=== PATIENT | male | born 1940 | race Caucasian/White ===

== ENCOUNTER → 2016-04-29 | Outpatient (CLI) | payer OTHER, MEDICARE ==
[~2016-04-29] MED LIST: APIX1TAB3 PO; DAPT500I IV; FINA5TAB PO; HYDR-4079 PO; PRLSR20 PO; RXC5 PO; SYMIN/8045 INH; TERA5CAP PO; TPRSR/25 PO; TPRSR/50 PO
[2016-04-29 08:38] LABS: BASO % 1.5 %; BASO ABS # 0.08 K/uL (0-0.2); COMPLETE YES; EOS % 11.1 %; HEMATOCRIT 39.1 % (42-52); IG% 0.2 %; LYMPH % 25.2 %; LYMPH ABS # 1.38 K/uL (1.2-3.4); MEAN CELL VOLUME 88.1 fL (80-100); MEAN CORPUSCULAR HEMOGLOBIN 28.4 pg (25-34); MEAN CORPUSCULAR HGB CONC 32.2 g/dl (32-36); MEAN PLATELET VOLUME 9.1 fL (7.4-10.4); MONO % 11.7 %; NEUT % 50.3 %; PLATELET COUNT 275 K/uL (130-400); RED BLOOD COUNT 4.44 M/uL (4.7-6.1); WHITE BLOOD COUNT 5.48 K/uL (4.8-10.8)
[2016-04-29 08:56] LABS: BLOOD UREA NITROGEN 10 mg/dl (7-18); BUN/CREATININE RATIO 10.8 (10-20); CALCIUM 8.9 mg/dl (8.5-10.1); CARBON DIOXIDE 28 mmol/L (21-32); CHLORIDE 104 mmol/L (98-107); CREATININE 0.93 mg/dl (0.60-1.40); GLUCOSE 105 mg/dl (70-99); MAGNESIUM 2.2 mg/dl (1.8-2.4); POTASSIUM 4.1 mmol/L (3.5-5.1); SODIUM 140 mmol/L (136-145)
[2016-04-29 09:01] LABS: TOTAL IRON BINDING CAPACITY 274 mcg/dl (250-450)
--- NOTE | 2016-05-03 11:24 | CODING QUERY MEDICAL NECESSITY ---
SUPPORTING DIAGNOSIS NEEDED A supporting diagnosis is required for the test/procedure performed on this patient in order for us to be reimbursed by the patient's insurance. Please provide a supporting diagnosis for the following test/procedure listed below next to the test name along with your signature. *If there is no additional diagnosis for this patient that would support the following test/procedure please document that below next to the test/procedure. Test(s)/Procedure(s) that require a supporting diagnosis: DOS 04/29 * Vitamin B12 DIAGNOSIS: * Folic Acid DIAGNOSIS: Provider Signature: Date: Thank you Loli Jean Health Information Management Once completed, please kindly fax back to [phone] For questions please call [phone]
== END | disposition home or self-care (01) ==
LOC: C.LAB 07:40
PROVIDERS: ATTEND Family Medicine
DX: E87.6 Hypokalemia (principal); D64.9 Anemia, unspecified

== ENCOUNTER → 2016-10-09 | Outpatient (CLI) | payer OTHER, MEDICARE ==
--- NOTE | 2016-10-09 12:05 | DIAGNOSTIC IMAGING REPORT ---
CT SCAN OF THE CHEST WITHOUT IV CONTRAST CLINICAL HISTORY: Pulmonary nodule follow-up. COMPARISON STUDY: Chest CT dated 03/24/2016 and 06/12/2014. TECHNIQUE: CT scan of the thorax was performed from the thoracic inlet to the upper abdomen. Images are reviewed in the axial, sagittal, and coronal planes. IV contrast was not administered for this examination as per the referring clinician. CT DOSE: 357.97 mGycm FINDINGS: Thyroid: Imaged portions of the thyroid gland are normal in size and attenuation. Thoracic aorta: There is atherosclerotic calcification of the thoracic aorta, which is normal in caliber and demonstrates standard 3-vessel arch anatomy. Heart: The heart is normal in size and without pericardial effusion. Mild pericardial thickening is noted. There are coronary artery calcifications. Lungs and pleural spaces: Moderate emphysema is observed. There is no lobar consolidation or pleural effusion. The trachea and central airways are clear. There are numerous (greater than 10) pulmonary and pleural-based nodules. These are similar in appearance and distribution to the 06/12/2014 examination. [employer] In[employer] nodules measure 6 mm in the right upper lobe as seen on image #113, 5 mm in the right lower lobe on image #191, and 7 mm in the left lower lobe on image #188. Foci of tree-in-bud nodularity at the right apex suggest a mild infectious/inflammatory pneumonitis. Subpleural scarring and calcification are again noted in the lingula. This is also unchanged from 2015. Mediastinum: There are scattered subcentimeter mediastinal lymph nodes. These are not pathologically enlarged by size criteria. Lorraine: Not well assessed without IV contrast. Axillae: There is no axillary lymphadenopathy. Upper abdomen: There is a small hiatal hernia. Partially visualized upper abdominal viscera is within normal limits. Skeletal structures: The Skeletal structures are osteopenic. No lytic or blastic bony lesions are seen. IMPRESSION: 1. Emphysema. 2. There are numerous (greater than 10) pulmonary and pleural-based nodules scattered throughout both lungs measuring up to 7 mm. These are largely unchanged in size and distribution as compared to 06/12/2014. 3. There are mild tree-in-bud airspace opacities in the right upper lobe, likely presenting a mild infectious/inflammatory pneumonitis. Clinical correlation will be required. Extensive consolidative change seen on 03/24/2016 has almost completely resolved. Electronically signed by: Vinh Vasquez M.D. 10/09/2016 12:04 PM Dictated Date/Time: 10/09/2016 11:38 AM
== END | disposition home or self-care (01) ==
LOC: C.CTS 10:26
PROVIDERS: ATTEND Physician Assistant
DX: R91.8 Other nonspecific abnormal finding of lung field (principal)

== ENCOUNTER → 2016-10-25 | Outpatient (CLI) | payer OTHER, MEDICARE | END | disposition home or self-care (01) | LOC: C.LAB 09:08 | PROVIDERS: ATTEND Urology | DX: R97.20 Elevated prostate specific antigen [PSA] (principal) ==

== ENCOUNTER → 2016-11-28 | Outpatient (CLI) | payer OTHER, MEDICARE ==
[2016-11-28 09:54] LABS: BLOOD UREA NITROGEN 14 mg/dl (7-18); BUN/CREATININE RATIO 11.7 (10-20); CALCIUM 8.7 mg/dl (8.5-10.1); CARBON DIOXIDE 25 mmol/L (21-32); CHLORIDE 110 mmol/L (98-107); CHOLESTEROL 166 mg/dl (0-200); CHOLESTEROL/HDL RATIO 3.2; GLUCOSE 109 mg/dl (70-99); HDL CHOLESTEROL 52 mg/dl; LDL CHOLESTEROL CALCULATED 94 mg/dl; POTASSIUM 4.2 mmol/L (3.5-5.1); SODIUM 142 mmol/L (136-145); TRIGLYCERIDES 100 mg/dl (0-150); VERY LOW DENSITY LIPOPROT CALC 20 mg/dl
== END | disposition home or self-care (01) ==
LOC: C.LAB 08:07
PROVIDERS: ATTEND Family Medicine
DX: E78.5 Hyperlipidemia, unspecified (principal); J44.9 Chronic obstructive pulmonary disease, unspecified; I48.91 Unspecified atrial fibrillation; I10 Essential (primary) hypertension; I42.9 Cardiomyopathy, unspecified

== ENCOUNTER → 2017-06-05 | Outpatient (CLI) | payer OTHER, MEDICARE ==
[2017-06-05 09:30] LABS: HEMATOCRIT 42.8 % (42-52); HEMOGLOBIN 14.5 g/dL (14.0-18.0); MEAN CELL VOLUME 94.9 fL (80-100); MEAN CORPUSCULAR HEMOGLOBIN 32.2 pg (25-34); MEAN CORPUSCULAR HGB CONC 33.9 g/dl (32-36); MEAN PLATELET VOLUME 9.9 fL (7.4-10.4); PLATELET COUNT 179 K/uL (130-400); RED CELL DISTRIBUTION WIDTH CV 13.3 % (11.5-14.5); RED CELL DISTRIBUTION WIDTH SD 45.9 fL (36.4-46.3); WHITE BLOOD COUNT 4.14 K/uL (4.8-10.8)
[2017-06-05 09:51] LABS: ALBUMIN 3.3 gm/dl (3.4-5.0); ALT/SGPT 29 U/L (12-78); AST/SGOT 22 U/L (15-37); BLOOD UREA NITROGEN 16 mg/dl (7-18); CALCIUM 8.3 mg/dl (8.5-10.1); CARBON DIOXIDE 22 mmol/L (21-32); CHOLESTEROL 187 mg/dl (0-200); CREATININE 1.28 mg/dl (0.60-1.40); GLUCOSE 116 mg/dl (70-99); POTASSIUM 3.9 mmol/L (3.5-5.1); SODIUM 142 mmol/L (136-145)
[2017-06-05 10:02] LABS: ALKALINE PHOSPHATASE 77 U/L (45-117); LDL CHOLESTEROL CALCULATED 73 mg/dl; TOTAL PROTEIN 6.9 gm/dl (6.4-8.2)
== END | disposition home or self-care (01) ==
LOC: C.LAB 07:35
PROVIDERS: ATTEND Family Medicine
DX: E78.5 Hyperlipidemia, unspecified (principal); J44.9 Chronic obstructive pulmonary disease, unspecified; I48.91 Unspecified atrial fibrillation; I10 Essential (primary) hypertension; R20.2 Paresthesia of skin

== ENCOUNTER → 2017-11-27 | Outpatient (CLI) | payer OTHER, MEDICARE ==
[2017-11-27 09:49] LABS: BASO % 0.9 %; BASO ABS # 0.05 K/uL (0-0.2); EOS % 6.6 %; EOS ABS # 0.37 K/uL (0-0.5); HEMATOCRIT 43.7 % (42-52); HEMOGLOBIN 14.4 g/dL (14.0-18.0); IG# 0.02 K/uL (0.00-0.02); LYMPH % 29.6 %; LYMPH ABS # 1.65 K/uL (1.2-3.4); MEAN PLATELET VOLUME 10.1 fL (7.4-10.4); MONO % 10.2 %; MONO ABS # 0.57 K/uL (0.11-0.59); NEUT % 52.3 %; NEUT ABS # 2.92 K/uL (1.4-6.5); PLATELET COUNT 211 K/uL (130-400); RED CELL DISTRIBUTION WIDTH CV 13.5 % (11.5-14.5); RED CELL DISTRIBUTION WIDTH SD 45.8 fL (36.4-46.3); WHITE BLOOD COUNT 5.58 K/uL (4.8-10.8)
[2017-11-27 10:11] LABS: ALBUMIN 3.3 gm/dl (3.4-5.0); ALKALINE PHOSPHATASE 73 U/L (45-117); ALT/SGPT 26 U/L (12-78); AST/SGOT 20 U/L (15-37); BLOOD UREA NITROGEN 13 mg/dl (7-18); CALCIUM 8.3 mg/dl (8.5-10.1); CARBON DIOXIDE 27 mmol/L (21-32); CHOLESTEROL 155 mg/dl (0-200); CREATININE 1.22 mg/dl (0.60-1.40); GLUCOSE 111 mg/dl (70-99); LDL CHOLESTEROL CALCULATED 70 mg/dl; POTASSIUM 3.5 mmol/L (3.5-5.1); SODIUM 143 mmol/L (136-145); TOTAL PROTEIN 6.6 gm/dl (6.4-8.2)
== END | disposition home or self-care (01) ==
LOC: C.LAB 06:58
PROVIDERS: ATTEND Family Medicine
DX: E78.5 Hyperlipidemia, unspecified (principal); I48.91 Unspecified atrial fibrillation; D64.9 Anemia, unspecified

== ENCOUNTER 2018-09-29 13:15 | Inpatient (IN) ==
[2018-09-29 13:55] LABS: Appearance Urine Cloudy (Clear); Bacteria Urine Automated 4+ (Negative); Bilirubin Urine Negative (Negative); Blood Urine 3+ (Negative); Color Urine Dark Yellow; Glucose Urine UA Negative (Negative); Ketones Urine Negative (Negative); Leukocyte Esterase Urine 3+ (Negative); Nitrite Urine Positive (Negative); Protein Urine 1+ (Negative); RBC Urine Automated >30 /hpf (0-4); Urobilinogen Urine Negative (Negative); WBC Urine Automated >30 /hpf (0-5)
--- NOTE | 2018-09-29 14:01 | XRay Report ---
XR chest 1V portable HISTORY: 78 years-old Male weakness acute weakness COMPARISON: Chest radiograph 08/20/2018 TECHNIQUE: Portable AP view of the chest FINDINGS: Cardiac silhouette is enlarged, unchanged. Prominent epicardial fat pad. Chronic moderate right hemid iaphragmatic elevation. Mild emphysema. No pneumothorax, large pleural effusion or overt pulmonary ed ivelisse. Subsegmental bibasilar opacities suggest probable atelectasis. Degenerative changes of the shoul ders and spine. IMPRESSION: No acute process. The above report was generated using voice recognition software. It may contain grammatical, syntax o r spelling errors. Electronically signed by: Ministerio Waters M.D. 09/29/2018 2:00 PM
[2018-09-29 14:04] LABS: Basophils # (auto) 0.03 K/uL (0-0.2); Basophils % (auto) 0.2 %; Eosinophils # (auto) 0.06 K/uL (0-0.5); Eosinophils % (auto) 0.5 %; Hematocrit (blood only) 41.4 % (42-52); Hemoglobin 13.6 g/dL (14.0-18.0); Immature Granulocytes # (auto) 0.04 K/uL (0.00-0.02); Immature Granulocytes % (auto) 0.3 %; Lymphocytes # (auto) 0.76 K/uL (1.2-3.4); Lymphocytes % (auto) 5.7 %; Mean Corpuscular Hgb Conc 32.9 g/dL (32-36); Mean Corpuscular Volume 90.6 fL (80-100); Mean Platelet Volume 9.7 fL (7.4-10.4); Monocytes # (auto) 1.45 K/uL (0.11-0.59); Monocytes % (auto) 10.9 %; Neutrophils # (auto) 10.91 K/uL (1.4-6.5); Neutrophils % (auto) 82.4 %; Platelet Count 192 K/uL (130-400); RDW Coefficient of Variation 13.5 % (11.5-14.5); RDW Standard Deviation 44.6 fL (36.4-46.3); Red Blood Count 4.57 M/uL (4.7-6.1); White Blood Count 13.25 K/uL (4.8-10.8)
[2018-09-29 14:21] LABS: Albumin Level 3.4 gm/dl (3.4-5.0); Calcium 8.5 mg/dl (8.5-10.1); Creatinine Clr Calc Pharmacy 44.6 ml/min; Est GFR (African American) 52.3; Est GFR (Non-African American) 45.2; Potassium 3.9 mmol/L (3.5-5.1)
[2018-09-29 14:32] LABS: Bilirubin,Total 1.9 mg/dl (0.2-1); Globulin 3.5 gm/dl (2.5-4.0); Total Protein 6.9 gm/dl (6.4-8.2)
[2018-09-29] MEDS: CIPROFLOXACIN 400 MG/200 ML BAG IV STA ×2 (14:52→15:02)
--- NOTE | 2018-09-29 16:01 | Emergency Department Note ---
Entered by Luly Coleman acting as a scribe for History of Present Illness General Chief complaint: Unable to Void Stated complaint: UNABLE TO VOID Time Seen by Provider: 09/29/18 17:36 Source: patient History of Present Illness Provider complaint: Unable to void Onset (ago): day(s) Location: genitals Pain Consistency: + constant Maximum Pain Intensity: 9 Quality: + constant Associated symptoms: + other (Positive: inability to urinate, dysuria, urination frequency ) The patient is an 78 year old male who presents to the ED with complaints of constant inability to urinate that started yesterday afternoon. The patient r eports he has pain when he urinates and does not void a lot when he tries to urinate. He states he has urination frequency. The patient notes he has testicular pain. 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 The patient notes he had a normal bowel movement. . Home Medications Home Medications Medication Instructions Recorded Confirmed Type apixaban [Eliquis] 5 mg PO BID 09/29/18 09/29/18 History budesonide-formoterol [Symbicort] 2 puff INHALATION BID 09/29/18 09/29/18 History ciprofloxacin HCl [Cipro] 500 mg PO BID #28 tab 09/29/18 Rx doxycycline hyclate 100 mg PO BID 09/29/18 09/29/18 History finasteride 5 mg PO QAM 09/29/18 09/29/18 History metoprolol succinate 100 mg PO QAM 09/29/18 09/29/18 History omeprazole 20 mg PO QAM 09/29/18 09/29/18 History terazosin 5 mg PO QAM 09/29/18 09/29/18 History triamcinolone acetonide 1 applic TOPICAL DAILY PRN 09/29/18 09/29/18 History umeclidinium [Incruse Ellipta] 1 inh INHALATION QAM 09/29/18 09/29/18 History Allergies Allergy/AdvReac Type Severity Reaction Status Date / Time No Known Allergies Allergy Unverified 09/29/18 14:17 Past Med/Surg History Medical History COPD (chronic obstructive pulmonary disease) (Chronic) Abscess in epidural space of lumbar spine Atrial fibrillation with RVR (Acute) Atrial flutter with rapid ventricular response (Acute) Discitis of lumbar region Inguinal hernia MRSA (methicillin resistant Staphylococcus aureus) septicemia Osteomyelitis Right leg swelling (Acute) Septic discitis of lumbosacral region BPH (benign prostatic hyperplasia) Esophageal dilatation HLD (hyperlipidemia) HTN (hypertension) Surgical History H/O inguinal hernia repair History of lumbar laminectomy History of tonsillectomy Family History Father Bowel perforation Mother Parkinson disease Other No known health problems Social History Preferred Language: Wolof Communication Ability: Effective Consumer Relations Complaint Clerk Required: No Beliefs That Will Affect Care: None marital status: Current Living Situation: Spouse current occupational status: retired Other Information That Helps Us Care for You: No Feels Safe at Home: Yes Safety Concerns: Feels Safe At This Time Smoking Status: Former smoker Tobacco Type: cigarettes packs per day: 1 Years Smoked: 30 Cigarettes Per Day: 20 Tobacco Cessation Education Requested by Patient: No Hx Alcohol Use: Yes Alcohol type: beer and hard liquor Hx Substance Use: No Review of Systems See HPI for pertinent positives & negatives. and A total of 10 systems reviewed and were otherwise negative Physical Exam Vital Signs Vital Signs - 24 hr 09/29/18 13:17 09/29/18 15:03 Temperature 36.9 C Temperature Source Oral Sepsis Recent Fever Within 48 Hours No Sepsis New/Unexplained Change in Mental Status No Sepsis Action Taken by Nursing No Action Required Pulse Rate 102 H Pulse Rate [Left] 79 Pulse Rhythm [Left] Regular Pulse Strength [Left] Normal Respiratory Rate 18 18 Respiratory Effort / Characteristics Non-Labored Spontaneous Non-Labored Spontaneous Respiratory Depth Normal Normal Respiratory Pattern Regular Blood Pressure 161/68 H Blood Pressure [Left Arm] 133/88 Blood Pressure Mean 99 Blood Pressure Mean [Left Arm] 103 Blood Pressure Position Sitting Blood Pressure Position [Left Arm] Lying Pulse Oximetry 96 98 Oxygen Delivery Method Room Air Room Air Vital signs reviewed. General: Well-appearing, elderly, in no significant distress. HEENT: No scleral icterus, PERRLA, neck supple. Atraumatic. Cardiovascular: Regular rate and rhythm, no extra sounds. Pulmonary: Clear to auscultation bilaterally, normal work of breathing. Abdomen: Soft, nontender, nondistended, positive bowel sounds. Musculoskeletal: Atraumatic, no peripheral edema. Neurologic: Patient awake alert and oriented x 3, full strength in all 4 extremities. Cranial nerves 2 through 12 grossly intact. Skin: Warm, dry, no rash Course 1332:The patient was evaluated in room B12B. A complete history and physical examination was performed. 1535: Upon reevaluation, the patient appeared to have improvement of his symptoms. I discussed findings with the patient. The patient verbalized agreement of the treatment plan. The patient was discharged home. Administered Medications Apixaban (Eliquis) 5 mg PO BID [facility] Stop: 10/29/18 20:59 Last Admin: 09/30/18 21:16 Dose: 5 mg Documented by: [id number] Admin: 09/30/18 08:12 Dose: 5 mg Documented by: [id number] Admin: 09/29/18 20:23 Dose: 5 mg Documented by: [id number] Budesonide/Formoterol Fumarate (Symbicort 80mcg/4.5mcg) 2 puffs INH BID [facility] Stop: 10/29/18 20:59 Last Admin: 09/30/18 21:17 Dose: 2 puffs Documented by: [id number] Admin: 09/30/18 08:12 Dose: 2 puffs Documented by: [id number] Admin: 09/29/18 20:23 Dose: 2 puffs Documented by: [id number] Doxycycline Hyclate (Vibramycin) 100 mg PO BID [facility]; Protocol Stop: 10/30/18 10:59 Last Admin: 09/30/18 21:16 Dose: 100 mg Documented by: [id number] Admin: 09/30/18 14:38 Dose: 100 mg Documented by: [id number] Finasteride (Proscar) 5 mg PO QAM [facility] Stop: 10/30/18 08:59 Last Admin: 09/30/18 08:12 Dose: 5 mg Documented by: [id number] Sodium Chloride (Nss 1000ml) 1,000 mls @ 125 mls/hr IV .Q8H VIANEY Stop: 10/29/18 18:59 Last Infusion: 09/30/18 03:24 Dose: 0 mls/hr Documented by: [id number] Admin: 09/30/18 03:21 Dose: Not Given Documented by: [id number] Infusion: 09/30/18 03:20 Dose: 0 mls/hr Documented by: [id number] Admin: 09/29/18 20:22 Dose: 125 mls/hr Documented by: [id number] Levofloxacin/Dextrose (Levaquin/D5w) 500 mg in 100 mls @ 100 mls/hr IV Q24H [facility] Stop: 10/05/18 19:59 Last Infusion: 09/30/18 22:25 Dose: 0 mls/hr Documented by: [id number] Admin: 09/30/18 21:16 Dose: 100 mls/hr Documented by: [id number] [facility] Su[facility] ([facility] Xl) [facility] Stop: 10/30/18 08:59 Last Admin: 09/30/18 08:13 Dose: 100 mg Documented by: [id number] Pantoprazole Sodium (Protonix) [facility] Stop: 10/30/18 08:59 Last Admin: 09/30/18 08:12 Dose: 40 mg Documented by: [id number] Phenazopyridine HCl (Pyridium) 200 mg PO TID PRN PRN Reason: Dysuria Stop: 10/29/18 20:02 Last Admin: 09/30/18 17:16 Dose: 200 mg Documented by: [id number] Admin: 09/29/18 20:25 Dose: 200 mg Documented by: [id number] Terazosin HCl (Hytrin) 5 mg PO QPM [facility] Stop: 10/29/18 20:59 Last Admin: 09/30/18 21:17 Dose: 5 mg Documented by: [id number] Admin: 09/29/18 20:57 Dose: Not Given Documented by: [id number] Discontinued Medications Acetaminophen (Tylenol) 1,000 mg PO NOW STA Stop: 09/29/18 17:13 Last Admin: 09/29/18 18:11 Dose: 1,000 mg Documented by: [id number] Amiodarone HCl/Dextrose (Nexterone / D5w) Confirm Administered Dose 360 mg IV .STK-MED ONE Stop: 09/29/18 20:48 Last Admin: 09/29/18 20:57 Dose: Not Given Documented by: [id number] Amiodarone HCl (Cordarone Iv Bolus / Drip) 1 ea IV NOW STA; Protocol Stop: 09/29/18 20:38 Last Admin: 09/29/18 22:09 Dose: Not Given Documented by: [id number] Ciprofloxacin (Cipro) 400 mg in 200 mls @ 200 mls/hr IV NOW STA Stop: 09/29/18 15:35 Last Infusion: 09/29/18 17:28 Dose: 0 mls/hr Documented by: [id number] Admin: 09/29/18 15:02 Dose: 200 mls/hr Documented by: [id number] Infusion: 09/29/18 15:02 Dose: 200 mls/hr Documented by: [id number] Admin: 09/29/18 14:52 Dose: 200 mls/hr Documented by: [id number] Sodium Chloride (Nss 1000ml) 1,000 mls @ 125 mls/hr IV .Q8H STA Stop: 09/30/18 01:05 Last Infusion: 09/29/18 19:00 Dose: 0 mls/hr Documented by: [id number] Admin: 09/29/18 17:52 Dose: 125 mls/hr Documented by: [id number] Sodium Chloride (Nss) 500 mls @ 999 mls/hr IV .Q31M VIANEY Stop: 09/29/18 17:45 Last Infusion: 09/29/18 17:52 Dose: 0 mls/hr Documented by: [id number] Admin: 09/29/18 17:30 Dose: 999 mls/hr Documented by: [id number] Vancomycin HCl 1,750 mg/ (Sodium Chloride) 535 mls @ 200 mls/hr IV NOW ONE; Protocol Stop: 09/29/18 19:46 Last Infusion: 09/29/18 21:05 Dose: 0 mls/hr Documented by: [id number] Admin: 09/29/18 18:12 Dose: 200 mls/hr Documented by: [id number] Cefepime HCl 2,000 mg/ Syringe 20 mls @ 5.5 mls/min IV NOW STA Stop: 09/29/18 17:23 Last Admin: 09/29/18 18:12 Dose: 5.5 mls/min Documented by: [id number] Cefepime HCl 2,000 mg/ Syringe 20 mls @ 5 mls/min IV Q12H VIANEY; Protocol Stop: 10/10/18 05:59 Last Admin: 09/30/18 05:27 Dose: 5 mls/min Documented by: [id number] Sodium Chloride (Nss 1000ml) 1,000 mls @ 999 mls/hr IV .Q1H1M ONE Stop: 09/29/18 20:16 Last Infusion: 09/29/18 20:01 Dose: 0 mls/hr Documented by: [id number] Admin: 09/29/18 19:00 Dose: 999 mls/hr Documented by: [id number] Amiodarone HCl/Dextrose (Nexterone / D5w) 150 mg in 100 mls @ 600 mls/hr IV ONE STA Stop: 09/29/18 20:46 Last Infusion: 09/29/18 21:22 Dose: 0 mls/hr Documented by: [id number] Cosigned by: [id number] Admin: 09/29/18 20:55 Dose: 600 mls/hr Documented by: [id number] Cosigned by: [id number] Amiodarone HCl/Dextrose (Nexterone / D5w) 360 mg in 200 mls @ 16.667 mls/hr IV .Q12H VIANEY Stop: 10/30/18 02:59 Last Infusion: 09/30/18 12:01 Dose: 0 mg/min, 0 mls/hr Documented by: [id number] Cosigned by: [id number] Admin: 09/30/18 03:05 Dose: 0.5 mg/min, 16.7 mls/hr Documented by: [id number] Cosigned by: [id number] Amiodarone HCl/Dextrose (Nexterone / D5w) 360 mg in 200 mls @ 33.333 mls/hr IV .Q6H VIANEY Stop: 09/30/18 02:59 Last Infusion: 09/30/18 03:05 Dose: 0 mg/min, 0 mls/hr Documented by: [id number] Cosigned by: [id number] Admin: 09/29/18 21:10 Dose: 1 mg/min, 33.3 mls/hr Documented by: [id number] Cosigned by: [id number] Magnesium Sulfate/Dextrose (Magnesium Sulfate / D5w) 1 gm in 100 mls @ 100 mls/hr IV Q1H VIANEY Stop: 09/30/18 05:44 Last Infusion: 09/30/18 05:28 Dose: 0 mls/hr Documented by: [id number] Admin: 09/30/18 04:35 Dose: 100 mls/hr Documented by: [id number] Infusion: 09/30/18 04:35 Dose: 100 mls/hr Documented by: [id number] Admin: 09/30/18 03:38 Dose: 100 mls/hr Documented by: [id number] Vancomycin HCl 1,250 mg/ (Sodium Chloride) 275 mls @ 125 mls/hr IV Q16H [facility]; Protocol Stop: 10/09/18 17:59 Last Infusion: 09/30/18 09:42 Dose: 0 mls/hr Documented by: [id number] Admin: 09/30/18 08:33 Dose: 125 mls/hr Documented by: [id number] Metoprolol Tartrate (Lopressor) 5 mg IV, NOW STA Stop: 09/29/18 17:07 Last Admin: 09/29/18 20:31 Dose: Not Given Documented by: [id number] Medical Decision Making Differential Diagnosis Differential Diagnosis: Prostatitis , urinary retention, UTI, medication affect, sepsis, diverticulitis, kidney stone Medical Records Attestation: I reviewed the patient's medical records. Home Medications Current Medication List: was personally reviewed by me Laboratory Data Attestation: I reviewed the patient's lab results. Result diagrams: 09/30/18 02:23 10/01/18 05:21 Lab Results 09/29/18 09/29/18 09/29/18 Range/Units 13:40 13:47 13:47 WBC 13.25 H (4.8-10.8) K/uL RBC 4.57 L (4.7-6.1) M/uL Hgb 13.6 L (14.0-18.0) g/dL Hct 41.4 L (42-52) % MCV 90.6 (80-100) fL MCH 29.8 (25-34) pg MCHC 32.9 (32-36) g/dL RDW Std Deviation 44.6 (36.4-46.3) fL RDW Coeff of Anup 13.5 (11.5-14.5) % Plt Count 192 (130-400) K/uL MPV 9.7 (7.4-10.4) fL Immature Gran % (Auto) 0.3 % Neut % (Auto) 82.4 % Lymph % (Auto) 5.7 % [place] % (Auto) 10.9 % Eos % (Auto) 0.5 % Baso % (Auto) 0.2 % Immature Gran # (Auto) 0.04 H (0.00-0.02) K/uL Neut # (Auto) 10.91 H (1.4-6.5) K/uL Lymph # (Auto) 0.76 L (1.2-3.4) K/uL [place] # (Auto) 1.45 H (0.11-0.59) K/uL Eos # (Auto) 0.06 (0-0.5) K/uL Baso # (Auto) 0.03 (0-0.2) K/uL Sodium 142 (136-145) mmol/L Potassium 3.9 (3.5-5.1) mmol/L Chloride 107 (98-107) mmol/L Carbon Dioxide 27 (21-32) mmol/L Anion Gap 8.0 (3-11) BUN 16 (7-18) mg/dl Creatinine 1.45 H (0.6-1.4) mg/dl Est Cr Clr Drug Dosing 44.6 ml/min Est GFR ( Amer) 52.3 Est GFR (Non-Af Amer) 45.2 BUN/Creatinine Ratio 11.0 (10-20) Glucose 126 H (70-99) mg/dl POC Lactic Acid Leandro (0.90-1.70) mmol/L Calcium 8.5 (8.5-10.1) mg/dl Magnesium (1.8-2.4) mg/dl Total Bilirubin 1.9 H (0.2-1) mg/dl AST 21 (15-37) U/L ALT 29 (12-78) U/L Alkaline Phosphatase 77 (45-117) U/L Troponin I (0-0.045) ng/ml Total Protein 6.9 (6.4-8.2) gm/dl Albumin 3.4 (3.4-5.0) gm/dl Globulin 3.5 (2.5-4.0) gm/dl Albumin/Globulin Ratio 1.0 (0.9-2) TSH 0.914 (0.300-4.500) uIu/ml Urine Color Dark Yellow Urine Appearance Cloudy A (Clear) Urine pH 6.0 (4.5-7.5) Ur Specific [place] 1.020 (1.000-1.030) Urine Protein 1+ H (Negative) Urine Glucose (UA) Negative (Negative) Urine Ketones Negative (Negative) Urine Blood 3+ H (Negative) Urine Nitrite Positive A (Negative) Urine Bilirubin Negative (Negative) Urine Urobilinogen Negative (Negative) Ur Leukocyte Esterase 3+ H (Negative) Urine WBC (Auto) >30 H (0-5) /hpf Urine RBC (Auto) >30 H (0-4) /hpf U Hyaline Cast (Auto) 1-5 (0-5) /lpf U Epithel Cells (Auto) 10-20 H (0-5) /lpf Urine Bacteria (Auto) 4+ H (Negative) 09/29/18 09/29/18 Range/Units 13:47 17:34 WBC (4.8-10.8) K/uL RBC (4.7-6.1) M/uL Hgb (14.0-18.0) g/dL Hct (42-52) % MCV (80-100) fL MCH (25-34) pg MCHC (32-36) g/dL RDW Std Deviation (36.4-46.3) fL RDW Coeff of Anup (11.5-14.5) % Plt Count (130-400) K/uL MPV (7.4-10.4) fL Immature Gran % (Auto) % Neut % (Auto) % Lymph % (Auto) % [place] % (Auto) % Eos % (Auto) % Baso % (Auto) % Immature Gran # (Auto) (0.00-0.02) K/uL Neut # (Auto) (1.4-6.5) K/uL Lymph # (Auto) (1.2-3.4) K/uL [place] # (Auto) (0.11-0.59) K/uL Eos # (Auto) (0-0.5) K/uL Baso # (Auto) (0-0.2) K/uL Sodium (136-145) mmol/L Potassium (3.5-5.1) mmol/L Chloride (98-107) mmol/L Carbon Dioxide (21-32) mmol/L Anion Gap (3-11) BUN (7-18) mg/dl Creatinine (0.6-1.4) mg/dl Est Cr Clr Drug Dosing ml/min Est GFR ( Amer) Est GFR (Non-Af Amer) BUN/Creatinine Ratio (10-20) Glucose (70-99) mg/dl POC Lactic Acid Leandro 2.78 H (0.90-1.70) mmol/L Calcium (8.5-10.1) mg/dl Magnesium 2.1 (1.8-2.4) mg/dl Total Bilirubin (0.2-1) mg/dl AST (15-37) U/L ALT (12-78) U/L Alkaline Phosphatase (45-117) U/L Troponin I < 0.015 (0-0.045) ng/ml Total Protein (6.4-8.2) gm/dl Albumin (3.4-5.0) gm/dl Globulin (2.5-4.0) gm/dl Albumin/Globulin Ratio (0.9-2) TSH (0.300-4.500) uIu/ml Urine Color Urine Appearance (Clear) Urine pH (4.5-7.5) Ur Specific [place] (1.000-1.030) Urine Protein (Negative) Urine Glucose (UA) (Negative) Urine Ketones (Negative) Urine Blood (Negative) Urine Nitrite (Negative) Urine Bilirubin (Negative) Urine Urobilinogen (Negative) Ur Leukocyte Esterase (Negative) Urine WBC (Auto) (0-5) /hpf Urine RBC (Auto) (0-4) /hpf U Hyaline Cast (Auto) (0-5) /lpf U Epithel Cells (Auto) (0-5) /lpf Urine Bacteria (Auto) (Negative) Imaging Data Radiologist's Impression: Radiology results as stated below per my review and the radiologist's interpretation: XR chest 1V portable HISTORY: 78 years-old Male weakness acute weakness COMPARISON: Chest radiograph 08/20/2018 TECHNIQUE: Portable AP view of the chest FINDINGS: Cardiac silhouette is enlarged, unchanged. Prominent epicardial fat pad. Chronic moderate right hemidiaphragmatic elevation. Mild emphysema. No pneumothorax, large pleural effusion or overt pulmonary edema. Subsegmental bibasilar opacities suggest probable atelectasis. Degenerative changes of the shoulders and spine. IMPRESSION: No acute process. The above report was generated using voice recognition software. It may contain grammatical, syntax or spelling errors. Electronically signed by: Ministerio Waters M.D. 09/29/2018 2:00 PM Blood Pressure Blood Pressure Findings: Normal blood pressure Blood Pressure Disposition: did not require urgent referral MDM Narrative This pt was evaluated and appeared to be in no distress. IV access was obtained and lab work was drawn. Pt was placed on the registered nurse cardiac. Pt noted to have stable VS and is afebrile. IVF were initiated. UA is indicative of infection, but no cx were seen in EMR after several searches. Pt states he had MRSA of spine and is on doxycycline. WBC is just over 13. Pt was loaded with IV cipro 400 mg. He was reevaluated and was growing anxious for d/c. He was reassured at the bedside. Plan for close f.u with PCP and urology in 2-3 days. He will continue po cipro until cx are available. He will RTED for worsening of symptoms or any medical concerns. Impression & Plan UTI (urinary tract infection), Dysuria Discharge Plan Visit Data *Final* Discharge Date/Time: 09/29/18 18:11 Chief Complaint: Unable to Void Stated Complaint: UNABLE TO VOID ED Provider: Leandro Mcfarlane Discharge Problem: UTI (urinary tract infection), Dysuria Patient Disposition: Home - Self-Care Condition: Good Discharge Instructions Interventions: ED Discharge Assessment Last Done: 09/29/18 18:11 Discharge Problem: UTI (urinary tract infection) Qualifiers: Urinary tract infection type: acute cystitis Hematuria presence: without hem aturia Qualified Code(s): N30.00 - Acute cystitis without hematuria The scribe's documentation has been prepared under my direction and personally reviewed by me in its entirety. I confirm that the note above accurately reflects all work, treatment, procedures, and medical decision making performed by me.
[2018-09-29] MEDS ORDERED: VANCOMYCIN HCL 1,750 MG in SODIUM CHLORIDE 0.9% 500 ML IV ONE (17:06)
[2018-09-29] MEDS ORDERED: METOPROLOL TARTRATE 1 MG/ML VIAL IV, STA (17:06)
[2018-09-29] MEDS ORDERED: VANCOMYCIN CONSULT ACTIVE PRN (17:06)
[2018-09-29] MEDS ORDERED: SODIUM CHLORIDE 0.9% 1000ML 1,000 ML IV STA (17:06)
[2018-09-29] MEDS ORDERED: ACETAMINOPHEN 500 MG TAB PO STA (17:12)
[2018-09-29] MEDS ORDERED: SODIUM CHLORIDE 0.9% 500 ML IV SCH (17:15)
[2018-09-29] MEDS ORDERED: CEFEPIME 2,000 MG in SYRINGE 7.5 ML IV STA (17:20)
--- NOTE | 2018-09-29 17:36 | Emergency Department Note ---
ED Visit Note The patient was seen initially by Dr. Vickers. Please see her note. Patient presented because of urinary symptoms. He has a history of frequent UTIs. The patient's urinalysis did show signs concerning for a urinary tract infection. He also had a leukocytosis. He received IV Cipro and was being discharged by his nurse when she noticed his heart rate was very high. She found a heart rate between 130 and 150 bpm. The patient did have a history of A. fib as well. He also has a history of MRSA osteomyelitis and discitis. The patient denies any back pain. I evaluated the patient. I found him to be tachycardic. He was resting comfortably and noted chills. He was still having frequent urinary infections. There did not appear to be any issues with the IV infusion site. His cardiac exam revealed tachycardia. An ECG was performed and showed a poor baseline due to his chills and shaking however it appeared that he had a sinus t achycardia with frequent PVCs when compared to his prior ECG. It appeared to have 2 PVCs after every sinus beat. The patient was ordered IV Lopressor however this was held. I did have the nurse perform orthostatic blood pressure testing and he went from 145 systolic sitting to 99 systolic standing. He was still very tachycardic. At that point in time patient agreed to have an IV established. I do not examined the patient and he felt warm to the touch. I performed a temperature orally and this was 102.3. My concern is that he is showing signs of sepsis. Blood cultures and a point of care lactate were ordered. Vancomycin and cefepime were ordered based upon his medical history. I did discuss the case with the ED pharmacist. The patient was agreeable to the plan. I did recommend admission to the hospital. I consulted with the [facility] hospitalist service and discussed the case with Kelly with the service. The patient will be admitted under Dr. Gardner. GENERAL: Awake, alert, uncomfortable-appearing, shaky but in no distress HENT: Normocephalic, atraumatic. Oropharynx unremarkable. EYES: Normal conjunctiva. Sclera non-icteric. NECK: Inspection normal. Non-tender. Supple. No nuchal rigidity. FROM. No masses. RESPIRATORY: Clear to auscultation. No wheezes. No rales. Normal respiratory effort. CARDIAC: Tachycardic rate. Irregular rhythm. No murmurs. No rubs. Extremities warm and well perfused. Pulses equal. No JVD. GI: Soft, non-distended. No tenderness to palpation. No rebound or guarding. No masses. RECTAL: Deferred. MUSCULOSKELETAL: Atraumatic. Chest examination reveals no tenderness. The back is symmetrical on inspection without obvious abnormality. There is no CVA tenderness to palpation. No joint edema. LOWER EXTREMITIES: Calves are equal size bilaterally and non-tender. Trace pedal edema. Mild chronic venous discoloration. NEURO: Normal sensorium. No sensory or motor deficits noted although mildly unsteady gait. SKIN: No rash or jaundice noted. Blood cultures were obtained. The patient had a lactate performed and it was elevated at 2.7. Impression: Sepsis from urinary source Disposition: Admitted . : UTI (urinary tract infection) Qualifiers: Urinary tract infection type: acute cystitis Hematuria presence: without hematuria Qualified Code(s): N30.00 - Acute cystitis without hematuria
[2018-09-29 18:28] LABS: Magnesium 2.1 mg/dl (1.8-2.4); Troponin I < 0.015 ng/ml (0-0.045)
[2018-09-29] MEDS ORDERED: POLYETHYLENE (MIRALAX) 17 GM PACK PO PRN (18:38)
[2018-09-29] MEDS ORDERED: ONDANSETRON INJ 2 MG/ML 2 ML VIAL IV PRN (18:38)
[2018-09-29] MEDS ORDERED: MAGNESIUM HYDROXIDE SUSP 30 ML UDC PO PRN (18:38)
[2018-09-29] MEDS ORDERED: ACETAMINOPHEN 325 MG TAB PO PRN (18:38)
[2018-09-29] MEDS ORDERED: CEFEPIME CONSULT ACTIVE PRN (18:55)
--- NOTE | 2018-09-29 18:55 | History & Physical Report ---
Date of Service September 29, 2018 Assessment & Plan (1) Sepsis: - Fevers, tachycardia, leukocytosis with elevated lactic acid level in the ER -- likely related to urinary tract infection. - PCU/telemetry for cardiac monitoring. - Received 500 cc bolus; continue NS at 125 cc/hr. - U/a positive, UC and BC are pending. - CXR negative for acute process. - Lactic acid level was 2.78 -- will trend in 6 hours. 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 (2) Urinary tract infection: - U/a positive, UC pending as noted above. - Continue Cefepime/Vancomycin IV. - On Doxycyline for suppressive therapy, follows with ID -- has not had a UTI in >3 years. Holding Doxycycline as inpatient. (3) Elevated lactic acid level: - Lactic acid level was 2.7; will repeat level in 6 hours. (4) Tachycardia: - May be reactive to febrile state vs. related to A. fib with RVR. - EKG showed sinus tachycardia with PACs; monitor with sinus tachycardia, HR 130-140's. - Trop was negative; will trend q6hr x2. - Continue home Metoprolol 100 mg qhs; consider additional doses of Lopressor IV if necessary. - Tylenol prn fevers -- may help to improve tachycardia. - IV fluids at 125 cc/hr. (5) Atrial fibrillation with RVR: - Currently with sinus tachycardia on monitor as noted above. - Continue Eliquis 5 mg BID and Metoprolol 100 mg daily - Monitor and replace electrolytes prn. (6) Stage III chronic kidney disease: - Renally dose all meds; baseline creatinine ~1.2-1.3. - Creatinine is above baseline - on IV fluids. - Trend renal function qAM. 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 Hobbs. - On Doxycycline suppressive therapy -- will hold in setting of IV abx. (8) COPD (chronic obstructive pulmonary disease): - Continue Symbicort and Incruse as prescribed. - No evidence of acute exacerbation; does have chronic SOB with exertion, stable on room air. (9) HTN (hypertension): - Continue Metoprolol 100 mg daily as prescribed. - BP is stable. (10) BPH (benign prostatic hyperplasia): - Continue Finasteride and Terazosin as prescribed. - Does have urinary retention -- consider jaramillo placement if pt. is retaining per bladder scan. (11) DVT prophylaxis: - SCDs; Eliquis BID. Dispo: PCU/tele for treatment of urosepsis. History of Present Illness Chief Complaint: Unable to void Primary Care Provider: Gricelda De La Rosa DO Mr. Thapa is an 78 year old male with past medical history of epidural abscess/osteomyelitis in 2016, recurrent UTIs, HTN, HLD, A. Flutter/fib on Eliquis, BPH, COPD who presented to the ER with urinary retention. Patient states he was unable to void large amounts of urine starting yesterday afternoon. He also developed dysuria, describing pain as "stinging". Urine was clear, did not have a foul odor. Has mild suprapubic pain. Denies nausea/vomiting, flank pain. Has chronic SOB in setting of COPD; SOB is not increased above baseline, stable on room air. Denies chest pain, palpitations, upper abd pain, constipation or diarrhea. ER course: Pt. received Ciprofloxacin IV; he was initially scheduled to be discharged from the ER. He developed fevers with suspected sinus tachycardia on soil chemist. Lactate level was 2.78. Cefepime/Vancomycin administered in the ED along with 500 cc bolus followed by IV fluids at 125 cc/hr. He did not receive Metoprolol IV as tachycardia was likely reactive to febrile state. U/a was positive; UC and BC are pending. Will be admitted for evaluation and treatment of sepsis likely related to urinary tract infection. Allergies Allergy/AdvReac Type Severity Reaction Status Date / Time No Known Allergies Allergy Unverified 09/29/18 14:17 Home Medications Home Medications Medication Instructions Recorded Confirmed Type apixaban [Eliquis] 5 mg PO BID 09/29/18 09/29/18 History budesonide-formoterol [Symbicort] 2 puff INHALATION BID 09/29/18 09/29/18 History ciprofloxacin HCl [Cipro] 500 mg PO BID #28 tab 09/29/18 Rx doxycycline hyclate 100 mg PO BID 09/29/18 09/29/18 History finasteride 5 mg PO QAM 09/29/18 09/29/18 History metoprolol succinate 100 mg PO QAM 09/29/18 09/29/18 History omeprazole 20 mg PO QAM 09/29/18 09/29/18 History terazosin 5 mg PO QAM 09/29/18 09/29/18 History triamcinolone acetonide 1 applic TOPICAL DAILY PRN 09/29/18 09/29/18 History umeclidinium [Incruse Ellipta] 1 inh INHALATION QAM 09/29/18 09/29/18 History Past Med/Surg History Medical History COPD (chronic obstructive pulmonary disease) (Chronic) Abscess in epidural space of lumbar spine Atrial fibrillation with RVR (Acute) Atrial flutter with rapid ventricular response (Acute) Discitis of lumbar region Inguinal hernia MRSA (methicillin resistant Staphylococcus aureus) septicemia Osteomyelitis Right leg swelling (Acute) Septic discitis of lumbosacral region BPH (benign prostatic hyperplasia) Esophageal dilatation HLD (hyperlipidemia) HTN (hypertension) Surgical History H/O inguinal hernia repair History of lumbar laminectomy History of tonsillectomy Family History Father Bowel perforation Mother Parkinson disease Other No known health problems Social History Preferred Language: Croatian Communication Ability: Effective Want Ad Supervisor Required: No Beliefs That Will Affect Care: None marital status: Current Living Situation: Spouse current occupational status: retired Other Information That Helps Us Care for You: No Feels Safe at Home: Yes Safety Concerns: Feels Safe At This Time Smoking Status: Former smoker Tobacco Type: cigarettes packs per day: 1 Years Smoked: 30 Cigarettes Per Day: 20 Tobacco Cessation Education Requested by Patient: No Hx Alcohol Use: Yes Alcohol type: beer and hard liquor Hx Substance Use: No Review of Systems Review of Systems: All systems reviewed & are unremarkable except as noted in HPI & below Constitutional: + fever and + chills; no fatigue, no weakness and no anorexia Ear, Nose, Mouth, Throat: no nasal congestion, no nasal discharge and no sore throat Respiratory: + dyspnea on exertion (chronic ); no cough, no dyspnea and no wheezing Cardiovascular: no chest pain, no chest pain at rest, no chest pain with activity, no radiating jaw, neck or arm pain, no orthopnea, no palpitations, no lightheadedness, no syncope and no edema Gastrointestinal: + abdominal pain (suprapubic ); no nausea, no vomiting, no constipation and no diarrhea/loose stools Genitourinary: + dysuria, + difficulty urinating, + urinary frequency, + urinary hesitancy and + decreased urination; no urinary incontinence, no hematuria and no flank pain Musculoskeletal: no back pain, no joint pain and no body aches Integumentary: no non-healing lesions Neurologic: no dizziness and no headache(s) Allergy / Immunological: no rash Physical Exam Physical Exam: General: Resting comfortably in no apparent distress HEENT: NC/AT; PERRLA with EOMI; [place] conjunctiva, MMM. No erythema of posterior pharynx Neck: Supple and nontender Cardiac: Tachycardia, regular rhythm. Lungs: CTA bilaterally; No rhonchi, wheezing, or rales Abdomen: Bowel normoactive X 4; Nontender to palpation Rectal: Deferred : Deferred Back: NO spinous tenderness Extremities: Warm. No edema present Neuro: No focal weakness Skin: No rash Results & Data Vital Signs (Past 12 Hours) Vital Signs Temp Pulse Pulse Resp BP BP Pulse Ox 09/29/18 18:11 136 H 20 137/83 97 09/29/18 17:30 39.0 C H 133 H 22 147/96 H 95 09/29/18 15:03 79 18 133/88 98 09/29/18 13:17 36.9 C 102 H 18 161/68 H 96 Laboratory Results 09/29/18 09/29/18 09/29/18 Range/Units 17:34 13:47 13:47 WBC (4.8-10.8) K/uL RBC (4.7-6.1) M/uL Hgb (14.0-18.0) g/dL Hct (42-52) % MCV (80-100) fL MCH (25-34) pg MCHC (32-36) g/dL RDW Std Deviation (36.4-46.3) fL RDW Coeff of Anup (11.5-14.5) % Plt Count (130-400) K/uL MPV (7.4-10.4) fL Immature Gran % (Auto) % Neut % (Auto) % Lymph % (Auto) % Sunflower % (Auto) % Eos % (Auto) % Baso % (Auto) % Immature Gran # (Auto) (0.00-0.02) K/uL Neut # (Auto) (1.4-6.5) K/uL Lymph # (Auto) (1.2-3.4) K/uL Sunflower # (Auto) (0.11-0.59) K/uL Eos # (Auto) (0-0.5) K/uL Baso # (Auto) (0-0.2) K/uL Sodium 142 (136-145) mmol/L Potassium 3.9 (3.5-5.1) mmol/L Chloride 107 (98-107) mmol/L Carbon Dioxide 27 (21-32) mmol/L Anion Gap 8.0 (3-11) BUN 16 (7-18) mg/dl Creatinine 1.45 H (0.6-1.4) mg/dl Est Cr Clr Drug Dosing 44.6 ml/min Est GFR ( Amer) 52.3 Est GFR (Non-Af Amer) 45.2 BUN/Creatinine Ratio 11.0 (10-20) Glucose 126 H (70-99) mg/dl POC Lactic Acid Leandro 2.78 H (0.90-1.70) mmol/L Calcium 8.5 (8.5-10.1) mg/dl Magnesium 2.1 (1.8-2.4) mg/dl Total Bilirubin 1.9 H (0.2-1) mg/dl AST 21 (15-37) U/L ALT 29 (12-78) U/L Alkaline Phosphatase 77 (45-117) U/L Troponin I < 0.015 (0-0.045) ng/ml Total Protein 6.9 (6.4-8.2) gm/dl Albumin 3.4 (3.4-5.0) gm/dl Globulin 3.5 (2.5-4.0) gm/dl Albumin/Globulin Ratio 1.0 (0.9-2) TSH 0.914 (0.300-4.500) uIu/ml Urine Color Urine Appearance (Clear) Urine pH (4.5-7.5) Ur Specific [place] (1.000-1.030) Urine Protein (Negative) Urine Glucose (UA) (Negative) Urine Ketones (Negative) Urine Blood (Negative) Urine Nitrite (Negative) Urine Bilirubin (Negative) Urine Urobilinogen (Negative) Ur Leukocyte Esterase (Negative) Urine WBC (Auto) (0-5) /hpf Urine RBC (Auto) (0-4) /hpf U Hyaline Cast (Auto) (0-5) /lpf U Epithel Cells (Auto) (0-5) /lpf Urine Bacteria (Auto) (Negative) 09/29/18 09/29/18 Range/Units 13:47 13:40 WBC 13.25 H (4.8-10.8) K/uL RBC 4.57 L (4.7-6.1) M/uL Hgb 13.6 L (14.0-18.0) g/dL Hct 41.4 L (42-52) % MCV 90.6 (80-100) fL MCH 29.8 (25-34) pg MCHC 32.9 (32-36) g/dL RDW Std Deviation 44.6 (36.4-46.3) fL RDW Coeff of Anup 13.5 (11.5-14.5) % Plt Count 192 (130-400) K/uL MPV 9.7 (7.4-10.4) fL Immature Gran % (Auto) 0.3 % Neut % (Auto) 82.4 % Lymph % (Auto) 5.7 % Sunflower % (Auto) 10.9 % Eos % (Auto) 0.5 % Baso % (Auto) 0.2 % Immature Gran # (Auto) 0.04 H (0.00-0.02) K/uL Neut # (Auto) 10.91 H (1.4-6.5) K/uL Lymph # (Auto) 0.76 L (1.2-3.4) K/uL Sunflower # (Auto) 1.45 H (0.11-0.59) K/uL Eos # (Auto) 0.06 (0-0.5) K/uL Baso # (Auto) 0.03 (0-0.2) K/uL Sodium (136-145) mmol/L Potassium (3.5-5.1) mmol/L Chloride (98-107) mmol/L Carbon Dioxide (21-32) mmol/L Anion Gap (3-11) BUN (7-18) mg/dl Creatinine (0.6-1.4) mg/dl Est Cr Clr Drug Dosing ml/min Est GFR ( Amer) Est GFR (Non-Af Amer) BUN/Creatinine Ratio (10-20) Glucose (70-99) mg/dl POC Lactic Acid Leandro (0.90-1.70) mmol/L Calcium (8.5-10.1) mg/dl Magnesium (1.8-2.4) mg/dl Total Bilirubin (0.2-1) mg/dl AST (15-37) U/L ALT (12-78) U/L Alkaline Phosphatase (45-117) U/L Troponin I (0-0.045) ng/ml Total Protein (6.4-8.2) gm/dl Albumin (3.4-5.0) gm/dl Globulin (2.5-4.0) gm/dl Albumin/Globulin Ratio (0.9-2) TSH (0.300-4.500) uIu/ml Urine Color Dark Yellow Urine Appearance Cloudy A (Clear) Urine pH 6.0 (4.5-7.5) Ur Specific [place] 1.020 (1.000-1.030) Urine Protein 1+ H (Negative) Urine Glucose (UA) Negative (Negative) Urine Ketones Negative (Negative) Urine Blood 3+ H (Negative) Urine Nitrite Positive A (Negative) Urine Bilirubin Negative (Negative) Urine Urobilinogen Negative (Negative) Ur Leukocyte Esterase 3+ H (Negative) Urine WBC (Auto) >30 H (0-5) /hpf Urine RBC (Auto) >30 H (0-4) /hpf U Hyaline Cast (Auto) 1-5 (0-5) /lpf U Epithel Cells (Auto) 10-20 H (0-5) /lpf Urine Bacteria (Auto) 4+ H (Negative) Code Status & VTE Plan Code Status FULL CODE VTE Prophylaxis Plan VTE Prophylaxis will be ordered: Yes Supervising Physician Co-Signing Physician Notes PA Supervision Note: I personally saw and examined the patient. I verified all burk points and agree with KRISTIE Mccarty with the following exceptions and/or additions: Patient presents with dysuria and left testicular pain with urinary urgency frequency that started yesterday afternoon. Upon arrival, he was found to have a UTI was treated with IV Cipro in the ER. He then later spiked a fever and became tachycardic. He denied chest pain or shortness of breath, denied lightheadedness. Denies abdominal pain or back pain. Denies hematuria. History reviewed Vitals reviewed Gen: AAOx3, NAD HEENT: Anicteric sclerae, EOMI CV: Irregularly irregular, tachycardic no mgr nl S1S2 Pulm: CTAB no wcr Abd: +BS soft NT ND no masses or hernias Ext: No edema, 2+ DP pulses Skin: No rashes, warm/dry Neuro: Full strength throughout Labs and imaging reviewed Most recent echocardiogram as an outpatient from 01/2018 with LVEF 55-60%, no valvular pathology 78-year-old male here with UTI, sepsis, and tachycardia and history of MRSA UTI/bacteremia/osteomyelitis Repeat ECG with frequent ectopy-reviewed with channeler outsole over the phone and confirmed to be atrial flutter with ectopy. Blood pressures remain borderline low despite 2 L of bolus normal saline and continued maintenance fluids. Heart rate remains in the 140s. Patient reports he has not missed a single dose of Eliquis and is very faithful with all of his medication regimen. Consult cardiology-given low blood pressures, will start IV amiodarone in hopes to convert him to sinus rhythm. Review of cardiology notes from inpatient stay in 2016 report that IV amiodarone was successful in the past as well. -Continue metoprolol in the morning if blood pressures can tolerate -Continue Eliquis -Trend troponin -Continue antibiotics with MRSA coverage, normal saline hydration, and follow all cultures for UTI and sepsis -Discussed care with overnight hospitalist-if becomes unstable, would opt for sedation and DC cardioversion
[2018-09-29] MEDS ORDERED: SODIUM CHLORIDE 0.9% 1000ML 1,000 ML IV ONE (19:16)
--- NOTE | 2018-09-29 19:27 | Pharmacy Report ---
Pharmacy Abx Initial Consult - Date of Service September 29, 2018 - Pharmacy Dosing Scope Date of Consult: 09/29 Consultation requested by: Liang Gamboa, PAC Pharmacy is consulted to initiate vancomycin and cefepime IV dosing therapy, order appropriate labs and adjust drug dose/frequency. - Subjective The patient is a 78 year old M admitted on 09/29/18 17:48. - Objective Height: 6 ft Weight: 85.8 kg Vital Signs (Past 12hrs): Vital Signs Temp Pulse Pulse Resp BP BP Pulse Ox 09/29/18 18:49 94/57 L 09/29/18 18:48 36.8 C 135 H 20 102/63 96 09/29/18 18:11 136 H 20 137/83 97 09/29/18 17:30 39.0 C H 133 H 22 147/96 H 95 09/29/18 15:03 79 18 133/88 98 09/29/18 13:17 36.9 C 102 H 18 161/68 H 96 Lab Results (24hrs): Laboratory Tests (24 Hours) 09/29/18 09/29/18 13:47 13:47 WBC 13.25 H Neut # (Auto) 10.91 H Creatinine 1.45 H Est Cr Clr Drug Dosing 44.6 Micro Results: 09/29/18 17:50 Aerobic Blood Culture - Pending Blood Anaerobic Blood Culture - Pending 09/29/18 17:50 Aerobic Blood Culture - Pending Blood Anaerobic Blood Culture - Pending 09/29/18 13:40 Urine Culture - Pending Urine,Clean Catch - Risk Factors for Resistance * History of infection with a multidrug-resistant organism: MRSA osteo/lumbar abscess 2015 * Antimicrobial use within the last 90 days : chronic suppressive therapy w/ doxy - Assessment & Plan Assessment 78 year old M admitted for inability to void with fevers. When in ER, became tachycardic. Lactic acid level elevated. Being admitted for sepsis 2/2 UTI. He does have a history of recurrent UTIs but last one was > 3 yrs ago. PMH also pertinent for CKD (baseline SCr ~1.3). Risk factors for resistant organisms noted above. Plan Vancomycin and cefepime for treatment of sepsis 2/2 UTI Vancomycin IV * Estimated PK Parameters: Vd 0.7 L/kg, [place] 0.041 hr-1, t1/2 16.9 hr * Loading dose: 1750 mg (20.3 mg/kg) - given in the ED ~1800 * Maintenance dose: 1250 mg IV (14.6 mg/kg) every 20 hours - start 2 hrs early since full load was not given * Goal trough level : 15 to 20 mcg/mL, until cultures resulted * Trough level ordered for 10/02/18 prior to the 4th dose Cefepime * Target dose = 2 gm IV q8h until bacteremia ruled out * Decrease to 2 gm IV q12h for CrCl 30-59 mL/min Pharmacy will continue to follow and will adjust dose/frequency as necessary. Thank you.
[2018-09-29] MEDS: SODIUM CHLORIDE 0.9% 1000ML 1,000 ML IV SCH (20:22)
[2018-09-29] MEDS: TERAZOSIN HCL 5 MG CAP PO SCH ×2 (20:23→20:57)
[2018-09-29] MEDS: APIXABAN 5 MG TABLET PO SCH (20:23)
[2018-09-29] MEDS: BUDESONIDE/FORMOTEROL FUMARATE 80/4.5 60 PUFFS/INHALER INH SCH (20:23)
[2018-09-29] MEDS: PHENAZOPYRIDINE HCL 200 MG TAB PO PRN (20:25)
[2018-09-29] MEDS ORDERED: AMIODARONE IV BOLUS / DRIP IV STA (20:37)
[2018-09-29] MEDS ORDERED: AMIODARONE / D5W 150 MG/100 ML BAG IV STA (20:37)
[2018-09-29] MEDS ORDERED: AMIODARONE 360MG / 200ML D5W IV ONE (20:47)
[2018-09-29] MEDS ORDERED: METOPROLOL SUCC 50MG EXT REL TAB PO SCH (21:00)
[2018-09-29] MEDS ORDERED: AMIODARONE / D5W 360 MG/200 ML BAG IV SCH (21:00)
[2018-09-30 02:31] LABS: Hematocrit (blood only) 36.1 % (42-52); Hemoglobin 11.8 g/dL (14.0-18.0); Mean Corpuscular Hgb Conc 32.7 g/dL (32-36); Mean Corpuscular Volume 90.3 fL (80-100); Mean Platelet Volume 9.5 fL (7.4-10.4); Platelet Count 149 K/uL (130-400); RDW Coefficient of Variation 13.7 % (11.5-14.5); RDW Standard Deviation 45.9 fL (36.4-46.3)
[2018-09-30 02:50] LABS: BUN Creatinine Ratio 12.5 (10-20); Blood Urea Nitrogen 15 mg/dl (7-18); Calcium 7.4 mg/dl (8.5-10.1); Carbon Dioxide 23 mmol/L (21-32); Chloride 112 mmol/L (98-107); Creatinine Clr Calc Pharmacy 53.9 ml/min; Est GFR (African American) 65.8; Est GFR (Non-African American) 56.8; Glucose 130 mg/dl (70-99); Magnesium 1.7 mg/dl (1.8-2.4); Potassium 3.7 mmol/L (3.5-5.1); Sodium 142 mmol/L (136-145)
[2018-09-30 02:55] LABS: Troponin I < 0.015 ng/ml (0-0.045)
[2018-09-30] MEDS ORDERED: AMIODARONE / D5W 360 MG/200 ML BAG IV SCH (03:00)
[2018-09-30] MEDS: SODIUM CHLORIDE 0.9% 1000ML 1,000 ML IV SCH (03:21)
[2018-09-30] MEDS: MAGNESIUM SULFATE / D5W 1 GM/100 ML BAG IV SCH ×2 (03:38→04:35)
[2018-09-30] MEDS ORDERED: CEFEPIME 2,000 MG in SYRINGE 7.5 ML IV SCH (06:00)
[2018-09-30] MEDS ORDERED: VANCOMYCIN HCL 1,250 MG in SODIUM CHLORIDE 0.9% 250 ML IV SCH ×2 (08:00→12:00)
[2018-09-30] MEDS: PANTOprazole 40 MG TAB PO SCH (08:12)
[2018-09-30] MEDS: BUDESONIDE/FORMOTEROL FUMARATE 80/4.5 60 PUFFS/INHALER INH SCH ×2 (08:12→21:17)
[2018-09-30] MEDS: APIXABAN 5 MG TABLET PO SCH ×2 (08:12→21:16)
[2018-09-30] MEDS: FINASTERIDE 5 MG TAB PO SCH (08:12)
[2018-09-30] MEDS: METOPROLOL SUCC 50MG EXT REL TAB PO SCH (08:13)
[2018-09-30] MEDS ORDERED: METOPROLOL SUCC 50MG EXT REL TAB PO SCH (09:00)
[2018-09-30] MEDS ORDERED: TERAZOSIN HCL 5 MG CAP PO SCH (09:00)
--- NOTE | 2018-09-30 09:14 | Hospitalist Progress Note ---
Date of Service September 30, 2018 Assessment & Plan (1) Sepsis: - Fevers, tachycardia, leukocytosis with elevated lactic acid level in the ER -- urinary tract infection present on admission. ivf -initially gram negative will stop vancomycin, now with epididymitis, will change to levaquin for coverage - h/o UTI's secondary to MRSA along with MRSA osteomyelitis and epidural abscess in 2016. I did curbside ID and recommend restarting doxycycline (2) Urinary tract infection: - U/a positive, UCx pending as noted above. - Continue Levaquin - On Doxycyline for suppressive therapy, follows with ID -- has not had a UTI in >3 years. once organism resulted will define antibiotic (3) Elevated lactic acid level: - Lactic acid level was 2.7 (4) Tachycardia: - - EKG showed sinus tachycardia with PACs; - Trop was negative; - Continue home Metoprolol 100 mg qhs;( also takes amiodarone for afib) - Tylenol to reduce fevers -- may help to improve tachycardia. (5) Atrial fibrillation with RVR: - amiodarone - Continue Eliquis 5 mg BID and Metoprolol 100 mg daily - Monitor and replace electrolytes (6) Stage III chronic kidney disease: - Renally dose all meds; baseline creatinine ~1.2-1.3. - Creatinine is above baseline - on IV fluids. 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 Hobbs. - On Doxycycline suppressive therapy -- will hold in setting of IV abx. (8) COPD (chronic obstructive pulmonary disease): - Continue Symbicort and Incruse as prescribed. - No evidence of acute exacerbation (9) HTN (hypertension): - Continue Metoprolol 100 mg daily as prescribed. - (10) BPH (benign prostatic hyperplasia): - Continue Finasteride and Terazosin as prescribed. resolved urinary retention --bladder scan is < 250 ml retained (11) DVT prophylaxis: - SCDs; Eliquis BID. Subjective this pt is improved, afib has resolved but he has developed a tender swollen left testicle, u/s does not show torsion but concern for epididymitis. Otherwise the pt is without complaints Review of Systems Review of Systems: ROS: well nourished well developed. No double vision blurry vision No problems with speech or swallowing No palpitations, chest pain or pressure No Wheezing or breathing issues No abdominal pain nausea vomiting diarrhea changes in appetite or weight No burning urine urine frequency or changes in color tenderness left testicle that is swollen No focal joint pain or muscle pain No skin rashes or oral lesions No unusual bruising or bleeding No focused back pain or numbness or loss of strength No changes in memory or confusion Physical Exam Physical Exam: The patient appeared well nourished and normally developed. Vital signs as documented. Head exam is unremarkable. normocephalic, atraumatic Neck is without jugular venous distension, thyromegaly, or lymphademopathy Lungs are clear to auscultation and percussion. Cardiac exam reveals Rhythm is regular. First and second heart sounds normal. Abdominal exam reveals normal bowel sounds, no masses, no organomegaly shows left testicle swelling and tenderness, much larger that the right Extremities are nonedematous and both pedal pulses are present Neurologic exam is A&Ox3, no focal deficits, strength is equal bilateral Psychologically seems neither anxious or depressed Skin is warm Dry Results & Data Vital Signs (Past 12 Hours) Vital Signs Temp Pulse Pulse Resp BP Pulse Ox 09/30/18 07:39 36.4 C L 69 19 142/75 H 92 09/30/18 03:13 36.7 C 67 17 131/74 93 09/29/18 23:53 73 09/29/18 23:34 36.5 C 68 18 102/60 95 09/29/18 21:17 75 18 97/59 L 96
[2018-09-30] MEDS ORDERED: Nursing to Pharmacy Communication ONE (10:59)
[2018-09-30] MEDS: DOXYCYCLINE HYCLATE 100 MG CAP PO SCH ×2 (14:38→21:16)
[2018-09-30] MEDS ORDERED: INCRUSE ELLIPTA: ORDER AWAITING ACTION SCH (16:00)
--- NOTE | 2018-09-30 16:23 | Ultrasound Report ---
US scrotum/testicle CLINICAL HISTORY: 78 years-old Male with eval left testicle for torsion. Acute pain and swelling of the left hemiscrotum COMPARISON STUDY: None available TECHNIQUE: Real-time, grayscale, and color Doppler sonography of the testes and scrotum is performed. Images are reviewed in the transverse and longitudinal planes. FINDINGS: RIGHT HEMISCROTUM: The right testis measures 2.4 x 3.5 x 1.7 cm and the parenchyma appears unremarkab le. No intratesticular mass is seen. Normal-appearing arterial inflow is present within the right katherine ticle. The right epididymal head appears normal. A varicocele is noted. No hydrocele is identified. LEFT HEMISCROTUM: The left testis measures 2.8 x 4.1 x 2.5 cm and the parenchyma appears hyperemic. N o intratesticular mass is seen. The left epididymis appears mildly heterogeneous and is also hypervas cular. A varicocele is noted. Small hydrocele. IMPRESSION: 1. Findings are suggestive of acute left-sided epididymoorchitis. 2. Small left hydrocele, likely reactive. 3. Bilateral varicoceles. The above report was generated using voice recognition software. It may contain grammatical, syntax o r spelling errors. Electronically signed by: Ministerio Waters M.D. 09/30/2018 4:22 PM
[2018-09-30] MEDS: PHENAZOPYRIDINE HCL 200 MG TAB PO PRN (17:16)
[2018-09-30] MEDS ORDERED: LEVOFLOXACIN/D5W 500 MG/100 ML BAG IV SCH (20:00)
[2018-09-30] MEDS: TERAZOSIN HCL 5 MG CAP PO SCH (21:17)
[2018-10-01 06:19] LABS: Est GFR (Non-African American) 69.9
[2018-10-01] MEDS: PANTOprazole 40 MG TAB PO SCH (08:26)
[2018-10-01] MEDS: APIXABAN 5 MG TABLET PO SCH (08:26)
[2018-10-01] MEDS: DOXYCYCLINE HYCLATE 100 MG CAP PO SCH (08:26)
[2018-10-01] MEDS: BUDESONIDE/FORMOTEROL FUMARATE 80/4.5 60 PUFFS/INHALER INH SCH (08:26)
[2018-10-01] MEDS: METOPROLOL SUCC 50MG EXT REL TAB PO SCH (08:26)
[2018-10-01] MEDS: FINASTERIDE 5 MG TAB PO SCH (08:27)
--- NOTE | 2018-10-01 08:29 | Cardiology Consultation ---
Date of Consultation October 01, 2018 Assessment & Plan (1) Atrial flutter with rapid ventricular response: He has a history of atrial flutter and has had recurrence here, I am not sure how long he was in it because he is not terribly aware of it. It may have been longer than we realize although his initial heart rates are not terribly elevated on his vital signs here. His presentation and illness may have precipitated this event although that is hard to say. The amiodarone may have helped convert his rhythm, although he may have converted on his own. As an outpatient does not appear to be a clinical issue. I would not continue amiodarone over the long run unless he has more clinical difficulty as an outpatient. He should be on rate controlling medications, I had tried to keep him on beta-blockers and digoxin in the past but he did not tolerate the digoxin. Currently he is on 100 mg of metoprolol, he was on that when he came in but he was in distress which may contribute to the tachycardia. Under the circumstances I think would be reasonable to send him home on the same medications he came in on, specifically metoprolol succinate 100 mg daily and Eliquis 5 mg twice daily. History of Present Illness Reason for Consultation: AF Attending Physician: Bill Barajas MD History of Present Illness This is a very pleasant 78-year-old male who was admitted to [facility] on 07/27/2014 when he presented with some right lower extremity swelling and was in atrial flutter on evaluation. This rhythm was actually identified about 1 month before when he was observed to have a rapid HR, he was advised to take medications at the time but declined as he was traveling to [place]. At that time he was asymptomatic. He returned from [place] two days before his July 27 presentation, he had an airplane ride which was approximately 7-8 hours long. He denied having chest pain, shortness of breath, or feeling any palpitations. He also started on treatment for COPD and started on bronchodilators. During his admission 07/27/2014 he was placed on IV Amiodarone and diltiazem for HR control, as well as IV heparin. That was converted to beta blockade, digoxin and Eliquis prior to discharge. He had a venous duplex of the lower extremity which did not show any DVT and a CT chest showed no PE. Echocardiography however showed a cardiomyopathy with a reduced LVEF of 30%, this was felt to be either rate related or primary. Subsequently he spontaneously converted to sinus rhythm. A repeat echocardiogram in October 2014 showed normalization of left ventricular function. I had intended to maintain him on digoxin and beta blockade in order to control his rate should he develop recurrent atrial flutter (which is more likely than not). He apparently had some dizziness and anorexia on digoxin, that was discontinued and he has felt better in that regard. We did continue metoprolol and Eliquis. He presented September 29, 2018 feeling poorly, mostly urinary symptoms. He was observed to have a high heart rate, he was therefore admitted and started on intravenous amiodarone for atrial flutter. He was in atrial flutter for about 3 hours before converting to sinus rhythm. He was not terribly aware of his arrhythmia, he did note that he had a rapid heart rate but was not in a lot of distress with it. He was more concerned with his urinary difficulty. I am not sure how long he was in it before arrival, his heart rate was lower when he first arrived so it may have occurred while he was in the ER. His first electrocardiogram here September 29, 2018 at 1655 shows the atrial flutter. Allergies Allergy/AdvReac Type Severity Reaction Status Date / Time No Known Allergies Allergy Unverified 09/29/18 14:17 Home Medications Home Medications Medication Instructions Recorded Confirmed Type apixaban [Eliquis] 5 mg PO BID 09/29/18 09/29/18 History budesonide-formoterol [Symbicort] 2 puff INHALATION BID 09/29/18 09/29/18 History ciprofloxacin HCl [Cipro] 500 mg PO BID #28 tab 09/29/18 Rx doxycycline hyclate 100 mg PO BID 09/29/18 09/29/18 History finasteride 5 mg PO QAM 09/29/18 09/29/18 History metoprolol succinate 100 mg PO QAM 09/29/18 09/29/18 History omeprazole 20 mg PO QAM 09/29/18 09/29/18 History terazosin 5 mg PO QAM 09/29/18 09/29/18 History triamcinolone acetonide 1 applic TOPICAL DAILY PRN 09/29/18 09/29/18 History umeclidinium [Incruse Ellipta] 1 inh INHALATION QAM 09/29/18 09/29/18 History Patient History Medical History COPD (chronic obstructive pulmonary disease) (Chronic) Abscess in epidural space of lumbar spine Atrial fibrillation with RVR (Acute) Atrial flutter with rapid ventricular response (Acute) Discitis of lumbar region Inguinal hernia MRSA (methicillin resistant Staphylococcus aureus) septicemia Osteomyelitis Right leg swelling (Acute) Septic discitis of lumbosacral region BPH (benign prostatic hyperplasia) Esophageal dilatation HLD (hyperlipidemia) HTN (hypertension) Surgical History H/O inguinal hernia repair History of lumbar laminectomy History of tonsillectomy Family History Father Bowel perforation Mother Parkinson disease Other No known health problems Social History Preferred Language: Citizen Of [place] Communication Ability: Effective Corporate Health Consultant Required: No Beliefs That Will Affect Care: None marital status: Current Living Situation: Spouse current occupational status: retired Other Information That Helps Us Care for You: No Feels Safe at Home: Yes Safety Concerns: Feels Safe At This Time Smoking Status: Former smoker Tobacco Type: cigarettes packs per day: 1 Years Smoked: 30 Cigarettes Per Day: 20 Tobacco Cessation Education Requested by Patient: No Hx Alcohol Use: Yes Alcohol type: beer and hard liquor Hx Substance Use: No Physical Exam Physical Exam: Constitutional: Alert, cooperative and in no distress. HEENT: Unremarkable Neck: No jugular venous distention, carotid pulses are normal and equal bilaterally without bruits. Pulmonary: Clear to auscultation bilaterally. Cardiac: Regular rhythm with premature beats, no murmur, gallop or rub. Abdomen: Soft, nontender with normal bowel sounds. Extremities: No edema. Distal pulses intact. Neurologic: No focal findings. Gait is steady. Skin: No rash, ecchymoses or petechiae Results & Data Vital Signs (Past 12 Hours) Vital Signs Temp Pulse Pulse Resp BP Pulse Ox 10/01/18 07:19 71 10/01/18 07:07 36.8 C 69 24 133/66 91 10/01/18 03:48 36.8 C 70 16 127/69 90 09/30/18 23:36 36.7 C 71 19 148/70 H 90 09/30/18 23:21 69
[2018-10-01] MEDS ORDERED: UMECLIDINIUM BROMIDE INH SCH (09:00)
[2018-10-01] MEDS ORDERED: levoFLOXacin 500 MG TAB PO STA (13:33)
[2018-10-01] MEDS ORDERED: VANCOMYCIN TROUGH ONE (15:30)
--- NOTE | 2018-10-01 19:08 | Discharge Summary ---
Date of Service October 01, 2018 Admission HPI Per Admitting Provider Mr. Thapa is an 78 year old male with past medical history of epidural abscess/osteomyelitis in 2016, recurrent UTIs, HTN, HLD, A. Flutter/fib on Eliquis, BPH, COPD who presented to the ER with urinary retention. Patient states he was unable to void large amounts of urine starting yesterday afternoon. He also developed dysuria, describing pain as "stinging". Urine was clear, did not have a foul odor. Has mild suprapubic pain. Denies nausea/vomiting, flank pain. Has chronic SOB in setting of COPD; SOB is not increased above baseline, stable on room air. Denies chest pain, palpitations, upper abd pain, constipation or diarrhea. ER course: Pt. received Ciprofloxacin IV; he was initially scheduled to be discharged from the ER. He developed fevers with suspected sinus tachycardia on personnel monitor. Lactate level was 2.78. Cefepime/Vancomycin administered in the ED along with 500 cc bolus followed by IV fluids at 125 cc/hr. He did not receive Metoprolol IV as tachycardia was likely reactive to febrile state. U/a was positive; UC and BC are pending. Will be admitted for evaluation and treatment of sepsis likely related to urinary tract infection. 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 Discharge Exam Left testicle remains slightly enlarged but less so than 6/10 is also less tender Constitutional well developed and average body habitus Eyes no conjunctival abnormality and no scleral abnormality Neck normal visual inspection and trachea midline Respiratory normal respiratory effort; no respiratory distress Auscultation: lungs clear to auscultation bilaterally Cardiovascular RRR, no murmur, no edema Gastrointestinal (Abdomen) normal bowel sounds, soft, nontender, no hepatosplenomegaly Musculoskeletal no cyanosis or clubbing, extremities motor strength 5/5 Discharge Data Allergies Allergy/AdvReac Type Severity Reaction Status Date / Time No Known Allergies Allergy Unverified 09/29/18 14:17 Consultations 09/29/18 17:26 ED Decision to Admit Stat 09/29/18 20:41 Consult Cardiology Routine Ordered Studies 09/30/18 14:58 US scrotum/testicle Urgent Hospital Course (1) Sepsis: - Fevers, tachycardia, leukocytosis with elevated lactic acid level in the ER -- urinary tract infection present on admission. Patient was found to have an ESBL UTI associated with changes in his testicle confirmed by ultrasound to be epididymitis and orchitis. The ESBL is sensitive to quinolones with low HUSSAIN for levofloxacin. I discussed this with Dr. 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 - Continue Levaquin x14 days total - On Doxycyline for suppressive therapy, follows with ID -- has not had a UTI in >3 years. Will recommend follow-up in 2 weeks with infectious disease or family medicine to repeat urinalysis (3) Elevated lactic acid level: - Lactic acid level was 2.7 (4) Tachycardia: - - EKG showed sinus tachycardia with concern for atrial fibrillation - Trop was negative; - Continue home Metoprolol 100 mg qhs;(patient was just had amiodarone used intermittently for his atrial fibrillation elective physiology felt this was related to physiological stressor of infection can be discontinued prior to discharge with resumption of his home metoprolol) (5) Atrial fibrillation with RVR: - amiodarone was used briefly now returns with metoprolol control - Continue Eliquis 5 mg BID (6) Stage III chronic kidney disease: - Renally dose all meds; (7) Osteomyelitis: - H/o osteomyelitis/epidural abscess 2/ MRSA in 2016 -- required surgical intervention with Dr. Hobbs. - On Doxycycline suppressive therapy --follows with Dr. Castle infectious disease (8) COPD (chronic obstructive pulmonary disease): - Continue Symbicort and Incruse as prescribed. - No evidence of acute exacerbation (9) HTN (hypertension): - Continue Metoprolol 100 mg daily as prescribed. - (10) BPH (benign prostatic hyperplasia): - Continue Finasteride and Terazosin as prescribed. resolved urinary retention --bladder scan is < 250 ml retained Total Time Total Time Spent Total Time Spent (In Minutes): greater than 30 minutes were required to prepare discharge Discharge Plan Discharge Items Patient Disposition: Home - Self-Care Reason For Visit: UTI Discharge Diagnosis: urinary tract infection drug resistant E coli epididymitis, infection of tube that drains testicle Condition: Good Discharge Goals: Decrease discomfort and Diagnostic testing Activity: Resume your previous activity Non-emergency contact: Primary Care Provider Call non-emergency contact if: you have any medication questions Follow-up/Referrals: Maryellen Castle DO [Physician] - 10/17/18 9:15 am Diet: Regular Addtl Provider Instructions: drink plenty of fluids complete all of your antibiotics follow up with a provider prior to going to [facility] Prescriptions: New levofloxacin [Levaquin] 500 mg tablet 500 mg PO DAILY 12 Days Qty: 12 RF: 0 Continued terazosin 5 mg capsule 5 mg PO QAM RF: 0 metoprolol succinate 100 mg tablet extended release 24 hr 100 mg PO QAM RF: 0 triamcinolone acetonide 0.1 % cream 1 applic topical DAILY PRN (Reason: Itching) RF: 0 omeprazole 20 mg capsule,delayed release(DR/EC) 20 mg PO QAM RF: 0 doxycycline hyclate 100 mg tablet 100 mg PO BID RF: 0 finasteride 5 mg tablet 5 mg PO QAM RF: 0 Symbicort 80-4.5 mcg/actuation HFA aerosol inhaler 2 puff inhalation BID RF: 0 Eliquis 5 mg tablet 5 mg PO BID RF: 0 Incruse Ellipta 62.5 mcg/actuation blister with device 1 inh inhalation QAM RF: 0 Stand-Alone Forms: [facility] Discharge Orders: Discharge Order (Routine); Ordered 10/01/18 Ordered By: Bill Barajas Admission Data Admit Date/Time: 09/29/18 17:48 Attending Provider: Bill Barajas Admit Provider: Alicia Gardner Primary Care Provider: Gricelda De La Rosa Other Providers: Alicia Gardner ; [place] Perales Service: Telemetry Other Interventions: Discharge Summary Assessment (RN) Last Done: 10/01/18 13:56 DC Date/Time DO NOT enter until pt leaves facility: 10/01/18 14:32
[2018-10-02] MEDS ORDERED: VANCOMYCIN TROUGH ONE (03:30)
== END 2018-10-01 14:32 | disposition home or self-care (01) | DRG 872 ==
LOC: ED 13:15 → SUATTDRO 17:48 → 2S 17:48

== ENCOUNTER 2018-10-16 15:50 | Inpatient (IN) ==
[2018-10-16] MEDS ORDERED: ACETAMINOPHEN 1,000 MG/100 ML VIAL IV STA (18:14)
[2018-10-16 18:16] LABS: Basophils # (auto) 0.04 K/uL (0-0.2); Basophils % (auto) 0.2 %; Eosinophils # (auto) 0.02 K/uL (0-0.5); Eosinophils % (auto) 0.1 %; Hematocrit (blood only) 36.8 % (42-52); Hemoglobin 12.4 g/dL (14.0-18.0); Immature Granulocytes # (auto) 0.04 K/uL (0.00-0.02); Immature Granulocytes % (auto) 0.2 %; Lymphocytes # (auto) 0.89 K/uL (1.2-3.4); Lymphocytes % (auto) 5.4 %; Mean Corpuscular Hgb Conc 33.7 g/dL (32-36); Mean Corpuscular Volume 88.9 fL (80-100); Mean Platelet Volume 10.1 fL (7.4-10.4); Monocytes # (auto) 2.66 K/uL (0.11-0.59); Monocytes % (auto) 16.2 %; Neutrophils # (auto) 12.74 K/uL (1.4-6.5); Neutrophils % (auto) 77.9 %; Platelet Count 236 K/uL (130-400); RDW Coefficient of Variation 14.8 % (11.5-14.5); RDW Standard Deviation 48.2 fL (36.4-46.3); Red Blood Count 4.14 M/uL (4.7-6.1); White Blood Count 16.39 K/uL (4.8-10.8)
[2018-10-16 18:30] LABS: INR 1.3 (0.9-1.1); Prothrombin Time 12.8 Seconds (9.0-12.0)
[2018-10-16 18:31] LABS: Bilirubin Direct 0.7 mg/dl (0-0.2); Magnesium 2.1 mg/dl (1.8-2.4)
[2018-10-16 18:33] LABS: Alanine Aminotransferase 39 U/L (12-78); Albumin Level 2.9 gm/dl (3.4-5.0); BUN Creatinine Ratio 19.3 (10-20); Blood Urea Nitrogen 37 mg/dl (7-18); Calcium 8.9 mg/dl (8.5-10.1); Carbon Dioxide 25 mmol/L (21-32); Chloride 103 mmol/L (98-107); Creatinine Clr Calc Pharmacy 33.7 ml/min; Est GFR (African American) 37.3; Est GFR (Non-African American) 32.2; Glucose 119 mg/dl (70-99); Potassium 3.4 mmol/L (3.5-5.1); Sodium 134 mmol/L (136-145)
[2018-10-16 18:38] LABS: Albumin Globulin Ratio 0.8 (0.9-2); Alkaline Phosphatase 121 U/L (45-117); Aspartate Aminotransferase 31 U/L (15-37); Bilirubin,Total 2.4 mg/dl (0.2-1); Globulin 3.8 gm/dl (2.5-4.0); Total Protein 6.7 gm/dl (6.4-8.2); Troponin I < 0.015 ng/ml (0-0.045)
--- NOTE | 2018-10-16 19:13 | XRay Report ---
XR chest 1V portable CLINICAL HISTORY: Chest Pain COMPARISON STUDY: Chest CT April 26, 2018. Chest radiograph September 29, 2018. FINDINGS: Lung volumes are diminished. There is no pneumothorax. There is a possible small right pleu ral effusion. Left midlung opacity has developed. There are bibasilar opacities. Cardiomediastinal si lhouette is stable. IMPRESSION: 1. Left midlung and bibasilar opacities which may reflect pneumonia or less likely pulmonary edema. R adiographic follow up to ensure resolution is recommended. 2. Possible small right pleural effusion. 3. Low lung volumes. Electronically signed by: Barney Garibay M.D. 10/16/2018 7:11 PM
--- NOTE | 2018-10-16 19:58 | CT Scan Report ---
CT OF THE ABDOMEN AND PELVIS WITHOUT CONTRAST CLINICAL HISTORY: Right lower quadrant abdominal pain. COMPARISON STUDY: CT of the abdomen and pelvis November 24, 2015. TECHNIQUE: Axial images of the abdomen and pelvis were obtained without IV contrast. Images were revi ewed in the axial, sagittal, and coronal planes. Automated exposure control was utilized for the garret dy. A dose lowering technique was utilized adhering to the principles of ALARA. FINDINGS: Imaged portions of the lower chest demonstrate mild cardiomegaly. Multifocal airspace opaci ties are noted, most pronounced within the lingula and right lower lobe. No pneumatosis, free air or portal venous gas is present. Evaluation of the abdomen and pelvis is suboptimal on this unenhanced e xam. The liver, spleen, adrenal glands, kidneys and pancreas are normal. There is no biliary or pancr eatic ductal dilatation. There are gallstones within the gallbladder. The gallbladder wall is moderat jewel thickened with extensive pericholecystic infiltration. There is no evidence for a bowel obstructi on. Colonic diverticulosis is noted without evidence for acute diverticulitis. A diverticulum arising from the left posterior lateral aspect of the bladder is noted. There are postoperative findings sug gestive of a right inguinal hernia repair with mesh. Fat-containing left inguinal hernia is noted. No suspicious osseous lesions are noted. IMPRESSION: 1. Findings consistent with acute cholecystitis. Cholelithiasis, moderate gallbladder wall thickening and extensive pericholecystic infiltration. 2. Airspace opacities within visualized portions of the lungs which favors multifocal pneumonia. Electronically signed by: Barney Garibay M.D. 10/16/2018 7:57 PM
[2018-10-16] MEDS ORDERED: VANCOMYCIN HCL 1,750 MG in SODIUM CHLORIDE 0.9% 500 ML IV ONE (20:07)
[2018-10-16] MEDS ORDERED: VANCOMYCIN CONSULT ACTIVE PRN ×2 (20:07→23:54)
[2018-10-16] MEDS ORDERED: PIPERACILL/TAZOBAC CONSULT ACTIVE PRN ×2 (20:07→23:54)
[2018-10-16] MEDS ORDERED: PIPERACILLIN/TAZOBACTAM 4.5 GM/120 ML BAG IV ONE (20:07)
[2018-10-16] MEDS ORDERED: SODIUM CHLORIDE 0.9% 500 ML IV ONE (20:26)
--- NOTE | 2018-10-16 20:47 | Surgery Consultation ---
Date of Consultation October 16, 2018 Assessment & Plan (1) Acute cholecystitis: suspect acute cholecystitis etiology of elev TB- h/o afib - hold Eliquis Should likely undergo cholecystectomy tomorrow if possible and medically stable. IV hydration and atbx will help will discuss with medical team History of Present Illness History of Present Illness recent Rt sided abd pain- ER w/u incl CT- shows gb c/w acute cholecystitis elevated TB, other LFTs ok wbc- 16.3 h/o afib on Eliquis Allergies Allergy/AdvReac Type Severity Reaction Status Date / Time No Known Drug Allergies Allergy Verified 10/16/18 15:16 Home Medications Home Medications Medication Instructions Recorded Confirmed Type Eliquis 5 mg PO BID 09/29/18 10/16/18 History Incruse Ellipta 1 inh INHALATION QAM 09/29/18 10/16/18 History Symbicort 2 puff INHALATION BID 09/29/18 10/16/18 History doxycycline hyclate 100 mg PO BID 09/29/18 10/16/18 History finasteride 5 mg PO QAM 09/29/18 10/16/18 History metoprolol succinate 100 mg PO QAM 09/29/18 10/16/18 History omeprazole 20 mg PO QAM 09/29/18 10/16/18 History terazosin 5 mg PO QAM 09/29/18 10/16/18 History triamcinolone acetonide 1 applic TOPICAL DAILY PRN 09/29/18 10/16/18 History cyanocobalamin (vit B-12) 1,000 1,000 mcg PO DAILY #90 tab 10/07/18 10/16/18 History mcg tablet Patient History Medical History COPD (chronic obstructive pulmonary disease) (Chronic) 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 History of back surgery REVISION L4-L5, L5-S1 decompressive laminectomy and diskectomy for recurrent osteomyelitis and epidural abscess, L5 History of lumbar laminectomy onset: Feb 25, 2016 lumbar decompression laminectomy at L5-S1 and washout and drainage of epidural abscess History of nasal surgery History of tonsillectomy S/P nasal endoscopy with nasal polypectomy Family History Father Bowel perforation Mother Parkinson disease Brother Diabetes Hepatocellular carcinoma Other No known health problems Social History Preferred Language: Green[place]ic Communication Ability: Effective Visual Impairment: No Limitations Hearing Ability: Use of Hearing Aid Beliefs That Will Affect Care: None marital status: marital status details: Has two children Current Living Situation: Spouse Current Living Situation Comment: with current occupational status: retired Feels Safe at Home: Yes Smoking Status: Never smoker Tobacco Type: cigarettes packs per day: 1 Cigarettes Per Day: 20 Hx Alcohol Use: Yes Alcohol type: beer and hard liquor Hx Substance Use: No Review of Systems Review of Systems: All systems reviewed & are unremarkable except as noted in HPI & below Physical Exam Constitutional: well developed; + not appropriately hydrated Eyes: + anicteric sclerae Respiratory: normal respiratory effort; no respiratory distress Cardiovascular: Rate/Rhythm: + tachycardic Gastrointestinal (Abdomen): Inspection/Auscultation: normal bowel sounds mild distention, some mild RUQ tenderness to deep palpation Skin: no rashes, warm and dry Psychiatric: Orientation: alert Results & Data Vital Signs (Past 12 Hours) Vital Signs Temp Pulse Pulse Resp BP BP Pulse Ox 10/16/18 20:35 135 H 19 130/98 94 10/16/18 18:52 92 H 18 107/61 90 10/16/18 18:07 94 H 18 123/68 92 10/16/18 17:43 94 H 23 121/61 94 10/16/18 16:03 37.0 C 53 L 18 104/[address] scan
[2018-10-16 21:08] LABS: Appearance Urine Cloudy (Clear); Bacteria Urine Automated Negative (Negative); Blood Urine Negative (Negative); Glucose Urine UA Trace (Negative); Ketones Urine Negative (Negative); Leukocyte Esterase Urine 1+ (Negative); Nitrite Urine Positive (Negative); Protein Urine 1+ (Negative); Specific Gravity Urine 1.026 (1.000-1.030); Urobilinogen Urine Negative (Negative)
[2018-10-16 21:11] LABS: Bilirubin Urine Negative (Negative); Color Urine Amber; Ictotest Urine Negative (Negative)
--- NOTE | 2018-10-16 21:16 | Ultrasound Report ---
US gallbladder CLINICAL HISTORY: RUQ pain, cholecystitis COMPARISON STUDY: CT of the abdomen and pelvis performed earlier today. FINDINGS: Liver echogenicity is mildly increased. There is no biliary ductal dilatation. The common b ile duct measures 4 mm in caliber. There are multiple stones within the gallbladder. There is sludge within the gallbladder. Gallbladder wall is moderately thickened and edematous. No sonographic Pacheco sign was reported. Gallbladder is distended. There is pericholecystic fluid. The pancreas is obscure d. There is no right hydronephrosis. IMPRESSION: 1. Cholelithiasis, gallbladder wall thickening and pericholecystic fluid which favor acute cholecysti tis. 2. No biliary ductal dilatation. 3. Pancreas obscured by bowel gas. Electronically signed by: Barney Garibay M.D. 10/16/2018 9:15 PM
--- NOTE | 2018-10-16 21:43 | Emergency Department Note ---
Entered by Zena Ambrosio acting as a scribe for Adrien Mohan MD History of Present Illness General Chief complaint: Abdominal Pain Stated complaint: RIGHT SIDE PAIN/SOB Time Seen by Provider: 10/16/18 17:20 Source: patient Limitations: no limitations History of Present Illness Provider complaint: Abdominal Pain Onset (ago): day(s) 3 Location: abdomen and right Radiation: flank (+right flank) Maximum Pain Intensity: 2 Associated symptoms: + denies other symptoms (-blood in stools, -burning with urination), + nausea/vomiting (vomiting no nausea) and + other (+diarrhea); no fever/chills The patient is a 78 year old male who presents to the Emergency Room with complaints of abdominal pain that began 3 days prior to arrival. The patient states that his pain is on his lower right side but states that it is starting to radiate higher on his right side. The patient states that he has vomiting and diarrhea. The patient states that his last bowel movement was earlier in the day prior to arrival and denies any blood in his stool. The patient denies any nausea, fevers, chills, or burning with urination. The patient states that he had an appointment with his PCP prior to arrival and states that his PCP recommended the patient come to the ED. The patient denies a history of blood clots in his legs or lungs. The patient states that he takes Eliquis due to his history of atrial fibrillation. Home Medications Home Medications Medication Instructions Recorded Confirmed Type Eliquis 5 mg PO BID 09/29/18 10/16/18 History Incruse Ellipta 1 inh INHALATION QAM 09/29/18 10/16/18 History Symbicort 2 puff INHALATION BID 09/29/18 10/16/18 History doxycycline hyclate 100 mg PO BID 09/29/18 10/16/18 History finasteride 5 mg PO QAM 09/29/18 10/16/18 History metoprolol succinate 100 mg PO QAM 09/29/18 10/16/18 History omeprazole 20 mg PO QAM 09/29/18 10/16/18 History terazosin 5 mg PO QAM 09/29/18 10/16/18 History triamcinolone acetonide 1 applic TOPICAL DAILY PRN 09/29/18 10/16/18 History cyanocobalamin (vit B-12) 1,000 1,000 mcg PO DAILY #90 tab 10/07/18 10/16/18 History mcg tablet Allergies Allergy/AdvReac Type Severity Reaction Status Date / Time No Known Drug Allergies Allergy Verified 10/16/18 15:16 Past Med/Surg History Medical History COPD (chronic obstructive pulmonary disease) (Chronic) 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 History of back surgery REVISION L4-L5, L5-S1 decompressive laminectomy and diskectomy for recurrent osteomyelitis and epidural abscess, L5 History of lumbar laminectomy onset: Feb 25, 2016 lumbar decompression laminectomy at L5-S1 and washout and drainage of epidu ral abscess History of nasal surgery History of tonsillectomy S/P nasal endoscopy with nasal polypectomy Family History Father Bowel perforation Mother Parkinson disease Brother Diabetes Hepatocellular carcinoma Other No known health problems Social History Preferred Language: Arabic Communication Ability: Effective Visual Impairment: No Limitations Hearing Ability: Use of Hearing Aid Beliefs That Will Affect Care: None marital status: marital status details: Has two children Current Living Situation: Spouse Current Living Situation Comment: with current occupational status: retired Feels Safe at Home: Yes Smoking Status: Never smoker Tobacco Type: cigarettes packs per day: 1 Cigarettes Per Day: 20 Hx Alcohol Use: Yes Alcohol type: beer and hard liquor Hx Substance Use: No Review of Systems See HPI for pertinent positives & negatives. and A total of 10 systems reviewed and were otherwise negative Physical Exam Vital Signs Vital Signs - 24 hr 10/16/18 16:03 10/16/18 17:43 10/16/18 18:07 Temperature 37.0 C Temperature Source Oral Sepsis Recent Fever Within 48 Hours No Sepsis New/Unexplained Change in Mental Status No Sepsis Action Taken by Nursing No Action Required Pulse Rate 53 L Pulse Rate [Left Finger] 94 H 94 H Pulse Rhythm [Left Finger] Regular Respiratory Rate 18 23 18 Respiratory Effort / Characteristics Non-Labored Non-Labored Respiratory Depth Normal Normal Respiratory Pattern Regular Regular Blood Pressure 104/52 L Blood Pressure [Left Arm] 121/61 123/68 Blood Pressure Mean 69 Blood Pressure Mean [Left Arm] 81 86 Pulse Oximetry 95 94 92 Oxygen Delivery Method Room Air Room Air Room Air 10/16/18 18:52 10/16/18 20:35 Temperature Temperature Source Sepsis Recent Fever Within 48 Hours Sepsis New/Unexplained Change in Mental Status Sepsis Action Taken by Nursing Pulse Rate Pulse Rate [Left Finger] 92 H 135 H Pulse Rhythm [Left Finger] Respiratory Rate 18 19 Respiratory Effort / Characteristics Respiratory Depth Respiratory Pattern Blood Pressure Blood Pressure [Left Arm] 107/61 130/98 Blood Pressure Mean Blood Pressure Mean [Left Arm] 76 108 Pulse Oximetry 90 94 Oxygen Delivery Method Room Air Room Air GENERAL: Awake, alert, fatigued appearing, no distress. HENT: Normocephalic, atraumatic. TM's normal. Dry mucous membranes. EYES: PERRL. EOMI. Normal conjunctiva. Sclera non-icteric. NECK: Supple. No nuchal rigidity. FROM. No JVD or bruit. RESPIRATORY: CTAB CARDIAC: RRR. No murmur. ABDOMEN: Soft, non distended. Mild RUQ and RLQ tenderness to palpation. No rebound or guarding. No masses. RECTAL: Deferred. MUSCULOSKELETAL: Unremarkable. No edema. No discoloration. Gross motor strength symmetric. NEURO: Normal sensorium. No sensory or motor deficits noted. SKIN: No rash or jaundice noted. LYMPH: No adenopathy. Course 1751: The patient was evaluated in room B11B, and a complete history and physical examination were performed. 1914: I checked on the patient. The patient was updated on their imaging and lab results. 1999: I discussed the patient's case with Dr. Mueller- [facility] [address] General Surgeon who recommended that that patient be evaluated as an inpatient and be admitted by medicine. He also agrees with the treatment plan of antibiotics. 2009: I checked on the patient. The patient was updated on their imaging and lab results. 2024: [facility] will [facility] the patient for further hospitali zation. Consultations Consultation #1: Dr. Garcia [facility] [address] General Surgeon Time: 20:00 Consultation #2: Dr. Alonso [facility] [address] Hospitalist Time: 20:25 Administered Medications Piperacillin Sod/Tazobactam Sod (Zosyn) 4.5 gm in 120 mls @ 30 mls/hr IV NOW ONE Stop: 10/17/18 00:06 Last Admin: 10/16/18 20:35 Dose: 30 mls/hr Documented by: [id number] Vancomycin HCl 1,750 mg/ (Sodium Chloride) 535 mls @ 200 mls/hr IV NOW ONE; Protocol Stop: 10/16/18 22:47 Last Admin: 10/16/18 20:35 Dose: 200 mls/hr Documented by: [id number] Discontinued Medications Acetaminophen (Ofirmev) 1,000 mg in 100 mls @ 400 mls/hr IV NOW STA Stop: 10/16/18 18:28 Last Infusion: 10/16/18 18:45 Dose: 0 mls/hr Documented by: [id number] Admin: 10/16/18 18:28 Dose: 400 mls/hr Documented by: [id number] Sodium Chloride (Nss) 500 mls @ 999 mls/hr IV .Q31M ONE Stop: 10/16/18 20:56 Last Infusion: 10/16/18 21:13 Dose: 0 mls/hr Documented by: [id number] Admin: 10/16/18 20:41 Dose: 999 mls/hr Documented by: [id number] Medical Decision Making Differential Diagnosis Differential diagnosis: Etiologies such as biliary colic, cholecystitis, hepatitis, pancreatitis, cardiac disease, pancreatitis, gastritis, peptic ulcer disease, appendicitis, cystitis, diverticulitis, mesenteric ischemia, inflammatory bowel disease, ileus, bowel obstruction, testicular torsion, aortic pathology, shingles, as well as others were considered. Medical Records Attestation: I reviewed the patient's medical records. Home Medications Current Medication List: was personally reviewed by me Laboratory Data Attestation: I reviewed the patient's lab results. Result diagrams: 10/16/18 17:47 10/16/18 17:47 Lab Results 10/16/18 10/16/18 10/16/18 Range/Units 17:47 17:47 17:47 WBC 16.39 H (4.8-10.8) K/uL RBC 4.14 L (4.7-6.1) M/uL Hgb 12.4 L (14.0-18.0) g/dL Hct 36.8 L (42-52) % MCV 88.9 (80-100) fL MCH 30.0 (25-34) pg MCHC 33.7 (32-36) g/dL RDW Std Deviation 48.2 H (36.4-46.3) fL RDW Coeff of Anup 14.8 H (11.5-14.5) % Plt Count 236 (130-400) K/uL MPV 10.1 (7.4-10.4) fL Immature Gran % (Auto) 0.2 % Neut % (Auto) 77.9 % Lymph % (Auto) 5.4 % [place] % (Auto) 16.2 % Eos % (Auto) 0.1 % Baso % (Auto) 0.2 % Immature Gran # (Auto) 0.04 H (0.00-0.02) K/uL Neut # (Auto) 12.74 H (1.4-6.5) K/uL Lymph # (Auto) 0.89 L (1.2-3.4) K/uL [place] # (Auto) 2.66 H (0.11-0.59) K/uL Eos # (Auto) 0.02 (0-0.5) K/uL Baso # (Auto) 0.04 (0-0.2) K/uL PT 12.8 H (9.0-12.0) Seconds INR 1.3 H (0.9-1.1) Sodium 134 L (136-145) mmol/L Potassium 3.4 L (3.5-5.1) mmol/L Chloride 103 (98-107) mmol/L Carbon Dioxide 25 (21-32) mmol/L Anion Gap 6.0 (3-11) BUN 37 H (7-18) mg/dl Creatinine 1.92 H (0.6-1.4) mg/dl Est Cr Clr Drug Dosing 33.7 ml/min Est GFR ( Amer) 37.3 Est GFR (Non-Af Amer) 32.2 BUN/Creatinine Ratio 19.3 (10-20) Glucose 119 H (70-99) mg/dl Lactate (0.4-2.0) mmol/L Calcium 8.9 (8.5-10.1) mg/dl Magnesium (1.8-2.4) mg/dl Total Bilirubin 2.4 H (0.2-1) mg/dl Direct Bilirubin (0-0.2) mg/dl AST 31 (15-37) U/L ALT 39 (12-78) U/L Alkaline Phosphatase 121 H (45-117) U/L Troponin I < 0.015 (0-0.045) ng/ml NT-Pro-B Natriuret Pep (0-1800) pg/ml Total Protein 6.7 (6.4-8.2) gm/dl Albumin 2.9 L (3.4-5.0) gm/dl Globulin 3.8 (2.5-4.0) gm/dl Albumin/Globulin Ratio 0.8 L (0.9-2) Lipase 61 L (73-393) U/L Urine Color Urine Appearance (Clear) Urine pH (4.5-7.5) Ur Specific [place] (1.000-1.030) Urine Protein (Negative) Urine Glucose (UA) (Negative) Urine Ketones (Negative) Urine Blood (Negative) Urine Nitrite (Negative) Urine Bilirubin (Negative) Urine Urobilinogen (Negative) Ur Leukocyte Esterase (Negative) Urine WBC (Auto) (0-5) /hpf Urine RBC (Auto) (0-4) /hpf U Hyaline Cast (Auto) (0-5) /lpf U Epithel Cells (Auto) (0-5) /lpf Urine Bacteria (Auto) (Negative) 10/16/18 10/16/18 10/16/18 Range/Units 17:47 20:24 20:43 WBC (4.8-10.8) K/uL RBC (4.7-6.1) M/uL Hgb (14.0-18.0) g/dL Hct (42-52) % MCV (80-100) fL MCH (25-34) pg MCHC (32-36) g/dL RDW Std Deviation (36.4-46.3) fL RDW Coeff of Anup (11.5-14.5) % Plt Count (130-400) K/uL MPV (7.4-10.4) fL Immature Gran % (Auto) % Neut % (Auto) % Lymph % (Auto) % [place] % (Auto) % Eos % (Auto) % Baso % (Auto) % Immature Gran # (Auto) (0.00-0.02) K/uL Neut # (Auto) (1.4-6.5) K/uL Lymph # (Auto) (1.2-3.4) K/uL [place] # (Auto) (0.11-0.59) K/uL Eos # (Auto) (0-0.5) K/uL Baso # (Auto) (0-0.2) K/uL PT (9.0-12.0) Seconds INR (0.9-1.1) Sodium (136-145) mmol/L Potassium (3.5-5.1) mmol/L Chloride (98-107) mmol/L Carbon Dioxide (21-32) mmol/L Anion Gap (3-11) BUN (7-18) mg/dl Creatinine (0.6-1.4) mg/dl Est Cr Clr Drug Dosing ml/min Est GFR ( Amer) Est GFR (Non-Af Amer) BUN/Creatinine Ratio (10-20) Glucose (70-99) mg/dl Lactate 1.2 (0.4-2.0) mmol/L Calcium (8.5-10.1) mg/dl Magnesium 2.1 (1.8-2.4) mg/dl Total Bilirubin (0.2-1) mg/dl Direct Bilirubin 0.7 H (0-0.2) mg/dl AST (15-37) U/L ALT (12-78) U/L Alkaline Phosphatase (45-117) U/L Troponin I (0-0.045) ng/ml NT-Pro-B Natriuret Pep 2907 H (0-1800) pg/ml Total Protein (6.4-8.2) gm/dl Albumin (3.4-5.0) gm/dl Globulin (2.5-4.0) gm/dl Albumin/Globulin Ratio (0.9-2) Lipase (73-393) U/L Urine Color Rosa M Urine Appearance Cloudy A (Clear) Urine pH 5.0 (4.5-7.5) Ur Specific [place] 1.026 (1.000-1.030) Urine Protein 1+ H (Negative) Urine Glucose (UA) Trace H (Negative) Urine Ketones Negative (Negative) Urine Blood Negative (Negative) Urine Nitrite Positive A (Negative) Urine Bilirubin Negative (Negative) Urine Urobilinogen Negative (Negative) Ur Leukocyte Esterase 1+ H (Negative) Urine WBC (Auto) 5-10 H (0-5) /hpf Urine RBC (Auto) 5-10 H (0-4) /hpf U Hyaline Cast (Auto) 10-30 H (0-5) /lpf U Epithel Cells (Auto) 10-20 H (0-5) /lpf Urine Bacteria (Auto) Negative (Negative) Imaging Data Radiologist's Impression: Radiology results as stated below per my review and the radiologist's interpretation: XR chest 1V portable CLINICAL HISTORY: Chest Pain COMPARISON STUDY: Chest CT April 26, 2018. Chest radiograph September 29, 2018. FINDINGS: Lung volumes are diminished. There is no pneumothorax. There is a possible small right pleural effusion. Left midlung opacity has developed. There are bibasilar opacities. Cardiomediastinal silhouette is stable. IMPRESSION: 1. Left midlung and bibasilar opacities which may reflect pneumonia or less likely pulmonary edema. Radiographic follow up to ensure resolution is recom mended. 2. Possible small right pleural effusion. 3. Low lung volumes. Electronically signed by: Barney Garibay M.D. 10/16/2018 7:[address] OF THE ABDOMEN AND PELVIS WITHOUT CONTRAST CLINICAL HISTORY: Right lower quadrant abdominal pain. COMPARISON STUDY: CT of the abdomen and pelvis November 24, 2015. TECHNIQUE: Axial images of the abdomen and pelvis were obtained without IV contrast. Images were reviewed in the axial, sagittal, and coronal planes. Automated exposure control was utilized for the study. A dose lowering technique was utilized adhering to the principles of ALARA. FINDINGS: Imaged portions of the lower chest demonstrate mild cardiomegaly. Multifocal airspace opacities are noted, most pronounced within the lingula and right lower lobe. No pneumatosis, free air or portal venous gas is present. Evaluation of the abdomen and pelvis is suboptimal on this unenhanced exam. The liver, spleen, adrenal glands, kidneys and pancreas are normal. There is no biliary or pancreatic ductal dilatation. There are gallstones within the g allbladder. The gallbladder wall is moderately thickened with extensive pericholecystic infiltration. There is no evidence for a bowel obstruction. Colonic diverticulosis is noted without evidence for acute diverticulitis. A diverticulum arising from the left posterior lateral aspect of the bladder is noted. There are postoperative findings suggestive of a right inguinal hernia repair with mesh. Fat-containing left inguinal hernia is noted. No suspicious osseous lesions are noted. IMPRESSION: 1. Findings consistent with acute cholecystitis. Cholelithiasis, moderate gallbladder wall thickening and extensive pericholecystic infiltration. 2. Airspace opacities within visualized portions of the lungs which favors multifocal pneumonia. Electronically signed by: Barney Garibay M.D. 10/16/2018 7:57 PM US gallbladder CLINICAL HISTORY: RUQ pain, cholecystitis COMPARISON STUDY: CT of the abdomen and pelvis performed earlier today. FINDINGS: Liver echogenicity is mildly increased. There is no biliary ductal dilatation. The common bile duct measures 4 mm in caliber. There are multiple stones within the gallbladder. There is sludge within the gallbladder. Gallbladder wall is moderately thickened and edematous. No sonographic Pacheco sign was reported. Gallbladder is distended. There is pericholecystic fluid. The pancreas is obscured. There is no right hydronephrosis. IMPRESSION: 1. Cholelithiasis, gallbladder wall thickening and pericholecystic fluid which favor acute cholecystitis. 2. No biliary ductal dilatation. 3. Pancreas obscured by bowel gas. Electronically signed by: Barney Garibay M.D. 10/16/2018 9:15 PM ECG Data Attestation: I personally reviewed and interpreted this ECG as follows: Indication: abdominal pain Rate (beats per minute): 94 Rhythm: sinus rhythm Findings: + PAC; no ST depression, no ST elevation and no acute ischemic change Blood Pressure Blood Pressure Findings: Normal blood pressure MDM Narrative The patient is a pleasant 78-year-old gentleman with a past medical history of A. fib on Eliquis, cardiomyopathy with echo in 2018 showing preserved EF, hyp ertension, hyperlipidemia, history of epidural abscess and osteomyelitis on chronic suppression with doxycycline resents emergency department with right- sided abdominal pain that began this past weekend per hpi. Of note, patient was admitted earlier this month with urosepsis. Patient was seen by his PCP today and referred to the emergency department for evaluation. On arrival patient is fatigued appearing but no acute distress, afebrile with stable vital signs. Patient has mild right upper and right lower quadrant tenderness without guarding or rebound. WBC 16.3. H/H 12.4/36.8 similar to prior range of values. Platelets within normal limits. Chemistry without acidosis. Lactate wnl. H owever, mild HORTENCIA with creatinine of 1.9 compared to normal range upon recent discharge. Total bilirubin elevated 2.4 with direct bilirubin of 0.7. AST and ALT within normal limits. Alk phos mildly elevated at 121. Troponin negative. BNP 2900 increased from 500 and July. UA nitrite positive with 1+ leuk esterase and 5-10 WBC albeit with 10-20 epithelial cells and no bacteria. Chest x-ray with bibasilar opacities. CT abdomen pelvis consistent with acute cholecystitis with cholelithiasis and moderate gallbladder wall thickening with extensive pericholecystic infiltration. Additionally, airspace opacities are more suspicious for multifocal pneumonia. Case was discussed with Dr. Mueller who will evaluate the patient and recommends admission to medicine given the patient's medical comorbidities. Agrees with antibiotics. Ordered for Vancomycin and Zosyn. Case was discussed with [place]. [place]err[place] [facility] [place], who evaluate the patient for admission. Formal gallbladder ultrasound consistent with cholecystitis however no CBD dilatation. Impression & Plan Cholecystitis, Multifocal pneumonia, Acute kidney injury Discharge Plan Visit Data Chief Complaint: Abdominal Pain Stated Complaint: RIGHT SIDE PAIN/SOB ED Provider: Adrien Mohan Discharge Problem: Cholecystitis, Multifocal pneumonia, Acute kidney injury Patient Disposition: Admitted As Inpatient Forms Stand Alone Forms: Call Back Authorization, [facility] Prescriptions Prescriptions: No Action cyanocobalamin (vitamin B-12) 1,000 mcg tablet 1,000 mcg PO DAILY Qty: 90 RF: 0 terazosin 5 mg capsule 5 mg PO QAM RF: 0 metoprolol succinate 100 mg tablet extended release 24 hr 100 mg PO QAM RF: 0 triamcinolone acetonide 0.1 % cream 1 applic topical DAILY PRN (Reason: Itching) RF: 0 omeprazole 20 mg capsule,delayed release(DR/EC) 20 mg PO QAM RF: 0 doxycycline hyclate 100 mg tablet 100 mg PO BID RF: 0 finasteride 5 mg tablet 5 mg PO QAM RF: 0 Symbicort 80-4.5 mcg/actuation HFA aerosol inhaler 2 puff inhalation BID RF: 0 Eliquis 5 mg tablet 5 mg PO BID RF: 0 Incruse Ellipta 62.5 mcg/actuation blister with device 1 inh inhalation QAM RF: 0 Referrals Referrals: Gricelda De La Rosa, [Primary Care Provider] - The scribe's documentation has been prepared under my direction and personally reviewed by me in its entirety. I confirm that the note above accurately reflects all work, treatment, procedures, and medical decision making performed by me.
[2018-10-16] MEDS ORDERED: LACTATED RINGER'S 1,000 ML IV ONE (21:45)
--- NOTE | 2018-10-16 21:47 | History & Physical Report ---
Date of Service October 16, 2018 Assessment & Plan (1) Acute cholecystitis: 78 year old male recently admitted and discharged on 10/01/2018 with ESBL UTI and past medical history of MRSA epidural abscess/osteomyelitis in 2016, recurrent UTIs, HTN, HLD, A. Flutter/fib on Eliquis, BPH, COPD, GERD who presented to the ER with abdominal pain x4 days. Found to have acute cholecystitis. Acute cholecystitis White blood cell count 16.3, afebrile Lactate normal Blood cultures pending LFT abnormalities total bili 2.4 direct bili 0.7 alk phos 121 US gallbladder: Cholelithiasis, gallbladder wall thickening and pericholecystic fluid which favor acute cholecystitis. No biliary ductal dilatation. CT abdomen: acute cholecystitis. Cholelithiasis, moderate gallbladder wall thickening and extensive pericholecystic infiltration On Zosyn for pneumonia which should provide adequate empiric coverage MRCP ordered Surgery consulted: Dr. Mueller aware -plan for cholecystectomy tomorrow GI consulted Multifocal pneumonia likely HCAP in the setting of recent admission White blood cell count 16.3, afebrile, on room air Has mild cough and shortness of breath on exertion CXR: Left midlung and bibasilar opacities which may reflect pneumonia or less likely pulmonary edema. Radiographic follow up to ensure resolution is recommended CT abdomen: Airspace opacities within visualized portions of the lungs which favors multifocal pneumonia Started on Vanco and Zosyn HORTENCIA on stage III chronic kidney disease: BUN/creatinine 37/1.9baseline creatinine 1.1-1.2 Received 1.5 L IV fluid in the ED On IV fluids LR 125 cc/h Renally dose all meds Hx of Recurrent Urinary tract infections: Recent ESBL UTI discharged on 10/01/2014 associated with epididymitis and orchitis treated with Levaquin for 14 days U/a positive, UCx pending On Doxycyline for suppressive therapy at home, follows with ID -hold in the sett ing of being on Zosyn and vancomycin Hypokalemia K3.4 Repleted KCl 20 meq Mild hyponatremia likely hypovolemic Sodium 134 Continue to monitor BMP Anemia Hemoglobin stable at 12.4 Continue to monitor CBC COPD (chronic obstructive pulmonary disease): Continue Symbicort and Incruse as prescribed Atrial fibrillation with RVR/a flutter/hypertension Heart rate elevated to 135 in the ED concerning for A. fib/a flutter Received 1 L IV fluids LR, metoprolol 5 mg IV x1 Continue metoprolol 100 mg daily Hold Eliquis 5 mg BID in the setting of pending surgery for cholecystitis Osteomyelitis: H/o osteomyelitis/epidural abscess 2/2 MRSA in 2016 -- required surgical intervention with Dr. Hobbs. On Doxycycline suppressive therapy at home--follows with Dr. Castle infectious disease -held on admission as patient will be on vancomycin, resume once Vanco DC'd COPD (chronic obstructive pulmonary disease): Continue Symbicort and Incruse as prescribed GERD Continue omeprazole BPH (benign prostatic hyperplasia): Continue Finasteride and Terazosin as prescribed. Code: Full Dispo: PCU telemetry DVT prophylaxis: SCDs only, hold Eliquis in the setting of pending surgery (2) Multifocal pneumonia: (3) Hyperlipidemia: (4) Esophageal reflux: (5) Atrial fibrillation: (6) Stage III chronic kidney disease: (7) BPH (benign prostatic hyperplasia): (8) HTN (hypertension): (9) Osteomyelitis: (10) COPD (chronic obstructive pulmonary disease): History of Present Illness Chief Complaint: Abdominal pain Primary Care Provider: Gricelda De La Rosa DO 78 year old male recently admitted and discharged on 10/01/2018 with ESBL UTI and past medical history of MRSA epidural abscess/osteomyelitis in 2016, recurrent UTIs, HTN, HLD, A. Flutter/fib on Eliquis, BPH, COPD, GERD who presented to the ER with abdominal pain x4 days. Abdominal pain started on Sunday, 4 days ago and was localized to lower abdomen. Abdominal pain localized to right upper quadrant on Sunday, 3 days ago. Currently abdominal pain is 2 out of 10, described as discomfort/achy. Initially associated with nausea and vomiting. Today he also had diarrhealoose, brown, nonbloody. He also reports a mild cough and shortness of breath with exertion. Shortness of breath is be tter now. Denies any lightheadedness, chest pain, headache, fever, chills, dysuria. Allergies Allergy/AdvReac Type Severity Reaction Status Date / Time No Known Drug Allergies Allergy Verified 10/16/18 15:16 Home Medications Home Medications Medication Instructions Recorded Confirmed Type Eliquis 5 mg PO BID 09/29/18 10/16/18 History Incruse Ellipta 1 inh INHALATION QAM 09/29/18 10/16/18 History Symbicort 2 puff INHALATION BID 09/29/18 10/16/18 History doxycycline hyclate 100 mg PO BID 09/29/18 10/16/18 History finasteride 5 mg PO QAM 09/29/18 10/16/18 History metoprolol succinate 100 mg PO QAM 09/29/18 10/16/18 History omeprazole 20 mg PO QAM 09/29/18 10/16/18 History terazosin 5 mg PO QAM 09/29/18 10/16/18 History triamcinolone acetonide 1 applic TOPICAL DAILY PRN 09/29/18 10/16/18 History cyanocobalamin (vit B-12) 1,000 1,000 mcg PO DAILY #90 tab 10/07/18 10/16/18 History mcg tablet Past Med/Surg History Medical History COPD (chronic obstructive pulmonary disease) (Chronic) 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 History of back surgery REVISION L4-L5, L5-S1 decompressive laminectomy and diskectomy for recurrent osteomyelitis and epidural abscess, L5 History of lumbar laminectomy onset: Feb 25, 2016 lumbar decompression laminectomy at L5-S1 and washout and drainage of epidural abscess History of nasal surgery History of tonsillectomy S/P nasal endoscopy with nasal polypectomy Family History Father Bowel perforation Mother Parkinson disease Brother Diabetes Hepatocellular carcinoma Other No known health problems Social History Preferred Language: Swazi Communication Ability: Effective Visual Impairment: No Limitations Hearing Ability: Use of Hearing Aid Respiratory Care Instructor Required: No Beliefs That Will Affect Care: None marital status: marital status details: Has two children Current Living Situation: Spouse Current Living Situation Comment: with current occupational status: retired Other Information That Helps Us Care for You: No Feels Safe at Home: Yes Safety Concerns: Feels Safe At This Time Smoking Status: Former smoker Tobacco Type: cigarettes packs per day: 1 Cigarettes Per Day: 20 Do You Dip or Chew Tobacco: No Second Hand Exposure: No Tobacco Cessation Education Requested by Patient: No Hx Alcohol Use: Yes Alcohol type: beer and hard liquor Hx Substance Use: No Review of Systems Review of Systems: As per HPI Physical Exam Physical Exam: General: In NAD Neuro: A&O x 4 Pulm: CTAB, diminished in bibasilar lung fontaine CV: Tachycardic and irregular rhythm, no m/r/g, cap refill less than 2 seconds Abdomen:+BS, mildly TTP in right upper quadrant, Pacheco's positive, mildly distended LE: no LE edema, no calf TTP Results & Data Vital Signs (Past 12 Hours) Vital Signs Temp Pulse Pulse Resp BP BP Pulse Ox 10/16/18 20:35 135 H 19 130/98 94 10/16/18 18:52 92 H 18 107/61 90 10/16/18 18:07 94 H 18 123/68 92 10/16/18 17:43 94 H 23 121/61 94 10/16/18 16:03 37.0 C 53 L 18 104/52 L 95 Laboratory Results Abnormal lab results 10/16/18 10/16/18 10/16/18 Range/Units 17:47 17:47 17:47 WBC 16.39 H (4.8-10.8) K/uL RBC 4.14 L (4.7-6.1) M/uL Hgb 12.4 L (14.0-18.0) g/dL Hct 36.8 L (42-52) % RDW Std Deviation 48.2 H (36.4-46.3) fL RDW Coeff of Anup 14.8 H (11.5-14.5) % Immature Gran # (Auto) 0.04 H (0.00-0.02) K/uL Neut # (Auto) 12.74 H (1.4-6.5) K/uL Lymph # (Auto) 0.89 L (1.2-3.4) K/uL [place] # (Auto) 2.66 H (0.11-0.59) K/uL PT 12.8 H (9.0-12.0) Seconds INR 1.3 H (0.9-1.1) Sodium 134 L (136-145) mmol/L Potassium 3.4 L (3.5-5.1) mmol/L BUN 37 H (7-18) mg/dl Creatinine 1.92 H (0.6-1.4) mg/dl Glucose 119 H (70-99) mg/dl Total Bilirubin 2.4 H (0.2-1) mg/dl Direct Bilirubin (0-0.2) mg/dl Alkaline Phosphatase 121 H (45-117) U/L NT-Pro-B Natriuret Pep (0-1800) pg/ml Albumin 2.9 L (3.4-5.0) gm/dl Albumin/Globulin Ratio 0.8 L (0.9-2) Lipase 61 L (73-393) U/L Urine Appearance (Clear) Urine Protein (Negative) Urine Glucose (UA) (Negative) Urine Nitrite (Negative) Ur Leukocyte Esterase (Negative) Urine WBC (Auto) (0-5) /hpf Urine RBC (Auto) (0-4) /hpf U Hyaline Cast (Auto) (0-5) /lpf U Epithel Cells (Auto) (0-5) /lpf 10/16/18 10/16/18 Range/Units 17:47 20:43 WBC (4.8-10.8) K/uL RBC (4.7-6.1) M/uL Hgb (14.0-18.0) g/dL Hct (42-52) % RDW Std Deviation (36.4-46.3) fL RDW Coeff of Anup (11.5-14.5) % Immature Gran # (Auto) (0.00-0.02) K/uL Neut # (Auto) (1.4-6.5) K/uL Lymph # (Auto) (1.2-3.4) K/uL [place] # (Auto) (0.11-0.59) K/uL PT (9.0-12.0) Seconds INR (0.9-1.1) Sodium (136-145) mmol/L Potassium (3.5-5.1) mmol/L BUN (7-18) mg/dl Creatinine (0.6-1.4) mg/dl Glucose (70-99) mg/dl Total Bilirubin (0.2-1) mg/dl Direct Bilirubin 0.7 H (0-0.2) mg/dl Alkaline Phosphatase (45-117) U/L NT-Pro-B Natriuret Pep 2907 H (0-1800) pg/ml Albumin (3.4-5.0) gm/dl Albumin/Globulin Ratio (0.9-2) Lipase (73-393) U/L Urine Appearance Cloudy A (Clear) Urine Protein 1+ H (Negative) Urine Glucose (UA) Trace H (Negative) Urine Nitrite Positive A (Negative) Ur Leukocyte Esterase 1+ H (Negative) Urine WBC (Auto) 5-10 H (0-5) /hpf Urine RBC (Auto) 5-10 H (0-4) /hpf U Hyaline Cast (Auto) 10-30 H (0-5) /lpf U Epithel Cells (Auto) 10-20 H (0-5) /lpf Diagnostic Findings US gallbladder CLINICAL HISTORY: RUQ pain, cholecystitis COMPARISON STUDY: CT of the abdomen and pelvis performed earlier today. FINDINGS: Liver echogenicity is mildly increased. There is no biliary ductal dilatation. The common bile duct measures 4 mm in caliber. There are multiple stones within the gallbladder. There is sludge within the gallbladder. Gallbladder wall is moderately thickened and edematous. No sonographic Pacheco sign was reported. Gallbladder is distended. There is pericholecystic fluid. The pancreas is obscured. There is no right hydronephrosis. IMPRESSION: 1. Cholelithiasis, gallbladder wall thickening and pericholecystic fluid which favor acute cholecystitis. 2. No biliary ductal dilatation. 3. Pancreas obscured by bowel gas. CT OF THE ABDOMEN AND PELVIS WITHOUT CONTRAST CLINICAL HISTORY: Right lower quadrant abdominal pain. COMPARISON STUDY: CT of the abdomen and pelvis November 24, 2015. TECHNIQUE: Axial images of the abdomen and pelvis were obtained without IV contrast. Images were reviewed in the axial, sagittal, and coronal planes. Automated exposure control was utilized for the study. A dose lowering technique was utilized adhering to the principles of ALARA. FINDINGS: Imaged portions of the lower chest demonstrate mild cardiomegaly. Multifocal airspace opacities are noted, most pronounced within the lingula and right lower lobe. No pneumatosis, free air or portal venous gas is present. Evaluation of the abdomen and pelvis is suboptimal on this unenhanced exam. The liver, spleen, adrenal glands, kidneys and pancreas are normal. There is no biliary or pancreatic ductal dilatation. There are gallstones within the gallbladder. The gallbladder wall is moderately thickened with extensive pericholecystic infiltration. There is no evidence for a bowel obstruction. Colonic diverticulosis is noted without evidence for acute diverticulitis. A diverticulum arising from the left posterior lateral aspect of the bladder is noted. There are postoperative findings suggestive of a right inguinal hernia repair with mesh. Fat-containing left inguinal hernia is noted. No suspicious osseous lesions are noted. IMPRESSION: 1. Findings consistent with acute cholecystitis. Cholelithiasis, moderate gallbladder wall thickening and extensive pericholecystic infiltration. 2. Airspace opacities within visualized portions of the lungs which favors multifocal pneumonia. XR chest 1V portable CLINICAL HISTORY: Chest Pain COMPARISON STUDY: Chest CT April 26, 2018. Chest radiograph September 29, 2018. FINDINGS: Lung volumes are diminished. There is no pneumothorax. There is a possible small right pleural effusion. Left midlung opacity has developed. There are bibasilar opacities. Cardiomediastinal silhouette is stable. IMPRESSION: 1. Left midlung and bibasilar opacities which may reflect pneumonia or less likely pulmonary edema. Radiographic follow up to ensure resolution is recommended. 2. Possible small right pleural effusion. 3. Low lung volumes. Medications Administered Current Inpatient Medications Piperacillin Sod/Tazobactam Sod (Zosyn) 4.5 gm in 120 mls @ 30 mls/hr IV NOW ONE Stop: 10/17/18 00:06 Last Admin: 10/16/18 20:35 Dose: 30 mls/hr Documented by: Vancomycin HCl 1,750 mg/ (Sodium Chloride) 535 mls @ 200 mls/hr IV NOW ONE; Protocol Stop: 10/16/18 22:47 Last Admin: 10/16/18 20:35 Dose: 200 mls/hr Documented by: Lactated Ringer's (Lr) 1,000 mls @ 999 mls/hr IV .[id number] ONE Stop: 10/16/18 22:45 Miscellaneous Information (Consult) 1 ea N/A UD PRN PRN Reason: Consult Stop: 11/15/18 20:06 Miscellaneous Information (Consult) 1 ea N/A UD PRN PRN Reason: Consult Stop: 11/15/18 20:06 Code Status & VTE Plan Code Status Full per discussion with patient VTE Prophylaxis Plan VTE Prophylaxis will be ordered: Yes Supervising Physician Co-Signing Physician Notes Attending addendum: I have physically seen this patient, have supervised the medical residents activities, and agree with the H&P unless as otherwise noted. Assessment and Plan: Acute cholecystitis- As demonstrated by ultrasound of gallbladder and CT of abdomen. Zosyn IV. Order MRCP General surgery Dr. Everton Mueller aware and is seen in the ED. Consult gastroenterology Dr. Parker. Multifocal pneumonia- Healthcare associated. Placed on vancomycin IV and Zosyn IV. Duonebs every 4 hours while awake and every 2 hours when necessary. Sputum Gram stain and culture. Remainder of orders and notations as noted. PG Care Time/CCT Total # of Minutes Spent Total Time Spent with Patient: Total time spent is greater than 50% in coordination of care (as documented) at patient's floor/unit and/or counseling patient: Resident Activity Tracking Resident Involvement: Resident Care Provided Care Provided: Adult Hospital Medicine
[2018-10-16] MEDS ORDERED: METOPROLOL TARTRATE 1 MG/ML VIAL IV STA (22:16)
[2018-10-16] MEDS ORDERED: VANCOMYCIN HCL 1,000 MG in SODIUM CHLORIDE 0.9% 250 ML IV SCH (23:54)
[2018-10-16] MEDS ORDERED: TRIAMCINOLONE ACET 0.1% CR 15 GM TUBE TOP PRN (23:54)
[2018-10-16] MEDS ORDERED: POTASSIUM CHLORIDE 10 MEQ TABCR PO STA (23:54)
[2018-10-16] MEDS ORDERED: PIPERACILLIN/TAZOBACTAM 4.5 GM in DEXTROSE 5% 100 ML IV STA (23:54)
[2018-10-16] MEDS ORDERED: ONDANSETRON INJ 2 MG/ML 2 ML VIAL IV PRN (23:54)
[2018-10-16] MEDS ORDERED: ACETAMINOPHEN 325 MG TAB PO PRN (23:54)
[2018-10-17] MEDS: BUDESONIDE/FORMOTEROL FUMARATE 80/4.5 60 PUFFS/INHALER INH SCH ×3 (00:21→19:42)
[2018-10-17] MEDS: LACTATED RINGER'S 1,000 ML IV SCH ×2 (01:26→08:45)
[2018-10-17] MEDS: PIPERACILLIN/TAZOBACTAM 3.375 GM in DEXTROSE 5% 100 ML IV SCH ×3 (01:26→17:54)
[2018-10-17] MEDS ORDERED: METOPROLOL TARTRATE 1 MG/ML VIAL IV STA (04:00)
--- NOTE | 2018-10-17 06:34 | Progress Note ---
Date of Service October 17, 2018 Assessment & Plan (1) Cholecystitis: I think he probably has necrotizing cholecystitis and elev TB is from gb and not CBD stone. Should either have cholecystectomy or cholecystostomy tube today if possible. Will check with med team and anesthesia. Subjective see a/p Results & Data Vital Signs (Past 12 Hours) Vital Signs Temp Pulse Pulse Resp BP BP Pulse Ox 10/17/18 04:09 128 H 138/82 10/17/18 04:00 37.0 C 128 H 18 120/64 97 10/17/18 00:18 122 H 10/16/18 23:54 10/16/18 23:35 36.6 C 126 H 18 139/77 93 10/16/18 23:28 121 H 10/16/18 22:31 134 H 113/65 10/16/18 22:30 130 H 20 113/65 92 10/16/18 20:35 135 H 19 130/98 94 10/16/18 18:52 92 H 18 107/61 90 Pulse Ox 10/17/18 04:09 10/17/18 04:00 10/17/18 00:18 10/16/18 23:54 85 L 10/16/18 23:35 10/16/18 23:28 10/16/18 22:31 10/16/18 22:30 10/16/18 20:35 10/16/18 18:52
--- NOTE | 2018-10-17 06:34 | Magnetic Resonance Report ---
Study: MRCP HISTORY: Pain. Nausea. FINDINGS: Gallbladder is distended. Gallbladder wall is thickened and edematous. There is pericholecy stic infiltrative change. Gallstones and sludge are present. The biliary ductal system showed no evidence for distention. Common bile duct measures no more than 5 mm. High-grade duct is unremarkable. The upper abdominal structures are otherwise unremarkable. Sple en and pancreas are unremarkable. Kidneys negative for hydronephrosis. Atelectasis right base. IMPRESSION: 1. Acute cholecystitis. 2. Normal caliber bile duct. 3. Atelectatic changes right lung base. Electronically signed by: Jose Antonio Ahuja M.D. 10/17/2018 6:32 AM
[2018-10-17 06:39] LABS: Basophils # (auto) 0.04 K/uL (0-0.2); Basophils % (auto) 0.4 %; Eosinophils # (auto) 0.08 K/uL (0-0.5); Eosinophils % (auto) 0.7 %; Hematocrit (blood only) 33.8 % (42-52); Immature Granulocytes # (auto) 0.02 K/uL (0.00-0.02); Immature Granulocytes % (auto) 0.2 %; Lymphocytes # (auto) 0.69 K/uL (1.2-3.4); Lymphocytes % (auto) 6.1 %; Mean Corpuscular Hgb Conc 32.5 g/dL (32-36); Mean Corpuscular Volume 89.2 fL (80-100); Mean Platelet Volume 9.6 fL (7.4-10.4); Monocytes # (auto) 1.96 K/uL (0.11-0.59); Monocytes % (auto) 17.4 %; Neutrophils # (auto) 8.49 K/uL (1.4-6.5); Neutrophils % (auto) 75.2 %; Platelet Count 192 K/uL (130-400); RDW Coefficient of Variation 14.7 % (11.5-14.5); RDW Standard Deviation 48.2 fL (36.4-46.3); Red Blood Count 3.79 M/uL (4.7-6.1); White Blood Count 11.28 K/uL (4.8-10.8)
--- NOTE | 2018-10-17 06:55 | Hospitalist Progress Note ---
Date of Service October 17, 2018 Assessment & Plan (1) Cholecystitis: surgical consult for cholecystectomy or perc biliary tube( may need to be transferred for this) Surgery and anesthesia is following Zosyn ordered MRCP confirms acute cholecystitis cultures are pending Initial presentation with multifocal pneumonia, seen on imaging, should be covered by zosyn, if clinically not improved will add atypical coverage (2) Acute kidney injury: with a history of CKD 3, did have rogelio volume resuscitation in the ER follow and avoid nephrotoxins and renal dose appropriate meds (3) Atrial fibrillation: also with history of aflutter, on metoprolol for rate control and typically takes eliquis but this was held for possible surgery (4) BPH (benign prostatic hyperplasia): conitnues on finestaride and terazosin (5) COPD (chronic obstructive pulmonary disease): is stable on symbicort (6) DVT prophylaxis: will have scd, is on eliquis which is held for possible procedure (7) Osteomyelitis: has been on supressive doxycycline with ID oversight Subjective this pt is unaware of his tachycardia, he has no associated CP or SOB, his abdominal pain has reduced since admission with iv antibiotics, and ivf. Surgery has called and is planning on taking to the OR today. Review of Systems Review of Systems: ROS: well nourished well developed. No double vision blurry vision No problems with speech or swallowing No palpitations, chest pain or pressure No Wheezing or breathing issues right sided abdominal pain nausea vomiting diarrhea changes in appetite or weight No burning urine urine frequency or changes in color No focal joint pain or muscle pain No skin rashes or oral lesions No unusual bruising or bleeding No focused back pain or numbness or loss of strength No changes in memory or confusion Physical Exam Physical Exam: The patient appeared well nourished and normally developed. Vital signs had afib rvr, controlled with diltiazem gtt Head exam is unremarkable. normocephalic, atraumatic Neck is without jugular venous distension, thyromegaly, or lymphademopathy Lungs are clear to auscultation and percussion. Cardiac exam reveals Rhythm is regular. First and second heart sounds normal. Abdominal exam reveals ruq tenderness, no guarding , hypoactive bowel sounds, no masses, no organomegaly Extremities are nonedematous and both pedal pulses are present Neurologic exam is A&Ox3, no focal deficits, strength is equal bilateral Psychologically seems neither anxious or depressed Skin is warm Dry without bruises or lesions Results & Data Vital Signs (Past 12 Hours) Vital Signs Temp Pulse Pulse Resp BP BP Pulse Ox 10/17/18 04:09 128 H 138/82 10/17/18 04:00 37.0 C 128 H 18 120/64 97 10/17/18 00:18 122 H 10/16/18 23:54 10/16/18 23:35 36.6 C 126 H 18 139/77 93 10/16/18 23:28 121 H 10/16/18 22:31 134 H 113/65 10/16/18 22:30 130 H 20 113/65 92 10/16/18 20:35 135 H 19 130/98 94 Pulse Ox 10/17/18 04:09 10/17/18 04:00 10/17/18 00:18 10/16/18 23:54 85 L 10/16/18 23:35 10/16/18 23:28 10/16/18 22:31 10/16/18 22:30 10/16/18 20:35 PG Care Time/CCT Total # of Minutes Spent Total Time Spent with Patient: Total time spent is greater than 50% in coordination of care (as documented) at patient's floor/unit and/or counseling patient:
[2018-10-17 07:11] LABS: Albumin Level 2.2 gm/dl (3.4-5.0); BUN Creatinine Ratio 20.4 (10-20); Creatinine Clr Calc Pharmacy 52.2 ml/min; Est GFR (African American) 63.2; Est GFR (Non-African American) 54.6; Potassium 3.3 mmol/L (3.5-5.1)
[2018-10-17 07:13] LABS: Bilirubin Direct 0.6 mg/dl (0-0.2); Total Protein 5.6 gm/dl (6.4-8.2)
[2018-10-17] MEDS: CYANOCOBALAMIN 500 MCG TABLET (VITAMIN B-12) PO SCH (08:41)
[2018-10-17] MEDS: FINASTERIDE 5 MG TAB PO SCH (08:41)
[2018-10-17] MEDS: PANTOprazole 40 MG TAB PO SCH (08:41)
[2018-10-17] MEDS: TERAZOSIN HCL 5 MG CAP PO SCH (08:41)
[2018-10-17] MEDS: METOPROLOL SUCC 50MG EXT REL TAB PO SCH (08:41)
[2018-10-17] MEDS: INCRUSE ELLIPTA~ORDER AWAITING ACTION SCH ×2 (08:41→15:43)
[2018-10-17] MEDS ORDERED: dilTIAZem HCl 5 MG/ML 5 ML VIAL IV STA (09:12)
--- NOTE | 2018-10-17 09:27 | Anesthesiology Consultation ---
Date of Service October 17, 2018 The patient is an 78 y/o male with necrotizing cholecystitis and multiple medical problems including pneumonia and afib with RVR. Dr. Mueller is deciding between performing a lap darryl versus transferring the patient so that he may receive a percutaneous drain. The patient's pneumonia is currently being treated and he feels much less shortness of breath today. SpO2 is 97 on [place] oxygen. His current HR is in the 130s-140s. The patient was discussed with the medicine team and Dr. Padron. The patient needs to be rate controlled prior to going to the OR. The patient would still be at increased risk for worsening of his pneumonia by undergoing anesthesia but this risk needs to be weighed against the benefits of having his surgery today. Assessment & Plan (1) Encounter for pre-operative examination: Chart Review Chart Review: Pending: Refer to Additional Notes / Consult section and Patient NOT seen in Pre Admission Testing Consults Requested The patient needs to be rate controlled. Once his HR is controlled a discussion will need to take place between Dr. Mueller, the medicine team, the anesthesia te am, and the patient regarding the best course of action. The patient is at increased risk for worsening of his pneumonia under anesthesia, however the benefits of undergoing surgery may outweigh that risk. History Surgery Operation Date: 10/17/18 07:00 Proposed Procedures p Laparoscopic Cholecystectomy - Everton Mueller MD, FACS Height/Weight Height: 6 ft Weight: 84.7 kg Allergies Allergy/AdvReac Type Severity Reaction Status Date / Time No Known Drug Allergies Allergy Verified 10/16/18 15:16 Medications Home Medications Medication Instructions Recorded Confirmed Last Taken Eliquis 5 mg PO BID 09/29/18 10/16/18 10/16/18 Incruse Ellipta 1 inh INHALATION QAM 09/29/18 10/16/18 10/16/18 Symbicort 2 puff INHALATION BID 09/29/18 10/16/18 10/16/18 doxycycline hyclate 100 mg PO BID 09/29/18 10/16/18 10/16/18 finasteride 5 mg PO QAM 09/29/18 10/16/18 10/16/18 metoprolol succinate 100 mg PO QAM 09/29/18 10/16/18 10/16/18 omeprazole 20 mg PO QAM 09/29/18 10/16/18 10/16/18 terazosin 5 mg PO QAM 09/29/18 10/16/18 10/16/18 triamcinolone acetonide 1 applic TOPICAL DAILY PRN 09/29/18 10/16/18 10/16/18 cyanocobalamin (vit B-12) 1,000 1,000 mcg PO DAILY #90 tab 10/07/18 10/16/18 Unknown mcg tablet Active Medications Generic Name Dose Route Start Last Admin Trade Name Meghan PRN Reason Stop Dose Admin Budesonide/Formoterol Fumarate 2 puffs 10/16/18 23:54 10/17/18 08:40 Symbicort 80mcg/4.5mcg INH 11/15/18 23:53 2 puffs BID VIANEY Administration Cyanocobalamin 1,000 mcg 10/17/18 09:00 10/17/18 08:41 Vitamin B-12 PO 11/16/18 08:59 1,000 mcg DAILY VIANEY Administration Finasteride 5 mg 10/17/18 09:00 10/17/18 08:41 Proscar PO 11/16/18 08:59 5 mg QAM VIANEY Administration Lactated Ringer's 1,000 mls @ 125 mls/hr 10/16/18 23:54 10/17/18 08:45 Lr IV 11/15/18 23:53 125 mls/hr .Q8H VIANEY Administration Piperacillin Sod/Tazobactam 115 mls @ 28.75 mls/hr 10/17/18 02:00 10/17/18 05:43 Sod 3.375 gm/ Dextrose IV 10/24/18 01:59 Infused Q8H VIANEY Infusion Protocol Metoprolol Succinate 100 mg 10/17/18 09:00 10/17/18 08:41 Toprol Xl PO 11/16/18 08:59 100 mg QAM VIANEY Administration Miscellaneous 1 ea 10/17/18 08:00 10/17/18 08:41 Order Awaiting Action N/A 11/16/18 07:59 Not Given QS VIANEY Pantoprazole Sodium 40 mg 10/17/18 09:00 10/17/18 08:41 Protonix PO 11/16/18 08:59 40 mg QAM VIANEY Administration Terazosin HCl 5 mg 10/17/18 09:00 10/17/18 08:41 Hytrin PO 11/16/18 08:59 5 mg QAM VIANEY Administration Past Medical History Medical History COPD (chronic obstructive pulmonary disease) (Chronic) 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 Inguinal hernia Osteomyelitis Septic discitis of lumbosacral region Atrial fibrillation with RVR (Resolved) Atrial flutter with rapid ventricular response (Resolved) Hypertrophy of nasal turbinates (Resolved) MRSA (methicillin resistant Staphylococcus aureus) septicemia (Resolved) BPH (benign prostatic hyperplasia) Esophageal dilatation HLD (hyperlipidemia) HTN (hypertension) Past Family History Family History Father Bowel perforation Mother Parkinson disease Brother Diabetes Hepatocellular carcinoma Other No known health problems Past Surgical History Surgical History H/O inguinal hernia repair onset: dec 22 2015 R open repair with drain placement. History of back surgery REVISION L4-L5, L5-S1 decompressive laminectomy and diskectomy for recurrent osteomyelitis and epidural abscess, L5 History of lumbar laminectomy onset: Feb 25, 2016 lumbar decompression laminectomy at L5-S1 and washout and drainage of epidural abscess History of nasal surgery History of tonsillectomy S/P nasal endoscopy with nasal polypectomy Social History Smoking Status: Former smoker tobacco type: cigarettes Smoking cigarettes per day: 20 Do You Dip or Chew Tobacco: No Hx Alcohol Use: Yes Alcohol type: beer and hard liquor alcohol intake frequency: 0-2 drinks per day Hx Substance Use: No Physical Exam Vital Signs Last Vital Signs Temp 37.0 C 10/17/18 04:00 Pulse 128 H 10/17/18 04:09 Resp 18 10/17/18 04:00 BP 138/82 10/17/18 04:09 Pulse Ox 97 10/17/18 04:00 Testing Laboratory Results 10/17/18 06:15 10/17/18 06:15 PT 12.8 Seconds (9.0-12.0) H 10/16/18 17:47 INR 1.3 (0.9-1.1) H 10/16/18 17:47 Urine Color Rosa M 10/16/18 20:43 Urine Appearance Cloudy (Clear) A 10/16/18 20:43 Urine pH 5.0 (4.5-7.5) 10/16/18 20:43 Ur Specific [place] 1.026 (1.000-1.030) 10/16/18 20:43 Urine Protein 1+ (Negative) H 10/16/18 20:43 Urine Glucose (UA) Trace (Negative) H 10/16/18 20:43 Urine Ketones Negative (Negative) 10/16/18 20:43 Urine Nitrite Positive (Negative) A 10/16/18 20:43 Ur Leukocyte Esterase 1+ (Negative) H 10/16/18 20:43 Urine WBC (Auto) 5-10 /hpf (0-5) H 10/16/18 20:43 Urine RBC (Auto) 5-10 /hpf (0-4) H 10/16/18 20:43 U Hyaline Cast (Auto) 10-30 /lpf (0-5) H 10/16/18 20:43 U Epithel Cells (Auto) 10-20 /lpf (0-5) H 10/16/18 20:43 Urine Bacteria (Auto) Negative (Negative) 10/16/18 20:43 Electrocardiogram Date: 10/16/18 Findings: + DE (inferior) SR with PACs and aberrant conduction rate 94, ST depression anterior leads Chest X-Ray Date: 10/16/18 XR chest 1V portable CLINICAL HISTORY: Chest Pain COMPARISON STUDY: Chest CT April 26, 2018. Chest radiograph September 29, 2018. FINDINGS: Lung volumes are diminished. There is no pneumothorax. There is a possible small right pleural effusion. Left midlung opacity has developed. There are bibasilar opacities. Cardiomediastinal silhouette is stable. IMPRESSION: 1. Left midlung and bibasilar opacities which may reflect pneumonia or less likely pulmonary edema. Radiographic follow up to ensure resolution is recommended. 2. Possible small right pleural effusion. 3. Low lung volumes. Electronically signed by: Barney Garibay M.D. 10/16/2018 7:11 PM Dictated: 10/16/[id number] Transcribed: [id number]/16/[id number] Echocardiogram Date: 01/28/18 EF: 55-60 LV Function: normal Other Findings: + diastolic dysfunction (grade 1) Valvular Disease: + no significant valvular disease
[2018-10-17] MEDS: dilTIAZem HCl 125 MG in DEXTROSE 5% 100 ML IV SCH (09:39)
--- NOTE | 2018-10-17 10:14 | Pharmacy Report ---
Pharmacy Abx Dose Short Note - Date of Service October 17, 2018 - Assessment & Plan Assessment * 78 year old M admitted last evening for acute cholecystitis, multifocal pna and HORTENCIA. * Pharmacy consulted to dose VANCOMYCIN + ZOSYN * Day # 2 of antimicrobial therapy * Patient has a h/o ESBL e coli UTI in the past as well as h/o MRSA epidural abscess + osteomyelitis * He takes Doxycycline PO chronically for suppressive therapy * Pt was recently hospitalized * HORTENCIA has improved, SCr 1.92 --> 1.24 (baseline SCr ~1.1-1.2) Plan Vancomycin * Loading dose: 1750mg (~20.6mg/kg) IV x 1 given last night * Maint dose: 1250mg (~14.8mg/kg) IV Q 18 hrs * Goal trough level for possible pulm infxn : 15 to 20 mcg/mL * Will check trough level with 3rd or 4th maint dose if therapy continues * P'kinetic estimates: Vd 0.7L/kg; half life ~ 15 hrs Zosyn * BMI < 35, eCrCl > 20 * Continue 3.375gm ext-infusion IV Q 8 hrs * Pt does have a h/o ESBL e coli, monitor closely for clinical response to Zosyn as this will not reliably cover ESBL if GI colonized Pharmacy will continue to follow and will adjust dose/frequency as necessary. Thank you.
[2018-10-17] MEDS ORDERED: CONRAY 60% 50 ML VIAL ONE (11:39)
[2018-10-17] MEDS ORDERED: BUPIVACAINE 0.5 % 5 MG/1 ML MPF 30ML VIAL ONE (11:39)
[2018-10-17] MEDS ORDERED: fentaNYL citrate 100 MCG/2 ML VIAL ONE ×3 (11:47→14:03)
[2018-10-17] MEDS ORDERED: PROPOFOL IV EMULSION 10 MG/ML 20 ML VIAL IV ONE (12:21)
[2018-10-17] MEDS ORDERED: DEXAMETHASONE SOD INJ 4 MG/ML VIAL ONE (12:21)
[2018-10-17] MEDS ORDERED: LIDOCAINE HCL 2% 2 ML VIAL/AMP(20MG/ML) INFIL ONE (12:21)
[2018-10-17] MEDS ORDERED: ONDANSETRON INJ 2 MG/ML 2 ML VIAL ONE (12:21)
[2018-10-17] MEDS ORDERED: GLYCOPYRROLATE 0.2 MG/ML VIAL ONE (12:21)
[2018-10-17] MEDS ORDERED: ROCURONIUM BROMIDE 10 MG/ML 5 ML VIAL ONE (12:21)
[2018-10-17] MEDS ORDERED: NEOSTIGMINE METHYLSULFATE 5 MG/5 ML SYR ONE (12:21)
[2018-10-17] MEDS ORDERED: POTASSIUM CHLORIDE 10 MEQ / 100ML WTR IV STA (12:30)
--- NOTE | 2018-10-17 13:16 | Operative Report ---
Post Operative Report Pre & Post Diagnosis Operation Date: 10/17/18 07:00 Pre-Op Diagnosis: necrotizing cholecystitis Post-Op Diagnosis: necrotizing cholecystitis Procedure Operation Date: 10/17/18 07:00 Actual Procedures p Laparoscopic Cholecystectomy(Not Applicable) - Everton Mueller MD, FACS Surgeon Everton Mueller MD, FACS Physical Therapy Aide Kavitha Severino Estimated Blood Loss 20 Findings Consistent with Post-Op Diagnosis Specimens gallbladder Description of Procedure see dictation I attest to the content of the Intraoperative Record and any orders documented therein. Any exceptions are noted below.
[2018-10-17] MEDS ORDERED: ePHEDrine sulfate 50 MG/ML AMP IV PRN (14:03)
[2018-10-17] MEDS ORDERED: ONDANSETRON INJ 2 MG/ML 2 ML VIAL IV PRN ×2 (14:03→15:45)
[2018-10-17] MEDS ORDERED: ATROPINE SULFATE 0.1 MG/ML 10ML SYR IV PRN (14:03)
[2018-10-17] MEDS: fentaNYL citrate 100 MCG/2 ML VIAL IV PRN ×4 (14:05→14:27)
--- NOTE | 2018-10-17 14:21 | Operative Report ---
DATE OF OPERATION: 10/17/2018 NAME OF OPERATION: Laparoscopic cholecystectomy. POSTOPERATIVE DIAGNOSIS: Necrotizing cholecystitis. POSTOPERATIVE DIAGNOSIS: Necrotizing cholecystitis. STAFF SURGEON: Everton Mueller MD MOUNTER CLARINETS: Jimmy Tadeo PA-C and Cherry Davis. ANESTHESIA: General. DESCRIPTION OF PROCEDURE: The patient was brought in the operating room and placed on the operating table in supine position. His abdomen was prepped and draped in usual fashion. Pneumatic stockings, orogastric tube were placed. My assistants helped with prepping, draping, removal of the gallbladder and closure of the wounds. Initial incision was made above the umbilicus using 0.5% plain Marcaine to anesthetize all incisions. The fascia was identified, a Veress needle passed, pneumoperitoneum produced. An 11 mm port placed at this level and then under visualization three 5 mm ports placed, 1 cephalad and 2 laterally. The patient was placed in reverse Trendelenburg position, rotated to the left. The omentum and colon were adherent to the gallbladder. These were taken down. The gallbladder was almost completely black and gangrenous. There was bilious ascites. We did aspirate bile out of the gallbladder which was bloody in nature. On trying to retract the gallbladder, it did tear, it was extremely necrotic. It was difficult to identify the cystic duct, cystic artery. We were in the stalin hepatis, I felt that it was too dangerous to be aggressive. Therefore, the gallbladder was dissected free as well as possible and then dissected away from the liver bed, it was extremely edematous and actually peeled away. There was minimal bleeding. The Endobag had been placed into the abdomen and necrotic pieces of tissue and the gallbladder were placed into the Endobag. The subhepatic space was irrigated. There was minimal bleeding. A 19 round Dhruv-Farr drain was placed through the lateral 5 mm port site, placed into the subhepatic space, secured using 2-0 nylon suture. After appropriate hemostasis, the Endobag was removed through the umbilical site using a 5 mm camera. We did have to enlarge the fascial defect and skin because of the size of the gallbladder. The fascia at the umbilicus closed using interrupted 0 PDS suture and then the skin at all incisions closed using 4-0 nylon suture. The operation itself took at least 20-30 minutes extra because of the difficulty of the necrotic gallbladder. My assistants again helped with prepping, draping, removal of the gallbladder and closure of the wounds. I attest to the content of the Intraoperative Record and any orders documented therein. Any exception s are noted below.
--- NOTE | 2018-10-17 15:02 | Anesthesiology Progress Note ---
Date of Service October 17, 2018 Anesthesia Post Procedure Vital Signs Vital Signs: Temp Pulse Pulse Pulse Resp BP BP 10/17/18 14:50 67 15 104/58 L 10/17/18 14:45 36.1 C L 61 17 107/52 L 10/17/18 14:35 69 14 114/61 10/17/18 14:25 72 22 107/53 L 10/17/18 14:15 70 24 107/59 L 10/17/18 14:05 68 21 96/52 L 10/17/18 13:55 70 17 97/50 L 10/17/18 13:45 76 15 104/54 L 10/17/18 13:36 36.3 C L 80 16 88/42 L 10/17/18 11:50 36.4 C L 94 H 20 110/57 L 10/17/18 11:08 115 H 18 104/69 10/17/18 10:57 36.5 C 10/17/18 10:48 123 H 18 117/57 L 10/17/18 10:30 96 H 18 115/65 10/17/18 10:23 96 H 18 108/57 L 10/17/18 10:01 121 H 18 105/63 10/17/18 09:47 136 H 20 110/62 10/17/18 08:30 128 H 10/17/18 04:09 128 H 138/82 10/17/18 04:00 37.0 C 128 H 18 120/64 10/17/18 00:18 122 H 10/16/18 23:54 10/16/18 23:35 36.6 C 126 H 18 139/77 10/16/18 23:28 121 H 10/16/18 22:31 134 H 113/65 10/16/18 22:30 130 H 20 113/65 10/16/18 20:35 135 H 19 130/98 10/16/18 18:52 92 H 18 107/61 10/16/18 18:07 94 H 18 123/68 10/16/18 17:43 94 H 23 121/61 10/16/18 16:03 37.0 C 53 L 18 104/52 L Pulse Ox Pulse Ox 10/17/18 14:50 95 10/17/18 14:45 96 10/17/18 14:35 94 10/17/18 14:25 96 10/17/18 14:15 94 10/17/18 14:05 92 10/17/18 13:55 96 10/17/18 13:45 93 10/17/18 13:36 92 10/17/18 11:50 94 10/17/18 11:08 94 10/17/18 10:57 10/17/18 10:48 93 10/17/18 10:30 95 10/17/18 10:23 93 10/17/18 10:01 92 10/17/18 09:47 91 10/17/18 08:30 10/17/18 04:09 10/17/18 04:00 97 10/17/18 00:18 10/16/18 23:54 85 L 10/16/18 23:35 93 10/16/18 23:28 10/16/18 22:31 10/16/18 22:30 92 10/16/18 20:35 94 10/16/18 18:52 90 10/16/18 18:07 92 10/16/18 17:43 94 10/16/18 16:03 95 Pain Intensity Abdomen: Pain Intensity: 4 Transfer of Care Handoff Completed per policy Notes Mental Status: alert / awake / arousable Patient Amnestic to Procedure: Yes Nausea / Vomiting: adequately controlled Pain: adequately controlled Airway Patency, RR, SpO2: stable & adequate BP & HR: stable & adequate Hydration State: stable & adequate Anesthetic Complications: no major complications apparent
[2018-10-17] MEDS: VANCOMYCIN HCL 1,250 MG in SODIUM CHLORIDE 0.9% 250 ML IV SCH ×2 (15:36→15:43)
[2018-10-17] MEDS ORDERED: HYDROmorphone INJ 0.5 MG/0.5 ML SYR IV PRN (15:45)
[2018-10-17] MEDS ORDERED: HYDROCODONE/ACETAMOPHEN 5/325MG TAB PO PRN ×2 (15:45)
[2018-10-17] MEDS ORDERED: ACETAMINOPHEN 1,000 MG/100 ML VIAL IV ONE (15:45)
[2018-10-17] MEDS ORDERED: HYDROmorphone INJ 1 MG/ML SYRINGE IV PRN (15:45)
[2018-10-17] MEDS ORDERED: PROMETHAZINE HCL 12.5 MG in SODIUM CHLORIDE 0.9% 50 ML IV PRN (15:45)
[2018-10-17] MEDS: POTASSIUM CHLORIDE / WTR 10 MEQ/100 ML PLCT IV SCH ×6 (16:11→23:09)
[2018-10-17] MEDS: D5NSS + 20MEQ KCL 20 MEQ/1,000 ML BAG IV SCH (16:18)
--- NOTE | 2018-10-17 16:27 | Consultation Report ---
DATE OF CONSULTATION: 10/17/2018 GI CONSULT NOTE REASON FOR EVALUATION: Abnormal liver tests. HISTORY OF PRESENT ILLNESS: The patient is an 78-year-old male who presents to the hospital yesterday with abdominal pain which he had for about 4 days and was getting progressively worse. His evaluation showed an elevated white count of 16.3. Liver tests showed a bilirubin of 2.4, which was mostly indirect. His alkaline phosphatase was barely elevated at 121, normal upper limit is 117. AST and ALT are normal. Ultrasound showed gallstones, gallbladder wall thickening and pericholecystic fluid consistent with acute cholecystitis. This was confirmed on CT and MRI. Common bile duct was measured at between 4 and 5 mm and no common duct stones or sludge were found. The pancreas was normal. Lipase was normal. The patient underwent an urgent laparoscopic cholecystectomy this morning and was found to have a necrotic gallbladder with blood in the gallbladder. The gallbladder essentially fell apart during the procedure, but was successfully extracted and a BRYCE drain was left in place. Because of the abnormal liver tests, I was consulted. The patient has no prior history of liver disease, but he does have about 2 alcoholic beverages per day. PAST MEDICAL HISTORY: Remarkable for atrial fibrillation for which he takes metoprolol and Eliquis. He has had osteomyelitis, COPD, acid reflux, benign prostatic hypertrophy, hypertension, stage III chronic kidney disease, hyperlipidemia and history of pneumonia. ALLERGIES: None. MEDICATIONS: Per list. FAMILY HISTORY: Noncontributory. SOCIAL HISTORY: The patient is and lives with his . Drinks alcohol daily, does not smoke. REVIEW OF SYSTEMS: Remarkable for postoperative pain. The remainder is negative. PHYSICAL EXAMINATION: GENERAL: The patient appears in no acute distress. VITAL SIGNS: His blood pressure is 104/58, pulse 67, temperature is 36.1, O2 saturation 95 on 4 liters. ABDOMEN: Bandaged. He has a BRYCE drain in the right upper quadrant draining some bloody material. Abdomen is still somewhat distended and tympanitic. It is not really significantly tender other than a little bit of postoperative pain. NEUROLOGIC: Sclerae are nonicteric. There are no signs of hepatic encephalopathy. IMPRESSION: The patient has mild liver test abnormalities, which is certainly not expected given his necrotic gallbladder and its proximity to the liver. His main abnormality is the bilirubin elevation which is mostly indirect and I suspect this is most likely related to Gilbert's which is a benign alteration and bilirubin metabolism that carries no clinical significance. His AST and ALT are normal, alkaline phosphatase is only minimally elevated. I suspect that these will all correct given time and healing. I do not think any further intervention related to his liver is necessary at this time, but I would recommend repeat liver profile in 4-6 weeks to make sure that they have corrected back to normal.
[2018-10-17] MEDS: DOCUSATE SODIUM/SENNA 50/8.6MG TAB PO SCH (19:42)
[2018-10-18] MEDS: INCRUSE ELLIPTA~ORDER AWAITING ACTION SCH ×3 (00:30→12:34)
[2018-10-18] MEDS: dilTIAZem HCl 125 MG in DEXTROSE 5% 100 ML IV SCH (01:48)
[2018-10-18] MEDS: PIPERACILLIN/TAZOBACTAM 3.375 GM in DEXTROSE 5% 100 ML IV SCH ×2 (01:48→09:22)
[2018-10-18] MEDS: D5NSS + 20MEQ KCL 20 MEQ/1,000 ML BAG IV SCH (03:17)
[2018-10-18 06:15] LABS: Hematocrit (blood only) 32.3 % (42-52); Hemoglobin 10.3 g/dL (14.0-18.0); Immature Granulocytes # (auto) 0.01 K/uL (0.00-0.02); Immature Granulocytes % (auto) 0.1 %; Lymphocytes # (auto) 0.31 K/uL (1.2-3.4); Lymphocytes % (auto) 4.5 %; Mean Corpuscular Hgb Conc 31.9 g/dL (32-36); Mean Corpuscular Volume 91.5 fL (80-100); Monocytes # (auto) 0.68 K/uL (0.11-0.59); Monocytes % (auto) 9.9 %; Neutrophils % (auto) 85.5 %; Platelet Count 204 K/uL (130-400); RDW Coefficient of Variation 14.9 % (11.5-14.5); RDW Standard Deviation 50.1 fL (36.4-46.3); Red Blood Count 3.53 M/uL (4.7-6.1)
[2018-10-18 06:54] LABS: Albumin Level 2.1 gm/dl (3.4-5.0); BUN Creatinine Ratio 15.2 (10-20); Bilirubin Direct 0.3 mg/dl (0-0.2); Calcium 7.7 mg/dl (8.5-10.1); Creatinine Clr Calc Pharmacy 58.3 ml/min; Est GFR (African American) 72.3; Est GFR (Non-African American) 62.4
[2018-10-18 06:57] LABS: Albumin Globulin Ratio 0.6 (0.9-2); Bilirubin,Total 0.8 mg/dl (0.2-1); Globulin 3.4 gm/dl (2.5-4.0); Phosphorus 2.8 mg/dl (2.5-4.9); Total Protein 5.5 gm/dl (6.4-8.2)
--- NOTE | 2018-10-18 07:30 | Progress Note ---
Date of Service October 18, 2018 Assessment & Plan (1) Gangrenous cholecystitis: pt is stable- no acute bleeding, drain with serous drainage- no bile leak evident good ur output- d/c jaramillo. Cont atbx, adv diet , leave drain at least one week SQ Hep today- try Eliquis tomorrow Sat 10/19 will need IV atbx 3-4 days. mobilize Results & Data Vital Signs (Past 12 Hours) Vital Signs Temp Pulse Resp BP BP Pulse Ox Pulse Ox 10/18/18 07:06 93 H 94 10/18/18 07:05 36.7 C 57 L 20 99/57 L 85 L 10/18/18 03:21 36.5 C 64 16 96/49 L 95 10/17/18 23:54 96 10/17/18 23:06 36.4 C L 61 20 94/51 L 96
--- NOTE | 2018-10-18 08:31 | Anesthesiology Progress Note ---
Date of Service October 18, 2018 Anesthesia Post Procedure Vital Signs Vital Signs: Temp Pulse Pulse Resp BP BP Pulse Ox 10/18/18 07:06 93 H 94 10/18/18 07:05 36.7 C 57 L 20 99/57 L 85 L 10/18/18 03:21 36.5 C 64 16 96/49 L 95 10/17/18 23:54 10/17/18 23:06 36.4 C L 61 20 94/51 L 96 10/17/18 18:48 36.4 C L 61 19 109/55 L 97 10/17/18 15:10 36.4 C L 65 20 110/57 L 91 10/17/18 14:50 67 15 104/58 L 95 10/17/18 14:45 36.1 C L 61 17 107/52 L 96 10/17/18 14:35 69 14 114/61 94 10/17/18 14:25 72 22 107/53 L 96 10/17/18 14:15 70 24 107/59 L 94 10/17/18 14:05 68 21 96/52 L 92 10/17/18 13:55 70 17 97/50 L 96 10/17/18 13:45 76 15 104/54 L 93 10/17/18 13:36 36.3 C L 80 16 88/42 L 92 10/17/18 11:50 36.4 C L 94 H 20 110/57 L 94 10/17/18 11:08 115 H 18 104/69 94 10/17/18 10:57 36.5 C 10/17/18 10:48 123 H 18 117/57 L 93 10/17/18 10:30 96 H 18 115/65 95 10/17/18 10:23 96 H 18 108/57 L 93 10/17/18 10:01 121 H 18 105/63 92 10/17/18 09:47 136 H 20 110/62 91 Pulse Ox 10/18/18 07:06 10/18/18 07:05 10/18/18 03:21 10/17/18 23:54 96 10/17/18 23:06 10/17/18 18:48 10/17/18 15:10 10/17/18 14:50 10/17/18 14:45 10/17/18 14:35 10/17/18 14:25 10/17/18 14:15 10/17/18 14:05 10/17/18 13:55 10/17/18 13:45 10/17/18 13:36 10/17/18 11:50 10/17/18 11:08 10/17/18 10:57 10/17/18 10:48 10/17/18 10:30 10/17/18 10:23 10/17/18 10:01 10/17/18 09:47 Pain Intensity Abdomen: Pain Intensity: 4 Notes Mental Status: alert / awake / arousable and participated in evaluation Patient Amnestic to Procedure: Yes Nausea / Vomiting: adequately controlled Pain: adequately controlled Airway Patency, RR, SpO2: stable & adequate BP & HR: stable & adequate Hydration State: stable & adequate Anesthetic Complications: no major complications apparent and Pt Satisfied with anesthetic care
[2018-10-18] MEDS: METOPROLOL SUCC 50MG EXT REL TAB PO SCH (09:20)
[2018-10-18] MEDS: PANTOprazole 40 MG TAB PO SCH (09:20)
[2018-10-18] MEDS: BUDESONIDE/FORMOTEROL FUMARATE 80/4.5 60 PUFFS/INHALER INH SCH ×2 (09:20→20:28)
[2018-10-18] MEDS: TERAZOSIN HCL 5 MG CAP PO SCH (09:20)
[2018-10-18] MEDS: DOCUSATE SODIUM/SENNA 50/8.6MG TAB PO SCH ×2 (09:20→20:28)
[2018-10-18] MEDS: FINASTERIDE 5 MG TAB PO SCH (09:21)
[2018-10-18] MEDS: HEPARIN SOD 5,000 UNIT/0.5 ML VIAL SQ SCH ×2 (09:21→20:27)
[2018-10-18] MEDS: CYANOCOBALAMIN 500 MCG TABLET (VITAMIN B-12) PO SCH (09:21)
[2018-10-18] MEDS: MAGNESIUM HYDROXIDE SUSP 30 ML UDC PO SCH ×2 (09:21→20:27)
[2018-10-18] MEDS: VANCOMYCIN HCL 1,250 MG in SODIUM CHLORIDE 0.9% 250 ML IV SCH (09:22)
[2018-10-18] MEDS ORDERED: IMIPENEM/CILASTATIN CONSULT ACTIVE PRN (13:41)
--- NOTE | 2018-10-18 13:52 | Pharmacy Report ---
Pharmacy Abx Dose Short Note - Date of Service October 18, 2018 - Assessment & Plan Assessment * 78 year old M admitted last evening for acute cholecystitis, multifocal pna and HORTENCIA. * Pharmacy consulted to dose VANCOMYCIN + PRIMAXIN * Day # 3 of VANCOMYCIN; Dayn # 1 of PRIMAXIN (after receiving 2 days of ZOSYN). * PRIMAXIN initiated today to offer better coverage of ESBL e coli, as pt may be colonized with this organism based upon recent h/o UTI with this organism * VANCOMYCIN typically not indicated in setting of intra-abd infxn, however PRIMAXIN does offer less consistent coverage of enterococcus, plus this patient requires MRSA coverage due to need for chronic suppressive therapy for MRSA osteo. Planned 4 day course of VANCO then return to Doxycycline PO if able * negative MRSA nasal swab, greatly lessening risk of MRSA PNA * s/p lap darryl on 10/17 * Per surgeon, gallbladder was necrotic and pt had signs of peritonitis; thus abx course likely to be 3-4 days post-op * HORTENCIA has improved, SCr 1.92 --> 1.24-->1.1 (baseline SCr ~1.1-1.2) Plan Vancomycin * Continue 1250mg IV Q 18 hrs * Will check trough with 4th dose (10/19 PM) * Goal trough 10-20mcg/mL Primaxin * eCrCl 30-60cc/min; 300mg IV Q 6 hrs recommended. Pharmacy will continue to follow and will adjust dose/frequency as necessary. Thank you.
[2018-10-18] MEDS: IMIPENEM/CILASTATIN SODIUM 300 MG in DEXTROSE 5% 100 ML IV SCH ×2 (14:46→19:36)
--- NOTE | 2018-10-18 15:25 | Progress Note ---
DATE: 10/18/2018 SUBJECTIVE: The patient is postop day 1 for laparoscopic cholecystectomy for acute cholecystitis and abnormal liver tests. The patient's vital signs are normal. He is afebrile. He has a little bit of postoperative pain, but has been spending a lot of time in the bedside chair today. He continues to have some bloody drainage out of his BRYCE drain. His liver tests have improved significantly since his cholecystectomy. His bilirubin has returned to normal. AST and ALT continued to remain normal and the alkaline phosphatase is only slightly elevated at 145. PHYSICAL EXAMINATION: ABDOMEN: His abdomen is little bit distended. There is some postoperative tenderness. BRYCE drain is in the right mid abdomen and draining bloody material. IMPRESSION: The patient's abnormal liver tests are probably a combination of Gilbert's and hepatic irritation from his necrotic gallbladder. These are correcting rapidly and I expect that they will return to normal completely in a few weeks. No further GI intervention is necessary. Please call us if anything changes.
--- NOTE | 2018-10-18 16:30 | Infectious Disease Consult ---
Date of Consultation October 18, 2018 Assessment & Plan (1) Gangrenous cholecystitis: 78-year-old male with gangrenous cholecystitis now status post cholecystectomy, possible hospital-acquired pneumonia, with history of recent ESBL E. coli infection. For now, imipenem should provide adequate IV coverage. Consider discontinuing vancomycin as MRSA screen was negative. Will follow. (2) Multifocal pneumonia: (3) History of ESBL E. coli infection: History of Present Illness Reason for Consultation: Primaxin use for necrotic cholecystitis, history of recent ESBL UTI Attending Physician: Bill Barajas MD History of Present Illness 78-year-old male with history of diabetes, hyperlipidemia, atrial flutter, stage III chronic kidney disease, prior history of MRSA discitis with osteomyelitis, recent urinary tract infection with ESBL E. coli, admitted to the hospital on the with 4-day history of progressively worsening abdominal pain, localizing to right upper quadrant. Was found to have evidence of acute cholecystitis, and is undergone laparoscopic cholecystectomy with finding of necrotizing cholecysti tis. Also with chest x-ray worrisome for possible hospital-acquired pneumonia. Patient now being treated with vancomycin and imipenem. Cultures have been negative. MRSA screen negative. White cell count has improved from 16,000- 9000. Complaining of abdominal pain, 1-2 out of 10 in intensity. Allergies Allergy/AdvReac Type Severity Reaction Status Date / Time No Known Drug Allergies Allergy Verified 10/16/18 15:16 Home Medications Home Medications Medication Instructions Recorded Confirmed Type Eliquis 5 mg PO BID 09/29/18 10/16/18 History Incruse Ellipta 1 inh INHALATION QAM 09/29/18 10/16/18 History Symbicort 2 puff INHALATION BID 09/29/18 10/16/18 History doxycycline hyclate 100 mg PO BID 09/29/18 10/16/18 History finasteride 5 mg PO QAM 09/29/18 10/16/18 History metoprolol succinate 100 mg PO QAM 09/29/18 10/16/18 History omeprazole 20 mg PO QAM 09/29/18 10/16/18 History terazosin 5 mg PO QAM 09/29/18 10/16/18 History triamcinolone acetonide 1 applic TOPICAL DAILY PRN 09/29/18 10/16/18 History cyanocobalamin (vit B-12) 1,000 1,000 mcg PO DAILY #90 tab 10/07/18 10/16/18 History mcg tablet Patient History Medical History COPD (chronic obstructive pulmonary disease) (Chronic) 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 History of back surgery REVISION L4-L5, L5-S1 decompressive laminectomy and diskectomy for recurrent osteomyelitis and epidural abscess, L5 History of lumbar laminectomy onset: Feb 25, 2016 lumbar decompression laminectomy at L5-S1 and washout and drainage of epidural abscess History of nasal surgery History of tonsillectomy S/P nasal endoscopy with nasal polypectomy Family History Father Bowel perforation Mother Parkinson disease Brother Diabetes Hepatocellular carcinoma Other No known health problems Social History Preferred Language: Turkish Communication Ability: Effective Visual Impairment: No Limitations Hearing Ability: Use of Hearing Aid Meter Record Clerk Required: No Beliefs That Will Affect Care: None marital status: marital status details: Has two children Current Living Situation: Spouse Current Living Situation Comment: with current occupational status: retired Other Information That Helps Us Care for You: No Feels Safe at Home: Yes Safety Concerns: Feels Safe At This Time Smoking Status: Former smoker Tobacco Type: cigarettes packs per day: 1 Cigarettes Per Day: 20 Do You Dip or Chew Tobacco: No Second Hand Exposure: No Tobacco Cessation Education Requested by Patient: No Hx Alcohol Use: Yes Alcohol type: beer and hard liquor Hx Substance Use: No Review of Systems Review of Systems: All systems reviewed & are unremarkable except as noted in HPI & below Physical Exam Constitutional: WD/WN, vitals as above no acute distress Eyes: PERRL, conjunctivae normal, anicteric sclerae ENMT: external ear and nose normal, oropharynx normal Neck: trachea midline, no thyromegaly trachea midline Respiratory: normal respiratory effort and normal percussion; no respiratory distress Auscultation: + rales Cardiovascular: RRR, no murmur, no edema Heart Sounds: no gallop and no cardiac rub Gastrointestinal (Abdomen): Inspection/Auscultation: + abdomen distended; + abnormal bowel sounds Percussion/Palpation: + abdomen tender; no hepatomegaly and no abdominal mass Musculoskeletal: no cyanosis or clubbing, extremities motor strength 5/5 Head/Neck/Chest: normocephalic, head atraumatic and neck supple Skin: no rashes, warm and dry Neurologic: patellar DTR's 2+ bilat, sensation intact moves all extremities; no focal motor deficits Psychiatric: A+Ox3, euthymic affect Lymphatic: no cervical or axillary lymphadenopathy no inguinal lymphadenopathy Results & Data Vital Signs (Past 12 Hours) Vital Signs Temp Pulse Resp BP Pulse Ox 10/18/18 15:11 36.5 C 65 20 106/70 93 10/18/18 11:57 36.5 C 61 20 127/59 L 98 10/18/18 07:06 93 H 94 10/18/18 07:05 36.7 C 57 L 20 99/57 L 85 L Laboratory Results Short CBC 10/18/18 Range/Units 05:47 WBC 6.90 (4.8-10.8) K/uL Hgb 10.3 L (14.0-18.0) g/dL Hct 32.3 L (42-52) % Plt Count 204 (130-400) K/uL BMP 10/18/18 05:47 Sodium 139 Potassium 4.0 D Chloride 109 H Carbon Dioxide 23 BUN 17 Creatinine 1.11 Glucose 200 H Calcium 7.7 L Liver Function 10/18/18 Range/Units 05:47 Total Bilirubin 0.8 D (0.2-1) mg/dl Direct Bilirubin 0.3 H (0-0.2) mg/dl AST 30 (15-37) U/L ALT 36 (12-78) U/L Alkaline Phosphatase 145 H (45-117) U/L Albumin 2.1 L (3.4-5.0) gm/dl Diagnostic Findings HISTORY: Pain. Nausea. FINDINGS: Gallbladder is distended. Gallbladder wall is thickened and edematous. There is pericholecystic infiltrative change. Gallstones and sludge are present. The biliary ductal system showed no evidence for distention. Common bile duct measures no more than 5 mm. High-grade duct is unremarkable. The upper abdominal structures are otherwise unremarkable. Spleen and pancreas are unremarkable. Kidneys negative for hydronephrosis. Atelectasis right base. IMPRESSION: 1. Acute cholecystitis. 2. Normal caliber bile duct. 3. Atelectatic changes right lung base. Electronically signed by: Jose Antonio Ahuja M.D. 10/17/2018 6:32 AM Microbiology 10/16/18 20:30 Blood Aerobic Blood Culture - Preliminary No growth in Aerobic bottle after 24 hours. 10/16/18 20:30 Blood Anaerobic Blood Culture - Preliminary No growth in Anaerobic bottle after 24 hours. 10/16/18 20:24 Blood Aerobic Blood Culture - Preliminary No growth in Aerobic bottle after 24 hours. 10/16/18 20:24 Blood Anaerobic Blood Culture - Preliminary No growth in Anaerobic bottle after 24 hours.
--- NOTE | 2018-10-18 16:56 | Hospitalist Progress Note ---
Date of Service October 18, 2018 Assessment & Plan (1) Cholecystitis: surgical consult for cholecystectomy Aleasyn ordered, given history of ESBL will change to Primaxin and continue vancomycin eventually transitioning back to doxycycline which he takes chronically for suppressive therapy for back infection MRCP confirms acute cholecystitis status post cholecystectomy 10/17 cultures are pending (2) Acute kidney injury: with a history of CKD 3, did have some volume resuscitation in the ER follow and avoid nephrotoxins and renal dose appropriate medications (3) Atrial fibrillation: also with history of aflutter, on metoprolol for rate control and typically takes eliquis but this was held for possible surgery Patient had A. fib RVR in 10/17 was remedied by diltiazem drip converted to sinus rhythm postoperatively or intraoperatively and now converted back to his normal dose stopping the diltiazem (4) BPH (benign prostatic hyperplasia): conitnues on finestaride and terazosin (5) COPD (chronic obstructive pulmonary disease): Remains stable on symbicort (6) DVT prophylaxis: will have scd, is on eliquis which is held for possible procedure we will coordinate with surgery about restarting his (7) Osteomyelitis: anticoagulation has been on suppressive doxycycline with ID oversight once vancomycin is stopped we will restart his doxycycline Subjective Patient is feeling well post surgery still having a little breath no chest pain. Concern for bilious ascites may require prolonged antibiotic inpatient course Review of Systems Review of Systems: ROS: well nourished well developed. No double vision blurry vision No problems with speech or swallowing No palpitations, chest pain or pressure No Wheezing or breathing issues Mild diffuse abdominal pain without nausea vomiting, has had flatus but no diarrhea No burning urine urine frequency or changes in color No focal joint pain or muscle pain No skin rashes or oral lesions No unusual bruising or bleeding No focused back pain or numbness or loss of strength No changes in memory or confusion Physical Exam Physical Exam: The patient appeared well nourished and normally developed. Vital signs as documented. Head exam is unremarkable. normocephalic, atraumatic Neck is without jugular venous distension, thyromegaly, or lymphademopathy Lungs are clear to auscultation and percussion. Cardiac exam reveals Rhythm is regular. Patient return to sinus rhythm sometime overnight Abdominal exam reveals hypoactive bowel sounds, soft only mild right upper quadrant guarding no masses, no organomegaly Extremities are nonedematous and both pedal pulses are present Neurologic exam is A&Ox3, no focal deficits, strength is equal bilateral Psychologically seems neither anxious or depressed Skin is warm Dry without bruises or lesions Results & Data Vital Signs (Past 12 Hours) Vital Signs Temp Pulse Resp BP Pulse Ox 10/18/18 15:11 36.5 C 65 20 106/70 93 10/18/18 11:57 36.5 C 61 20 127/59 L 98 10/18/18 07:06 93 H 94 10/18/18 07:05 36.7 C 57 L 20 99/57 L 85 L PG Care Time/CCT Total # of Minutes Spent Total Time Spent with Patient: Total time spent is greater than 50% in coordination of care (as documented) at patient's floor/unit and/or counseling patient:
[2018-10-19] MEDS: INCRUSE ELLIPTA~ORDER AWAITING ACTION SCH ×3 (01:28→16:24)
[2018-10-19] MEDS: IMIPENEM/CILASTATIN SODIUM 300 MG in DEXTROSE 5% 100 ML IV SCH ×4 (02:37→19:58)
[2018-10-19] MEDS: VANCOMYCIN HCL 1,250 MG in SODIUM CHLORIDE 0.9% 250 ML IV SCH ×2 (03:33→16:32)
[2018-10-19 06:07] LABS: Creatinine Clr Calc Pharmacy 64.7 ml/min; Est GFR (Non-African American) 70.8
[2018-10-19] MEDS: DOCUSATE SODIUM/SENNA 50/8.6MG TAB PO SCH ×2 (07:27→20:01)
[2018-10-19] MEDS: MAGNESIUM HYDROXIDE SUSP 30 ML UDC PO SCH ×2 (07:27→20:01)
[2018-10-19] MEDS: CYANOCOBALAMIN 500 MCG TABLET (VITAMIN B-12) PO SCH (07:28)
[2018-10-19] MEDS: BUDESONIDE/FORMOTEROL FUMARATE 80/4.5 60 PUFFS/INHALER INH SCH ×2 (07:28→20:00)
[2018-10-19] MEDS: FINASTERIDE 5 MG TAB PO SCH (07:28)
[2018-10-19] MEDS: TERAZOSIN HCL 5 MG CAP PO SCH (07:29)
[2018-10-19] MEDS: PANTOprazole 40 MG TAB PO SCH (07:29)
[2018-10-19] MEDS: METOPROLOL SUCC 50MG EXT REL TAB PO SCH (07:29)
[2018-10-19] MEDS: HEPARIN SOD 5,000 UNIT/0.5 ML VIAL SQ SCH ×2 (07:30→20:01)
--- NOTE | 2018-10-19 11:49 | Surgery Progress Note ---
Date of Service October 19, 2018 Assessment & Plan (1) Gangrenous cholecystitis: POD#2 from lap cholecystectomy. Doing well. Will continue diet. Change BRYCE dressing daily (done today). Continue IV abx for now. Present on Admission?: Yes Subjective Feeling well. Tolerating diet. Bowels are functioning. No concerns. Here for continued IV abx given necrotizing cholecystitis. Physical Exam Cardiovascular: RRR, no murmur, no edema Gastrointestinal (Abdomen): Inspection/Auscultation: + abdomen distended, normal bowel sounds and + abdominal surgical incision (small incisions are clean, BRYCE site dressing wet with drainage) Percussion/Palpation: abdomen soft; abdomen nontender Psychiatric: A+Ox3, euthymic affect Results & Data Vital Signs (Past 12 Hours) Vital Signs Temp Pulse Pulse Resp BP Pulse Ox 10/19/18 11:33 36.5 C 82 20 101/53 L 93 10/19/18 08:00 75 10/19/18 07:00 36.9 C 80 19 140/60 91 10/19/18 02:54 36.9 C 75 20 127/66 94
--- NOTE | 2018-10-19 15:18 | Hospitalist Progress Note ---
Date of Service October 19, 2018 Assessment & Plan (1) Cholecystitis: surgical consult for cholecystectomy Zosyn ordered, given history of ESBL UTI, did change to Primaxin 10/18 and continue vancomycin eventually transitioning back to doxycycline which he takes chronically for suppressive therapy for back infection MRCP confirms acute cholecystitis status post cholecystectomy 10/17 cultures are pending (2) Acute kidney injury: with a history of CKD 3 has been stable (3) Atrial fibrillation: also with history of aflutter, on metoprolol for rate control and typically takes eliquis but this was held for possible surgery Patient had A. fib RVR in 10/17 was remedied by diltiazem drip converted to sinus rhythm postoperatively or intraoperatively and now converted back to his normal dose stopping the diltiazem is remained with normal sinus rhythm on metoprolol succinate (4) BPH (benign prostatic hyperplasia): No acute lower urinary tract symptoms while on finestaride and terazosin (5) COPD (chronic obstructive pulmonary disease): Remains stable on symbicort no current issues at this time (6) DVT prophylaxis: will have scd, is on eliquis which is held for possible procedure we will coordinate with surgery about restarting his there is some concern about bilious stained ascites we will hold his Eliquis until Sunday restarting it he will remain on subcu heparin at this time (7) Osteomyelitis: anticoagulation has been on suppressive doxycycline with ID oversight once vancomycin is stopped we will restart his doxycycline Subjective pt is feels improved from yesterday but not as good as pre op, has had no issues with afib and rvr Review of Systems Review of Systems: ROS: well nourished well developed. No double vision blurry vision No problems with speech or swallowing No palpitations, chest pain or pressure No Wheezing or breathing issues Mild diffuse abdominal pain but no nausea vomiting did have a bowel movement today No burning urine urine frequency or changes in color No focal joint pain or muscle pain No skin rashes or oral lesions No unusual bruising or bleeding No focused back pain or numbness or loss of strength No changes in memory or confusion Physical Exam Physical Exam: The patient appeared well nourished and normally developed. Vital signs as documented. Head exam is unremarkable. normocephalic, atraumatic Neck is without jugular venous distension, thyromegaly, or lymphademopathy Lungs are clear to auscultation and percussion. Cardiac exam reveals normal sinus rhythm with regular rate no murmurs Abdominal exam reveals normal bowel sounds, soft nontender some guarding no masses, no organomegaly Extremities are nonedematous and both pedal pulses are present Neurologic exam is A&Ox3, no focal deficits, strength is equal bilateral Psychologically seems neither anxious or depressed Skin is warm Dry without bruises or lesions Results & Data Vital Signs (Past 12 Hours) Vital Signs Temp Pulse Pulse Resp BP Pulse Ox 10/19/18 14:59 80 10/19/18 11:33 36.5 C 82 20 101/53 L 93 10/19/18 08:00 75 10/19/18 07:00 36.9 C 80 19 140/60 91 PG Care Time/CCT Total # of Minutes Spent Total Time Spent with Patient: Total time spent is greater than 50% in coordination of care (as documented) at patient's floor/unit and/or counseling patient:
[2018-10-19] MEDS ORDERED: HEPARIN SOD 5,000 UNIT/0.5 ML VIAL SQ SCH (21:00)
[2018-10-19] MEDS ORDERED: VANCOMYCIN TROUGH ONE (21:30)
[2018-10-20] MEDS: INCRUSE ELLIPTA~ORDER AWAITING ACTION SCH ×3 (00:30→15:29)
[2018-10-20] MEDS: IMIPENEM/CILASTATIN SODIUM 300 MG in DEXTROSE 5% 100 ML IV SCH ×2 (00:34→08:24)
[2018-10-20] MEDS ORDERED: VANCOMYCIN TROUGH ONE (05:30)
[2018-10-20] MEDS: VANCOMYCIN HCL 1,250 MG in SODIUM CHLORIDE 0.9% 250 ML IV SCH ×2 (06:06→20:42)
[2018-10-20 06:46] LABS: Creatinine Clr Calc Pharmacy 72.7 ml/min; Est GFR (African American) 93.6; Est GFR (Non-African American) 80.8
--- NOTE | 2018-10-20 07:20 | Hospitalist Progress Note ---
Date of Service October 20, 2018 Assessment & Plan (1) Cholecystitis: surgical consult for cholecystectomy Zosyn ordered, given history of ESBL UTI, did change to Primaxin 10/18 and continue vancomycin eventually transitioning back to doxycycline which he takes chronically for suppressive therapy for back infection MRCP confirms acute cholecystitis status post cholecystectomy 10/17 (2) Acute kidney injury: with a history of CKD 3 has been stable (3) Atrial fibrillation: also with history of aflutter, on metoprolol for rate control and typically takes eliquis but this was held for possible surgery Patient had A. fib RVR in 10/17 was remedied by diltiazem drip converted to sinus rhythm intraoperatively and now converted back to his normal dose stopping the diltiazem is remains on metoprolol succinate will restart Eliquis therapy evening of 10/20 (4) BPH (benign prostatic hyperplasia): No acute lower urinary tract symptoms remains on finestaride and terazosin (5) COPD (chronic obstructive pulmonary disease): Continues to be stable on symbicort no current issues at this time (6) DVT prophylaxis: Resuming Eliquis therapy (7) Osteomyelitis: Patient has been on suppressive doxycycline with ID oversight once vancomycin is stopped we will restart his doxycycline Subjective Patient feels well abdominal pain is improving no further issues with RVR although intermittently with paroxysmal A. fib. Will begin Eliquis therapy this evening as his abdominal pain is improving with means less likely chance of repeat invasion of his abdomen by surgery Review of Systems Review of Systems: ROS: well nourished well developed. No double vision blurry vision No problems with speech or swallowing No palpitations, chest pain or pressure No Wheezing or breathing issues Improving abdominal pain without nausea vomiting did have some bowel movements No burning urine urine frequency or changes in color No focal joint pain or muscle pain No skin rashes or oral lesions No unusual bruising or bleeding No focused back pain or numbness or loss of strength No changes in memory or confusion Physical Exam Physical Exam: The patient appeared well nourished and normally developed. Vital signs as documented. Head exam is unremarkable. normocephalic, atraumatic Neck is without jugular venous distension, thyromegaly, or lymphademopathy Lungs are clear to auscultation and percussion. Cardiac exam reveals Rhythm is regular. Monitor collected report some A. fib overnight Abdominal exam reveals normal bowel sounds, soft and less tender than one prior day Extremities are nonedematous and both pedal pulses are present Neurologic exam is A&Ox3, no focal deficits, strength is equal bilateral Psychologically seems neither anxious or depressed Skin is warm Dry without bruises or lesions Results & Data Vital Signs (Past 12 Hours) Vital Signs Temp Pulse Resp BP Pulse Ox 10/20/18 06:38 36.9 C 69 20 163/74 H 91 10/20/18 03:41 36.8 C 71 19 138/70 91 10/19/18 23:21 37.3 C 82 20 143/68 H 88 L PG Care Time/CCT Total # of Minutes Spent Total Time Spent with Patient: Total time spent is greater than 50% in coordination of care (as documented) at patient's floor/unit and/or counseling patient:
[2018-10-20] MEDS: METOPROLOL SUCC 50MG EXT REL TAB PO SCH (08:27)
[2018-10-20] MEDS: BUDESONIDE/FORMOTEROL FUMARATE 80/4.5 60 PUFFS/INHALER INH SCH ×2 (08:27→20:46)
[2018-10-20] MEDS: PANTOprazole 40 MG TAB PO SCH (08:28)
[2018-10-20] MEDS: DOCUSATE SODIUM/SENNA 50/8.6MG TAB PO SCH ×2 (08:28→20:46)
[2018-10-20] MEDS: CYANOCOBALAMIN 500 MCG TABLET (VITAMIN B-12) PO SCH (08:28)
[2018-10-20] MEDS: TERAZOSIN HCL 5 MG CAP PO SCH (08:28)
[2018-10-20] MEDS: MAGNESIUM HYDROXIDE SUSP 30 ML UDC PO SCH ×2 (08:28→20:46)
[2018-10-20] MEDS: FINASTERIDE 5 MG TAB PO SCH (08:29)
--- NOTE | 2018-10-20 09:05 | Pharmacy Report ---
Pharmacy Abx Dose Short Note - Date of Service October 20, 2018 - Assessment & Plan Assessment 78 year old M receiving IV Vancomycin and Primaxin for treatment of acute cholecystitis (necrotic, gangrenous gallbladder s/p lap darryl 10/17/18), pneumonia, and hx MRSA osteomyelitis Day # 5 of antimicrobial therapy. Plan Vancomycin * Trough level of 14.8 mcg/mL (appropriately drawn) is slightly subtherapeutic, but this is an early level not reflective of steady state. It was drawn prior to 2nd dose. Anticipate that Vancomycin will continue to incr' as it reaches steady state. * Continue dose of 1250 mg IV every 14 hours * Goal trough level for chronic suppressive MRSA infection : 10 to 20 mcg/mL * Trough level ordered for: 10/22/18 @ 1330 * Note: Vancomycin only to be continued until patient can resume PO doxycycline. Primaxin * Renal function continues to improve. CrCl has remained >60 mL/min since yesterday. Therefore, patient needs a higher dose of Primaxin * Incr' Primaxin to 400mg IV q6 Pharmacy will continue to follow and will adjust dose/frequency as necessary. Thank you.
--- NOTE | 2018-10-20 10:40 | Surgery Progress Note ---
Date of Service October 20, 2018 Assessment & Plan (1) Gangrenous cholecystitis: POD#3 from lap cholecystectomy. Doing well. Will continue diet. Continue IV abx with likely conversion to PO tomorrow and home tomorrow (hopefully). Keep BRYCE drain for now given risk of bile leak. Dr. Mueller to return tomorrow and can decide if to remove BRYCE prior to discharge. Subjective Feels well. Had multiple loose stools last night. Tolerating diet. No concerns. Minimal pain. Physical Exam Cardiovascular: RRR, no murmur, no edema Gastrointestinal (Abdomen): Inspection/Auscultation: normal bowel sounds, + abdominal surgical incision (clean and dry) and + abdominal surgical drain present (serosanguinous output); abdomen not distended Percussion/Palpation: abdomen soft; abdomen nontender Psychiatric: A+Ox3, euthymic affect Results & Data Vital Signs (Past 12 Hours) Vital Signs Temp Pulse Resp BP Pulse Ox 10/20/18 06:38 36.9 C 69 20 163/74 H 91 10/20/18 03:41 36.8 C 71 19 138/70 91 10/19/18 23:21 37.3 C 82 20 143/68 H 88 L
[2018-10-20] MEDS: HEPARIN SOD 5,000 UNIT/0.5 ML VIAL SQ SCH (12:05)
[2018-10-20] MEDS: IMIPENEM/CILASTATIN SODIUM 400 MG in DEXTROSE 5% 100 ML IV SCH ×2 (14:52→20:42)
--- NOTE | 2018-10-20 20:06 | Infectious Disease Progress Nt ---
Date of Service October 20, 2018 Assessment & Plan (1) Gangrenous cholecystitis: 78-year-old male with gangrenous cholecystitis now status post cholecystectomy, possible hospital-acquired pneumonia, with history of recent ESBL E. coli infection. For now, imipenem should provide adequate IV coverage. Consider incision oral antibiotics febrile and improving. (2) Multifocal pneumonia: (3) History of ESBL E. coli infection: Subjective Patient seen in follow-up for gangrenous cholecystitis. Remains afebrile, abdominal pain improving. Tolerating antibiotics without apparent difficulty. No other new complaints. Review of Systems Review of Systems: All systems reviewed & are unremarkable except as noted in HPI & below Physical Exam Constitutional: WD/WN, vitals as above no acute distress Eyes: PERRL, conjunctivae normal, anicteric sclerae ENMT: external ear and nose normal, oropharynx normal Neck: trachea midline, no thyromegaly trachea midline Respiratory: normal respiratory effort and normal percussion; no respiratory distress Auscultation: + rales Cardiovascular: RRR, no murmur, no edema Heart Sounds: no gallop and no cardiac rub Gastrointestinal (Abdomen): Inspection/Auscultation: + abdomen distended; + abnormal bowel sounds Percussion/Palpation: + abdomen tender; no hepatomegaly and no abdominal mass Musculoskeletal: no cyanosis or clubbing, extremities motor strength 5/5 Head/Neck/Chest: normocephalic, head atraumatic and neck supple Skin: no rashes, warm and dry Neurologic: patellar DTR's 2+ bilat, sensation intact moves all extremities; no focal motor deficits Psychiatric: A+Ox3, euthymic affect Lymphatic: no cervical or axillary lymphadenopathy no inguinal lymphadenopathy Results & Data Vital Signs (Past 12 Hours) Vital Signs Temp Pulse Pulse Resp BP Pulse Ox 10/20/18 19:29 36.6 C 66 16 153/89 H 92 10/20/18 15:30 88 10/20/18 15:11 36.8 C 84 16 142/66 H 94 10/20/18 11:03 36.5 C 70 20 135/68 92
[2018-10-20] MEDS: APIXABAN 5 MG TABLET PO SCH (20:46)
[2018-10-21] MEDS: INCRUSE ELLIPTA~ORDER AWAITING ACTION SCH ×3 (01:13→15:20)
[2018-10-21] MEDS: IMIPENEM/CILASTATIN SODIUM 400 MG in DEXTROSE 5% 100 ML IV SCH ×2 (01:54→07:31)
[2018-10-21 05:24] LABS: Hematocrit (blood only) 34.4 % (42-52); Hemoglobin 11.1 g/dL (14.0-18.0); Mean Corpuscular Hgb Conc 32.3 g/dL (32-36); Mean Corpuscular Volume 89.6 fL (80-100); Mean Platelet Volume 9.2 fL (7.4-10.4); Platelet Count 234 K/uL (130-400); RDW Coefficient of Variation 14.8 % (11.5-14.5); RDW Standard Deviation 48.4 fL (36.4-46.3); Red Blood Count 3.84 M/uL (4.7-6.1); White Blood Count 6.73 K/uL (4.8-10.8)
--- NOTE | 2018-10-21 06:26 | Progress Note ---
Date of Service October 21, 2018 Assessment & Plan (1) Gangrenous cholecystitis: pt is stable, tolerating diet, pos bm drain serosang, labs ok- probable d/c home today if ok with med team will give script for [place] and should cont atbx po for 1 week- ?Augmentin will discuss with med team Subjective see a/p Results & Data Vital Signs (Past 12 Hours) Vital Signs Temp Pulse Resp BP Pulse Ox 10/21/18 04:01 36.9 C 56 L 19 146/79 H 91 10/21/18 00:02 36.5 C 61 17 130/72 91 10/20/18 19:29 36.6 C 66 16 153/89 H 92
[2018-10-21] MEDS: MAGNESIUM HYDROXIDE SUSP 30 ML UDC PO SCH (07:38)
[2018-10-21] MEDS: DOCUSATE SODIUM/SENNA 50/8.6MG TAB PO SCH (07:38)
[2018-10-21] MEDS: METOPROLOL SUCC 50MG EXT REL TAB PO SCH (07:39)
[2018-10-21] MEDS: BUDESONIDE/FORMOTEROL FUMARATE 80/4.5 60 PUFFS/INHALER INH SCH (07:39)
[2018-10-21] MEDS: PANTOprazole 40 MG TAB PO SCH (07:40)
[2018-10-21] MEDS: TERAZOSIN HCL 5 MG CAP PO SCH (07:40)
[2018-10-21] MEDS: APIXABAN 5 MG TABLET PO SCH (07:40)
[2018-10-21] MEDS: FINASTERIDE 5 MG TAB PO SCH (07:40)
[2018-10-21] MEDS: CYANOCOBALAMIN 500 MCG TABLET (VITAMIN B-12) PO SCH (07:40)
[2018-10-21 08:25] LABS: Albumin Level 2.1 gm/dl (3.4-5.0); BUN Creatinine Ratio 8.2 (10-20); Creatinine Clr Calc Pharmacy 68.8 ml/min; Est GFR (African American) 88.4; Est GFR (Non-African American) 76.3; Potassium 3.7 mmol/L (3.5-5.1)
[2018-10-21 08:28] LABS: Albumin Globulin Ratio 0.6 (0.9-2); Bilirubin,Total 0.9 mg/dl (0.2-1); Globulin 3.4 gm/dl (2.5-4.0); Total Protein 5.5 gm/dl (6.4-8.2)
[2018-10-21] MEDS ORDERED: AMOXICILLIN/CLAVULANATE 875 MG TAB PO SCH (09:00)
[2018-10-21] MEDS ORDERED: DOXYCYCLINE HYCLATE 100 MG CAP PO SCH (09:00)
--- NOTE | 2018-10-21 13:40 | Discharge Summary ---
Date of Service date of admission - October 16, 2018 date of discharge - October 21, 2018 Admission HPI Per Admitting Provider 78 year old male recently admitted and discharged on 10/01/2018 with ESBL UTI. Past medical history of MRSA epidural abscess/osteomyelitis in 2016, recurrent UTIs, HTN, Hyperlipidemia, A. Flutter/fib on Eliquis, BPH, COPD, and GERD who presented to the ER with abdominal pain x 4 days. Abdominal pain started 4 days prior to admission and was localized to the lower abdomen initially. Abdominal pain then shifted to the right upper quadrant. Currently abdominal pain is 2 out of 10, described as discomfort/achy. Initially associated with nausea and vomiting. Today he also had diarrhea loose, brown, nonbloody. He also reports a mild cough and shortness of breath with exertion. Denies any lightheadedness, chest pain, headache, fever, chills, dysuria. CT abd/pelvis at admission demonstrated findings consistent with acute cholecystitis and probable multifocal pneumonia. Principal Diagnosis acute gangrenous cholecystitis Discharge Exam Constitutional well developed and well nourished; no acute distress, not obese and no altered mental status Eyes + anicteric sclerae ENMT external ear and nose normal, oropharynx normal Respiratory normal respiratory effort Auscultation: + diminished lung sounds (both bases, much worse on right); no rales and no wheezes Cardiovascular Rate/Rhythm: regular rate; + abnormal rhythm (extra beats vs a.fib) Heart Sounds: normal S1 and normal S2; no murmur Vessels: posterior tibial pulses present and dorsalis pedis pulses present; no JVD Gastrointestinal (Abdomen) Inspection/Auscultation: + abdomen distended (mild) Percussion/Palpation: abdomen soft; abdomen nontender, no guarding and no hepatosplenomegaly BRYCE drain in place; serosanguinous fluid present Skin abdominal wall incisions intact with clean sutures; no drainage Psychiatric A+Ox3, euthymic affect Discharge Data Allergies Allergy/AdvReac Type Severity Reaction Status Date / Time No Known Drug Allergies Allergy Verified 10/16/18 15:16 Consultations 1. Gastroenterology - Arnoldo Parker MD 2. General Surgery - Everton Mueller MD 3. Anesthesiology 4. [facility] Infectious Diseases Procedures Performed Operation Date: 10/17/18 Laparoscopic Cholecystectomy - Everton Mueller MD, FACS Ordered Studies 1. CT abd pelvis - IMPRESSION: 1. Findings consistent with acute cholecystitis. Cholelithiasis, moderate gallbladder wall thickening and extensive pericholecystic infiltration. 2. Airspace opacities within visualized portions of the lungs which favors multifocal pneumonia. 2. US gallbladder - IMPRESSION: 1. Cholelithiasis, gallbladder wall thickening and pericholecystic fluid which favor acute cholecystitis. 2. No biliary ductal dilatation. 3. Pancreas obscured by bowel gas. 3. MRCP - IMPRESSION: 1. Acute cholecystitis. 2. Normal caliber bile duct. 3. Atelectatic changes right lung base. 4. 2-view CXR - IMPRESSION: 1. Moderate increase in right pleural effusion. 2. Very small left effusion. 3. Improving infiltrative change peripheral aspect left mid lung. Hospital Course (1) Cholecystitis: Patient's clinical history and imaging studies at admission were consistent with acute cholecystitis. Fortunately MRCP did not show evidence of choledocholithiasis. GI was consulted but ERCP was deferred due to the MRCP findings. Although LFTs were mildly elevated at presentation these improved and normalized during the stay. Peak total bilirubin level was about 2.4. He received IV zosyn and then later on IV imipenem. Dr. Everton Mueller from general surgery was consulted and he underwent laparoscopic cholecystectomy on 10/17/2018. Intra-op findings - necrotizing/gangrenous cholecystitis and bilious ascites. Post-op he was continued on IV antibiotics, diet was slowly advanced without difficulty, and he was passing flatus/stool. On day of discharge imipenem was changed to oral augmentin. He will complete 7 days of augmentin at home. His BRYCE drain will remain in place as recommended by surgery and the patient will follow-up with Dr Mueller within 5 days of discharge. (2) Acute kidney injury: Peak Cr was 1.9, improving to 0.9 at discharge. (3) Multifocal pneumonia: Likely b/l pneumonia based on symptoms and radiographic findings. He received 5+ days of broad-spectrum IV antibiotics while here. Blood cultures remained negative while hospitalized. At discharge the 7-day course of augmentin for his gangrenous cholecystitis should cover the lungs. The doxycycline that he takes chronically for osteomyelitis should cover atypical pathogens as well. (4) Atrial fibrillation: Patient with h/o aflutter/fib with metoprolol for rate control and eliquis for anticoagulation. Eliquis was held perioperatively. Patient had A. fib with RVR on 10/17/18 and required diltiazem drip briefly. He spontaneously converted to normal sinus rhythm the same day. Eliquis was resumed on the evening of 10/20/18. He will continue 5mg BID at home. (5) BPH (benign prostatic hyperplasia): No issues while here; continue finestaride and terazosin. (6) COPD (chronic obstructive pulmonary disease): Continue symbicort. No exacerbation during the stay. 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 Will resume 100mg BID at discharge. (8) Pleural effusion: b/l, but mainly right side. x-rays obtained on day of discharge showed that the right-sided effusion was larger in comparison to at admission (mild-moderate in size). Despite the effusion he had no symptoms/signs of empyema, no dyspnea, and no hypoxia at rest or with walking. Suspect the effusion was due to his multifocal pneumonia / parapneumonic. I cannot rule out that a sub-diaphragmatic process (ie - his cholecystitis) played a role in this effusion but less likely. I advised close follow-up with his primary mechanical meter tester for repeat chest x-rays within 1-2 weeks. A thoracentesis could be obtained as an outpatient if the effusion worsens or he becomes symptomatic from such. Total Time Total Time Spent Total Time Spent (In Minutes): 45 Total Time Includes: Examination of the Patient, Discharge Planning and Medication Reconciliation Discharge Plan Discharge Items Patient Disposition: Home - Self-Care Reason For Visit: CHOLECYSTITIS Discharge Diagnosis: necrotizing cholecystitis with removal of gall bladder Discharge Goals: Decrease discomfort, Improve disease control and Improve function Activity: As commented below Activity Comment: light activity for 3 weeks Lifting: No more than 25 pounds Bathing Comment: may shower Sexual Activity: When tolerated Exercise Comment: wait 3 weeks Driving/Machine Use Comment: wait 4-5 days Non-emergency contact: Primary Care Provider and Surgeon Call non-emergency contact if: your pain is not controlled, your temperature is above 101 and your wound has increased drainage Follow-up/Referrals: Everton Mueller MD, FACS [Physician] - 10/25/18 8:30 am (Please, follow up at [facility] General Surgery Office with Dr. Mueller on SundayOctober 25 at 8:30 am. *This office is located at [address] in [place]. If you have any questions, call the office at [phone].) Gricelda De La Rosa, DO [Primary Care Provider] - 10/29/18 3:00 pm (Please, follow up at Dr. De La Rosa's office with her associate, Zena Joya PA-C, on October 29 at 3:00 pm. *If you need to change this appointment, call their office at [phone].) Diet: Low Fat Addtl Provider Instructions: SPECIAL CARE INSTRUCTIONS from Dr Mueller: * Cover incisions and change daily for comfort/drainage. * Empty drain 2-3 times per day and record amounts. Avoid constipation- * May Use Senokot S and Milk of Magnesium twice daily as directed on the package * May use tylenol for pain as tolerated. * Expect some swelling and bruising. Call your doctor if: * Temperature above 100.5 degrees * Pain not relieved by pain medicine ordered * There is increased drainage or redness from any incision * You have any unanswered questions or concerns [phone]. Dr. Mueller Office for this Sunday - drain removal Additional instructions from Derian Bonilla, hospitalist- 1. please take amoxicillin-clavulanate antibiotic - 1 tablet twice daily for 7 days. START TONIGHT. 2. please take probiotics for 10 days. These may help prevent diarrhea from the amoxicillin. Start these TODAY. 3. may use the hydrocodone pain pills as needed for pain. If you don't feel that you need them may simply use [id number] tylenol. Do not take the pain pills AND tylenol together as this may lead to excessive amounts of tylenol and cause liver damage. 4. take kkqv-led-zuaborv ferrous sulfate (iron) 325mg once daily for 1-2 m onths. The iron may make your stools dark and cause constipation. Return to [facility] if - * you have fevers over 100.5 degrees * you have worsening shortness of breath * you have recurrent abdominal pain, nausea, or vomiting * you have green fluid in your drain (rather than the pink/red fluid that is currently there) * you have severe diarrhea * any other concerns Prescriptions: New hydrocodone-acetaminophen [[place]] 5-325 mg tablet 1 - 2 tab PO Q6H PRN (Reason: pain) Qty: 30 RF: 0 amoxicillin-pot clavulanate 875-125 mg Tablet 1 tab PO BID 7 Days Qty: 14 RF: 0 Saccharomyces boulardii 250 mg capsule 250 mg PO DAILY 10 Days Qty: 10 RF: 0 ferrous sulfate 325 mg (65 mg iron) tablet 325 mg PO DAILY Qty: 30 RF: 1 Continued cyanocobalamin (vitamin B-12) 1,000 mcg tablet 1,000 mcg PO DAILY Qty: 90 RF: 0 terazosin 5 mg capsule 5 mg PO QAM RF: 0 metoprolol succinate 100 mg tablet extended release 24 hr 100 mg PO QAM RF: 0 triamcinolone acetonide 0.1 % cream 1 applic topical DAILY PRN (Reason: Itching) RF: 0 omeprazole 20 mg capsule,delayed release(DR/EC) 20 mg PO QAM RF: 0 doxycycline hyclate 100 mg tablet 100 mg PO BID RF: 0 finasteride 5 mg tablet 5 mg PO QAM RF: 0 Symbicort 80-4.5 mcg/actuation HFA aerosol inhaler 2 puff inhalation BID RF: 0 Eliquis 5 mg tablet 5 mg PO BID RF: 0 Incruse Ellipta 62.5 mcg/actuation blister with device 1 inh inhalation QAM RF: 0 Stand-Alone Forms: Call Back Authorization, [facility] Discharge Orders: Discharge Order (Routine); Ordered 10/21/18 Ordered By: Derian Bonilla Admission Data Admit Date/Time: 10/16/18 21:33 Attending Provider: Derian Bonilla Admit Provider: Jose Luis Serrano Primary Care Provider: Gricelda De La Rosa Other Providers: Jose Luis Serrano ; Everton Mueller ; Arnoldo Parker ; Juliana Pike ; Fabiola Villanueva ; Nandini Chapin ; Kaleigh Hopson ; Zahra Shrestha ; Esperanza Frost ; Jimmy Damon ; Eran Little ; Julito Hoyos ; Ashwin Cordova ; Oxana Cordova ; Mark Anderson ; Maryellen Laird ; [place] ; Oscar Bergeron ; Wily Lakhani ; Young Cabral ; Valente Padron ; Lashaun Wesley ; Jose Antonio Gonzalez ; Maggie Espinoza ; Ally Gonzalez ; Ham Muniz ; Dee Gale ; Yousuf Andrade ; Gina Chowdhury ; Katelyn Khan ; James Rodriguez ; Melinda Robbins ; Lynnette Ni ; Aida Robins ; Diana Barrett ; Girish Barrett V ; Harsh Aggarwal ; Nandini Longo ; Renny Carroll ; Sharyn Santos V ; Dwayne Whatley ; Blank Ridley ; Lola Tovar ; Olga Longo. ; Girish Salazar ; Omero Wesley ; Mally Pope ; Aida Metz ; Julito Chu ; Laura Esquivel. ; Leandro Padron ; Penny Meyers ; Arcadio Love ; Guero Walton. Service: Telemetry Other Interventions: Discharge Summary Assessment (RN) Last Done: 10/21/18 14:02 NM Date/Time DO NOT enter until pt leaves facility: 10/21/18 16:07
--- NOTE | 2018-10-21 14:50 | XRay Report ---
XR chest 2V routine CLINICAL HISTORY: decreased BS bases; effusions? COMPARISON STUDY: 10/16/2018 FINDINGS: Moderate increase in volume of right effusion. Small left pleural effusion slightly increas ed in volume. Mild stable cardiomegaly. Improved aeration left midlung. The pulmonary apices are clear. IMPRESSION: 1. Moderate increase in right pleural effusion. 2. Very small left effusion. 3. Improving infiltrative change peripheral aspect left mid lung. The above report was generated using voice recognition software. It may contain grammatical, syntax or spelling errors. Electronically signed by: Jose Antonio Ahuja M.D. 10/21/2018 2:48 PM
[2018-10-22] MEDS ORDERED: VANCOMYCIN TROUGH ONE (13:30)
== END 2018-10-21 16:07 | disposition home or self-care (01) | DRG 417 ==
LOC: ED 15:50 → SUATTDRO 21:33 → 2E 21:33

== ENCOUNTER 2022-07-18 07:40 | Inpatient (IN) ==
--- NOTE | 2022-06-27 15:12 | PAT Medication Instructions ---
Medication Instructions Date of Service June 27, 2022 Home Medications Medication Instructions Recorded metoprolol succinate 200 mg 200 mg PO DAILY #90 tabs 09/01/21 tablet,extended release 24 hr doxycycline hyclate 100 mg tablet 100 mg PO BID #60 tabs 10/31/21 Incentive Spirometer #1 ea 12/29/21 fluticasone fur. 100 mcg-umeclid 1 inh inhalation QAM #60 ea 12/29/21 62.5 mcg-vilant 25 mcg inhalat.powder (Trelegy Ellipta) apixaban 5 mg tablet (Eliquis) 5 mg PO BID #180 tabs 01/31/22 finasteride 5 mg tablet 5 mg PO QAM #90 tabs 02/06/22 terazosin 5 mg capsule 5 mg PO QPM #90 caps 02/13/22 pantoprazole 40 mg tablet,delayed See Rx Instructions .Route 05/15/22 release .COMPLEX #180 tabs metoprolol succinate 200 mg tablet,extended release 24 hr 200 mg PO DAILY doxycycline hyclate 100 mg tablet 100 mg PO BID fluticasone fur. 100 mcg-umeclid 62.5 mcg-vilant 25 mcg inhalat.powder (Trelegy Ellipta) 1 inh inhalation QAM apixaban 5 mg tablet (Eliquis) 5 mg PO BID finasteride 5 mg tablet 5 mg PO QAM terazosin 5 mg capsule 5 mg PO QPM pantoprazole 40 mg tablet,delayed release See Rx Instructions latanoprost 0.005 % eye drops 1 drp ophthalmic (eye) HS Continue as directed doxycycline hyclate 100 mg tablet 100 mg PO BID metoprolol succinate 200 mg tablet,extended release 24 hr 200 mg PO DAILY ASK your prescriber and surgeon apixaban 5 mg tablet (Eliquis) 5 mg PO BID Take morning of surgery With a small sip of water, OTHERWISE NOTHING TO EAT OR DRINK AFTER MIDNIGHT: fluticasone fur. 100 mcg-umeclid 62.5 mcg-vilant 25 mcg inhalat.powder (Trelegy Ellipta) 1 inh inhalation QAM finasteride 5 mg tablet 5 mg PO QAM pantoprazole 40 mg tablet,delayed release See Rx Instructions Take evening before surgery terazosin 5 mg capsule 5 mg PO QPM pantoprazole 40 mg tablet,delayed release See Rx Instructions latanoprost 0.005 % eye drops 1 drp ophthalmic (eye) HS Other Notes If you have any questions please call us at [phone] or [phone] or [phone] or [phone]
--- NOTE | 2022-07-04 09:35 | Anesthesiology Consultation ---
Date of Service July 04, 2022 Assessment & Plan (1) Encounter for pre-operative examination: - upcoming PCP clearance. Workload note sent, response: "I'm repeating his renal profile. The 1.4 is not too far off his baseline per Dr. Diana's note. I do believe that he is a good candidate for surgery; however, I did send a message to Dr. Wise as I think it would be a good idea for a cardiac clearance given the extent of this surgery." - cardiology 03/30/22 [place]: "...Frequent premature ventricular beats: On his current beta-kade dose he had excellent suppression of his PVCs on his recent Holter monitor. He is doing well on it and I am going to continue this dose...Atrial fibrillation and flutter: He has no symptoms of atrial fibrillation or flutter and none were identified on his Holter monitor although he did have episodes of PAT which can at times trigger these other atrial arrhythmias. I would continue his rate control medications and anticoagulation...Anticoagulation: He remains on 5 mg twice a day of Eliquis, he is doing well on it...Cardiomyopathy: He did have a cardiomyopathy at his initial presentation, subsequently he had normalization of his left ventricular function. It was presumed that his cardiomyopathy was due to rapid rhythm during atrial fibrillation, although that is by no means certain, and now he has frequent premature ventricular beats which is also a possible cause. His PVCs are well suppressed currently but I would continue his current dose of metoprolol succinate. His last echocardiogram was 1 year ago, I do not think we need 1 this year but I will schedule one prior to his next visit in 1 year..." Chart Review Chart Review: Pending: Refer to Additional Notes / Consult section and Patient seen in Pre Admission Testing Teaching & Discussion Pre-Anesthesia Teaching/Discussion Notes: Instructed NPO after midnight before surgery, except medications with 15 cc of water. Medication instructions provided according to the PAT guidelines. History Surgery Operation Date: 07/18/22 07:45 Proposed Procedures p L3-L4 Decompression and Fusion, L4-S1 Hardware Removal, Spinal Cord Monitoring - Rodger Hobbs DO Height/Weight Height: 6 ft Weight: 84 kg Allergies Allergy/AdvReac Type Severity Reaction Status Date / Time No Known Drug Allergies Allergy Verified 07/05/22 14:47 Medications Home Medications Medication Instructions Recorded Confirmed Last Taken metoprolol succinate 200 mg 200 mg PO DAILY #90 tabs 09/01/21 07/05/22 Unknown tablet,extended release 24 hr doxycycline hyclate 100 mg tablet 100 mg PO BID #60 tabs 10/31/21 07/05/22 Unknown fluticasone fur. 100 mcg-umeclid 1 inh inhalation QAM #60 ea 12/29/21 07/05/22 Unknown 62.5 mcg-vilant 25 mcg inhalat.powder (Trelegy Ellipta) apixaban 5 mg tablet (Eliquis) 5 mg PO BID #180 tabs 01/31/22 07/05/22 Unknown finasteride 5 mg tablet 5 mg PO QAM #90 tabs 02/06/22 07/05/22 Unknown terazosin 5 mg capsule 5 mg PO QPM #90 caps 02/13/22 07/05/22 Unknown pantoprazole 40 mg tablet,delayed See Rx Instructions .Route 05/15/22 07/05/22 Unknown release .COMPLEX #180 tabs latanoprost 0.005 % eye drops 1 drp ophthalmic (eye) HS 06/27/22 07/05/22 Unknown Past Medical History Medical History Abscess in epidural space of lumbar spine (03/2016) Atrial fibrillation Atrial flutter BPH (benign prostatic hyperplasia) Cardiomyopathy Chronic sinusitis COPD (chronic obstructive pulmonary disease) Elevated hemidiaphragm Esophageal reflux History of ESBL E. 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 Pt unsure of blood transfusion hx. Exercise / Class Metabolic Activity II 4-5 Yardwork/Stairs/Walk up hill (occasional shortness of breath with 1 FOS ongoing x several yrs; denies chest discomfort; denies change or worsening) Past Family History Family History Father Bowel perforation Mother Parkinson disease Brother Diabetes Hepatocellular carcinoma Other No known health problems Denies family history of Ovarian cancer Prostate cancer Myocardial infarction Breast cancer Colorectal cancer Past Surgical History Surgical History Complication of anesthesia Esophageal dilatation H/O inguinal hernia repair History of back surgery History of colonoscopy History of esophagogastroduodenoscopy (EGD) History of lumbar laminectomy History of nasal surgery History of tonsillectomy Hx of bilateral cataract extraction S/P laparoscopic cholecystectomy S/P nasal endoscopy with nasal polypectomy Past Anesthesia History No Family Hx of Anesthesia Complications and Other (post-op urinary retention) History of PONV No Hx of PONV and No Hx of Motion Sickness Social History Smoking Status: Former smoker tobacco type: cigarettes Smoking cigarettes per day: quit Do You Dip or Chew Tobacco: No Hx Alcohol Use: Yes Alcohol type: beer and hard liquor alcohol intake frequency: 0-2 drinks per day Hx Substance Use: No substance use type: does not use Review of Systems Snoring, denies witnessed apneas. Patient denies chest pain, fever, chills, cough, wheezing, or palpitations. Physical Exam Vital Signs Vitals BP 137/70 P 65 TEMP 97.7 SP02 96% on RA RESP 18 Physical Full cervical extension range of motion without pain TMD 3.5 finger breadths Mallampati Score 3 Dentition: multiple implants throughout front, sides and back, denies chipped or loose teeth, caps/crowns Lungs: normal respiratory effort. Clear throughout to auscultation, no adventitious breath sounds Cardiac: regular rate and rhythm, no murmurs noted Carotid arteries: negative bruit bilat Lab Results Anesthesia Preop Results Results Anesthesia Widget: WBC 6.08 K/ul (4.8-10.8) 07/04/22 Hgb 14.3 g/dl (14.0-18.0) 07/04/22 Hct 41.0 % (42.0-52.0) L 07/04/22 Plt 191 K/uL (130-400) 07/04/22 Na 140 mmol/L (136-145) 07/04/22 K 4.0 mmol/L (3.5-5.1) 07/04/22 Cl 107 mmol/L (98-107) 07/04/22 CO2 27 mmol/L (21-32) 07/04/22 BUN 22 mg/dl (6-23) 07/04/22 Creat 1.45 mg/dl (0.6-1.4) H 07/04/22 Glucose Level 144 mg/dl (70-99(Fasting)) H 07/04/22 PT 12.9 Seconds (9.0-12.0) H 07/04/22 PTT 37.9 Seconds (21.0-31.0) H 07/04/22 INR 1.2 (0.9-1.1) H 07/04/22 HA1c 5.6 % (4.5-5.6) 07/04/22 Urine Color Yellow 07/04/22 Urine Appearance Clear (Clear) 07/04/22 Urine pH 6.5 (4.5-7.5) 07/04/22 Urine Specific Ragan 1.018 (1.000-1.030) 07/04/22 Urine Protein Negative (Negative) 07/04/22 Urine Glucose (UA) Negative (Negative) 07/04/22 Urine Ketones Negative (Negative) 07/04/22 Urine Blood Negative (Negative) 07/04/22 Urine Nitrite Negative (Negative) 07/04/22 Urine Bilirubin Negative (Negative) 07/04/22 Urine Urobilinogen Negative (Negative) 07/04/22 Urine Leukocyte Esterase Negative (Negative) 07/04/22 Blood Type O Positive 07/04/22 Antibody Screen NEGATIVE 07/04/22 Testing Electrocardiogram Date: 07/05/22 NSR, rate 68 bpm Rightward axis Low voltage QRS Chest X-Ray Date: 07/04/22 No lines and tubes are seen. Cardiomegaly is noted. The lungs are clear. No evidence of pleural effusion or pneumothorax. IMPRESSION: No acute chest disease. Echocardiogram Date: 02/07/21 EF 55-60% No regional wall motion abnormalities Grade I diastolic dysfunction Mild cLVH No significant valvular abnormalities Pulmonary Function Test Date: 12/18/21 Mild to moderate restrictive lung disease Mild decrease in TLC with normal ERV Obstructive lung dysfunction, insignificant bronchodilator response Very severe decrease in DLCO, follow-up hemoglobin COVID-19 Risk Screen Screening Information COVID-19 Screen Date: 07/04/22 Exposure 21 Days Family/Household +COVID Last 21 Days: No Exposure 10 Days Any COVID Exposure Last 10 Days: No Symptoms Last 10 Days Experienced COVID Sx Last 10 Days: No + COVID 0-90 Days COVID + in Last 0-90 Days: No
[~2022-07-18 07:40] MED LIST changes: +ACETAMINOPHEN 500 MG TAB PO SCH; -APIX1TAB3 PO; +CeleBREX 200 MG CAP PO SCH; -DAPT500I IV; -FINA5TAB PO; +GABAPENTIN 300 MG CAP PO SCH; -HYDR-4079 PO; +LR 15ML/HR IV SCH; -PRLSR20 PO; -RXC5 PO; -SYMIN/8045 INH; -TERA5CAP PO; -TPRSR/25 PO; -TPRSR/50 PO; +ceFAZolin 2000MG 2,000 MG/15 ML SYR IV SCH
[2022-07-18] MEDS ORDERED: fentaNYL citrate PF 100 MCG/2 ML VIAL ONE (08:42)
[2022-07-18] MEDS ORDERED: LIDOCAINE 2% MPF LOCAL 5 ML VIAL ONE (08:43)
[2022-07-18] MEDS ORDERED: PROPOFOL IV EMULSION 10 MG/ML 20 ML VIAL IV ONE (08:43)
[2022-07-18] MEDS ORDERED: ROCURONIUM BROMIDE 10 MG/ML 5 ML VIAL IV ONE ×5 (08:43→08:45)
[2022-07-18] MEDS ORDERED: KETAMINE 50 MG/5 ML SYRINGE ONE (08:44)
--- NOTE | 2022-07-18 09:00 | History & Physical Bridge Note ---
Date of Service July 18, 2022 History & Physical Bridge Note I have examined the patient, reviewed the History & Physical and in the interval since the performance of the History & Physical I have noted the following changes of clinical significance: no changes noted
--- NOTE | 2022-07-18 09:01 | History & Physical Report ---
Date of Service July 18, 2022 Assessment & Plan (1) Neurogenic claudication due to lumbar spinal stenosis: Plan: L3-L4 decompression and fusion, L4-S1 hardware removal History of Present Illness Chief Complaint: Back and leg pain Primary Care Provider: Gricelda De La Rosa DO This is an 82-year-old male well-known to me the presents with worsening back and bilateral leg pain after failing course of nonoperative care is here for surgical invention. Allergies Allergy/AdvReac Type Severity Reaction Status Date / Time No Known Drug Allergies Allergy Verified 07/18/22 08:15 Home Medications Medication Instructions Recorded Confirmed Type metoprolol succinate 200 mg 200 mg PO DAILY #90 tabs 09/01/21 07/18/22 Rx tablet,extended release 24 hr doxycycline hyclate 100 mg tablet 100 mg PO BID #60 tabs 10/31/21 07/18/22 Rx fluticasone fur. 100 mcg-umeclid 1 inh inhalation QAM #60 ea 12/29/21 07/18/22 Rx 62.5 mcg-vilant 25 mcg inhalat.powder (Trelegy Ellipta) apixaban 5 mg tablet (Eliquis) 5 mg PO BID #180 tabs 01/31/22 07/18/22 Rx finasteride 5 mg tablet 5 mg PO QAM #90 tabs 02/06/22 07/18/22 Rx terazosin 5 mg capsule 5 mg PO QPM #90 caps 02/13/22 07/18/22 Rx pantoprazole 40 mg tablet,delayed See Rx Instructions .Route 05/15/22 07/18/22 Rx release .COMPLEX #180 tabs latanoprost 0.005 % eye drops 1 drp ophthalmic (eye) HS 06/27/22 07/18/22 History Past Med/Surg History Medical History Abscess in epidural space of lumbar spine (03/2016) Atrial fibrillation Atrial flutter BPH (benign prostatic hyperplasia) Cardiomyopathy Chronic sinusitis COPD (chronic obstructive pulmonary disease) Elevated hemidiaphragm Esophageal reflux History of ESBL E. coli infection HTN (hypertension) Hyperlipidemia Lumbar spinal stenosis MRSA (methicillin resistant Staphylococcus aureus) septicemia Multiple pulmonary nodules Osteomyelitis (03/2016) Prediabetes Premature ventricular contractions Stage 3b chronic kidney disease Venous insufficiency Surgical History Complication of anesthesia Esophageal dilatation H/O inguinal hernia repair History of back surgery History of colonoscopy History of esophagogastroduodenoscopy (EGD) History of lumbar laminectomy History of nasal surgery History of tonsillectomy Hx of bilateral cataract extraction S/P laparoscopic cholecystectomy S/P nasal endoscopy with nasal polypectomy Family History Father Bowel perforation Mother Parkinson disease Brother Diabetes Hepatocellular carcinoma Other No known health problems Denies family history of Ovarian cancer Prostate cancer Myocardial infarction Breast cancer Colorectal cancer Social History Smoking Status: Former smoker packs per day: 1; Cigarettes Per Day: quit ; Second Hand Exposure: No; Do You Dip or Chew Tobacco: No; Tobacco Cessation Education Requested by Patient: No Hx Alcohol Use: Yes Alcohol type: beer and hard liquor Alcohol Intake Frequency: 4 or More x per/Week Alcohol Intake Frequency Comment: "couple of drinks a day" Hx Substance Use: No Preferred Language: Maltese Communication Ability: Effective Visual Impairment: No Limitations Hearing Ability: Use of Hearing Aid 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 Beliefs That Will Affect Care: None marital status: marital status details: Has two children Current Living Situation: Spouse current occupational status: retired Other Information That Helps Us Care for You: No Feels Safe at Home: Yes Safety Concerns: Feels Safe At This Time Childhood Exposure to Second-Hand Smoke: No Diet Comment: regular caffeine: Yes during the past year weight has: remained stable Dental Care, Regularly: Yes Physical Activity Frequency: 5-6 Times per Week Physical Activity Frequency Comment: walk Seatbelt Use: always Sunscreen Use: No Assistive Devices: Cane, Glasses, Hearing Aid - Left and Hearing Aid - Right Assistive Devices Comment: uses cane occasional Physical Exam Physical Exam: Patient is alert and oriented Heart regular rhythm Lungs clear Results & Data Results & Data Vital Signs (Past 12 Hours) Vital Signs Temp Pulse Resp BP Pulse Ox O2 Del Method 07/18/22 08:20 36.8 C 72 20 146/71 H 94 Room Air
[2022-07-18] MEDS ORDERED: ceFAZolin 330 MG/ML 1 GM VIAL ONE (09:26)
[2022-07-18] MEDS ORDERED: BUPIVACAINE/EPINEPHRINE 0.25% 1:200,000 30 ML VIAL ONE (09:26)
[2022-07-18] MEDS ORDERED: ATROPINE SULFATE 0.1 MG/ML 10ML SYR IV PRN (09:28)
[2022-07-18] MEDS ORDERED: HYDROmorphone INJ 2 MG/ML SYR/VIAL IV PRN (09:28)
[2022-07-18] MEDS ORDERED: ONDANSETRON INJ 2 MG/ML 2 ML VIAL IV PRN ×2 (09:28→13:35)
[2022-07-18] MEDS ORDERED: ePHEDrine sulfate 50 MG/ML AMP IV PRN (09:28)
[2022-07-18] MEDS ORDERED: PROMETHAZINE HCL 6.25 MG in SODIUM CHLORIDE 0.9% 50 ML IV PRN (09:28)
[2022-07-18] MEDS ORDERED: VANCOMYCIN HCL 1000MG/20ML VIAL ONE (10:08)
[2022-07-18] MEDS ORDERED: GENTAMICIN SULFATE 40 MG/ML 2 ML VIAL ONE (10:08)
[2022-07-18] MEDS ORDERED: ONDANSETRON INJ 2 MG/ML 2 ML VIAL ONE (10:19)
[2022-07-18] MEDS ORDERED: DEXAMETHASONE SOD INJ 4 MG/ML VIAL ONE ×2 (10:19)
[2022-07-18] MEDS ORDERED: FLOSEAL HEMOSTATIC MATRIX 10ML TOP ONE (10:21)
[2022-07-18] MEDS ORDERED: PHENYLEPHRINE 100MCG/ML 5ML SYR ONE (11:08)
[2022-07-18] MEDS ORDERED: ePHEDrine sulfate 50 MG/ML AMP ONE ×2 (11:08→11:53)
[2022-07-18] MEDS ORDERED: PHENYLEPHRINE HCL 10 MG/ML VIAL ONE (11:08)
[2022-07-18] MEDS ORDERED: SUGAMMADEX SODIUM 200 MG/2 ML VIAL IV ONE (11:42)
--- NOTE | 2022-07-18 11:48 | Operative Report ---
Post Operative Report Pre & Post Diagnosis Operation Date: 07/18/22 09:35 Pre-Op Diagnosis: Neurogenic claudication due to lumbar spinal stenosis Post-Op Diagnosis: Neurogenic claudication due to lumbar spinal stenosis I identified the patient and participated in the time-out.: Yes Procedure Operation Date: 07/18/22 09:35 Actual Procedures #1 removal of posterior instrumentation L4-S1. #2 exploration of fusion L4-S1. #3 lumbar decompression bilaterally facetectomies and foraminotomies L2-L3 L3- L4. #4 posterior spinal fusion L3-L4 per #5 placement posterior instrumentation L3-S1. #6 interbody fusion L3-L4. #7 placement of Spira 13 x 26 mm cage at L3- L4. #8 placement locally harvested morselized autograft in the posterior gutters. #9 placement of I factor in the interbody space and infuse collagen sponge combined with master graft in the posterior lateral gutters. Surgeon Rodger Hobbs, Stove Installer Charlotte Parker Estimated Blood Loss 700 Findings Consistent with Post-Op Diagnosis Specimens None Indications This is an 82-year-old male who presents above-mentioned diagnosis after failing course of nonoperative care is here for surgical invention. Description of Procedure Patient was met with identified informed consent obtained. Patient was then taken to the operative suite underwent a patient placed in a prone position on the Dhruv table on top of the Markell frame. All bony promises well-padded eyes inspected to ensure no external pressure placed upon the. This point the lumbar spine was prepped and draped in normal sterile fashion. Sharp dissection with the assistance of Bovie cautery from down to and exposing the lamina and transverse processes of L3 and instrumentation L4-L5 and S1 levels bilaterally. And then proceeded move the hardware bilaterally explore the fusion mass noting it to be mature and intact. Informed complete laminectomy of L3 partial laminectomy of L2 including bilateral medial facetectomies and foraminotomies addressing severe spinal stenosis. Pedicle screws were then placed in L3-L4 and S1 bilaterally with the assistance of fluoroscopy the properly sized bao placed. By way of a transforaminal approach on the right complete discectomy performed endplates curetted to subcortical bleeding bone and a 13 x 26 mm Spira cage with I factor tapped in position. The rods were then locked into final position bilaterally. The transverse processes of L3-L4 burred to subcortical bleeding bone. Infuse collagen sponge by master graft and locally harvested morselized autograft was placed in the posterior gutters. I did place approximate 10 cc of stimulant beads impregnated with vancomycin and gentamicin throughout the incision. A 15 round BRYCE drain was then inserted. Incision was closed with 1 Vicryl the fascia 2-0 Vicryl subcutaneously and 4 Monocryl for final skin closure. Steri-Strips and a sterile dressing placed. Patient awakened taken to PACU in stable condition. Please note spinal cord monitoring was utilized at the procedure no changes noted. Lastly Charlotte Parker was present at the entire surgery and while the patient positioning complex portion of the surgery and final skin closure. I attest to the content of the Intraoperative Record and any orders documented therein. Any exceptions are noted below.
[2022-07-18] MEDS ORDERED: ePHEDrine sulfate 50 MG/ML SYR ONE (11:53)
--- NOTE | 2022-07-18 12:18 | Fluoroscopy Report ---
FL lumbar spine 2-3V CLINICAL HISTORY: L3-L4 DECOMPRESSION AND FUSION L5-S1 HW REMOVAL COMPARISON STUDY: None. FLUOROSCOPY TIME: 13 seconds FLUOROSCOPY IMAGES: 2 Ka,r: 10.6 mGy FINDINGS: Posterior decompression and fusion from L3 through S1 with pedicle screws and rods. There i s a disc spacer at L3-L4. The hardware appears intact. IMPRESSION: Fluoroscopic assistance as above. ACT 112: Negative or not required by law. Electronically signed by: Ashwin Fernandez M.D. 07/18/2022 12:17 PM
[2022-07-18] MEDS: fentaNYL citrate PF 100 MCG/2 ML VIAL IV PRN ×3 (12:20→13:00)
[2022-07-18] MEDS ORDERED: MAGNESIUM HYDROXIDE SUSP 30 ML UDC PO PRN (13:35)
[2022-07-18] MEDS ORDERED: SOD PHOSPHATE/SOD BIPHOSPHATE ENEMA 132 ML BTL PR PRN (13:35)
[2022-07-18] MEDS ORDERED: ONDANSETRON 4 MG OD TAB PO PRN (13:35)
[2022-07-18] MEDS ORDERED: NALOXONE HCL 0.4 MG/1 ML VIAL/CARP IV PRN (13:35)
[2022-07-18] MEDS ORDERED: DO NOT ADMINISTER PNEUMOCOCCAL VACCINE PRN (13:35)
[2022-07-18] MEDS ORDERED: ALUMINUM/MAGNESIUM SUSP 30 ML UDC PO PRN (13:35)
[2022-07-18] MEDS ORDERED: hydrOXYzine HCl 25 MG TAB PO PRN (13:35)
[2022-07-18] MEDS ORDERED: HYDROmorphone INJ 1 MG/ML SYRINGE IV PRN (13:35)
[2022-07-18] MEDS ORDERED: diphenhydrAMINE Capsule 25 MG CAP PO PRN (13:35)
[2022-07-18] MEDS ORDERED: ACETAMINOPHEN 1,000 MG/100 ML VIAL IV PRN (13:35)
[2022-07-18] MEDS ORDERED: PROMETHAZINE HCL 12.5 MG in SODIUM CHLORIDE 0.9% 50 ML IV PRN (13:35)
[2022-07-18] MEDS ORDERED: METOCLOPRAMIDE HCL INJ 5 MG/ML 2 ML VIAL IV PRN (13:35)
[2022-07-18] MEDS ORDERED: HYDROmorphone INJ 0.5 MG/0.5 ML SYR IV PRN (13:35)
[2022-07-18] MEDS ORDERED: traMADol HCL 50 MG TABLET PO PRN (13:35)
[2022-07-18] MEDS ORDERED: bisacodyL 10 MG SUPP PR PRN (13:35)
[2022-07-18] MEDS ORDERED: DO NOT ADMINISTER FLU VACCINE PRN (13:35)
[2022-07-18] MEDS ORDERED: LORazepam 0.5 MG TAB PO PRN (13:35)
[2022-07-18] MEDS ORDERED: LORazepam 2 MG/1 ML VIAL IV PRN ×2 (13:35→17:23)
[2022-07-18] MEDS ORDERED: FAMOTIDINE 20 MG TAB PO PRN (13:35)
[2022-07-18] MEDS: SODIUM CHLORIDE 0.9% 1000ML 1,000 ML IV SCH (13:43)
--- NOTE | 2022-07-18 13:54 | Anesthesiology Progress Note ---
Date of Service July 18, 2022 Anesthesia Post Procedure Vital Signs Vital Signs: Temp Pulse Pulse Resp BP Pulse Ox O2 Del Method 07/18/22 13:35 36.3 C L 72 20 116/68 96 Nasal Cannula 07/18/22 13:20 69 14 103/56 L 95 Nasal Cannula 07/18/22 13:10 64 20 115/59 L 96 Nasal Cannula 07/18/22 13:00 70 16 114/61 94 Nasal Cannula 07/18/22 12:50 36.1 C L 67 14 122/67 97 Nasal Cannula 07/18/22 12:40 70 16 125/61 93 Nasal Cannula 07/18/22 12:30 79 23 117/63 95 Oxymask 07/18/22 12:20 69 21 128/68 98 Oxymask 07/18/22 12:10 73 16 128/67 99 Oxymask 07/18/22 12:03 36.2 C L 75 16 128/64 99 Oxymask 07/18/22 08:20 36.8 C 72 20 146/71 H 94 Room Air O2 Flow Rate 07/18/22 13:35 2 07/18/22 13:20 2 07/18/22 13:10 2 07/18/22 13:00 2 07/18/22 12:50 2 07/18/22 12:40 2 07/18/22 12:30 5 07/18/22 12:20 5 07/18/22 12:10 5 07/18/22 12:03 5 07/18/22 08:20 Pain Intensity Back: Pain Intensity: 4 Transfer of Care Handoff Completed per policy Notes Mental Status: alert / awake / arousable and participated in evaluation Patient Amnestic to Procedure: Yes Nausea / Vomiting: adequately controlled Pain: adequately controlled Airway Patency, RR, SpO2: stable & adequate BP & HR: stable & adequate Hydration State: stable & adequate Anesthetic Complications: no major complications apparent and Pt Satisfied with anesthetic care
--- NOTE | 2022-07-18 16:22 | Hospitalist Consultation ---
Date of Consultation July 18, 2022 Assessment & Plan (1) Neurogenic claudication due to lumbar spinal stenosis: s/p lumbar decompression/fusion/removal of hardware by Dr Hobbs 07/18. EBL 700cc Procedure: #1 removal of posterior instrumentation L4-S1. #2 exploration of fusion L4-S1. #3 lumbar decompression bilaterally facetectomies and foraminotomies L2-L3 L3- L4. #4 posterior spinal fusion L3-L4 per #5 placement posterior instrumentation L3-S1. #6 interbody fusion L3-L4. #7 placement of Spira 13 x 26 mm cage at L3- L4. #8 placement locally harvested morselized autograft in the posterior gutters. #9 placement of I factor in the interbody space and infuse collagen sponge combined with master graft in the posterior lateral gutters. Pre-op clearance discussed w/ cardiology by anesthesia --> "...dilated cardiomyopathy was most likely caused by frequent PVC's which are adequately suppressed on Metoprolol Succinate ER 200 mg daily. After suppressing his PVC's he had complete resolution of his cardiomyopathy, and his LV systolic function has been normal on his past 2 Echocardiograms in 2020 and 2017 show normal LV systolic function. Provided the patient is asymptomatic from a cardiac standpoint and is reasonably physically active -- no further workup is necessary and he may proceed to surgery as planned..." Pain control/bowel regimen/PT/OT per primary service Reports some blurring of vision post-op, EOMI intact, no focal strength deficit to warrant stroke at present. ?positioning, LEFT eye. Hx glaucoma on latanoprost, ordered erythromycin drops -- monitor for any worsening BP low post-op, decrease UOP. NSS 250bolus x 1 now, monitor BP. Mentating ok. Lactic/CMP/CBC ordered for now along w/ INR/PTT Of note, patient drinks 3-4 hard liquor pretty regularly, will order Thiamine/folate/b12 as well as AWSS for withdrawal. No DTs w/ prior cholecystitis Will check labs now post-op/replete electrolyte, EKG Eliquis last dose on Sunday reported (2) Cardiomyopathy: follows with Dr Wise, felt rate related. EF 55-60% last echo On metoprolol 200mg daily, eliqis 5mg BID for afib eliquis on hold post-op back surgery -- resume as soon as able when ok by primary checking post-op labs NOW given above, but will monitor/replete K/mag given hx fib/flutter to prevent any issues EKG w/ any CP, will check now as well to eval any issues (3) Stage 3b chronic kidney disease: renal dose meds/avoid nephrotoxins as able checking labs now, and monitor in AM (4) COPD with emphysema: continue inhalers/hospital formulary stable on room air presently, no SOB/CP reported (5) Prediabetes: BSG AC/HS, not on meds at home Last A1c reviewed and 5.6 on pre-op labs (6) Esophageal reflux: continue PPI (7) Esophageal dysphagia: s/p dilation, remains on PPI BID as above (8) Atrial fibrillation: Per Dr Hightower most recent note: "Atrial fibrillation and flutter: He has no symptoms of atrial fibrillation or flutter and none were identified on his Holter monitor although he did have episodes of PAT which can at times trigger these other atrial arrhythmias. I would continue his rate control medications and anticoagulation." Remains on metoprolol 200mg daily, eliquis to resume when ok w/ surgery He states he did take his metoprolol this morning but has held the eliquis since Sunday (9) HTN (hypertension): remains on metoprolol BPs borderline but asymptomatic, likely from surgery. 250cc IV bolus now, continue maintenance fluids/UOP given decreased UOP post-op, ?ATN from hypotension from surgery Monitor Plan Thank you for allowing hospitalist service to participate in the care of Mr Thapa. Will follow along. Please call with any questions/concerns. Supervising Physician Co-Signing Physician Notes I personally saw and examined the patient. I verified all burk points and agree with Ally Rodriguez PA-C with the following exceptions and/or additions: 82 year old male POD #0 revision lumbar spinal decompression and fusion. EBL 700ml. Pain improved from pre-op pain. O/E HS RRR, no murmurs, Chest CTAB, Abdo SNT, 1st MTPJ b/l plantar/dorsiflex 5/5 A/P Pain/VTE/Bowel management per primary orthopedic team. Low concern for alcohol withdrawal given lack of history of this. Restart Eliquis for a. fib when ok from surgical stand point. No urgency to this as currently in NSR. Restart all other medications. History of Present Illness Reason for Consultation: med management Requesting Physician: Dr Hobbs Attending Physician: Rodger Hobbs DO History of Present Illness 82yo male with PMHx significant for HTN, HLD, aflutter/fib, cardiomyopathy, COPD, restrictive lung disease, esophageal stenosis (s/p dilation), CKD 3 presented for lumbar decompression/fusion, L4-S1 hardware removal for worsening back and bilateral leg pain after falling. Patient evaluated post-op in room 377-2, at bedside. Doing well exception some blurred vision/crusting and improved w/ eye drops -- no obvious abn on exam however still reporting some blurring of his vision and wondering if from surgery/positioning. He does have hx MAT/afib/flutter, denied having any palpitations when he had it in the past but stated he hasn't had any recurrence since Dr Wise put him on metoprolol about 3 years ago. Last dose Eliquis on Sunday but he is unsure when he is able to resume this medication. Pain controlled, not yet eaten. He had been having bilaterally LE weakness/pain symptoms and been getting injections w/ Dr Liriano as an outpatient however had been getting some relief but 3 injections and pain control reported less between each injection and shorter duration prompting need for current surgery. On Doxy BID since his lower spine surgery in the past w/ MRSA for chronic suppression. Reported issue w/ orange juice a couple months ago but no issues since then. On PPI BID and no issues with anything else since that time. No chest pain/shortness of breath at present. Reese output 45cc in the last 3 hours since surgery. Last BM this morning. Labs ordered for now, EKG and discussed moving to tele for closer monitoring. Drinks 3-4 drinks daily, will order AWSS as well, thiamine IV now and daily. Reports chronic issues w/ balance, felt 2nd to back. Allergies Allergy/AdvReac Type Severity Reaction Status Date / Time No Known Drug Allergies Allergy Verified 07/26/22 11:30 Home Medications Medication Instructions Recorded Confirmed Type metoprolol succinate 200 mg 200 mg PO DAILY #90 tabs 09/01/21 07/26/22 Rx tablet,extended release 24 hr fluticasone fur. 100 mcg-umeclid 1 inh inhalation QAM #60 ea 12/29/21 07/26/22 Rx 62.5 mcg-vilant 25 mcg inhalat.powder (Trelegy Ellipta) apixaban 5 mg tablet (Eliquis) 5 mg PO BID #180 tabs 01/31/22 07/26/22 Rx finasteride 5 mg tablet 5 mg PO QAM #90 tabs 02/06/22 07/26/22 Rx terazosin 5 mg capsule 5 mg PO QPM #90 caps 02/13/22 07/26/22 Rx pantoprazole 40 mg tablet,delayed See Rx Instructions .Route 05/15/22 07/26/22 Rx release .COMPLEX #180 tabs latanoprost 0.005 % eye drops 1 drp ophthalmic (eye) HS 06/27/22 07/26/22 History oxycodone-acetaminophen 5 mg-325 1 tab PO Q8H #30 tabs 07/19/22 07/26/22 Rx mg tablet (Percocet) tramadol 50 mg tablet 50 mg PO Q6H PRN pain, moderate 07/19/22 07/26/22 Rx #30 tabs Patient History Medical History Abscess in epidural space of lumbar spine (03/2016) Atrial fibrillation Atrial flutter BPH (benign prostatic hyperplasia) Cardiomyopathy Chronic sinusitis COPD (chronic obstructive pulmonary disease) Elevated hemidiaphragm Esophageal reflux History of ESBL E. coli infection HTN (hypertension) Hyperlipidemia Lumbar spinal stenosis MRSA (methicillin resistant Staphylococcus aureus) septicemia Multiple pulmonary nodules Osteomyelitis (03/2016) Prediabetes Premature ventricular contractions Stage 3b chronic kidney disease Venous insufficiency Surgical History Complication of anesthesia Esophageal dilatation H/O inguinal hernia repair History of back surgery History of colonoscopy History of esophagogastroduodenoscopy (EGD) History of lumbar laminectomy History of nasal surgery History of tonsillectomy Hx of bilateral cataract extraction S/P laparoscopic cholecystectomy S/P nasal endoscopy with nasal polypectomy Family History Father Bowel perforation Mother Parkinson disease Brother Diabetes Hepatocellular carcinoma Other No known health problems Denies family history of Ovarian cancer Prostate cancer Myocardial infarction Breast cancer Colorectal cancer Social History Smoking Status: Former smoker packs per day: 1; Cigarettes Per Day: quit ; Second Hand Exposure: No; Hx Alcohol Use: Yes Alcohol type: hard liquor Alcohol Intake Frequency: 4 or More x per/Week Alcohol Intake Frequency Comment: "couple of drinks a day" Hx Substance Use: No Preferred Language: Cymro Communication Ability: Effective Visual Impairment: No Limitations Hearing Ability: Use of Hearing Aid 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 Beliefs That Will Affect Care: None marital status: marital status details: Has two children Current Living Situation: Spouse current occupational status: retired Feels Safe at Home: Yes Childhood Exposure to Second-Hand Smoke: No Diet Comment: regular caffeine: Yes during the past year weight has: remained stable Dental Care, Regularly: Yes Physical Activity Frequency: 5-6 Times per Week Physical Activity Frequency Comment: walk Seatbelt Use: always Sunscreen Use: No Assistive Devices: Walker Review of Systems Review of Systems: All systems reviewed & are unremarkable except as noted in HPI & below Physical Exam Physical Exam: 82yo male sitting up in bed post-op, NAD, at bedside, reporting blurring of his left eye (prior crusting when came up from anesthesia, improved w/ saline eye drops) HEENT: head normocephalic, atraumatic, mm DRY, baseline glaucoma, EOMI, ?horizontal beat nystagmus Resp: CTA, slight diminished in bases, improved with sitting up, no w/c, on room air CV: regular, ?pac, no significant m/r/g, no pitting edema/calf tenderness GI:+BS, distension MSK/Neuro: moves all extremities, no focal deficits, NVI, CN intact grossly, no slurred speech/facial droop dressing to lumbar spine w/o shadowing, able to sit up in bed without issues, BRYCE drain w/ scant bloody output at present romaine hose, SCDs in place, toes mobile, sensation intact, pulses palpable, no calf tenderness Psych: Aox3, cooperative and pleasant, talkative Results & Data Results & Data Vital Signs (Past 12 Hours) Vital Signs Temp Pulse Pulse Resp BP Pulse Ox O2 Del Method 07/18/22 15:45 36.4 C L 75 18 96/61 L 100 Nasal Cannula 07/18/22 14:45 77 16 101/59 L 97 Nasal Cannula 07/18/22 14:05 36.2 C L 73 20 106/67 95 Nasal Cannula 07/18/22 13:35 Nasal Cannula 07/18/22 13:35 36.3 C L 72 20 116/68 96 Nasal Cannula 07/18/22 13:35 36.3 C L 72 20 116/68 96 Nasal Cannula 07/18/22 13:20 69 14 103/56 L 95 Nasal Cannula 07/18/22 13:10 64 20 115/59 L 96 Nasal Cannula 07/18/22 13:00 70 16 114/61 94 Nasal Cannula 07/18/22 12:50 36.1 C L 67 14 122/67 97 Nasal Cannula 07/18/22 12:40 70 16 125/61 93 Nasal Cannula 07/18/22 12:30 79 23 117/63 95 Oxymask 07/18/22 12:20 69 21 128/68 98 Oxymask 07/18/22 12:10 73 16 128/67 99 Oxymask 07/18/22 12:03 36.2 C L 75 16 128/64 99 Oxymask 07/18/22 08:20 36.8 C 72 20 146/71 H 94 Room Air O2 Flow Rate 07/18/22 15:45 2 07/18/22 14:45 2 07/18/22 14:05 2 07/18/22 13:35 2 07/18/22 13:35 2 07/18/22 13:35 2 07/18/22 13:20 2 07/18/22 13:10 2 07/18/22 13:00 2 07/18/22 12:50 2 07/18/22 12:40 2 07/18/22 12:30 5 07/18/22 12:20 5 07/18/22 12:10 5 07/18/22 12:03 5 07/18/22 08:20 Laboratory Results 07/18/22 Range/Units Unknown SARS-CoV-2, RNA, NAAT NEGATIVE (NEGATIVE) Diagnostic Findings Lumbar Spine X-Ray 07/18/22 09:35 FL lumbar spine 2-3V CLINICAL HISTORY: L3-L4 DECOMPRESSION AND FUSION L5-S1 HW REMOVAL COMPARISON STUDY: None. FLUOROSCOPY TIME: 13 seconds FLUOROSCOPY IMAGES: 2 Ka,r: 10.6 mGy FINDINGS: Posterior decompression and fusion from L3 through S1 with pedicle screws and rods. There is a disc spacer at L3-L4. The hardware appears intact. IMPRESSION: Fluoroscopic assistance as above. ACT 112: Negative or not required by law. Electronically signed by: Ashwin Fernandez M.D. 07/18/2022 12:17 PM PG Care Time/CCT Total # of Minutes Spent Total Time Spent with Patient: Total time spent is greater than 50% in coordination of care (as documented) at patient's floor/unit and/or counseling patient: Coding Level of Care Code 41670 IN/OBS CONSULT LVL 3,45M Diagnoses Neurogenic claudication due to lumbar spinal stenosis M48.062 Cardiomyopathy I42.0 Cardiomyopathy type: dilated Stage 3b chronic kidney disease N18.32 COPD with emphysema J43.9 Prediabetes R73.03 Esophageal reflux K21.9 Esophageal dysphagia R13.19 Atrial fibrillation I48.0 Atrial fibrillation type: paroxysmal HTN (hypertension) I10 (2) Cardiomyopathy Cardiomyopathy type: dilated Qualified Code(s): I42.0 - Dilated cardiomyopathy (8) Atrial fibrillation Atrial fibrillation type: paroxysmal Qualified Code(s): I48.0 - Paroxysmal atrial fibrillation
[2022-07-18] MEDS ORDERED: SODIUM CHLORIDE 0.9% 1000ML 250 ML IV ONE (16:58)
[2022-07-18] MEDS ORDERED: LORazepam 1 MG TAB PO PRN ×3 (17:23)
[2022-07-18] MEDS ORDERED: Ativan PO Alcohol Withdrawal--Active Protocol PO PRN (17:23)
[2022-07-18] MEDS ORDERED: THIAMINE HCL 100 MG/ML 2 ML VIAL IM STA (17:23)
[2022-07-18] MEDS: oxyCODONE HCL IR 5 MG TAB (IMMEDIATE RELEASE) PO PRN (17:29)
[2022-07-18 17:34] LABS: Hematocrit (blood only) 38.3 % (42.0-52.0); Hemoglobin 12.6 g/dl (14.0-18.0); Mean Corpuscular Hemoglobin 33.1 pg (25.0-34.0); Mean Corpuscular Hgb Conc 32.9 g/dL (32.0-36.0); Mean Corpuscular Volume 100.5 fL (80.0-100.0); Mean Platelet Volume 9.8 fL (9.4-12.4); Platelet Count 181 K/uL (130-400); RDW Coefficient of Variation 12.4 % (11.5-14.5); RDW Standard Deviation 46.1 fL (36.4-46.3); Red Blood Count 3.81 M/uL (4.70-6.10)
[2022-07-18 17:55] LABS: Albumin Level 3.2 gm/dl (3.4-5.0); Bilirubin,Total 1.5 mg/dl (0.2-1.0); Calcium 8.2 mg/dl (8.6-10.3); Magnesium 1.6 mg/dl (1.7-2.4); Potassium 4.2 mmol/L (3.5-5.1)
[2022-07-18 17:59] LABS: INR 1.2 (0.9-1.1); Partial Thromboplastin Ratio 1.1; Partial Thromboplastin Time 31.5 Seconds (21.0-31.0); Prothrombin Time 12.3 Seconds (9.0-12.0)
[2022-07-18] MEDS ORDERED: THIAMINE HCL 100 MG in SYRINGE 9 ML IV SCH (18:00)
[2022-07-18 18:01] LABS: Albumin Globulin Ratio 1.5 (0.9-2); BUN Creatinine Ratio 13.7 (10-20); Creatinine Clr Calc Pharmacy 38.3 ml/min; Est GFR (African American) 47.7 ml/min; Est GFR (Non-African American) 41.1 ml/min; Globulin 2.2 gm/dl (2.5-4.0); Total Protein 5.4 gm/dl (6.0-8.3)
[2022-07-18] MEDS: ERYTHROMYCIN OP OINT 5 MG/GM 3.5 GM TUBE OPL SCH (18:18)
[2022-07-18] MEDS: ceFAZolin 2000MG 2,000 MG/15 ML SYR IV SCH (18:18)
[2022-07-18] MEDS: MAGNESIUM SULFATE / D5W 1 GM/100 ML BAG IV SCH ×3 (18:19→22:42)
[2022-07-18] MEDS: DOCUSATE SODIUM/SENNA 50/8.6MG TAB PO SCH (20:15)
[2022-07-18] MEDS: TERAZOSIN HCL 5 MG CAP PO SCH (20:15)
[2022-07-18] MEDS: DOXYCYCLINE HYCLATE 100 MG CAP PO SCH (20:16)
[2022-07-18] MEDS: PANTOprazole 40 MG TAB PO SCH (20:16)
[2022-07-18] MEDS: THIAMINE HCL 100 MG TAB PO SCH (20:17)
[2022-07-18] MEDS: LATANOPROST 0.005% OP SOLN 2.5 ML BTL OP SCH (20:17)
[2022-07-18] MEDS: ACETAMINOPHEN 500 MG TAB PO PRN (20:18)
[2022-07-19] MEDS: SODIUM CHLORIDE 0.9% 1000ML 1,000 ML IV SCH ×3 (00:44→17:47)
[2022-07-19] MEDS: ceFAZolin 2000MG 2,000 MG/15 ML SYR IV SCH (01:15)
[2022-07-19] MEDS: POLYETHYLENE (MIRALAX) 17 GM PACK PO SCH ×4 (05:03→23:34)
[2022-07-19] MEDS: ACETAMINOPHEN 500 MG TAB PO PRN ×2 (06:14→13:19)
[2022-07-19] MEDS: DOXYCYCLINE HYCLATE 100 MG CAP PO SCH ×2 (08:22→20:32)
[2022-07-19] MEDS: CYANOCOBALAMIN (B-12) 500 MCG TABLET PO SCH (08:22)
[2022-07-19] MEDS: FINASTERIDE 5 MG TAB PO SCH (08:23)
[2022-07-19] MEDS: ERYTHROMYCIN OP OINT 5 MG/GM 3.5 GM TUBE OPL SCH (08:23)
[2022-07-19] MEDS: FLUTICASONE FUROATE 100MCG 14 PUFFS/INHALER INH SCH (08:24)
[2022-07-19] MEDS: FOLIC ACID 1 MG TAB PO SCH (08:25)
[2022-07-19] MEDS: THIAMINE HCL 100 MG TAB PO SCH ×2 (08:26→20:33)
[2022-07-19] MEDS: UMECLIDINIUM/VILANTEROL 62.5/25MCG 7 PUFFS/INHALER INH SCH (08:27)
[2022-07-19 08:28] LABS: Basophils # (auto) 0.02 K/uL (0-0.2); Basophils % (auto) 0.2 %; Hematocrit (blood only) 31.3 % (42.0-52.0); Hemoglobin 10.5 g/dl (14.0-18.0); Immature Granulocytes # (auto) 0.04 K/uL (0.01-0.20); Immature Granulocytes % (auto) 0.4 %; Lymphocytes # (auto) 0.58 K/uL (1.2-3.4); Lymphocytes % (auto) 5.8 %; Mean Corpuscular Hemoglobin 33.1 pg (25.0-34.0); Mean Corpuscular Hgb Conc 33.5 g/dL (32.0-36.0); Mean Corpuscular Volume 98.7 fL (80.0-100.0); Mean Platelet Volume 10.3 fL (9.4-12.4); Monocytes # (auto) 1.43 K/uL (0.11-0.59); Monocytes % (auto) 14.4 %; Neutrophils # (auto) 7.88 K/uL (1.40-6.50); Neutrophils % (auto) 79.2 %; Platelet Count 164 K/uL (130-400); Red Blood Count 3.17 M/uL (4.70-6.10); White Blood Count 9.95 K/ul (4.8-10.8)
[2022-07-19 09:12] LABS: BUN Creatinine Ratio 13.9 (10-20); Calcium 7.6 mg/dl (8.6-10.3); Creatinine Clr Calc Pharmacy 37.1 ml/min; Est GFR (African American) 45.9 ml/min; Est GFR (Non-African American) 39.6 ml/min; Magnesium 2.2 mg/dl (1.7-2.4); Potassium 4.3 mmol/L (3.5-5.1)
--- NOTE | 2022-07-19 10:54 | Orthopedic Progress Note ---
Date of Service July 19, 2022 Assessment & Plan (1) Neurogenic claudication due to lumbar spinal stenosis: Plan: At this time initiate physical therapy monitor his BRYCE output hopefully discharge home in next few days. Admission and Anticipated Discharge Date Admission Date: July 18, 2022 Subjective Back pain controlled leg pain improved Physical Exam Physical Exam: Patient is in bed. He is comfortable. Is constricted testing. Results & Data Vital Signs (Past 12 Hours) Vital Signs Temp Pulse Resp BP BP Pulse Ox O2 Del Method 07/19/22 07:11 36.3 C L 65 18 92/53 L 113/66 96 Room Air 07/19/22 03:30 36.4 C L 69 16 97/61 L 95 Room Air
[2022-07-19] MEDS: PANTOprazole 40 MG TAB PO SCH ×2 (11:15→20:34)
[2022-07-19] MEDS: METOPROLOL SUCC 50MG EXT REL TAB PO SCH (11:15)
--- NOTE | 2022-07-19 13:06 | Electrocardiogram Report ---
Test Reason : Blood Pressure : / mmHG Vent. Rate : 068 BPM Atrial Rate : 068 BPM P-R Int : 156 ms QRS Dur : 072 ms QT Int : 402 ms P-R-T Axes : 114 038 063 degrees QTc Int : 427 ms Poor data quality, interpretation may be adversely affected Normal sinus rhythm Inferior infarct , age undetermined Abnormal ECG When compared with ECG of 04-JUL-2022 10:06, QRS duration has decreased Inferior infarct is now Present ST elevation now present in Inferior leads T wave inversion now evident in Anterior leads Confirmed by Kirby Monterroso ([id number]) on 07/19/2022 1:06:16 PM Referred By: Rodger Hobbs Confirmed By:Kirby Monterroso
--- NOTE | 2022-07-19 13:31 | Electrocardiogram Report ---
Test Reason : Blood Pressure : / mmHG Vent. Rate : 067 BPM Atrial Rate : 067 BPM P-R Int : 174 ms QRS Dur : 086 ms QT Int : 424 ms P-R-T Axes : 043 033 052 degrees QTc Int : 448 ms Normal sinus rhythm Low voltage QRS Nonspecific ST and T wave abnormality Abnormal ECG When compared with ECG of 18-JUL-2022 17:07, (unconfirmed) No significant change was found Confirmed by Kirby Monterroso ([id number]) on 07/19/2022 1:31:43 PM Referred By: Rodger Hobbs Confirmed By:Kirby Monterroso
--- NOTE | 2022-07-19 18:08 | Hospitalist Progress Note ---
Date of Service July 19, 2022 Assessment & Plan (1) Neurogenic claudication due to lumbar spinal stenosis: Plan: s/p lumbar decompression/fusion/removal of hardware by Dr Hobbs 07/18. EBL 700cc -Acute blood loss anemia not unexpected for procedure. Currently no indications for transfusionhemodynamically stable. Follow hemoglobin, however, if lightheadedness persistsmay need to transfuse. Mild HORTENCIA on baseline CKD 3Balso due to acute blood loss anemia, anticipate resolution with IV fluids. (2) Cardiomyopathy: Plan: follows with Dr Wise, felt rate related. EF 55-60% last echo On metoprolol 200mg daily, eliqis 5mg BID for afib eliquis on hold post-op back surgery -- resume as soon as able when ok by primary Stable in this regard (3) Stage 3b chronic kidney disease: Plan: See above (4) COPD with emphysema: Plan: No shortness of breath, breathing room air, stable in this regard (5) Prediabetes: Plan: Last A1c reviewed and 5.6 on pre-op labs (6) Esophageal reflux: Plan: continue PPI (7) Esophageal dysphagia: Plan: s/p dilation, remains on PPI BID as above (8) Atrial fibrillation: Plan: Rate controlled, resume anticoagulation once safe with orthopedic surgery. (9) HTN (hypertension): Plan: Blood pressures noted, probably on the low end due to acute blood loss anemia. Resume antihypertensives as possible. (10) DVT prophylaxis: Plan: SCDs Plan Thank you for allowing hospitalist service to participate in the care of Mr Thapa. Will follow along. Please call with any questions/concerns. Admission and Anticipated Discharge Date Admission Date: July 18, 2022 Subjective feeling ok overall. pain under good control overall. lightheaded with standing but not that bad. no cp no sob. Review of Systems Review of Systems: All systems reviewed & are unremarkable except as noted in HPI & below Physical Exam Physical Exam: gen aao pleasant nad heent nc at mmm breathing unlabored no accessory muscles good effort skin no rashes no pallor or icterus CBC, BMP noted Results & Data Results & Data Vital Signs (Past 12 Hours) Vital Signs Temp Pulse Pulse Resp BP BP Pulse Ox 07/19/22 14:21 98.2 F 70 16 110/60 94 07/19/22 11:19 97.3 F L 64 16 108/63 95 07/19/22 07:11 97.3 F L 65 18 92/53 L 113/66 96 O2 Del Method 07/19/22 14:21 Room Air 07/19/22 11:19 Room Air 07/19/22 07:11 Room Air PG Care Time/CCT Total # of Minutes Spent Total Time Spent with Patient: Total time spent is greater than 50% in coordination of care (as documented) at patient's floor/unit and/or counseling patient: Coding Level of Care Code 74390 SUB INP/OBS CARE 3/50MIN Diagnoses Neurogenic claudication due to lumbar spinal stenosis M48.062 Cardiomyopathy I42.0 Cardiomyopathy type: dilated Stage 3b chronic kidney disease N18.32 COPD with emphysema J43.9 Prediabetes R73.03 Esophageal reflux K21.9 Esophageal dysphagia R13.19 Atrial fibrillation I48.0 Atrial fibrillation type: paroxysmal HTN (hypertension) I10 DVT prophylaxis Z29.9 (2) Cardiomyopathy Cardiomyopathy type: dilated Qualified Code(s): I42.0 - Dilated cardiomyopathy (8) Atrial fibrillation Atrial fibrillation type: paroxysmal Qualified Code(s): I48.0 - Paroxysmal atrial fibrillation
[2022-07-19] MEDS: TERAZOSIN HCL 5 MG CAP PO SCH (20:32)
[2022-07-19] MEDS: DOCUSATE SODIUM/SENNA 50/8.6MG TAB PO SCH (20:32)
[2022-07-19] MEDS: LATANOPROST 0.005% OP SOLN 2.5 ML BTL OP SCH (20:33)
[2022-07-19] MEDS: oxyCODONE HCL IR 5 MG TAB (IMMEDIATE RELEASE) PO PRN (23:33)
[2022-07-20] MEDS: oxyCODONE HCL IR 5 MG TAB (IMMEDIATE RELEASE) PO PRN ×3 (03:42→23:55)
[2022-07-20] MEDS: SODIUM CHLORIDE 0.9% 1000ML 1,000 ML IV SCH ×2 (03:42→14:20)
[2022-07-20] MEDS: POLYETHYLENE (MIRALAX) 17 GM PACK PO SCH ×4 (05:48→20:09)
[2022-07-20] MEDS: ACETAMINOPHEN 500 MG TAB PO PRN ×2 (05:49→22:57)
[2022-07-20 07:47] LABS: Basophils # (auto) 0.05 K/uL (0-0.2); Basophils % (auto) 0.7 %; Eosinophils # (auto) 0.11 K/uL (0-0.50); Eosinophils % (auto) 1.5 %; Hematocrit (blood only) 31.6 % (42.0-52.0); Hemoglobin 10.2 g/dl (14.0-18.0); Immature Granulocytes # (auto) 0.05 K/uL (0.01-0.20); Immature Granulocytes % (auto) 0.7 %; Lymphocytes # (auto) 0.84 K/uL (1.2-3.4); Lymphocytes % (auto) 11.5 %; Mean Corpuscular Hemoglobin 32.6 pg (25.0-34.0); Mean Corpuscular Hgb Conc 32.3 g/dL (32.0-36.0); Mean Platelet Volume 10.5 fL (9.4-12.4); Monocytes # (auto) 1.15 K/uL (0.11-0.59); Monocytes % (auto) 15.8 %; Neutrophils % (auto) 69.8 %; Platelet Count 151 K/uL (130-400); RDW Coefficient of Variation 12.7 % (11.5-14.5); Red Blood Count 3.13 M/uL (4.70-6.10)
[2022-07-20] MEDS: CYANOCOBALAMIN (B-12) 500 MCG TABLET PO SCH (08:06)
[2022-07-20] MEDS: ERYTHROMYCIN OP OINT 5 MG/GM 3.5 GM TUBE OPL SCH (08:06)
[2022-07-20] MEDS: DOXYCYCLINE HYCLATE 100 MG CAP PO SCH ×2 (08:06→20:07)
[2022-07-20 08:07] LABS: BUN Creatinine Ratio 14.1 (10-20); Calcium 7.4 mg/dl (8.6-10.3); Creatinine Clr Calc Pharmacy 45.8 ml/min; Est GFR (African American) 59.2 ml/min; Est GFR (Non-African American) 51.1 ml/min; Potassium 4.1 mmol/L (3.5-5.1)
[2022-07-20] MEDS: FINASTERIDE 5 MG TAB PO SCH (08:07)
[2022-07-20] MEDS: FLUTICASONE FUROATE 100MCG 14 PUFFS/INHALER INH SCH (08:07)
[2022-07-20] MEDS: FOLIC ACID 1 MG TAB PO SCH (08:08)
[2022-07-20] MEDS: PANTOprazole 40 MG TAB PO SCH ×2 (08:08→20:08)
[2022-07-20] MEDS: THIAMINE HCL 100 MG TAB PO SCH ×2 (08:08→20:07)
[2022-07-20] MEDS: UMECLIDINIUM/VILANTEROL 62.5/25MCG 7 PUFFS/INHALER INH SCH (08:09)
[2022-07-20] MEDS: METOPROLOL SUCC 50MG EXT REL TAB PO SCH (08:11)
--- NOTE | 2022-07-20 08:26 | Orthopedic Progress Note ---
Date of Service July 20, 2022 Assessment & Plan (1) Neurogenic claudication due to lumbar spinal stenosis: Plan We will continue physical therapy monitor his BRYCE output hopefully discharge home tomorrow. Admission and Anticipated Discharge Date Admission Date: July 18, 2022 Subjective This morning he is comfortable. Pain is well controlled. Physical Exam Physical Exam: On exam is good strength testing upper lower extremities. There is no pain to palpation. Results & Data Vital Signs (Past 12 Hours) Vital Signs Temp Pulse Resp BP Pulse Ox O2 Del Method 07/20/22 07:48 36.3 C L 69 16 115/65 94 Room Air
--- NOTE | 2022-07-20 17:37 | Hospitalist Progress Note ---
Date of Service July 20, 2022 Assessment & Plan (1) Neurogenic claudication due to lumbar spinal stenosis: Plan: s/p lumbar decompression/fusion/removal of hardware by Dr Hobbs 07/18. EBL 700cc -Acute blood loss anemia not unexpected for procedure and now appears to be stable. Currently no indications for transfusionhemodynamically stable. Mild HORTENCIA on baseline CKD 3Balso due to acute blood loss anemia has now resolved suspect shoulder pain was mild supraspinatus strain - ?positioning in OR - no intervention needed. (2) Cardiomyopathy: Plan: follows with Dr Wise, felt rate related. EF 55-60% last echo On metoprolol 200mg daily, eliqis 5mg BID for afib eliquis on hold post-op back surgery -- resume as soon as able when ok by primary Asymptomatic in this regard (3) Stage 3b chronic kidney disease: Plan: See above (4) COPD with emphysema: Plan: No shortness of breath or dyspnea on exertion. Suspect faint basilar rales are atelectasis. Pulse ox in the high 80s at the end of therapy (but with no symptoms) likely either baseline or related to atelectasis. Encourage incentive spirometry, coached on usage. (5) Prediabetes: Plan: Last A1c reviewed and 5.6 on pre-op labs (6) Esophageal reflux: Plan: continue PPI (7) Esophageal dysphagia: Plan: s/p dilation, remains on PPI BID as above (8) Atrial fibrillation: Plan: Rate controlled, resume anticoagulation once safe with orthopedic surgery. (9) HTN (hypertension): Plan: Blood pressures noted, probably on the low end due to acute blood loss anemia. Resume antihypertensives as possible. (10) DVT prophylaxis: Plan: SCDs Plan Thank you for allowing hospitalist service to participate in the care of Mr Thapa. Will follow along. Please call with any questions/concerns. Admission and Anticipated Discharge Date Admission Date: July 18, 2022 Subjective feeling better walked w PT no dyspnea (SpO2 did drop to high 80's he doesn't know exactly but suspects he probably does this a good bit at home) - and no JAIN. lightheadedness gone. R arm pain off and on from lateral shoulder down side of arm - with movement some, off/on - but went away no other new complaints Review of Systems Review of Systems: All systems reviewed & are unremarkable except as noted in HPI & below Physical Exam Physical Exam: In general he is awake and alert pleasant no distress. HEENT normocephalic atraumatic mucous membranes moist. Cardio is regular. Lungs overall clear, faint basilar rales. Had him demonstrate incentive spirometryinitially was not doing it appropriately, reeducated/coached and he did better. No accessory muscle use good effort. Skin shows no rashes no pallor or icterus. Mild weakness right arm on abduction with internal rotation, no "blowout weakness" no tenderness or crepitus. cbc, bmp noted Results & Data Results & Data Vital Signs (Past 12 Hours) Vital Signs Temp Pulse Resp BP Pulse Ox O2 Del Method 07/20/22 15:06 97.9 F 85 18 111/62 93 Room Air 07/20/22 07:48 97.3 F L 69 16 115/65 94 Room Air PG Care Time/CCT Total # of Minutes Spent Total Time Spent with Patient: Total time spent is greater than 50% in coordination of care (as documented) at patient's floor/unit and/or counseling patient: Coding Level of Care Code 96295 SUB INP/OBS CARE 3/50MIN Diagnoses Neurogenic claudication due to lumbar spinal stenosis M48.062 Cardiomyopathy I42.0 Cardiomyopathy type: dilated Stage 3b chronic kidney disease N18.32 COPD with emphysema J43.9 Prediabetes R73.03 Esophageal reflux K21.9 Esophageal dysphagia R13.19 Atrial fibrillation I48.0 Atrial fibrillation type: paroxysmal HTN (hypertension) I10 DVT prophylaxis Z29.9 (2) Cardiomyopathy Cardiomyopathy type: dilated Qualified Code(s): I42.0 - Dilated cardiomyopathy (8) Atrial fibrillation Atrial fibrillation type: paroxysmal Qualified Code(s): I48.0 - Paroxysmal atrial fibrillation
[2022-07-20] MEDS: LATANOPROST 0.005% OP SOLN 2.5 ML BTL OP SCH (20:06)
[2022-07-20] MEDS: TERAZOSIN HCL 5 MG CAP PO SCH (20:07)
[2022-07-20] MEDS: DOCUSATE SODIUM/SENNA 50/8.6MG TAB PO SCH (20:07)
[2022-07-21] MEDS: THIAMINE HCL 100 MG TAB PO SCH (08:11)
[2022-07-21] MEDS: FINASTERIDE 5 MG TAB PO SCH (08:11)
[2022-07-21] MEDS: UMECLIDINIUM/VILANTEROL 62.5/25MCG 7 PUFFS/INHALER INH SCH (08:11)
[2022-07-21] MEDS: CYANOCOBALAMIN (B-12) 500 MCG TABLET PO SCH (08:11)
[2022-07-21] MEDS: DOXYCYCLINE HYCLATE 100 MG CAP PO SCH (08:12)
[2022-07-21] MEDS: ERYTHROMYCIN OP OINT 5 MG/GM 3.5 GM TUBE OPL SCH (08:12)
[2022-07-21] MEDS: PANTOprazole 40 MG TAB PO SCH (08:12)
[2022-07-21] MEDS: FOLIC ACID 1 MG TAB PO SCH (08:12)
[2022-07-21] MEDS: FLUTICASONE FUROATE 100MCG 14 PUFFS/INHALER INH SCH (08:12)
[2022-07-21] MEDS: METOPROLOL SUCC 50MG EXT REL TAB PO SCH (08:12)
--- NOTE | 2022-07-21 10:31 | Discharge Summary ---
Date of Service July 21, 2022 Admission HPI Per Admitting Provider This is an 82-year-old male well-known to me the presents with worsening back and bilateral leg pain after failing course of nonoperative care is here for surgical invention. Principal Diagnosis Lumbar spinal stenosis with neurogenic claudication Discharge Data Allergies Allergy/AdvReac Type Severity Reaction Status Date / Time No Known Drug Allergies Allergy Verified 07/18/22 08:15 Consultations 07/18/22 13:35 Consult Hospitalist Routine Procedures Performed Operation Date: 07/18/22 09:35 Actual Procedures p L3-L4 Decompression and Fusion, Spinal Cord Monitoring(Not Applicable) - Rodger Hobbs DO s L4-S1 Hardware Removal,(Not Applicable) - Rodger Hobbs DO Ordered Studies 07/18/22 09:35 FL lumbar spine 2-3V Routine Hospital Course (1) Neurogenic claudication due to lumbar spinal stenosis: Patient went lumbar decompression fusion to tolerate this well was taken to orthopedic for postoperative. Postop day 1 he was up and ambulating progress posted #2. BRYCE drain decreased reportedly. Excellent strength testing. Subsequent discharge home. Discharge orders instructions found in chart for further review. Total Time Total Time Spent Total Time Spent (In Minutes): 20 minutes Discharge Plan Discharge Items Patient Disposition: Home - Self-Care Reason For Visit: Thoracolumbar and Lumbosacral Disc Disorder Discharge Diagnosis: Lumbar spinal stenosis with neurogenic claudication Activity: As commented below Non-emergency contact: Primary Care Provider Call non-emergency contact if: you have any medication questions Follow-up/Referrals: Gricelda De La Rosa DO [Primary Care Provider] - Diet: Regular Addtl Attending Provider Instructions: ACTIVITY RECOMMENDATIONS: SELF CARE INSTRUCTIONS AFTER THORACIC/LUMBAR FUSIONS 1. You may walk to your tolerance. It is good exercise for your legs and back. Expect some back and intermittent leg aches and pains. 2. You may perform "counter-top" level activities (make a sandwich, vesna with a project, etc.). 3. No bending or lifting of more than 10 pounds or back twisting of any nature (roll like a log when turning in bed). 4. You may ride in a car for 20-30 minutes at a time. No driving until after your first visit with your doctor. 5. Frequent changes of position and restricting sitting to 30 minutes at a time will help limit the amount of back spasms and stiffness you may experience. 6. You may discontinue the use of ambulatory aids (cane, crutches, etc.) once your strength and confidence allow. 7. You may steam heating installer the shower and let water strike your incision when you arrive home at least once daily. Do not take a tub bath, sit in a hot tub or go into a swimming pool until after your first recheck in the office. SPECIAL CARE INSTRUCTIONS: VERY IMPORTANT TO READ AND REVIEW A. Your surgical incision has been closed with a cosmetic suture under the skin that will dissolve in about 6 weeks. In 14 days, you can use a pair of clean scissors and cut the suture that is left outside of the skin at the ends of your incision. 1. The small skin tapes can be removed 7 days after surgery if they have not fallen off by that point. 2. You may keep the wound open to air as much as possible to promote healing after post-op day number 5 unless told otherwise by your doctor. 3. If you think the wound looks like it is becoming infected (redness or worsening drainage) and/or you are experiencing fever, chill or worsening back pain and muscle spasms, contact the office so that we may evaluate you as soon as possible. B. Complications are uncommon, but please contact us if you have any signs or symptoms of: 1. wound infection (fever higher than 102.5 degrees F, redness, separation of wound, drainage, or increasing pain from the incision) 2. blood clots in legs (pain, swelling, redness and warmth in legs) 3. urinary tract infection (fever higher than 102.5 degrees F, burning upon urination or increased frequency of urination) 4. nerve problems (inability to walk on your toes or heels, numbness, loss of bowel or bladder control) 5. any other symptoms that concern you C. Please call the office at if you have any concerns or questions about your operation or recovery. D. No smoking! Smoking drastically decreases the chance of a solid fusion. E. Do not take any anti-inflammatory medications (Indocin, Advil, Motrin, Aspirin, Naprosyn, etc.) as these may inhibit the chance of a solid fusion. Tylenol is okay to take for pain. MANAGING PAIN AFTER SPINAL SURGERY 1. Narcotic medication is intended for short-term use and will be provided for surgical pain. Surgical pain usually lasts for a period of 4-6 weeks. Narcotic medication includes Percocet, Vicodin, Darvocet, Tylenol #3 or Lortab. 2. Longer-term pain is more appropriately treated with non-narcotic medication such as Tylenol ES. 3. Muscle spasm is not appropriately treated with narcotics. Muscle relaxers such as Soma, Flexeril or Skelaxin can be used along with Tylenol ES. 4. Remember that we all live with some "aches and pains". This is not unusual or uncommon after an injury or as we get older. a. Back pain is expected and may include muscle spasms for 4 to 6 weeks after surgery. The pain should gradually improve. If the pain worsens for no apparent reason, please contact the office. b. Intermittent leg pain may also be experienced and should not be concerned about unless it worsens for no apparent reason. If so, please contact the office. 5. We will provide appropriate medication within the normal guidelines of their prescribed use. We will also be very cautious and aware of potential abuse and extended duration of patients' medication needs. a. Pain medications are for your comfort and to assist with sleep and rest so that the tissue can heal. They are not provided in order to return to normal activity and should not be used through the day. To do so or worsening pain at night can result from ongoing tissue damage and development of tolerance to the prescribed medicine. 6. Please allow 2-3 days to process refills. Prescriptions will not be mailed but must be picked up at the office. FOLLOW UP VISIT: Keep your scheduled follow-up appointment. Any questions, please call the office at . Pending Studies at Discharge: No Stand-Alone Forms: My [facility] [employer], Smoking Cessation Medications and DC Order Prescriptions: New tramadol 50 mg tablet 50 mg PO Q6H PRN (Reason: pain, moderate) Qty: 30 0RF oxycodone-acetaminophen [Percocet] 5-325 mg tablet 1 tab PO Q8H Qty: 30 0RF Continued doxycycline hyclate 100 mg tablet 100 mg PO BID Qty: 60 11RF Eliquis 5 mg tablet 5 mg PO BID Qty: 180 3RF finasteride 5 mg tablet 5 mg PO QAM Qty: 90 3RF terazosin 5 mg capsule 5 mg PO QPM Qty: 90 3RF Rx Instructions: Take at bedtime pantoprazole 40 mg tablet,delayed release (DR/EC) See Rx Instructions .ROUTE .COMPLEX Qty: 180 3RF Dose Instruction: TAKE 1 TABLET BY MOUTH TWICE A DAY Rx Instructions: TAKE 1 TABLET BY MOUTH TWICE A DAY Trelegy Ellipta 100-62.5-25 mcg blister with device 1 inh inhalation QAM Qty: 60 9RF metoprolol succinate 200 mg tablet extended release 24 hr 200 mg PO DAILY Qty: 90 3RF latanoprost 0.005 % drops 1 drp ophthalmic (eye) HS Discharge Orders: Discharge Order (Routine); Ordered 07/21/22 Ordered By: Rodger Hobbs Admission Data Admit Date/Time: 07/18/22 11:51 Attending Provider: Rodger Hobbs Admit Provider: Rodger Hobbs Primary Care Provider: Gricelda De La Rosa Other Providers: Derian Price ; Martin Sapp
--- NOTE | 2022-07-21 10:42 | Hospitalist Progress Note ---
Date of Service July 21, 2022 Assessment & Plan (1) Neurogenic claudication due to lumbar spinal stenosis: Plan: Neurogenic claudication due to lumbar spinal stenosis POD#3 s/p lumbar decompression/fusion/removal of hardware by Dr. Hobbs Hgb stable HORTENCIA on CKD resolved Suspected secondary to acute blood loss Resolved HTN Soft BPs have improved; suspect secondary to blood loss anemia Resume home regimen Cardiomyopathy, atrial fibrillation Continue following with Dr. Wise Continue metoprolol Can resume home eliquis COPD Oxygen saturation OK on room air on day of discharge Continue home regimen GERD Continue PPI The hospitalist service will sign off at this time. Please don't hesitate to reach out if there are any further concerns. Admission and Anticipated Discharge Date Admission Date: July 18, 2022 Supervising Physician Co-Signing Physician Notes I personally examined the patient and verified all burk points of history and ex am, discussed case, and agree with decision making with Dr Sousa Feeling good, feels up to going home. No new complaints. Arm pain has basically gone away. Vitals noted, in general he is awake and alert pleasant no distress. HEENT normocephalic atraumatic mucous membranes moist. Breathing unlabored no accessory muscle use good effort. Skin shows no rashes no pallor or icterus. Neuro without focal deficits. Status post spine surgery, acute blood loss anemia (expected) mild HORTENCIA on CKDimprovedand baseline COPD/cardiomyopathy/atrial fibrillationoverall stable. Medically would be appropriate for discharge to home. Otherwise as above Subjective Patient seen and evaluated at bedside this morning. Patient feels well and complains only of very minor back pain. Patient feels ready to go home today. Patient denies CP, SOB, abdominal pain, nausea, vomiting, lightheadedness, dizziness, and diarrhea. Review of Systems Review of Systems: See HPI Physical Exam Physical Exam: Constitutional: well-appearing, no acute distress CV: regular rhythm, no murmur appreciated, extremities well-perfused, no LE aung ma Resp: CTABL, no wheezes/rales/rhonchi appreciated, no increased work of breathing Neuro: alert, oriented, no focal neurologic deficit appreciated Results & Data Results & Data Vital Signs (Past 12 Hours) Vital Signs Temp Pulse Resp BP Pulse Ox O2 Del Method 07/21/22 10:30 36.6 C 65 16 117/65 97 Room Air 07/21/22 07:36 36.8 C 89 18 159/72 H 95 Room Air
[2022-07-21] MEDS: oxyCODONE HCL IR 5 MG TAB (IMMEDIATE RELEASE) PO PRN (12:54)
--- NOTE | 2022-07-21 17:46 | Billing Data ---
Date of Service July 21, 2022 Coding Level of Care Code 32947 SUB INP/OBS CARE
== END 2022-07-21 13:58 | disposition home or self-care (01) | DRG 454 ==
LOC: ASU 07:40 → 3N 11:51
DX: H40.9 Unspecified glaucoma; J43.9 Emphysema, unspecified; R73.03 Prediabetes; Z86.19 Personal history of other infectious and parasitic diseases; I48.91 Unspecified atrial fibrillation; Z86.14 Personal history of Methicillin resistant Staphylococcus aureus infection; F10.90 Alcohol use, unspecified, uncomplicated; I42.9 Cardiomyopathy, unspecified; R39.9 Unspecified symptoms and signs involving the genitourinary system; Z87.891 Personal history of nicotine dependence; I48.92 Unspecified atrial flutter; H53.8 Other visual disturbances; Z79.51 Long term (current) use of inhaled steroids; D62 Acute posthemorrhagic anemia; I95.81 Postprocedural hypotension; K21.9 Gastro-esophageal reflux disease without esophagitis; I12.9 Hypertensive chronic kidney disease with stage 1 through stage 4 chronic kidney disease, or unspecified chronic kidney disease; N18.32 Chronic kidney disease, stage 3b; Z79.2 Long term (current) use of antibiotics; R13.19 Other dysphagia; Z79.01 Long term (current) use of anticoagulants; Z91.81 History of falling; M48.062 Spinal stenosis, lumbar region with neurogenic claudication; Z79.899 Other long term (current) drug therapy

== ENCOUNTER 2024-03-27 06:17 | Inpatient (IN) ==
--- NOTE | 2024-03-24 11:38 | Anesthesiology Consultation ---
Date of Service March 24, 2024 Assessment & Plan (1) Encounter for pre-operative examination: Plan - [facility] PCP clearance 03/26/24: "...Repeat labs normal/stable, optimized for surgery per lab review..." - wellness office visit 02/25/24 [facility]: "... s/p lumbar spine surgery in June 2022...ongoing discomfort. use cane for ambulation...refer to orthopedics spine..." - cardiology office visit 11/13/23 [facility]: "...Frequent premature ventricular beats: He continues to have adequate symptomatic suppression of his PVCs on metoprolol succinate 100 mg daily...Atrial fibrillation and flutter...no recent symptoms of atrial fibrillation or flutter and none were identified on his prior Holter monitor although he did have episodes of PAT which can at times trigger t atrial fibrillation or atrial flutter. I would continue his rate control medications (metoprolol succinate) and anticoagulation...Cardiomyopathy: He did have a cardiomyopathy at his initial presentation, subsequently he had normalization of his left ventricular function. It was presumed that his cardiomyopathy was due to rapid rhythm during atrial fibrillation, although that is not certain, as he also has frequent premature ventricular beats which is also a possible cause. His PVCs seem to be adequately suppressed on his current metoprolol dose. He has no symptoms to suggest worsening of his left ventricular function. I am going to repeat his echo next year but I do not think we need one this year..." - pulmonology office visit 11/01/23 [place]: "...COPD with emphysema. Gold class B. 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 Chart Review Chart Review: Acceptable Risk for Surgery and Patient NOT seen in Pre Admission Testing History Surgery Operation Date: 03/27/24 08:15 Proposed Procedures p L2-L3 Decompression and Fusion, Hardware Removal L3-S1, Spinal Cord Monitoring - Rodger Hobbs, DO Height/Weight Height: 5 ft 11 in Weight: 79.379 kg Allergies Allergy/AdvReac Type Severity Reaction Status Date / Time No Known Drug Allergies Allergy Verified 03/24/24 08:37 Medications Home Medications Medication Instructions Recorded Confirmed Last Taken latanoprost 0.005 % eye drops 1 drp ophthalmic (eye) HS 06/27/22 03/24/24 07/17/22 21:00 cholecalciferol (vitamin D3) 25 25 mcg PO QAM 08/22/22 03/24/24 Unknown mcg (1,000 unit) capsule cyanocobalamin (vitamin B-12) 1,000 mcg PO QAM 08/22/22 03/24/24 Unknown 1,000 mcg capsule fluticasone fur. 100 mcg-umeclid 1 inh inhalation QAM #3 Inhalers 11/01/23 03/24/24 Unknown 62.5 mcg-vilant 25 mcg inhalat.powder (Trelegy Ellipta) doxycycline hyclate 100 mg capsule 100 mg PO BID #180 caps 11/19/23 03/24/24 Unknown acetaminophen 500 mg tablet 500 mg PO Q6H PRN Pain 01/31/24 03/24/24 Unknown (Tylenol Extra Strength) apixaban 5 mg tablet (Eliquis) 5 mg PO BID #180 tabs 02/28/24 03/24/24 Unknown finasteride 5 mg tablet 5 mg PO QAM 03/24/24 03/24/24 Unknown metoprolol succinate 100 mg 100 mg PO QAM 03/24/24 03/24/24 Unknown tablet,extended release 24 hr pantoprazole 40 mg tablet,delayed 40 mg PO BID 03/24/24 03/24/24 Unknown release terazosin 2 mg capsule 2 mg PO QAM 03/24/24 03/24/24 Unknown timolol maleate 0.5 % eye drops 1 drp OPB QAM 03/24/24 03/24/24 Unknown Past Medical History Medical History Atrial fibrillation f/u [facility] Atrial flutter BPH (benign prostatic hyperplasia) Cardiomyopathy Chronic sinusitis COPD (chronic obstructive pulmonary disease) emphysema, controlled, stable per pt; does not have rescue inhaler; follows with [facility] Elevated hemidiaphragm right, follows with [facility] Esophageal reflux Fatigue "related to his back problems" Frequent unifocal PVCs hx; f/u dr. okeefe, [facility] History of dysphagia no recent issues per pt History of ESBL E. coli infection 2019 Hx of osteomyelitis (03/2016) Hx of pleural effusion 2019, no recent issues per pt. Hyperlipidemia hx Hypertension Lumbar post-laminectomy syndrome Lumbar spinal stenosis MRSA (methicillin resistant Staphylococcus aureus) septicemia 2018- on doxycycline daily Multifocal atrial tachycardia hx Multiple pulmonary nodules hx, Valley Fever in the s, left scarring in lungs Neurogenic claudication due to lumbar spinal stenosis On anticoagulant therapy Prediabetes diet controlled Restrictive lung disease Right ventricular dysfunction Stage 3b chronic kidney disease f/u [facility] nephrology Venous insufficiency per records, pt denies Past Family History Family History Father Bowel perforation Mother Parkinson disease Brother Diabetes Hepatocellular carcinoma Other No known health problems Denies family history of Ovarian cancer Prostate cancer Myocardial infarction Breast cancer Colorectal cancer Past Surgical History Surgical History Complication of anesthesia unable to urinate after "several years ago after nasal polyp sx" Esophageal dilatation H/O inguinal hernia repair 11/2015- R open repair with drain placement History of back surgery ~1983, "unsure of area," removal ruptured spinal disc 2010, spinal disectomy, osteophylectomy lumbar interspace 02/2016- lumbar decompression laminectomy at L5-S1 and washout and drainage of epidural abscess 03/23/16, REVISION L4-L5, L5-S1 decompressive laminectomy and discectomy for recurrent osteomyelitis and epidural abscess, L5 07/11/22, L3-L4 disectomy and fusion, L4-S1 hardware removal History of colonoscopy History of esophagogastroduodenoscopy (EGD) History of tonsillectomy Hx of bilateral cataract extraction S/P laparoscopic cholecystectomy Dr. Mueller 10/17/18, d/t gangrenous cholecystitis. S/P nasal endoscopy with nasal polypectomy x2 in total, most recent 2010 Social History Smoking Status: Former smoker tobacco type: cigarettes Smoking cigarettes per day: quit Do You Dip or Chew Tobacco: No Smoking End Date: mid Hx Alcohol Use: Yes Alcohol type: hard liquor alcohol intake frequency: 0-2 drinks per day Hx Substance Use: No substance use type: does not use Lab Results Anesthesia Preop Results Results Anesthesia Widget: WBC 8.81 K/ul (4.8-10.8) 03/21/24 Hgb 14.3 g/dl (14.0-18.0) 03/21/24 Hct 43.8 % (42.0-52.0) 03/21/24 Plt 221 K/uL (130-400) 03/21/24 Na 141 mmol/L (136-145) 03/25/24 K 4.1 mmol/L (3.5-5.1) 03/25/24 Cl 108 mmol/L (98-107) H 03/25/24 CO2 25 mmol/L (21-32) 03/25/24 BUN 11 mg/dl (6-23) 03/25/24 Creat 1.12 mg/dl (0.6-1.4) 03/25/24 Glucose Level 151 mg/dl (70-99(Fasting)) H 03/25/24 PT 12.8 Seconds (9.0-12.0) H 03/21/24 PTT 33 Seconds (21-31) H 03/21/24 INR 1.2 (0.9-1.1) H 03/21/24 Urine Color Yellow 03/25/24 Urine Appearance Clear (Clear) 03/25/24 Urine pH 6.0 (4.5-7.5) 03/25/24 Urine Specific Stickney 1.017 (1.000-1.030) 03/25/24 Urine Protein Negative (Negative) 03/25/24 Urine Glucose (UA) Negative (Negative) 03/25/24 Urine Ketones Negative (Negative) 03/25/24 Urine Blood Negative (Negative) 03/25/24 Urine Nitrite Negative (Negative) 03/25/24 Urine Bilirubin Negative (Negative) 03/25/24 Urine Urobilinogen Negative (Negative) 03/25/24 Urine Leukocyte Esterase Negative (Negative) 03/25/24 Urine WBC (Auto) CHAIN SALES CONSULTANT 03/25/24 Urine RBC (Auto) CHAIN SALES CONSULTANT 03/25/24 Urine Hyaline Casts (Auto) CHAIN SALES CONSULTANT 03/25/24 Urine Epithelial Cells (Auto) CHAIN SALES CONSULTANT 03/25/24 Urine Bacteria (Auto) CHAIN SALES CONSULTANT 03/25/24 Urine Amorphous Sediment CHAIN SALES CONSULTANT 03/25/24 Urine Yeast [employer] SALES CONSULTANT 03/25/24 Blood Type O Positive 03/21/24 Antibody Screen NEGATIVE 03/21/24 Testing Electrocardiogram Date: 02/02/24 Sinus rhythm with premature atrial complexes, rate 87 bpm Possible inferior infarct, age undetermined Chest X-Ray Date: 03/21/24 No acute cardiopulmonary findings. No change in appearance of the chest. Echocardiogram Date: 03/20/23 EF 60-65% No LV regional wall motion abnormalities Mild cLVH Grade I diastolic dysfunction Mild to moderate RVH No significant valvular disease Systolic and diastolic septal flattening consistent with RV volume and pressure overload Stress Test Date: 10/05/22 Negative dobutamine stress echo and ECG for ischemia MPHR 100% EF 50-55% No significant valvular pathology Pulmonary Function Test PFT 10/30/2023: Mild restrictive lung dysfunction, no obstruction, insignificant bronchodilator response, moderate decrease in DLCO (Increase in FVC by 110 mL, increase in FEV1 by 80 mL, increase in DLCO at 37--> 43%, no significant change in TLC, decrease in weight by 8 pounds compared to 11/2021) FVC 3.11 L 74%, FEV1 2.24 L 76%, FEV1/FVC 72%, ERV 89%, RV 76%, TLC 68%, RV/TLC 106%, DLCO 43%, DLCO/VA 68% Cervical Spine Date: 02/02/24 No acute osseous traumatic injury or significant abnormal alignment involving the cervical spine. Mildly progressive degenerative changes incidentally noted when compared to the previous examination. Other Testing Head CT 02/02/24 No acute intracranial process identified. Incidental progressive presumed chronic age-related findings, as noted above.
[~2024-03-27 06:17] MED LIST changes: -ACETAMINOPHEN 500 MG TAB PO SCH; -CeleBREX 200 MG CAP PO SCH; -GABAPENTIN 300 MG CAP PO SCH; -LR 15ML/HR IV SCH; +TRANEXAMIC ACID 1,000 MG **IV Intra-op IV SCH; -ceFAZolin 2000MG 2,000 MG/15 ML SYR IV SCH
[2024-03-27] MEDS: GABAPENTIN 300 MG CAP PO SCH (07:11)
[2024-03-27] MEDS: ACETAMINOPHEN 500 MG TAB PO SCH (07:11)
[2024-03-27] MEDS: CeleBREX 200 MG CAP PO SCH (07:11)
[2024-03-27] MEDS: SODIUM CHLORIDE 0.9% 1,000 ML IV SCH (07:23)
--- NOTE | 2024-03-27 07:48 | History & Physical Bridge Note ---
Date of Service March 27, 2024 History & Physical Bridge Note I have examined the patient, reviewed the History & Physical and in the interval since the performance of the History & Physical I have noted the following changes of clinical significance: no changes noted
--- NOTE | 2024-03-27 07:50 | History & Physical Report ---
Date of Service March 27, 2024 Assessment & Plan (1) Lumbosacral spondylosis with radiculopathy: Plan: L2-L3 decompression fusion, hardware removal L3-S1. History of Present Illness Chief Complaint: back and leg pain Primary Care Provider: Gricelda De La Rosa DO This is a 83-year-old male known to me the presents with chronic worsening back and leg pain after failing course of nonoperative care is here for surgical invention. Allergies Allergy/AdvReac Type Severity Reaction Status Date / Time No Known Drug Allergies Allergy Verified 03/27/24 06:50 Home Medications Medication Instructions Recorded Confirmed Type latanoprost 0.005 % eye drops 1 drp ophthalmic (eye) HS 06/27/22 03/26/24 History cholecalciferol (vitamin D3) 25 25 mcg PO QAM 08/22/22 03/26/24 History mcg (1,000 unit) capsule cyanocobalamin (vitamin B-12) 1,000 mcg PO QAM 08/22/22 03/26/24 History 1,000 mcg capsule fluticasone fur. 100 mcg-umeclid 1 inh inhalation QAM #3 Inhalers 11/01/23 03/26/24 Rx 62.5 mcg-vilant 25 mcg inhalat.powder (Trelegy Ellipta) doxycycline hyclate 100 mg capsule 100 mg PO BID #180 caps 11/19/23 03/26/24 Rx acetaminophen 500 mg tablet 500 mg PO Q6H PRN Pain 01/31/24 03/26/24 History (Tylenol Extra Strength) apixaban 5 mg tablet (Eliquis) 5 mg PO BID #180 tabs 02/28/24 03/27/24 Rx finasteride 5 mg tablet 5 mg PO QAM 03/24/24 03/27/24 History metoprolol succinate 100 mg 100 mg PO QAM 03/24/24 03/26/24 History tablet,extended release 24 hr pantoprazole 40 mg tablet,delayed 40 mg PO BID 03/24/24 03/26/24 History release terazosin 2 mg capsule 2 mg PO QAM 03/24/24 03/26/24 History timolol maleate 0.5 % eye drops 1 drp OPB QAM 03/24/24 03/26/24 History Past Med/Surg History Problem List (Updated 03/27/24 @ 07:49 by Rodger Hobbs DO) Lumbosacral spondylosis with radiculopathy Preoperative cardiovascular examination Right ventricular hypertrophy Loosening of hardware in spine b/l S1 pedicle screws Bilateral sacroiliitis Neurogenic claudication due to lumbar spinal stenosis Lumbar spinal stenosis Ex-smoker Elevated diaphragm Esophageal dysphagia Stage 3b chronic kidney disease follows with [facility] Restrictive lung disease Frequent unifocal PVCs Prediabetes Diet controlled Hallux valgus of right foot (Chronic) Prurigo nodularis History of ESBL E. coli infection Venous insufficiency per records, pt denies Premature ventricular contractions On anticoagulant therapy Multiple pulmonary nodules Multifocal atrial tachycardia Impaired fasting glucose Hyperlipidemia per records, pt denies Esophageal reflux controlled, stable per pt Elevated prostate specific antigen (PSA) Chronic sinusitis Atrial flutter Atrial fibrillation Follows with Dr. Wise HTN (hypertension) controlled, stable per pt Osteomyelitis (03/2016) hx Discitis of lumbar region COPD (chronic obstructive pulmonary disease) emphysema, controlled, stable per pt; does not have rescue inhaler; follows with [facility] Medical History (Updated 03/27/24 @ 07:49 by Rodger Hobbs DO) Right ventricular dysfunction Cardiomyopathy EF 55-60% Venous insufficiency per records, pt denies Right ventricular dysfunction Restrictive lung disease Hx of pleural effusion 2019, no recent issues per pt. 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 coli infection 2019 Frequent unifocal PVCs hx; f/u [facility] cardio History of dysphagia no recent issues per pt Chronic sinusitis Cardiomyopathy Stage 3b chronic kidney disease f/u [facility] Prediabetes diet controlled Multiple pulmonary nodules hx, [place] Fever in the 1960's, left scarring in lungs Esophageal reflux Atrial flutter Atrial fibrillation f/u [facility] cardio COPD (chronic obstructive pulmonary disease) emphysema, controlled, stable per pt; does not have rescue inhaler; follows with [facility] Fatigue "related to his back problems" Elevated hemidiaphragm right, follows with [facility] BPH (benign prostatic hyperplasia) MRSA (methicillin resistant Staphylococcus aureus) septicemia 2018- on doxycycline daily Surgical History Complication of anesthesia unable to urinate after "several years ago after nasal polyp sx" Hx of bilateral cataract extraction History of esophagogastroduodenoscopy (EGD) History of colonoscopy S/P laparoscopic cholecystectomy Dr. Mueller 10/17/18, d/t gangrenous cholecystitis. History of back surgery ~1983, "unsure of area," removal ruptured spinal disc 2010, spinal disectomy, osteophylectomy lumbar interspace 02/2016- lumbar decompression laminectomy at L5-S1 and washout and drainage of epidural abscess 03/23/16, REVISION L4-L5, L5-S1 decompressive laminectomy and discectomy for recurrent osteomyelitis and epidural abscess, L5 07/11/22, L3-L4 disectomy and fusion, L4-S1 hardware removal S/P nasal endoscopy with nasal polypectomy x2 in total, most recent 2010 History of tonsillectomy H/O inguinal hernia repair 11/2015- R open repair with drain placement Esophageal dilatation Family History Father Bowel perforation Mother Parkinson disease Brother Diabetes Hepatocellular carcinoma Other No known health problems Denies family history of Ovarian cancer Prostate cancer Myocardial infarction Breast cancer Colorectal cancer Social History Smoking Status: Former smoker Tobacco Type: Cigarettes Age Started Using Tobacco: 18; Age Quit Using Tobacco: 43; packs per day: 1; Cigarettes Per Day: quit ; Smoking End Date: mid ; Second Hand Exposure: No; Do You Dip or Chew Tobacco: No; Tobacco Cessation Education Requested by Patient: No Hx Alcohol Use: Yes Alcohol type: hard liquor Alcohol Intake Frequency: 4 or More x per/Week Alcohol Intake Frequency Comment: "couple of drinks a day" Hx Substance Use: No Preferred Language: Ecuadorean Communication Ability: Effective Visual Impairment: No Limitations Hearing Ability: Use of Hearing Aid Electronic Technician Required: No Beliefs That Will Affect Care: None marital status: marital status details: Has two children Current Living Situation: Spouse current occupational status: retired Other Information That Helps Us Care for You: No Feels Safe at Home: Yes Safety Concerns: Feels Safe At This Time Childhood Exposure to Second-Hand Smoke: No Diet: regular Diet Comment: regular caffeine: Yes during the past year weight has: remained stable Dental Care, Regularly: Yes Physical Activity Frequency: 5-6 Times per Week Physical Activity Frequency Comment: walk Seatbelt Use: always Sunscreen Use: No Assistive Devices: Cane, Glasses and Hearing Aid - Bilateral Physical Exam Physical Exam: Patient is alert and oriented Heart regular rhythm lungs clear Results & Data Results & Data Vital Signs (Past 12 Hours) Vital Signs Temp Pulse Resp BP Pulse Ox O2 Del Method 03/27/24 06:54 Room Air 03/27/24 06:48 36.4 C L 85 22 111/68 94 Room Air
[2024-03-27] MEDS ORDERED: LIDOCAINE 2% 2 ML VIAL/AMP(20MG/ML) INFIL ONE ×2 (08:04→09:13)
[2024-03-27] MEDS ORDERED: PROPOFOL IV EMULSION 10 MG/ML 20 ML VIAL IV ONE ×2 (08:04)
[2024-03-27] MEDS ORDERED: ROCURONIUM BROMIDE 10 MG/ML 5 ML VIAL IV ONE (08:04)
[2024-03-27] MEDS ORDERED: fentaNYL citrate PF 100 MCG/2 ML VIAL ONE (08:04)
[2024-03-27] MEDS ORDERED: GLYCOPYRROLATE 0.2 MG/ML VIAL ONE (08:11)
[2024-03-27] MEDS ORDERED: DEXAMETHASONE SOD INJ 4 MG/ML VIAL ONE ×2 (08:12)
[2024-03-27] MEDS ORDERED: ONDANSETRON INJ 2 MG/ML 2 ML VIAL ONE ×2 (08:12→09:09)
[2024-03-27] MEDS ORDERED: HYDROmorphone INJ 1 MG/ML SYRINGE IV PRN ×2 (08:13→14:25)
[2024-03-27] MEDS ORDERED: ATROPINE SULFATE 0.1 MG/ML 10ML SYR IV PRN (08:13)
[2024-03-27] MEDS ORDERED: PROMETHAZINE HCL 6.25 MG in SODIUM CHLORIDE 0.9% 50 ML IV PRN (08:13)
[2024-03-27] MEDS: ceFAZolin 2000MG 2,000 MG/15 ML SYR IV SCH ×2 (08:20→17:01)
[2024-03-27] MEDS ORDERED: PHENYLEPHRINE 100MCG/ML 5ML SYR ONE ×4 (08:53→09:33)
[2024-03-27] MEDS ORDERED: ePHEDrine sulfate 50 MG/5 ML SYR ONE (08:53)
[2024-03-27] MEDS: TRANEXAMIC ACID 100 MG/ML 10 ML VIAL IV ONE (09:32)
[2024-03-27] MEDS ORDERED: TRANEXAMIC ACID / 0.7% NACL 1000MG/100ML BAG IV ONE (09:33)
[2024-03-27] MEDS: BUPIVACAINE/EPINEPHRINE 0.25% 1:200,000 30 ML VIAL ONE (09:40)
[2024-03-27] MEDS: TRANEXAMIC ACID / 0.7% NACL 1000MG/100ML BAG IV ONE (09:40)
[2024-03-27] MEDS ORDERED: PHENYLEPHRINE HCL 10 MG/ML VIAL ONE (09:59)
[2024-03-27] MEDS ORDERED: SUGAMMADEX SODIUM 200 MG/2 ML VIAL IV ONE (10:08)
[2024-03-27] MEDS: ceFAZolin 330 MG/ML 1 GM VIAL ONE (10:11)
[2024-03-27] MEDS: FLOSEAL HEMOSTATIC MATRIX 10ML TOP ONE (10:12)
--- NOTE | 2024-03-27 10:20 | Operative Report ---
Post Operative Report Pre & Post Diagnosis Operation Date: 03/27/24 08:15 Pre-Op Diagnosis: Lumbosacral spondylosis with radiculopathy Lumbar disc herniation with radiculopathy Post-Op Diagnosis: Same I identified the patient and participated in the time-out.: Yes Procedure Operation Date: 03/27/24 08:15 Actual Procedures #1 removal of posterior segmental instrumentation L3-S1. #2 exploration of fusion L3-S1. #3 lumbar decompression with bilateral medial facetectomies and foraminotomies including removal of herniated disc fragment L2-L3. #4 posterior spinal fusion L2-L3. #5 placed posterior instrumentation L2-S1. #6 interbody fusion L2-L3. #7 placement of Spira 14 x 26 mm at L2-L3. #8 placement locally harvested morselized autograft posterior gutters. #9 placement infuse collagen sponge, with Koros in the posterior lateral gutters and os design and interbody space. #9 application of versa wrap over the exposed dura. Surgeon Rodger Hobbs, Porcelain Technician Charlotte Parker Estimated Blood Loss 1,000 Findings Consistent with Post-Op Diagnosis Specimens None Indications This is an 83-year-old male who presents manage diagnosis of failed course of nonoperative care is here for surgical invention. Description of Procedure Patient was met with identified informed consent obtained. Patient was then taken to the operative suite underwent intubation placed in a prone position on the Dhruv table atop the Markell frame. All bony promises well-padded eyes inspected to ensure no external pressure placed upon the. This point the lumbar spine was prepped and draped in normal sterile fashion. Sharp dissection the assistance of a cartilage from down to and exposing the lamina transverse processes of L2 and instrumentation at L3-L4-L5 and the sacral ala bilaterally. I then proceeded move the hardware bilaterally explored the fusion mass noting it to be mature and intact. I then performed a complete laminectomy of L2 including bilateral medial facetectomies and foraminotomies addressing severe subarticular and foraminal stenosis. This also included removal of massive fragment of disc material that migrated cephalad. After decompression pedicle screws were placed in L2-L3-L4 and S1 levels bilaterally with assistance of fluoroscopy and appropriate size bao placed. By way of transforaminal approach on the left complete discectomy of L 2 L3 was performed endplates corrected to subcortical bleeding bone and a 14 x 26 mm Spira cage filled with os design bone graft tapped in position. Rods and locked in final position bilaterally. The transverse processes of L2-L3 burred to subcortical bleeding bone. Infuse collagen sponge combined with Koros and local autograft placed in posterior gutters. Versa wrap placed over the exposed dura. 15 round BRYCE inserted. The incision was then closed with 1 Vicryl fascia 2-0 Vicryl subcutaneously and 4 Monocryl for final closure. Steri-Strips sterile dressing placed. Patient waken taken PACU stable condition. Please note spinal cord monitoring was utilized out the procedure no changes noted. Charlotte Parker was present out the entire surgery involved the patient positioning complex portion of the surgery and possible closure. I attest to the content of the Intraoperative Record and any orders documented therein. Any exceptions are noted below.
--- NOTE | 2024-03-27 10:48 | Fluoroscopy Report ---
FL lumbar spine 2-3V CLINICAL HISTORY: L2-L3 DECOMP/FUSION, HARDWARE REMOVAL L3-S1 COMPARISON STUDY: MRI 03/15/2024 FLUOROSCOPY TIME: 13.4 seconds FLUOROSCOPY IMAGES: 2 EXPOSURE DOSE: 9.44 mGy FINDINGS: Posterior interbody rods and screw fusion is noted at 5 levels with 2 level discectomy joya ges. Exact numbering is not definitive based on magnification. Images were submitted following comple tion of the surgery. No unexpected opaque foreign bodies. IMPRESSION: Fluoroscopic assistance as above. ACT 112: Negative or not required by law. Electronically signed by: Alfredo Waters M.D. 03/27/2024 10:47 AM
[2024-03-27] MEDS: ePHEDrine sulfate 50 MG/ML AMP IV PRN (11:04)
[2024-03-27] MEDS ORDERED: ALBUMIN HUMAN 5% 12.5 GM/250 ML VIAL IV ONE (11:11)
[2024-03-27] MEDS: ALBUMIN 5% 250 ML IV ONE ×2 (11:12→12:11)
[2024-03-27] MEDS: PHENYLEPHRINE/NSS 25 MG/250 ML BAG IV PRN (11:37)
[2024-03-27] MEDS: PHENYLEPHRINE HCL 25 MG/250 ML NSS IV ONE (11:52)
[2024-03-27 12:06] LABS: Hemoglobin 10.7 g/dl (14.0-18.0)
[2024-03-27] MEDS ORDERED: METOCLOPRAMIDE HCL INJ 5 MG/ML 2 ML VIAL IV PRN (14:25)
[2024-03-27] MEDS ORDERED: HYDROmorphone INJ 0.5 MG/0.5 ML SYR IV PRN (14:25)
[2024-03-27] MEDS ORDERED: diphenhydrAMINE Capsule 25 MG CAP PO PRN (14:25)
[2024-03-27] MEDS ORDERED: traMADol HCL 50 MG TABLET PO PRN (14:25)
[2024-03-27] MEDS ORDERED: ONDANSETRON 4 MG OD TAB PO PRN (14:25)
[2024-03-27] MEDS ORDERED: SOD PHOSPHATE/SOD BIPHOSPHATE ENEMA 132 ML BTL PR PRN (14:25)
[2024-03-27] MEDS ORDERED: FAMOTIDINE 20 MG TAB PO PRN (14:25)
[2024-03-27] MEDS ORDERED: hydrOXYzine HCl 25 MG TAB PO PRN (14:25)
[2024-03-27] MEDS ORDERED: NALOXONE HCL 0.4 MG/1 ML VIAL/CARP IV PRN (14:25)
[2024-03-27] MEDS ORDERED: LORazepam 2 MG/1 ML VIAL IV PRN (14:25)
[2024-03-27] MEDS ORDERED: ALUMINUM/MAGNESIUM SUSP 30 ML UDC PO PRN (14:25)
[2024-03-27] MEDS ORDERED: LORazepam 0.5 MG TAB PO PRN (14:25)
[2024-03-27] MEDS ORDERED: oxyCODONE HCL IR 5 MG TAB (IMMEDIATE RELEASE) PO PRN (14:25)
[2024-03-27] MEDS ORDERED: bisacodyL 10 MG SUPP PR PRN (14:25)
[2024-03-27] MEDS ORDERED: ACETAMINOPHEN 1,000 MG/100 ML VIAL IV PRN (14:25)
[2024-03-27] MEDS ORDERED: DO NOT ADMINISTER FLU VACCINE PRN (14:25)
[2024-03-27] MEDS ORDERED: DO NOT ADMINISTER PNEUMOCOCCAL VACCINE PRN (14:25)
[2024-03-27] MEDS ORDERED: MAGNESIUM HYDROXIDE SUSP 30 ML UDC PO PRN (14:25)
[2024-03-27] MEDS ORDERED: ONDANSETRON INJ 2 MG/ML 2 ML VIAL IV PRN (14:25)
[2024-03-27] MEDS ORDERED: PROMETHAZINE 12.5 MG/50.5 ML BAG IV PRN (14:25)
[2024-03-27] MEDS: LR 15ML/HR IV SCH (15:00)
[2024-03-27] MEDS: LR 60ML/HR IV SCH (15:01)
--- NOTE | 2024-03-27 15:40 | Anesthesiology Progress Note ---
Date of Service March 27, 2024 Anesthesia Post Procedure Vital Signs Vital Signs: Temp Pulse Pulse Pulse Resp BP Pulse Ox 03/27/24 15:02 131 H 03/27/24 13:55 109 H 20 106/59 L 96 03/27/24 13:40 106 H 18 110/51 L 97 03/27/24 13:25 86 18 107/52 L 98 03/27/24 13:10 80 20 103/50 L 97 03/27/24 12:55 73 18 106/53 L 95 03/27/24 12:40 74 16 103/57 L 98 03/27/24 12:30 36.4 C L 80 20 111/58 L 98 03/27/24 12:20 84 23 103/49 L 99 03/27/24 12:10 76 15 95/58 L 96 03/27/24 12:00 85 18 90/46 L 90 03/27/24 11:50 69 12 92/52 L 98 03/27/24 11:40 72 16 80/53 L 97 03/27/24 11:30 74 16 86/51 L 98 03/27/24 11:20 81 12 93/53 L 99 03/27/24 11:10 78 18 94/43 L 97 03/27/24 11:00 74 16 82/40 L 99 03/27/24 10:50 72 16 93/48 L 98 03/27/24 10:42 36.4 C L 79 18 106/50 L 100 03/27/24 06:54 03/27/24 06:48 36.4 C L 85 22 111/68 94 O2 Del Method O2 Flow Rate 03/27/24 15:02 03/27/24 13:55 Nasal Cannula 2 03/27/24 13:40 Nasal Cannula 2 03/27/24 13:25 Nasal Cannula 2 03/27/24 13:10 Nasal Cannula 2 03/27/24 12:55 Nasal Cannula 2 03/27/24 12:40 Nasal Cannula 2 03/27/24 12:30 Nasal Cannula 2 03/27/24 12:20 Nasal Cannula 3 03/27/24 12:10 Nasal Cannula 3 03/27/24 12:00 Nasal Cannula 3 03/27/24 11:50 Nasal Cannula 3 03/27/24 11:40 Nasal Cannula 3 03/27/24 11:30 Nasal Cannula 2 03/27/24 11:20 Nasal Cannula 2 03/27/24 11:10 Oxymask 4 03/27/24 11:00 Oxymask 4 03/27/24 10:50 Oxymask 4 03/27/24 10:42 Oxymask 6 03/27/24 06:54 Room Air 03/27/24 06:48 Room Air Pain Intensity Back: Pain Intensity: 4 Transfer of Care Handoff Completed per policy Notes Mental Status: alert / awake / arousable and participated in evaluation Nausea / Vomiting: adequately controlled Pain: adequately controlled Airway Patency, RR, SpO2: stable & adequate BP & HR: stable & adequate Hydration State: stable & adequate Anesthetic Complications: no major complications apparent and Pt Satisfied with anesthetic care Notes: Pt with ~900 mL blood loss during the procedure likely with residual volume deficit at the conclusion of the surgery. We stabilized his blood pressure with fluid administration and a phenylephrine infusion in the interim. H/h check in the PACU was about 1030. We will continue to monitor blood counts and send Mr. Thapa to the ICU overnight.
[2024-03-27 16:20] LABS: Hematocrit (blood only) 32.4 % (42.0-52.0); Hemoglobin 10.4 g/dl (14.0-18.0); Mean Corpuscular Hemoglobin 32.5 pg (25.0-34.0); Mean Corpuscular Hgb Conc 32.1 g/dL (32.0-36.0); Mean Corpuscular Volume 101.3 fL (80.0-100.0); Mean Platelet Volume 9.7 fL (9.4-12.4); Platelet Count 157 K/uL (130-400)
--- NOTE | 2024-03-27 16:43 | Critical Care Consultation ---
Date of Consultation March 27, 2024 Assessment & Plan (1) Atrial fibrillation with RVR: Atrial fibrillation with rapid ventricular response has resolved and he is back in a sinus rhythm. Anticoagulation on hold due to back surgery. (2) Postoperative hypotension: Postoperative hypotension has resolved due to resolution of atrial fibrillation. Restart home beta-kade tomorrow. No signs of sepsis at this time. (3) Status post spinal surgery: Pain control per spine surgeon. Plan Thank you for the consult. ICU services to sign off as patient currently without any ICU needs. Patient has been downgraded to PCU status. Please call with questions. History of Present Illness Reason for Consultation: "Hypotension postop" Attending Physician: Rodger Hobbs DO History of Present Illness 83-year-old male with a history of lumbosacral radiculopathy, spinal stenosis, CKD stage III, multiple pulmonary nodules, atrial fibrillation and COPD who presented today for an elective L2/L3 decompression fusion, hardware removal L3- S1. Apparently during the surgery he had about a liter of blood loss. Postoperatively he had atrial fibrillation with rapid ventricular response and mild hypotension requiring low-dose infusion of phenylephrine which was quickly titrated off. He denies any overt complaints right now aside from mild back pain. He denies specifically any shortness of breath, chest pain, abdominal pain, dizziness, fevers or chills. He is back in a sinus rhythm and his heart rate is 84. Blood pressure is 103/56. Postoperative hemoglobin was 10.4. Allergies Allergy/AdvReac Type Severity Reaction Status Date / Time No Known Drug Allergies Allergy Verified 03/27/24 06:50 Home Medications Medication Instructions Recorded Confirmed Type latanoprost 0.005 % eye drops 1 drp ophthalmic (eye) HS 06/27/22 03/26/24 History cholecalciferol (vitamin D3) 25 25 mcg PO QAM 08/22/22 03/26/24 History mcg (1,000 unit) capsule cyanocobalamin (vitamin B-12) 1,000 mcg PO QAM 08/22/22 03/26/24 History 1,000 mcg capsule fluticasone fur. 100 mcg-umeclid 1 inh inhalation QAM #3 Inhalers 11/01/23 03/26/24 Rx 62.5 mcg-vilant 25 mcg inhalat.powder (Trelegy Ellipta) doxycycline hyclate 100 mg capsule 100 mg PO BID #180 caps 11/19/23 03/26/24 Rx acetaminophen 500 mg tablet 500 mg PO Q6H PRN Pain 01/31/24 03/26/24 History (Tylenol Extra Strength) apixaban 5 mg tablet (Eliquis) 5 mg PO BID #180 tabs 02/28/24 03/27/24 Rx finasteride 5 mg tablet 5 mg PO QAM 03/24/24 03/27/24 History metoprolol succinate 100 mg 100 mg PO QAM 03/24/24 03/26/24 History tablet,extended release 24 hr pantoprazole 40 mg tablet,delayed 40 mg PO BID 03/24/24 03/26/24 History release terazosin 2 mg capsule 2 mg PO QAM 03/24/24 03/26/24 History timolol maleate 0.5 % eye drops 1 drp OPB QAM 03/24/24 03/26/24 History Patient History Medical History (Updated 03/27/24 @ 16:40 by Santo Baum MD) Right ventricular dysfunction Cardiomyopathy EF 55-60% Venous insufficiency per records, pt denies Right ventricular dysfunction Restrictive lung disease Hx of pleural effusion 2019, no recent issues per pt. 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 coli infection 2019 Frequent unifocal PVCs hx; f/u y[facility] cardio History of dysphagia no recent issues per pt Chronic sinusitis Cardiomyopathy Stage 3b chronic kidney disease f/u [facility] Prediabetes diet controlled Multiple pulmonary nodules hx, [place] Fever in the 1960s, left scarring in lungs Esophageal reflux Atrial flutter Atrial fibrillation f/u [facility] cardio COPD (chronic obstructive pulmonary disease) emphysema, controlled, stable per pt; does not have rescue inhaler; follows [facility] Fatigue "related to his back problems" Elevated hemidiaphragm right, follows with [facility] BPH (benign prostatic hyperplasia) MRSA (methicillin resistant Staphylococcus aureus) septicemia 2018- on doxycycline daily Surgical History (Updated 03/27/24 @ 16:42 by Santo Baum MD) Complication of anesthesia unable to urinate after "several years ago after nasal polyp sx" Hx of bilateral cataract extraction History of esophagogastroduodenoscopy (EGD) History of colonoscopy S/P laparoscopic cholecystectomy Dr. Mueller 10/17/18, d/t gangrenous cholecystitis. History of back surgery ~1983, "unsure of area," removal ruptured spinal disc 2010, spinal disectomy, osteophylectomy lumbar interspace 02/2016- lumbar decompression laminectomy at L5-S1 and washout and drainage of epidural abscess 03/23/16, REVISION L4-L5, L5-S1 decompressive laminectomy and discectomy for recurrent osteomyelitis and epidural abscess, L5 07/11/22, L3-L4 disectomy and fusion, L4-S1 hardware removal S/P nasal endoscopy with nasal polypectomy x2 in total, most recent 2010 History of tonsillectomy H/O inguinal hernia repair 11/2015- R open repair with drain placement Esophageal dilatation Family History Father Bowel perforation Mother Parkinson disease Brother Diabetes Hepatocellular carcinoma Other No known health problems Denies family history of Ovarian cancer Prostate cancer Myocardial infarction Breast cancer Colorectal cancer Social History Smoking Status: Former smoker Tobacco Type: Cigarettes Age Started Using Tobacco: 18; Age Quit Using Tobacco: 43; packs per day: 1; Cigarettes Per Day: quit ; Smoking End Date: 30 years; Second Hand Exposure: No; Do You Dip or Chew Tobacco: No; Tobacco Cessation Education Requested by Patient: No Hx Alcohol Use: Yes Alcohol type: hard liquor Alcohol Intake Frequency: 4 or More x per/Week Alcohol Intake Frequency Comment: "couple of drinks a day" Hx Substance Use: No Preferred Language: Serbian Communication Ability: Effective Visual Impairment: No Limitations Hearing Ability: Use of Hearing Aid Travel Registered Nurse Pacu Required: No Beliefs That Will Affect Care: Lutheran Lutheran Beliefs: Latter-Day marital status: marital status details: Has two children Current Living Situation: Spouse current occupational status: retired Other Information That Helps Us Care for You: No Feels Safe at Home: Yes Safety Concerns: Feels Safe At This Time Childhood Exposure to Second-Hand Smoke: No Diet: regular Diet Comment: regular caffeine: Yes during the past year weight has: remained stable Dental Care, Regularly: Yes Physical Activity Frequency: 5-6 Times per Week Physical Activity Frequency Comment: walk Seatbelt Use: always Sunscreen Use: No Assistive Devices: Cane, Glasses and Hearing Aid - Bilateral Review of Systems Review of Systems: All systems reviewed & are unremarkable except as noted in HPI & below Physical Exam Physical Exam: Constitutional: Patient appears to be of their stated age. Patient is in no apparent distress. Patient is well-developed. Eyes: Pupils are equal round and reactive to light. Conjunctivae are normal. Anicteric sclera. Ears nose, mouth and throat: Mallampati class 2. Normal posterior oropharynx. Uvula is midline. Neck: Trachea is midline. Visual inspection is normal. Respiratory: Clear to auscultation bilaterally. No use of accessory muscles. No significant clubbing noted. Cardiovascular: Regular rate and rhythm. No murmurs. No edema. Gastrointestinal: Normal bowel sounds, soft, nontender and nondistended. No hepatosplenomegaly noted. Musculoskeletal: No cyanosis. Patient is able to move all extremities. Strength is 5 out of 5 in the upper and lower extremities. Skin: No rashes, warm dry and intact. Neurologic: No obvious focal neurological deficits seen. Psychiatric: Alert and oriented x3 with a euthymic affect. Results & Data Results & Data Vital Signs (Past 12 Hours) Vital Signs Temp Pulse Pulse Pulse Resp BP BP 03/27/24 15:33 80 20 03/27/24 15:30 89 21 117/66 03/27/24 15:18 82 03/27/24 15:02 131 H 03/27/24 15:00 122 H 21 101/72 03/27/24 14:30 126 H 16 115/78 03/27/24 14:25 03/27/24 14:25 36.0 C L 03/27/24 14:16 128 H 13 110/56 L 03/27/24 13:55 109 H 20 106/59 L 03/27/24 13:40 106 H 18 110/51 L 03/27/24 13:25 86 18 107/52 L 03/27/24 13:10 80 20 103/50 L 03/27/24 12:55 73 18 106/53 L 03/27/24 12:40 74 16 103/57 L 03/27/24 12:30 36.4 C L 80 20 111/58 L 03/27/24 12:20 84 23 103/49 L 03/27/24 12:10 76 15 95/58 L 03/27/24 12:00 85 18 90/46 L 03/27/24 11:50 69 12 92/52 L 03/27/24 11:40 72 16 80/53 L 03/27/24 11:30 74 16 86/51 L 03/27/24 11:20 81 12 93/53 L 03/27/24 11:10 78 18 94/43 L 03/27/24 11:00 74 16 82/40 L 03/27/24 10:50 72 16 93/48 L 03/27/24 10:42 36.4 C L 79 18 106/50 L 03/27/24 06:54 03/27/24 06:48 36.4 C L 85 22 111/68 Pulse Ox O2 Del Method O2 Flow Rate 03/27/24 15:33 94 03/27/24 15:30 96 Room Air 03/27/24 15:18 98 03/27/24 15:02 03/27/24 15:00 98 03/27/24 14:30 97 Nasal Cannula 2 03/27/24 14:25 Nasal Cannula 2 03/27/24 14:25 03/27/24 14:16 98 Nasal Cannula 2 03/27/24 13:55 96 Nasal Cannula 2 03/27/24 13:40 97 Nasal Cannula 2 03/27/24 13:25 98 Nasal Cannula 2 03/27/24 13:10 97 Nasal Cannula 2 03/27/24 12:55 95 Nasal Cannula 2 03/27/24 12:40 98 Nasal Cannula 2 03/27/24 12:30 98 Nasal Cannula 2 03/27/24 12:20 99 Nasal Cannula 3 03/27/24 12:10 96 Nasal Cannula 3 03/27/24 12:00 90 Nasal Cannula 3 03/27/24 11:50 98 Nasal Cannula 3 03/27/24 11:40 97 Nasal Cannula 3 03/27/24 11:30 98 Nasal Cannula 2 03/27/24 11:20 99 Nasal Cannula 2 03/27/24 11:10 97 Oxymask 4 03/27/24 11:00 99 Oxymask 4 03/27/24 10:50 98 Oxymask 4 03/27/24 10:42 100 Oxymask 6 03/27/24 06:54 Room Air 03/27/24 06:48 94 Room Air Coding Level of Care Code 16984 IN/OBS CONSULT LVL 2,35M Diagnoses Atrial fibrillation with RVR I48.91 Postoperative hypotension I95.81 Status post spinal surgery Z98.890
[2024-03-27 17:03] LABS: Basophils # (auto) 0.01 K/uL (0.00-0.20); Basophils % (auto) 0.1 %; Immature Granulocytes # (auto) 0.04 K/uL (0.01-0.20); Immature Granulocytes % (auto) 0.4 %; Lymphocytes # (auto) 0.22 K/uL (1.20-3.40); Lymphocytes % (auto) 2.3 %; Monocytes # (auto) 0.15 K/uL (0.11-0.59); Monocytes % (auto) 1.6 %; Neutrophils # (auto) 9.08 K/uL (1.40-6.50); Neutrophils % (auto) 95.6 %
[2024-03-27] MEDS: DOCUSATE SODIUM/SENNA 50/8.6MG TAB PO SCH (21:16)
[2024-03-27] MEDS: PANTOprazole 40 MG TAB PO SCH (21:16)
[2024-03-27] MEDS: LATANOPROST 0.005% OP SOLN 2.5 ML BTL OP SCH (21:17)
[2024-03-28 06:18] LABS: Basophils # (auto) 0.01 K/uL (0.00-0.20); Basophils % (auto) 0.1 %; Hematocrit (blood only) 30.3 % (42.0-52.0); Hemoglobin 9.7 g/dl (14.0-18.0); Immature Granulocytes # (auto) 0.07 K/uL (0.01-0.20); Immature Granulocytes % (auto) 0.6 %; Lymphocytes % (auto) 4.1 %; Mean Corpuscular Hemoglobin 32.4 pg (25.0-34.0); Mean Corpuscular Volume 101.3 fL (80.0-100.0); Mean Platelet Volume 9.9 fL (9.4-12.4); Monocytes # (auto) 1.24 K/uL (0.11-0.59); Neutrophils # (auto) 10.52 K/uL (1.40-6.50); Neutrophils % (auto) 85.2 %; Platelet Count 157 K/uL (130-400); RDW Standard Deviation 51.9 fL (36.4-46.3); Red Blood Count 2.99 M/uL (4.70-6.10); White Blood Count 12.34 K/ul (4.8-10.8)
[2024-03-28] MEDS: POLYETHYLENE (MIRALAX) 17 GM PACK PO SCH (06:20)
[2024-03-28] MEDS: FINASTERIDE 5 MG TAB PO SCH (07:33)
[2024-03-28] MEDS: dexAMETHasone 6 MG in SYRINGE 0 ML IV SCH (07:33)
[2024-03-28] MEDS: TIMOLOL MALEATE 0.5% OP SOLN 5 ML BTL OP SCH (07:36)
[2024-03-28] MEDS: UMECLIDINIUM/VILANTEROL 62.5/25MCG 7 PUFFS/INHALER INH SCH (07:36)
[2024-03-28] MEDS: FLUTICASONE FUROATE 100MCG 14 PUFFS/INHALER INH SCH (07:37)
--- NOTE | 2024-03-28 07:38 | Consultation ---
Date of Consultation March 28, 2024 History of Present Illness Requesting Physician: Faby Reason for Consultation: A fib RVR Attending Physician: Rodger Hobbs, DO History of Present Illness 83-year-old male with a history of lumbosacral radiculopathy, spinal stenosis, CKD stage III, multiple pulmonary nodules, atrial fibrillation and COPD who presented today for an elective L2/L3 decompression fusion, hardware removal L3- S1. Apparently during the surgery he had about a liter of blood loss. Postoperatively he had atrial fibrillation with rapid ventricular response and mild hypotension requiring low-dose infusion of phenylephrine which was quickly titrated off. He denies any overt complaints right now aside from mild back pain. He denies specifically any shortness of breath, chest pain, abdominal pain, dizziness, fevers or chills. He is back in a sinus rhythm and his heart rate is 84. Blood pressure is 103/56. Postoperative hemoglobin was 10.4. Allergies Allergy/AdvReac Type Severity Reaction Status Date / Time No Known Drug Allergies Allergy Verified 03/27/24 06:50 Home Medications Medication Instructions Recorded Confirmed Type latanoprost 0.005 % eye drops 1 drp ophthalmic (eye) HS 06/27/22 03/26/24 History cholecalciferol (vitamin D3) 25 25 mcg PO QAM 08/22/22 03/26/24 History mcg (1,000 unit) capsule cyanocobalamin (vitamin B-12) 1,000 mcg PO QAM 08/22/22 03/26/24 History 1,000 mcg capsule fluticasone fur. 100 mcg-umeclid 1 inh inhalation QAM #3 Inhalers 11/01/23 03/26/24 Rx 62.5 mcg-vilant 25 mcg inhalat.powder (Trelegy Ellipta) doxycycline hyclate 100 mg capsule 100 mg PO BID #180 caps 11/19/23 03/26/24 Rx acetaminophen 500 mg tablet 500 mg PO Q6H PRN Pain 01/31/24 03/26/24 History (Tylenol Extra Strength) apixaban 5 mg tablet (Eliquis) 5 mg PO BID #180 tabs 02/28/24 03/27/24 Rx finasteride 5 mg tablet 5 mg PO QAM 03/24/24 03/27/24 History metoprolol succinate 100 mg 100 mg PO QAM 03/24/24 03/26/24 History tablet,extended release 24 hr pantoprazole 40 mg tablet,delayed 40 mg PO BID 03/24/24 03/26/24 History release terazosin 2 mg capsule 2 mg PO QAM 03/24/24 03/26/24 History timolol maleate 0.5 % eye drops 1 drp OPB QAM 03/24/24 03/26/24 History Patient History Medical History (Updated 03/27/24 @ 16:40 by Santo Baum MD) Right ventricular dysfunction Cardiomyopathy EF 55-60% Venous insufficiency per records, pt denies Right ventricular dysfunction Restrictive lung disease Hx of pleural effusion 2019, no recent issues per pt. 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 coli infection 2019 Frequent unifocal PVCs hx; f/u [facility] cardio History of dysphagia no recent issues per pt Chronic sinusitis Cardiomyopathy Stage 3b chronic kidney disease f/u [facility] Prediabetes diet controlled Multiple pulmonary nodules hx, [place] Fever in the 1960's, left scarring in lungs Esophageal reflux Atrial flutter Atrial fibrillation f/u [facility] cardio COPD (chronic obstructive pulmonary disease) emphysema, controlled, stable per pt; does not have rescue inhaler; follows [facility] Fatigue "related to his back problems" Elevated hemidiaphragm right, follows with [facility] BPH (benign prostatic hyperplasia) MRSA (methicillin resistant Staphylococcus aureus) septicemia 2018- on doxycycline daily Surgical History (Updated 03/27/24 @ 16:42 by Santo Baum MD) Complication of anesthesia unable to urinate after "several years ago after nasal polyp sx" Hx of bilateral cataract extraction History of esophagogastroduodenoscopy (EGD) History of colonoscopy S/P laparoscopic cholecystectomy Dr. Mueller 10/17/18, d/t gangrenous cholecystitis. History of back surgery ~1983, "unsure of area," removal ruptured spinal disc 2010, spinal disectomy, osteophylectomy lumbar interspace 02/2016- lumbar decompression laminectomy at L5-S1 and washout and drainage of epidural abscess 03/23/16, REVISION L4-L5, L5-S1 decompressive laminectomy and discectomy for recurrent osteomyelitis and epidural abscess, L5 07/11/22, L3-L4 disectomy and fusion, L4-S1 hardware removal S/P nasal endoscopy with nasal polypectomy x2 in total, most recent 2010 History of tonsillectomy H/O inguinal hernia repair 11/2015- R open repair with drain placement Esophageal dilatation Family History Father Bowel perforation Mother Parkinson disease Brother Diabetes Hepatocellular carcinoma Other No known health problems Denies family history of Ovarian cancer Prostate cancer Myocardial infarction Breast cancer Colorectal cancer Social History Smoking Status: Former smoker Tobacco Type: Cigarettes Age Started Using Tobacco: 18; Age Quit Using Tobacco: 43; packs per day: 1; Cigarettes Per Day: quit ; Smoking End Date: 30 years; Second Hand Exposure: No; Do You Dip or Chew Tobacco: No; Tobacco Cessation Education Requested by Patient: No Hx Alcohol Use: Yes Alcohol type: hard liquor Alcohol Intake Frequency: 4 or More x per/Week Alcohol Intake Frequency Comment: "couple of drinks a day" Hx Substance Use: No Preferred Language: Ghanaian Communication Ability: Effective Visual Impairment: No Limitations Hearing Ability: Use of Hearing Aid Steel Plate Printer Required: No Beliefs That Will Affect Care: Tenriism Tenriism Beliefs: Taoist marital status: marital status details: Has two children Current Living Situation: Spouse current occupational status: retired Other Information That Helps Us Care for You: No Feels Safe at Home: Yes Safety Concerns: Feels Safe At This Time Childhood Exposure to Second-Hand Smoke: No Diet: regular Diet Comment: regular caffeine: Yes during the past year weight has: remained stable Dental Care, Regularly: Yes Physical Activity Frequency: 5-6 Times per Week Physical Activity Frequency Comment: walk Seatbelt Use: always Sunscreen Use: No Assistive Devices: Cane, Glasses and Hearing Aid - Bilateral Results & Data Vital Signs (Past 12 Hours) Vital Signs Temp Pulse Pulse Pulse Resp BP Pulse Ox 03/28/24 07:21 36.4 C L 89 19 117/73 94 03/28/24 03:28 36.3 C L 86 16 101/56 L 94 03/28/24 00:24 36.6 C 85 18 104/54 L 96 03/28/24 00:00 83 03/27/24 21:28 86 112/58 L 03/27/24 19:43 36.4 C L 81 18 100/52 L 95 O2 Del Method 03/28/24 07:21 Room Air 03/28/24 03:28 Room Air 03/28/24 00:24 Room Air 03/28/24 00:00 03/27/24 21:28 03/27/24 19:43 Room Air Laboratory Results Short CBC 03/27/24 03/27/24 03/28/24 Range/Units 11:51 15:51 05:31 WBC 9.50 12.34 H (4.8-10.8) K/ul Hgb 10.7 L 10.4 L 9.7 L (14.0-18.0) g/dl Hct 33.0 L 32.4 L 30.3 L (42.0-52.0) % Plt Count 157 157 (130-400) K/uL Medications Administered Home Medications Medication Instructions Recorded Confirmed Last Taken latanoprost 0.005 % eye drops 1 drp ophthalmic (eye) HS 06/27/22 03/26/24 03/26/24 08:00 cholecalciferol (vitamin D3) 25 25 mcg PO QAM 08/22/22 03/26/24 03/26/24 08:00 mcg (1,000 unit) capsule cyanocobalamin (vitamin B-12) 1,000 mcg PO QAM 08/22/22 03/26/24 03/26/24 08:00 1,000 mcg capsule fluticasone fur. 100 mcg-umeclid 1 inh inhalation QAM #3 Inhalers 11/01/23 03/26/24 03/27/24 05:30 62.5 mcg-vilant 25 mcg inhalat.powder (Trelegy Ellipta) doxycycline hyclate 100 mg capsule 100 mg PO BID #180 caps 11/19/23 03/26/24 03/27/24 05:30 acetaminophen 500 mg tablet 500 mg PO Q6H PRN Pain 01/31/24 03/26/24 Unknown (Tylenol Extra Strength) apixaban 5 mg tablet (Eliquis) 5 mg PO BID #180 tabs 02/28/24 03/27/24 03/23/24 08:00 finasteride 5 mg tablet 5 mg PO QAM 03/24/24 03/27/24 03/26/24 08:00 metoprolol succinate 100 mg 100 mg PO QAM 03/24/24 03/26/24 03/27/24 05:30 tablet,extended release 24 hr pantoprazole 40 mg tablet,delayed 40 mg PO BID 03/24/24 03/26/24 03/27/24 05:30 release terazosin 2 mg capsule 2 mg PO QAM 03/24/24 03/26/24 03/27/24 05:30 timolol maleate 0.5 % eye drops 1 drp OPB QAM 03/24/24 03/26/24 03/26/24 08:00 Active Medications Generic Name Dose Route Start Last Admin Trade Name Freq PRN Reason Stop Dose Admin Finasteride 5 mg 03/28/24 09:00 03/28/24 07:33 Finasteride 5 Mg Tab PO 04/27/24 08:59 5 mg QAM VIANEY Administration Fluticasone Furoate 1 puffs 03/28/24 09:00 03/28/24 07:37 Fluticasone Furoate 100mcg 14 Puffs/Inhaler INH 04/27/24 08:59 1 puffs DAILY VIANEY Administration Dexamethasone 6 mg/ Syringe 1.5 mls @ 1 mls/min 03/28/24 09:00 03/28/24 07:33 IV 03/30/24 09:02 1 mls/min DAILY VIANEY Administration Latanoprost 1 drops 03/27/24 21:00 03/27/24 21:17 Latanoprost 0.005% Op Soln 2.5 Ml Btl OP 04/26/24 20:59 1 drops HS VIANEY Administration Pantoprazole Sodium 40 mg 03/27/24 21:00 03/28/24 07:35 Pantoprazole 40 Mg Tab PO 04/26/24 20:59 40 mg BID VIANEY Administration Polyethylene Glycol 17 gm 03/28/24 06:00 03/28/24 06:20 Polyethylene (Miralax) 17 Gm Pack PO 04/27/24 05:59 17 gm Q6 VIANEY Administration Senna/Docusate Sodium 2 tab 03/27/24 21:00 03/27/24 21:16 Docusate Sodium/Senna 50/8.6mg Tab PO 04/26/24 20:59 2 tab HS VIANEY Administration Timolol Maleate 1 drops 03/28/24 09:00 03/28/24 07:36 Timolol Maleate 0.5% Op Soln 5 Ml Btl OP 04/27/24 08:59 1 drops QAM VIANEY Administration Umeclidinium/Vilanterol 1 puffs 03/28/24 09:00 03/28/24 07:36 Umeclidinium/Vilanterol 62.5/25mcg 7 Puffs/Inhaler INH 04/27/24 08:59 1 puffs DAILY VIANEY Administration
[2024-03-28] MEDS: ACETAMINOPHEN 500 MG TAB PO PRN (07:44)
--- NOTE | 2024-03-28 08:03 | Hospitalist Consultation ---
Date of Consultation March 28, 2024 Assessment & Plan (1) Status post spinal surgery: L2-L3 decompression fusion/hardware removal of L3-S1 with Dr. Hobbs on 03/27 Per review of operative report, 1000 cc of EBL Hgb trend 10.7--> 9.7 Perioperative antibiotics, fluids, pain control, and DVT PPx per the primary team Critical care was initially consulted postop as patient was hypotensive down to 82/40 and developed atrial fibrillation RVR Both patient's postop hypotension and irregular rhythm have resolved on 03/28 Patient reports he is asymptomatic this morning; still having lower back pain, but no dizziness, lightheadedness, or chest palpitations Mild leukocytosis at 12.34 on the morning of 03/28; suspect stress demargination Okay to transfer from PCU to [facility] Added on a.m. CBC and BMP for the morning of 03/29; we will follow (2) Postoperative hypotension: BP 117/73 on the morning of 03/28 Suspect hypotension was secondary to hypovolemia due to perioperative blood loss/A-fib postop Okay to continue metoprolol succinate 100 mg on the morning of 03/28 to prevent recurrence of A-fib RVR Hold a.m. terazosin for now If patient's blood pressure declines, recommend IV fluid boluses (3) Atrial fibrillation with RVR: Eliquis remains on hold in the setting of recent spine surgery Rate controlled on 03/28 Okay to continue metoprolol, and continue to hold Eliquis (4) Acute blood loss anemia: Plan Agree with current medical decision making: Disposition: Downgrade from PCU to [facility] Clear liquid diet, and advance as tolerated VTE PPx: SCD/teds Thank you for allowing us to participate in the care of this patient, please reach out with any questions or concerns; we will continue to follow. Supervising Physician Co-Signing Physician Notes I personally examined the patient and verified all burk points of history and exam, discussed case, and agree with decision making with Onesimo Jordan PAC feeling good walked well wants to walk more pain controlled no cp no sob vitals noted nad heent nc at mmm cardio rate controlled - sounds regular, definitely reg rate afib/RVR - now controlled. eliquis on hold until OK by ortho to resume doing well medically stable anticipate dc home once OK w ortho/spine will continue to follow History of Present Illness Reason for Consultation: Postop medical management Requesting Physician: Rodger Hobbs DO Attending Physician: Rodger Hobbs DO History of Present Illness Adan is a 83-year-old male with PMH of lumbosacral radiculopathy, spinal stenos is, COPD, HTN, osteomyelitis, atrial fibrillation/flutter (anticoagulated on apixaban), multifocal tachycardia, HLD, and stage III CKD. He presented on 03/27 for an L2-L3 decompression and hardware removal of L3-S1 with Dr. Hobbs. Per review of operative note, EBL was listed as 1000 cc, and findings were consistent with postop diagnosis. Patient was hypotensive postop down to 82/40, and he developed atrial fibrillation with RVR. Critical care was consulted. Upon evaluation, his A-fib had resolved, and his blood pressure had returned to normal. At time of consult, patient reports that his lower back pain is 6/10. He does not characterize it as a pain, but rather a "discomfort". No radiation. Movements such as sitting up to make it worse. He was also boosted in bed yesterday, which she reports is painful. He did have some throbbing in his thighs bilaterally this morning, but this resolved. He denies saddle anesthesia or numbness or tingling going down the legs. Other than his back pain, he reports no new complaints at this time. He reports he has been eating and drinking well. He slept okay last night. He did get up once prior to bed last night, but reports it was "tough". He did have some back pain at that time, but he reports the issue was more that he could not get himself going. Last BM was early yesterday morning before surgery. Patient denies smoking or tobacco use. No supplemental oxygen at baseline. Patient's vitals are stable at time of consult. ROS: Patient endorses lower back pain, and mild productive cough (chronic; patient attributes to his COPD). Patient denies fever last night, chills, night sweats, dizziness/lightheadedness in bed or with standing, headache, chest pain, chest palpitations when he goes into A-fib, SOB, JAIN, pleuritic CP, abdominal pain, N/V/D, saddle anesthesia, changes in urinary or bowel habits, or numbness or tingling going down the legs. Allergies Allergy/AdvReac Type Severity Reaction Status Date / Time No Known Drug Allergies Allergy Verified 03/27/24 06:50 Home Medications Medication Instructions Recorded Confirmed Type latanoprost 0.005 % eye drops 1 drp ophthalmic (eye) HS 06/27/22 03/26/24 History cholecalciferol (vitamin D3) 25 25 mcg PO QAM 08/22/22 03/26/24 History mcg (1,000 unit) capsule cyanocobalamin (vitamin B-12) 1,000 mcg PO QAM 08/22/22 03/26/24 History 1,000 mcg capsule fluticasone fur. 100 mcg-umeclid 1 inh inhalation QAM #3 Inhalers 11/01/23 03/26/24 Rx 62.5 mcg-vilant 25 mcg inhalat.powder (Trelegy Ellipta) doxycycline hyclate 100 mg capsule 100 mg PO BID #180 caps 11/19/23 03/26/24 Rx acetaminophen 500 mg tablet 500 mg PO Q6H PRN Pain 01/31/24 03/26/24 History (Tylenol Extra Strength) apixaban 5 mg tablet (Eliquis) 5 mg PO BID #180 tabs 02/28/24 03/27/24 Rx finasteride 5 mg tablet 5 mg PO QAM 03/24/24 03/27/24 History metoprolol succinate 100 mg 100 mg PO QAM 03/24/24 03/26/24 History tablet,extended release 24 hr pantoprazole 40 mg tablet,delayed 40 mg PO BID 03/24/24 03/26/24 History release terazosin 2 mg capsule 2 mg PO QAM 03/24/24 03/26/24 History timolol maleate 0.5 % eye drops 1 drp OPB QAM 03/24/24 03/26/24 History oxycodone 5 mg tablet 5 mg PO Q6H PRN pain #30 tabs 03/28/24 Rx tramadol 50 mg tablet 50 mg PO Q6H PRN pain, moderate 03/28/24 Rx #30 tabs Patient History Medical History (Updated 03/28/24 @ 09:56 by Ashwin Jordan PA-C) Right ventricular dysfunction Cardiomyopathy EF 55-60% Venous insufficiency per records, pt denies Right ventricular dysfunction Restrictive lung disease Hx of pleural effusion 2019, no recent issues per pt. 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 coli infection 2019 Frequent unifocal PVCs hx; f/u yusuf marshall cardio History of dysphagia no recent issues per pt Chronic sinusitis Cardiomyopathy Stage 3b chronic kidney disease f/u [facility] Prediabetes diet controlled Multiple pulmonary nodules hx, [place] Fever in the 1960's, left scarring in lungs Esophageal reflux Atrial flutter Atrial fibrillation f/u yusuf marshall cardio COPD (chronic obstructive pulmonary disease) emphysema, controlled, stable per pt; does not have rescue inhaler; follows with [facility] Fatigue "related to his back problems" Elevated hemidiaphragm right, follows with [facility] BPH (benign prostatic hyperplasia) MRSA (methicillin resistant Staphylococcus aureus) septicemia 2018- on doxycycline daily Surgical History (Updated 03/27/24 @ 16:42 by Santo Baum MD) Complication of anesthesia unable to urinate after "several years ago after nasal polyp sx" Hx of bilateral cataract extraction History of esophagogastroduodenoscopy (EGD) History of colonoscopy S/P laparoscopic cholecystectomy Dr. Mueller 10/17/18, d/t gangrenous cholecystitis. History of back surgery ~1983, "unsure of area," removal ruptured spinal disc 2010, spinal disectomy, osteophylectomy lumbar interspace 02/2016- lumbar decompression laminectomy at L5-S1 and washout and drainage of epidural abscess 03/23/16, REVISION L4-L5, L5-S1 decompressive laminectomy and discectomy for recurrent osteomyelitis and epidural abscess, L5 07/11/22, L3-L4 disectomy and fusion, L4-S1 hardware removal S/P nasal endoscopy with nasal polypectomy x2 in total, most recent 2010 History of tonsillectomy H/O inguinal hernia repair 11/2015- R open repair with drain placement Esophageal dilatation Family History Father Bowel perforation Mother Parkinson disease Brother Diabetes Hepatocellular carcinoma Other No known health problems Denies family history of Ovarian cancer Prostate cancer Myocardial infarction Breast cancer Colorectal cancer Social History Smoking Status: Former smoker Tobacco Type: Cigarettes Age Started Using Tobacco: 18; Age Quit Using Tobacco: 43; packs per day: 1; Cigarettes Per Day: quit ; Smoking End Date: 30 years; Second Hand Exposure: No; Do You Dip or Chew Tobacco: No; Tobacco Cessation Education Requested by Patient: No Hx Alcohol Use: Yes Alcohol type: hard liquor Alcohol Intake Frequency: 4 or More x per/Week Alcohol Intake Frequency Comment: "couple of drinks a day" Hx Substance Use: No Preferred Language: Finnish Communication Ability: Effective Visual Impairment: No Limitations Hearing Ability: Use of Hearing Aid Natural Resource Economist Required: No Beliefs That Will Affect Care: Roman Catholic Roman Catholic Beliefs: Worship marital status: marital status details: Has two children Current Living Situation: Spouse current occupational status: retired Other Information That Helps Us Care for You: No Feels Safe at Home: Yes Safety Concerns: Feels Safe At This Time Childhood Exposure to Second-Hand Smoke: No Diet: regular Diet Comment: regular caffeine: Yes during the past year weight has: remained stable Dental Care, Regularly: Yes Physical Activity Frequency: 5-6 Times per Week Physical Activity Frequency Comment: walk Seatbelt Use: always Sunscreen Use: No Assistive Devices: Cane and Walker Review of Systems Review of Systems: See HPI above Physical Exam Physical Exam: General: no acute distress; pleasant affect; non-toxic appearing; well- nourished; cooperative; SpO2 94% on RA HEENT: normocephalic, atraumatic; no scleral icterus; PERRLA; vision and hearing grossly intact Neck: supple; no lymphadenopathy; trachea midline Skin: warm, dry without signs of tenting; no cyanosis; no rashes, bruising, lesions, or erythema noted CV: chest wall NTP; irregularly irregular rhythm, rate controlled; S1/S2 normal; no murmurs/rubs/gallops; pulses intact and symmetric at radial, DP, and PT Lungs: no acute respiratory distress; symmetrical chest wall expansion; clear breath sounds across all lung fontaine w/o adventitious sounds; no wheezing ABD: Soft, NTP in all 4 quadrants; BS present; no rebound/guarding; moderate distention of the stomach, likely secondary to body habitus; no rashes or bruising noted on the abdomen or flanks Back: Upper spine is NTP; lower spine is mildly TTP (R>L); surgical dressing in place without signs of drainage or infection MSK: no tics or fasciculations; no edema noted in the LEs b/l, nonerythematous; patient demonstrates the ability to wiggle toes and lift legs off the bed bilaterally without deficits; lower extremities are neurovascularly intact assessed at DP/PT Neuro: A&Ox3; normal mood and affect; fluent speech; no focal deficits; sensation intact and symmetric in lower extremities bilaterally assessed via light touch Results & Data Results & Data Vital Signs (Past 12 Hours) Vital Signs Temp Pulse Pulse Pulse Resp BP Pulse Ox 03/28/24 07:21 36.4 C L 89 19 117/73 94 03/28/24 03:28 36.3 C L 86 16 101/56 L 94 03/28/24 00:24 36.6 C 85 18 104/54 L 96 03/28/24 00:00 83 03/27/24 21:28 86 112/58 L O2 Del Method 03/28/24 07:21 Room Air 03/28/24 03:28 Room Air 03/28/24 00:24 Room Air 03/28/24 00:00 03/27/24 21:28 Laboratory Results Abnormal lab results 03/27/24 03/27/24 03/28/24 Range/Units 11:51 15:51 05:31 WBC 12.34 H (4.8-10.8) K/ul RBC 3.20 L 2.99 L (4.70-6.10) M/uL Hgb 10.7 L 10.4 L 9.7 L (14.0-18.0) g/dl Hct 33.0 L 32.4 L 30.3 L (42.0-52.0) % MCV 101.3 H 101.3 H (80.0-100.0) fL RDW Std Deviation 52.0 H 51.9 H (36.4-46.3) fL Neut # (Auto) 9.08 H 10.52 H (1.40-6.50) K/uL Lymph # (Auto) 0.22 L 0.50 L (1.20-3.40) K/uL [place] # (Auto) 1.24 H (0.11-0.59) K/uL Diagnostic Findings Lumbar Spine X-Ray 03/27/24 00:00 FL lumbar spine 2-3V CLINICAL HISTORY: L2-L3 DECOMP/FUSION, HARDWARE REMOVAL L3-S1 COMPARISON STUDY: MRI 03/15/2024 FLUOROSCOPY TIME: 13.4 seconds FLUOROSCOPY IMAGES: 2 EXPOSURE DOSE: 9.44 mGy FINDINGS: Posterior interbody rods and screw fusion is noted at 5 levels with 2 level discectomy changes. Exact numbering is not definitive based on magnification. Images were submitted following completion of the surgery. No unexpected opaque foreign bodies. IMPRESSION: Fluoroscopic assistance as above. ACT 112: Negative or not required by law. Electronically signed by: Alfredo Waters M.D. 03/27/2024 10:47 AM PG Care Time/CCT Total # of Minutes Spent Total Time Spent with Patient: Total time spent is greater than 50% in coordination of care (as documented) at patient's floor/unit and/or counseling patient: Coding [place] [address] IN/OBS CONSULT LVL 4,60M Patient Type Established Medical Decision Making High Complexity Diagnoses Status post spinal surgery Z98.890 Postoperative hypotension I95.81 Atrial fibrillation with RVR I48.91 Acute blood loss anemia D62
[2024-03-28] MEDS ORDERED: CHOLECALCIFEROL 25 MCG (1000 UNITS) TAB PO SCH (09:00)
[2024-03-28] MEDS ORDERED: CYANOCOBALAMIN (B-12) 500 MCG TABLET PO SCH (09:00)
[2024-03-28] MEDS ORDERED: NON-FORMULARY MEDICATION (Fluticasone-Umeclidin-Vilanter [Trelegy Ellipta] 100-62.5-25 mcg INH SCH (09:00)
[2024-03-28] MEDS: METOPROLOL SUCC 50MG EXT REL TAB PO SCH (09:13)
[2024-03-28] MEDS: TERAZOSIN HCL 1 MG CAP PO SCH (09:31)
[2024-03-28 09:34] LABS: Calcium 7.5 mg/dl (8.6-10.3)
[2024-03-28 09:40] LABS: BUN Creatinine Ratio 13.8 (10-20); Creatinine Clr Calc Pharmacy 52.8 ml/min
[2024-03-28 09:44] LABS: Potassium 4.1 mmol/L (3.5-5.1)
--- NOTE | 2024-03-28 10:35 | Orthopedic Progress Note ---
Date of Service March 28, 2024 Assessment & Plan (1) Lumbosacral spondylosis with radiculopathy: Plan: At this time we will continue physical therapy monitor his BRYCE output over the discharge home in the next few days. Admission and Anticipated Discharge Date Admission Date: March 27, 2024 Subjective Patient's back pain is controlled. Leg symptoms improved Physical Exam Physical Exam: Patient is in the chair at the bedside. He is completed physical therapy. Skin strength testing. Appears comfortable. Results & Data Vital Signs (Past 12 Hours) Vital Signs Temp Pulse Pulse Pulse Resp BP Pulse Ox 03/28/24 07:21 36.4 C L 89 19 117/73 94 03/28/24 03:28 36.3 C L 86 16 101/56 L 94 03/28/24 00:24 36.6 C 85 18 104/54 L 96 03/28/24 00:00 83 O2 Del Method 03/28/24 07:21 Room Air 03/28/24 03:28 Room Air 03/28/24 00:24 Room Air 03/28/24 00:00
[2024-03-29 06:43] LABS: Basophils # (auto) 0.01 K/uL (0.00-0.20); Basophils % (auto) 0.1 %; Eosinophils # (auto) 0.01 K/uL (0.00-0.50); Eosinophils % (auto) 0.1 %; Hematocrit (blood only) 28.6 % (42.0-52.0); Hemoglobin 9.3 g/dl (14.0-18.0); Immature Granulocytes # (auto) 0.05 K/uL (0.01-0.20); Immature Granulocytes % (auto) 0.5 %; Lymphocytes # (auto) 0.56 K/uL (1.20-3.40); Lymphocytes % (auto) 5.5 %; Mean Corpuscular Hemoglobin 32.5 pg (25.0-34.0); Mean Corpuscular Hgb Conc 32.5 g/dL (32.0-36.0); Mean Platelet Volume 9.8 fL (9.4-12.4); Monocytes # (auto) 1.19 K/uL (0.11-0.59); Monocytes % (auto) 11.8 %; Platelet Count 136 K/uL (130-400); RDW Coefficient of Variation 14.1 % (11.5-14.5); RDW Standard Deviation 51.4 fL (36.4-46.3); Red Blood Count 2.86 M/uL (4.70-6.10); White Blood Count 10.12 K/ul (4.8-10.8)
[2024-03-29 07:10] LABS: BUN Creatinine Ratio 17.7 (10-20); Calcium 7.6 mg/dl (8.6-10.3); Creatinine Clr Calc Pharmacy 46.4 ml/min
--- NOTE | 2024-03-29 07:45 | Hospitalist Consultation ---
Date of Consultation March 29, 2024 Assessment & Plan (1) Status post spinal surgery: - POD#2 s/p L2-L3 decompression fusion/hardware removal of L3-S1 Perioperative antibiotics, fluids, pain control, and DVT PPx per the primary team Per operative report, 1000 cc of EBL - Hgb trending down: 10.7 preop -->9.7 on 03/28 --> 9.3 this morning - Pt was hypotensive down to 82/40 post-op and EKG showed afib w RVR Both postop hypotension and irregular rhythm resolved on 03/28 Patient feeling well, no c/o lower back pain, dizziness, lightheadedness, palpitations - Mild leukocytosis from yesterday now resolved; suspect stress demargination (2) Postoperative hypotension: - BP 113/67 on the morning of 03/29 - Suspect hypotension was secondary to hypovolemia due to perioperative blood loss - Okay to continue metoprolol succinate 100 mg for afib - Hold terazosin for now - IV fluid boluses as needed for BP < 100/50 (3) Atrial fibrillation with RVR: - Chronically on Eliquis, seen regularly by cardiology - Eliquis held in the setting of recent spine surgery - Metoprolol resumed on 03/28 - Irregular rhythm resolved, currently rate-controlled (4) Acute blood loss anemia: Plan Patient is medically stable. Our team will sign off; please reach out with any further questions or concerns. Supervising Physician Co-Signing Physician Notes I personally examined the patient and verified all burk points of history and exam, discussed case, and agree with decision making with Dr Mehta feeling good walking well wants to go home vitals noted nad heent nc at mmm breathing unlabored no accessory muscle use good effort. Skin without rashes pallor or icterus. Neuro without focal deficits afib/RVR - now controlled. eliquis on hold until OK by ortho to resume doing well medically stable anticipate dc home once OK w ortho/spine medically stable, hospitalist team will sign off at this time. Certainly will be available if we can be of any further assistance. History of Present Illness Reason for Consultation: Postop medical management Requesting Physician: Rodger Hobbs DO Attending Physician: Rodger Hobbs DO History of Present Illness Patient is doing very well today. Reports having a brief session w PT/OT yesterday, during which he was not at full-strength. He states that their assessment isn't accurately reflective of his current recovery. He denies any pain and states he is eating and sleeping well. States he is able to ambulate with the aid of a walker. Is having BMs, no issues urinating, no dizziness or weakness, no significant back pain, no fevers, sweats, SOB, CP, palpitations, n/v/c/d, or abnormal sensations Allergies Allergy/AdvReac Type Severity Reaction Status Date / Time No Known Drug Allergies Allergy Verified 03/27/24 06:50 Home Medications Medication Instructions Recorded Confirmed Type latanoprost 0.005 % eye drops 1 drp ophthalmic (eye) HS 06/27/22 03/26/24 History cholecalciferol (vitamin D3) 25 25 mcg PO QAM 08/22/22 03/26/24 History mcg (1,000 unit) capsule cyanocobalamin (vitamin B-12) 1,000 mcg PO QAM 08/22/22 03/26/24 History 1,000 mcg capsule fluticasone fur. 100 mcg-umeclid 1 inh inhalation QAM #3 Inhalers 11/01/23 03/26/24 Rx 62.5 mcg-vilant 25 mcg inhalat.powder (Trelegy Ellipta) doxycycline hyclate 100 mg capsule 100 mg PO BID #180 caps 11/19/23 03/26/24 Rx acetaminophen 500 mg tablet 500 mg PO Q6H PRN Pain 01/31/24 03/26/24 History (Tylenol Extra Strength) apixaban 5 mg tablet (Eliquis) 5 mg PO BID #180 tabs 02/28/24 03/27/24 Rx finasteride 5 mg tablet 5 mg PO QAM 03/24/24 03/27/24 History metoprolol succinate 100 mg 100 mg PO QAM 03/24/24 03/26/24 History tablet,extended release 24 hr pantoprazole 40 mg tablet,delayed 40 mg PO BID 03/24/24 03/26/24 History release terazosin 2 mg capsule 2 mg PO QAM 03/24/24 03/26/24 History timolol maleate 0.5 % eye drops 1 drp OPB QAM 03/24/24 03/26/24 History oxycodone 5 mg tablet 5 mg PO Q6H PRN pain #30 tabs 03/28/24 Rx tramadol 50 mg tablet 50 mg PO Q6H PRN pain, moderate 03/28/24 Rx #30 tabs Patient History Medical History (Updated 03/28/24 @ 09:56 by Ashwin Jordan PA-C) Right ventricular dysfunction Cardiomyopathy EF 55-60% Venous insufficiency per records, pt denies Right ventricular dysfunction Restrictive lung disease Hx of pleural effusion 2019, no recent issues per pt. 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 coli infection 2019 Frequent unifocal PVCs hx; f/u yusuf marshall cardio History of dysphagia no recent issues per pt Chronic sinusitis Cardiomyopathy Stage 3b chronic kidney disease f/u [facility] Prediabetes diet controlled Multiple pulmonary nodules hx, Valley Fever in the s, left scarring in lungs Esophageal reflux Atrial flutter Atrial fibrillation f/u yusuf marshall cardio COPD (chronic obstructive pulmonary disease) emphysema, controlled, stable per pt; does not have rescue inhaler; follows [facility] Fatigue "related to his back problems" Elevated hemidiaphragm right, follows with [facility] BPH (benign prostatic hyperplasia) MRSA (methicillin resistant Staphylococcus aureus) septicemia 2018- on doxycycline daily Surgical History (Updated 03/27/24 @ 16:42 by Santo Baum MD) Complication of anesthesia unable to urinate after "several years ago after nasal polyp sx" Hx of bilateral cataract extraction History of esophagogastroduodenoscopy (EGD) History of colonoscopy S/P laparoscopic cholecystectomy Dr. Mueller 10/17/18, d/t gangrenous cholecystitis. History of back surgery ~1983, "unsure of area," removal ruptured spinal disc 2010, spinal disectomy, osteophylectomy lumbar interspace 02/2016- lumbar decompression laminectomy at L5-S1 and washout and drainage of epidural abscess 03/23/16, REVISION L4-L5, L5-S1 decompressive laminectomy and discectomy for recurrent osteomyelitis and epidural abscess, L5 07/11/22, L3-L4 disectomy and fusion, L4-S1 hardware removal S/P nasal endoscopy with nasal polypectomy x2 in total, most recent 2010 History of tonsillectomy H/O inguinal hernia repair 11/2015- R open repair with drain placement Esophageal dilatation Family History Father Bowel perforation Mother Parkinson disease Brother Diabetes Hepatocellular carcinoma Other No known health problems Denies family history of Ovarian cancer Prostate cancer Myocardial infarction Breast cancer Colorectal cancer Social History Smoking Status: Former smoker Tobacco Type: Cigarettes Age Started Using Tobacco: 18; Age Quit Using Tobacco: 43; packs per day: 1; Cigarettes Per Day: quit ; Smoking End Date: 30 years; Second Hand Exposure: No; Do You Dip or Chew Tobacco: No; Tobacco Cessation Education Requested by Patient: No Hx Alcohol Use: Yes Alcohol type: hard liquor Alcohol Intake Frequency: 4 or More x per/Week Alcohol Intake Frequency Comment: "couple of drinks a day" Hx Substance Use: No Preferred Language: Mongolian Communication Ability: Effective Visual Impairment: No Limitations Hearing Ability: Use of Hearing Aid Buoy Tender Required: No Beliefs That Will Affect Care: Yazdanism Yazdanism Beliefs: Jainism marital status: marital status details: Has two children Current Living Situation: Spouse current occupational status: retired Other Information That Helps Us Care for You: No Feels Safe at Home: Yes Safety Concerns: Feels Safe At This Time Childhood Exposure to Second-Hand Smoke: No Diet: regular Diet Comment: regular caffeine: Yes during the past year weight has: remained stable Dental Care, Regularly: Yes Physical Activity Frequency: 5-6 Times per Week Physical Activity Frequency Comment: walk Seatbelt Use: always Sunscreen Use: No Assistive Devices: Cane and Walker Review of Systems 2 Review of Systems: As per HPI. Physical Exam 2 Physical Exam: Gen: A&Ox3, NAD, resting comfortably in bed HEENT: NCAT, EOMI CV: RRR, no m/r/g, S1/S2 normal Resp: CTAB, symmetrical chest rise, breathing non-labored Abd: Soft, NT/ND, +BS, no HSM MSK: Full ROM, normal str in all extremities; lower back mildly ttp; dressing c/d/i Skin: Warm, dry, pink, no rashes or lesions Results & Data Results & Data Vital Signs (Past 12 Hours) Vital Signs Temp Pulse Resp BP Pulse Ox O2 Del Method 03/28/24 20:36 36.6 C 83 18 113/67 93 Room Air Laboratory Results 03/29/24 06:28 03/29/24 06:28 Resident Activity Tracking Resident Involvement: Resident Care Provided Care Provided: Adult Hospital Medicine
--- NOTE | 2024-03-29 08:40 | Orthopedic Progress Note ---
Date of Service March 29, 2024 Assessment & Plan (1) Lumbosacral spondylosis with radiculopathy: Plan: Adan is postoperative day 2 status post multilevel revision decompression and fusion lumbar spine. He is quite anxious to return home. Does not want to go to rehab. He is doing well. Maintain BRYCE drain. Could potentially discharge him home tomorrow. DVT prophylaxis is in the form teds and SCDs. Continue with bowel regimen. Admission and Anticipated Discharge Date Admission Date: March 27, 2024 Subjective Adan is postoperative day 2 status post multilevel revision decompression and fusion lumbar spine. He feels great. Pain is controlled. Leg symptoms improved. BRYCE drain output last shift was 40 cc. H&H this morning are 9.3 and 28.6. Yesterday in physical therapy Ambulating 25 feet but he is ambulating the hallways with a walker several times. He is quite anxious to return home with his . He had a bowel movement. Review of Systems Review of Systems: All systems reviewed & are unremarkable except as noted in HPI & below Physical Exam Physical Exam: Laying in bed in no acute distress Alert and oriented x 3 calf soft and nontender bilaterally. Lumbar dressing is clean dry and intact with functioning BRYCE drain Strength intact bilateral lower extremities Results & Data Vital Signs (Past 12 Hours) Vital Signs Temp Pulse Resp BP Pulse Ox O2 Del Method 03/29/24 07:46 36.5 C 75 16 106/52 L 93 Room Air
--- NOTE | 2024-03-29 15:23 | Billing Data ---
Date of Service March 29, 2024 Coding Level of Care Code 82525 SUB INP/OBS CARE
[2024-03-30 07:39] VITALS: BP 127/64; PULSE 88; RESP 16; TEMP 97.7; O2SAT 91
--- NOTE | 2024-03-30 10:37 | Discharge Summary ---
Date of Service March 30, 2024 Admission HPI Per Admitting Provider This is a 83-year-old male known to me the presents with chronic worsening back and leg pain after failing course of nonoperative care is here for surgical invention. Principal Diagnosis Lumbar spondylosis with radiculopathy Discharge Data Allergies Allergy/AdvReac Type Severity Reaction Status Date / Time No Known Drug Allergies Allergy Verified 03/27/24 06:50 Consultations 03/27/24 14:14 Consult Territory Account Representative Routine 03/27/24 14:25 Consult Hospitalist Routine Procedures Performed Operation Date: 03/27/24 08:15 Actual Procedures p L2-L3 Decompression and Fusion, Spinal Cord Monitoring(Not Applicable) - Rodger Hobbs DO s Hardware Removal L3-S1(Not Applicable) - Rodger Hobbs DO Ordered Studies 03/27/24 [place] lumbar spine 2-3V Routine Hospital Course (1) Status post spinal surgery: Patient underwent lumbar decompression fusion trial as well as taken to the ICU postoperatively for hypotension. He tolerated postop day #1 well was taken to the orthopedic floor continues to progress appropriately. Doing well with therapy. BRYCE drain decreasing appropriate. Excellent strength testing. Subsidy discharged home. Discharge orders instructions from the chart for further review. Total Time Total Time Spent Total Time Spent (In Minutes): 20 minutes Discharge Plan Discharge Items Patient Disposition: Home - Self-Care Reason For Visit: Lumbar Disc Herniation with Radiculopathy, Spinal Discharge Diagnosis: Lumbar spondylosis with radiculopathy Activity: As commented below Non-emergency contact: Primary Care Provider Call non-emergency contact if: you have any medication questions Follow-up/Referrals: Gricelda De La Rosa DO [Primary Care Provider] - Diet: Regular Addtl Attending Provider Instructions: ACTIVITY RECOMMENDATIONS: SELF CARE INSTRUCTIONS AFTER THORACIC/LUMBAR FUSIONS 1. You may walk to your tolerance. It is good exercise for your legs and back. Expect some back and intermittent leg aches and pains. 2. You may perform "counter-top" level activities (make a sandwich, vesna with a project, etc.). 3. No bending or lifting of more than 10 pounds or back twisting of any nature (roll like a log when turning in bed). 4. You may ride in a car for 20-30 minutes at a time. No driving until after your first visit with your doctor. 5. Frequent changes of position and restricting sitting to 30 minutes at a time will help limit the amount of back spasms and stiffness you may experience. 6. You may discontinue the use of ambulatory aids (cane, crutches, etc.) once your strength and confidence allow. 7. You may winemaker the shower and let water strike your incision when you arrive home at least once daily. Do not take a tub bath, sit in a hot tub or go into a swimming pool until after your first recheck in the office. 8. You may resume previous diet. SPECIAL CARE INSTRUCTIONS: VERY IMPORTANT TO READ AND REVIEW A. Your surgical incision has been closed with a cosmetic suture under the skin that will dissolve in about 6 weeks. In 14 days, you can use a pair of clean scissors and cut the suture that is left outside of the skin at the ends of your incision. 1. The small skin tapes can be removed 7 days after surgery if they have not fallen off by that point. 2. You may keep the wound open to air as much as possible to promote healing after post-op day number 5 unless told otherwise by your doctor. 3. If you think the wound looks like it is becoming infected (redness or worsening drainage) and/or you are experiencing fever, chill or worsening back pain and muscle spasms, contact the office so that we may evaluate you as soon as possible. B. Complications are uncommon, but please contact us if you have any signs or symptoms of: 1. wound infection (fever higher than 102.5 degrees F, redness, separation of wound, drainage, or increasing pain from the incision) 2. blood clots in legs (pain, swelling, redness and warmth in legs) 3. urinary tract infection (fever higher than 102.5 degrees F, burning upon urination or increased frequency of urination) 4. nerve problems (inability to walk on your toes or heels, numbness, loss of bowel or bladder control) 5. any other symptoms that concern you C. Please call the office at if you have any concerns or questions about your operation or recovery. D. No smoking! Smoking drastically decreases the chance of a solid fusion. E. Do not take any anti-inflammatory medications (Indocin, Advil, Motrin, Aspirin, Naprosyn, etc.) as these may inhibit the chance of a solid fusion. Tylenol is okay to take for pain. MANAGING PAIN AFTER SPINAL SURGERY 1. Narcotic medication is intended for short-term use and will be provided for surgical pain. Surgical pain usually lasts for a period of 4-6 weeks. Narcotic medication includes Percocet, Vicodin, Darvocet, Tylenol #3 or Lortab. 2. Longer-term pain is more appropriately treated with non-narcotic medication such as Tylenol ES. 3. Muscle spasm is not appropriately treated with narcotics. Muscle relaxers such as Soma, Flexeril or Skelaxin can be used along with Tylenol ES. 4. Remember that we all live with some "aches and pains". This is not unusual or uncommon after an injury or as we get older. a. Back pain is expected and may include muscle spasms for 4 to 6 weeks after surgery. The pain should gradually improve. If the pain worsens for no apparent reason, please contact the office. b. Intermittent leg pain may also be experienced and should not be concerned about unless it worsens for no apparent reason. If so, please contact the office. 5. We will provide appropriate medication within the normal guidelines of their prescribed use. We will also be very cautious and aware of potential abuse and extended duration of patients' medication needs. a. Pain medications are for your comfort and to assist with sleep and rest so that the tissue can heal. They are not provided in order to return to normal activity and should not be used through the day. To do so or worsening pain at night can result from ongoing tissue damage and development of tolerance to the prescribed medicine. 6. Please allow 2-3 days to process refills. Prescriptions will not be mailed but must be picked up at the office. FOLLOW UP VISIT: Keep your scheduled follow-up appointment. Any questions, please call the office at . Pending Studies at Discharge: No Stand-Alone Forms: My [facility], Smoking Cessation Medications and DC Order Prescriptions: New tramadol 50 mg tablet 50 mg PO Q6H PRN (Reason: pain, moderate) Qty: 30 0RF oxycodone 5 mg tablet 5 mg PO Q6H PRN (Reason: pain) Qty: 30 0RF Continued doxycycline hyclate 100 mg capsule 100 mg PO BID Qty: 180 1RF Rx Instructions: indefinitely cholecalciferol (vitamin D3) 25 mcg (1,000 unit) capsule 25 mcg PO QAM cyanocobalamin (vitamin B-12) 1,000 mcg capsule 1,000 mcg PO QAM acetaminophen [Tylenol Extra Strength] 500 mg tablet 500 mg PO Q6H PRN (Reason: Pain) Trelegy Ellipta 100-62.5-25 mcg blister with device 1 inh inhalation QAM Qty: 3 4RF latanoprost 0.005 % drops 1 drp ophthalmic (eye) HS timolol maleate 0.5 % drops 1 drp OPB QAM metoprolol succinate 100 mg tablet extended release 24 hr 100 mg PO QAM terazosin 2 mg capsule 2 mg PO QAM pantoprazole 40 mg tablet,delayed release (DR/EC) 40 mg PO BID Rx Instructions: TAKE 1 TABLET BY MOUTH TWICE A DAY finasteride 5 mg tablet 5 mg PO QAM Held Eliquis 5 mg tablet 5 mg PO BID Qty: 180 3RF Discharge Orders: Discharge Order (Routine); Ordered 03/30/24 Ordered By: Rodger Hobbs Admission Data Admit Date/Time: 03/27/24 14:13 Attending Provider: Rodger Hobbs Admit Provider: Rodger Hobbs Primary Care Provider: Gricelda De La Rosa. Other Providers: Rodger Cowart; Martin Sapp
== END 2024-03-30 11:24 | disposition home or self-care (01) | DRG 402 ==
LOC: ASU 06:17 → 1E 14:13 → 2E 18:50 → 3N 03-28 15:50

== ENCOUNTER 2025-02-06 12:30 | Inpatient (IN) ==
[2025-02-06] MEDS ORDERED: SODIUM CHLORIDE 0.9% 100 ML IV PRN ×3 (12:55→21:24)
--- NOTE | 2025-02-06 13:00 | Emergency Department Note ---
Impression & Plan Symptomatic anemia, Weakness, Hematuria ED Provider Note NAME: FARRAH BHATIA AGE: 84 SEX: M : 1940 ARRIVES VIA: Walk-In INFORMANT: Patient ED PROVIDER(S): Martin James DO CHIEF COMPLAINT: Weakness, hematuria HPI: Patient is an 84-year-old male with a past medical history of diabetes on apixaban from [facility] for hematuria. He notes he had a procedure by urology and has been having persistent hematuria for the past 3 months. He had blood work done and was found to be anemic and consequently was referred in. He denies any chest pain or shortness of breath currently. He notes he is weak when he gets up and moves around. Denies any belly pain. No nausea, vomiting, or diarrhea. No dysuria, urgency, or frequency. Denies any black or tarry stools. ADDITIONAL HISTORY OBTAINED: Per HPI Chronic Medical/Social Conditions Affecting Care: Per HPI PAST MEDICAL HISTORY:See Below PAST SURGICAL HISTORY:See Below FAMILY HISTORY:See Below SOCIAL HISTORY:See Below HOME MEDICATIONS:See Below ALLERGIES:See Below VITALS:See Below PHYSICAL EXAMINATION: GENERAL: Sitting up in bed, alert, well appearing, well nourished, no distress, non-toxic EYE EXAM: normal conjunctiva. OROPHARYNX: mucous membranes are moist NECK: supple, no nuchal rigidity, no adenopathy, non-tender LUNGS: Clear to auscultation. Normal chest wall mechanics HEART: no murmurs, S1 normal and S2 normal ABDOMEN: abdomen soft, non-tender, normo-active bowel sounds, no masses, no rebound or guarding. UPPER EXTREMITIES: upper extremities are grossly normal. LOWER EXTREMITIES: No pitting edema. NEURO EXAM: Normal sensorium, cranial nerves II-XII grossly intact, normal speech, no gross weakness of arms, no gross weakness of legs. MEDICAL DECISION MAKING: Patient is an 84-year-old male who presents ER for the above-stated complaint. IV was established and blood work is obtained. Labs show no significant leukocytosis. Hemoglobin of 5.6 down from 10 upon review of previous. INR at 1.3. BMP with LFTs bilirubin was unremarkable. Patient was typed and crossed. He admits to hematuria which is present for the past 3 months. Patient was given an order 2 units of PRBCs while in the ER. I cannot obtain consent. Patient was admitted for further workup. Consults/Care Managements Discussions: Per MDM Triage Nursing notes reviewed. Limited review of prior medical records performed Vital Signs: reviewed and remarkable for hypotension Differential diagnosis: Diverticulosis, AVM, coagulopathy, colitis, inflammatory bowel disease, malignancy, Kaleigh-Barrios tear, esophagitis, peptic ulcer disease, variceal bleed, gastritis, epistaxis, fissure, hemorrhoids, as well as other pathologies. ER treatment provided: See below Diagnostics interpreted by me include EKG and cardiac monitoring as listed below: -Cardiac Monitoring: An order was placed for continuous cardiac monitoring. The monitor shows a rate of 60 with Afib rhythm. -ECG: Sinus rhythm rate 72 Normal axis No PVCs QTc 457 -Laboratory studies:Interpreted by me as stated above in MDM and shown below. Imaging studies: Xrays: As interpreted by me:none CTs show: none Procedures:none Critical Care: I have personally spent 35 minutes of critical care time in the direct management of this patient. This includes bedside care, interpretation of diagnostic studies, and testing, discussion with consultants, patient, and family members, and other required patient management activities. This 35 minutes is in excess of all separately billable procedures. Past Med/Surg History Problem List (Updated 02/06/25 @ 17:13 by Martin James DO) Hematuria (Acute) Weakness (Acute) Symptomatic anemia (Acute) Suzanne glabrata infection Discitis of lumbar region Bilateral sacroiliitis Abnormal chest CT Recurrent UTI Urinary retention BPH w urinary obs/LUTS Status post spinal surgery Lumbosacral spondylosis with radiculopathy Right ventricular hypertrophy Loosening of hardware in spine b/l S1 pedicle screws Neurogenic claudication due to lumbar spinal stenosis Lumbar spinal stenosis Ex-smoker Elevated diaphragm Esophageal dysphagia Stage 3b chronic kidney disease follows with [facility] Restrictive lung disease Frequent unifocal PVCs Prediabetes Diet controlled Hallux valgus of right foot (Chronic) Prurigo nodularis Venous insufficiency per records, pt denies Premature ventricular contractions On anticoagulant therapy Multiple pulmonary nodules Multifocal atrial tachycardia Impaired fasting glucose Hyperlipidemia per records, pt denies Esophageal reflux controlled, stable per pt Elevated prostate specific antigen (PSA) Chronic sinusitis Atrial fibrillation Follows with Dr. Wise HTN (hypertension) controlled, stable per pt Osteomyelitis (03/2016) hx COPD (chronic obstructive pulmonary disease) emphysema, controlled, stable per pt; does not have rescue inhaler; follows with [facility] Medical History (Updated 02/06/25 @ 17:13 by Martin James, ) Compression fracture of L2 Gross hematuria History of ESBL E. coli infection Anemia History of BPH w/ obs/LUTS Hematuria pt denies at this time Abnormal chest x-ray following with [facility]; pending f/u CT (per pulm note prior to TURP 07/2024, no need to delay surgery) Right ventricular dysfunction Cardiomyopathy 'resolved' per 03/2024 Cardio note Restrictive lung disease Hx of pleural effusion 2018, no recent issues per pt. Hx of osteomyelitis (03/2016) On anticoagulant therapy Neurogenic claudication due to lumbar spinal stenosis Multifocal atrial tachycardia hx; follows with [facility]; on BB History of ESBL E. coli infection 2018 Frequent unifocal PVCs hx; f/u dr. okeefe, tx cardio History of dysphagia no recent issues per pt Chronic sinusitis Multiple pulmonary nodules hx, [place] F[place] in the , left scarring in lungs; follows with [facility] Esophageal reflux Atrial flutter COPD (chronic obstructive pulmonary disease) emphysema, controlled, stable per pt; does not have rescue inhaler; follows with [facility] Fatigue "related to his back problems" Elevated hemidiaphragm right, follows with [facility] BPH (benign prostatic hyperplasia) MRSA (methicillin resistant Staphylococcus aureus) septicemia 2017- on doxycycline daily; follows with [facility] Surgical History Hx of cystoscopy Complication of anesthesia Hx of bilateral cataract extraction History of esophagogastroduodenoscopy (EGD) History of colonoscopy S/P laparoscopic cholecystectomy History of back surgery S/P nasal endoscopy with nasal polypectomy History of tonsillectomy H/O inguinal hernia repair Esophageal dilatation Family History Father Bowel perforation Mother Parkinson disease Brother Diabetes Hepatocellular carcinoma Other No known health problems Denies family history of Ovarian cancer Prostate cancer Myocardial infarction Breast cancer Colorectal cancer Social History Smoking Status: Never smoker Tobacco Type: Cigarettes Age Started Using Tobacco: 18; Age Quit Using Tobacco: 43; packs per day: 1; Cigarettes Per Day: quit ; Second Hand Exposure: No; Do You Dip or Chew Tobacco: No; Hx Alcohol Use: No Hx Substance Use: No Preferred Language: Mohawk Communication Ability: Effective Visual Impairment: No Limitations Hearing Ability: Use of Hearing Aid Cellar Supervisor Required: No Beliefs That Will Affect Care: None marital status: marital status details: Has two children Current Living Situation: Spouse current occupational status: retired Other Information That Helps Us Care for You: No Feels Safe at Home: Yes Safety Concerns: Feels Safe At This Time Childhood Exposure to Second-Hand Smoke: No Diet: regular Diet Comment: regular caffeine: Yes during the past year weight has: remained stable Dental Care, Regularly: Yes Physical Activity Frequency: 5-6 Times per Week Physical Activity Frequency Comment: walk Seatbelt Use: always Sunscreen Use: No Assistive Devices: None Allergies Allergies Allergy/AdvReac Type Severity Reaction Status Date / Time tamsulosin [From Flomax] AdvReac Intermediate Confusion Verified 01/12/25 14:07 Home Meds Home Medications Medication Instructions Recorded Confirmed latanoprost 0.005 % eye drops 1 drp ophthalmic (eye) HS 06/27/22 02/06/25 cyanocobalamin (vitamin B-12) 1,000 mcg PO QAM 08/22/22 02/06/25 1,000 mcg capsule acetaminophen 500 mg tablet 500 mg PO Q6H PRN Pain 01/31/24 02/06/25 (Tylenol Extra Strength) terazosin 2 mg capsule 2 mg PO QAM 03/24/24 02/06/25 timolol maleate 0.5 % eye drops 1 drp OPB QAM 03/24/24 02/06/25 cholecalciferol (vitamin D3) 25 50 mcg PO QAM 08/26/24 02/06/25 mcg (1,000 unit) capsule Previous Rx's Medication Instructions Recorded apixaban 5 mg tablet (Eliquis) 5 mg PO BID #180 tabs 02/28/24 finasteride 5 mg tablet 5 mg PO QAM #90 tabs 05/05/24 doxycycline hyclate 100 mg capsule 100 mg PO BID #180 caps 12/01/24 fluticasone fur. 100 mcg-umeclid 1 inh inhalation QAM #3 Inhalers 12/01/24 62.5 mcg-vilant 25 mcg inhalat.powder (Trelegy Ellipta) pantoprazole 40 mg tablet,delayed 40 mg PO BID #60 tabs 12/16/24 release metoprolol succinate 100 mg 100 mg PO QAM #90 tabs 01/05/25 tablet,extended release 24 hr hydrocodone 5 mg-acetaminophen 325 1 tab PO Q4H PRN pain #30 tabs 02/02/25 mg tablet Results & Data (ED) Vital Signs Vital Signs - 24 hr 02/06/25 12:36 02/06/25 13:30 02/06/25 13:31 Temperature 36.3 C L Temperature Source Skin Pulse Rate 64 72 75 Pulse Rate from SpO2 Sensor 73 Respiratory Rate 20 13 17 Respiratory Effort / Characteristics Non-Labored Spontaneous Respiratory Depth Normal Respiratory Pattern Regular Blood Pressure 94/56 L 116/56 L Blood Pressure Mean 68 77 Pulse Oximetry 98 94 99 Oxygen Delivery Method Room Air Sepsis Recent Fever Within 48 Hours No Sepsis New/Unexplained Change in Mental Status N/A Sepsis Action Taken by Nursing No Action Required 02/06/25 13:44 Temperature Temperature Source Pulse Rate 69 Pulse Rate from SpO2 Sensor Respiratory Rate Respiratory Effort / Characteristics Respiratory Depth Respiratory Pattern Blood Pressure Blood Pressure Mean Pulse Oximetry Oxygen Delivery Method Sepsis Recent Fever Within 48 Hours Sepsis New/Unexplained Change in Mental Status Sepsis Action Taken by Nursing Laboratory Data 02/06/25 13:04 02/06/25 13:04 Lab Results 02/06/25 02/06/25 Range/Units 13:01 13:04 WBC 5.41 (4.8-10.8) K/ul RBC 2.81 L (4.70-6.10) M/uL Hgb 5.6 L* (14.0-18.0) g/dl Hct 20.7 L* (42.0-52.0) % MCV 73.7 L (80.0-100.0) fL MCH 19.9 L (25.0-34.0) pg MCHC 27.1 L (32.0-36.0) g/dL RDW Std Deviation 42.2 (36.4-46.3) fL RDW Coeff of Anup 15.9 H (11.5-14.5) % Plt Count 243 (130-400) K/uL MPV 11.8 (9.4-12.4) fL Immature Gran % (Auto) 0.4 % Neut % (Auto) 59.9 % Lymph % (Auto) 14.0 % [place] % (Auto) 20.0 % Eos % (Auto) 4.6 % Baso % (Auto) 1.1 % Neut # (Auto) 3.24 (1.40-6.50) K/uL Lymph # (Auto) 0.76 L (1.20-3.40) K/uL [place] # (Auto) 1.08 H (0.11-0.59) K/uL Eos # (Auto) 0.25 (0.00-0.50) K/uL Baso # (Auto) 0.06 (0.00-0.20) K/uL Immature Gran # (Auto) 0.02 (0.01-0.20) K/uL Absolute Nucleated RBC 0.03 (0.00-0.12) K/uL Nucleated RBC % (auto) 0.6 % Polychromasia 1+ Hypochromasia Present Tear Drop Cells 1+ Ovalocytes 1+ PT 13.7 H (9.0-12.0) Seconds INR 1.3 H (0.9-1.1) APTT 32 H (21-31) Seconds PTT Ratio 1.2 Sodium 145 (136-145) mmol/L Potassium 4.3 (3.5-5.1) mmol/L Chloride 113 H (98-107) mmol/L Carbon Dioxide 23 (21-32) mmol/L Anion Gap 9 (3-11) BUN 36 H (6-23) mg/dl Creatinine 1.35 (0.6-1.4) mg/dl Est Cr Clr Drug Dosing 38.5 ml/min eGFR 51.13 BUN/Creatinine Ratio 26.7 H (10-20) Glucose 115 H (70-99(Fasting)) mg/dl Calcium 8.8 (8.6-10.3) mg/dl Total Bilirubin 0.8 (0.2-1.0) mg/dl AST 11 L (13-39) U/L ALT 6 L (7-52) U/L Alkaline Phosphatase 66 (34-104) U/L Total Protein 6.6 (6.0-8.3) gm/dl Albumin 3.6 (3.4-5.0) gm/dl Globulin 3.0 (2.5-4.0) gm/dl Albumin/Globulin Ratio 1.2 (0.9-2) Blood Type O Positive Antibody Screen NEGATIVE Crossmatch See Detail Discharge Plan Visit Data Chief Complaint: Referred by Doctor Stated Complaint: LOW BLOOD COUNT, REF BY DOC ED Provider: Martin James Discharge Problem: Symptomatic anemia, Weakness, Hematuria Patient Disposition: Admitted As Inpatient Condition: Serious Discharge Instructions Interventions: ED Discharge Assessment Last Done: 02/06/25 16:14 Discharge Problem: Hematuria Qualifiers: Hematuria type: unspecified type Qualified Code(s): R31.9 - Hematuria, unspecified
[2025-02-06 13:39] LABS: Hematocrit (blood only) 20.7 % (42.0-52.0); Hemoglobin 5.6 g/dl (14.0-18.0); Mean Corpuscular Hemoglobin 19.9 pg (25.0-34.0); Mean Corpuscular Volume 73.7 fL (80.0-100.0); Platelet Count 243 K/uL (130-400); RDW Standard Deviation 42.2 fL (36.4-46.3); Red Blood Count 2.81 M/uL (4.70-6.10); White Blood Count 5.41 K/ul (4.8-10.8)
[2025-02-06 13:54] LABS: Hypochromasia Present; Immature Granulocytes # (auto) 0.02 K/uL (0.01-0.20); Immature Granulocytes % (auto) 0.4 %; Ovalocytes 1+; Polychromasia 1+; Tear Drop Cells 1+
[2025-02-06 13:59] LABS: Alanine Aminotransferase 6.0 U/L (7-52); Albumin Globulin Ratio 1.2 (0.9-2); Albumin Level 3.6 gm/dl (3.4-5.0); Alkaline Phosphatase 66.0 U/L (34-104); Anion Gap 9.0 (3-11); Bilirubin,Total 0.8 mg/dl (0.2-1.0); Blood Urea Nitrogen 36.0 mg/dl (6-23); Calcium 8.8 mg/dl (8.6-10.3); Carbon Dioxide 23.0 mmol/L (21-32); Chloride 113.0 mmol/L (98-107); Creatinine Clr Calc Pharmacy 38.5 ml/min; Globulin 3.0 gm/dl (2.5-4.0); Glucose 115.0 mg/dl (70-99(Fasting)); Potassium 4.3 mmol/L (3.5-5.1); Sodium 145.0 mmol/L (136-145); Total Protein 6.6 gm/dl (6.0-8.3)
[2025-02-06 14:02] LABS: INR 1.3 (0.9-1.1); Partial Thromboplastin Time 32 Seconds (21-31); Prothrombin Time 13.7 Seconds (9.0-12.0)
[2025-02-06] MEDS ORDERED: ACETAMINOPHEN 325 MG TAB PO PRN (14:08)
--- NOTE | 2025-02-06 14:48 | History & Physical Report ---
Date of Service February 06, 2025 Assessment & Plan (1) Hematuria: (2) Weakness: (3) Symptomatic anemia: Plan 84 yo M with PMHx of afib on Eliquis, recurrent UTIs, prediabetes, GERD, COPD here for symptomatic anemia and hematuria. Patient had TURP procedure done in June 2024, and states a few days after procedure started, developed blood in urine. Visited urologist yesterday, Hgb 5.5, instructed to come immediately to ED for transfusion. #Symptomatic anemia - Hgb at clinic 02/05 5.6 --> 5.7 upon admission - 2 units pRBCs, currently infusing 2nd unit - repeat H&H post-transfusion due at 20:00 02/06, consider repeat transfusion overnight if not meeting goal Hgb >7 - consider possible scope to evaluate for other sources of bleeding #Hematuria - differential diagnosis at this point includes UTI, chronic cystitis - CT abdomen/pelvis 02/05: 1. Overall improved appearance of the urinary bladder with decreased though persistent wall thickening and perivesicular inflammatory change. 2. Urinary bladder diverticulum also with wall thickening and mild surrounding inflammatory change. Findings could be chronic or represent persistent cystitis. 3. No renal calculus, mass or hydronephrosis. 4. Enlarged prostate, unchanged. - UA +blood, +bacteria, +wbc, +le - Culture pending #Afib - Eliquis held - Continue home metoprolol - Continue to trend PT, INR #BPH - Continue home terazosin Dispo: PCU with tele Code status: conditional code Diet: Heart healthy + T2DM History of Present Illness Chief Complaint: symptomatic anemia and hematuria Primary Care Provider: Gricelda De La Rosa, DO 84 yo M with PMHx of afib on Eliquis, recurrent UTIs, prediabetes, GERD, COPD here for symptomatic anemia and hematuria. Patient had TURP procedure done in June 2024, and states a few days after procedure started, developed blood in urine. States the amount of blood has gradually increased. Initially, toilet bowl would be slightly pink, whereas in last month, toilet bowl is filled with bright red blood. He follows with urologist and had outpatient appointment yesterday, where he mentioned this concern. Blood work was done which showed Hgb of 5.5. He was told to immediately go to the ER. Patient did not come in until today because his had medical appt that he wanted to be present at. Patient also has 2-3 week history of dizziness and LH with exertion. He feels fine at rest. Reports weakness. Denies syncopal episodes or falls. Denies dysuria, frequency, urgency. Denies CP, palpitations, AP, N/V. He has slight SOB at baseline due to his COPD which has not worsened. He is on Eliquis 5mg BID, last dose today morning. No recent sicknesses. Denies blood in stools, or other bleeding. He has about 1 alcoholic drink with dinner per night. Prior 1ppd smoker but quit over 40 years ago. Allergies Allergy/AdvReac Type Severity Reaction Status Date / Time tamsulosin [From Flomax] AdvReac Intermediate Confusion Verified 01/12/25 14:07 Home Medications Medication Instructions Recorded Confirmed Type latanoprost 0.005 % eye drops 1 drp ophthalmic (eye) HS 06/27/22 02/06/25 History cyanocobalamin (vitamin B-12) 1,000 mcg PO QAM 08/22/22 02/06/25 History 1,000 mcg capsule acetaminophen 500 mg tablet 500 mg PO Q6H PRN Pain 01/31/24 02/06/25 History (Tylenol Extra Strength) apixaban 5 mg tablet (Eliquis) 5 mg PO BID #180 tabs 02/28/24 02/06/25 Rx terazosin 2 mg capsule 2 mg PO QAM 03/24/24 02/06/25 History timolol maleate 0.5 % eye drops 1 drp OPB QAM 03/24/24 02/06/25 History finasteride 5 mg tablet 5 mg PO QAM #90 tabs 05/05/24 02/06/25 Rx cholecalciferol (vitamin D3) 25 50 mcg PO QAM 08/26/24 02/06/25 History mcg (1,000 unit) capsule doxycycline hyclate 100 mg capsule 100 mg PO BID #180 caps 12/01/24 02/06/25 Rx fluticasone fur. 100 mcg-umeclid 1 inh inhalation QAM #3 Inhalers 12/01/24 02/06/25 Rx 62.5 mcg-vilant 25 mcg inhalat.powder (Trelegy Ellipta) pantoprazole 40 mg tablet,delayed 40 mg PO BID #60 tabs 12/16/24 02/06/25 Rx release metoprolol succinate 100 mg 100 mg PO QAM #90 tabs 01/05/25 02/06/25 Rx tablet,extended release 24 hr hydrocodone 5 mg-acetaminophen 325 1 tab PO Q4H PRN pain #30 tabs 02/02/25 02/06/25 Rx mg tablet Past Med/Surg History Problem List (Updated 02/06/25 @ 17:13 by Martin James DO) Hematuria (Acute) Weakness (Acute) Symptomatic anemia (Acute) Suzanne glabrata infection Discitis of lumbar region Bilateral sacroiliitis Abnormal chest CT Recurrent UTI Urinary retention BPH w urinary obs/LUTS Status post spinal surgery Lumbosacral spondylosis with radiculopathy Right ventricular hypertrophy Loosening of hardware in spine b/l S1 pedicle screws Neurogenic claudication due to lumbar spinal stenosis Lumbar spinal stenosis Ex-smoker Elevated diaphragm Esophageal dysphagia Stage 3b chronic kidney disease follows with [facility] Restrictive lung disease Frequent unifocal PVCs Prediabetes Diet controlled Hallux valgus of right foot (Chronic) Prurigo nodularis Venous insufficiency per records, pt denies Premature ventricular contractions On anticoagulant therapy Multiple pulmonary nodules Multifocal atrial tachycardia Impaired fasting glucose Hyperlipidemia per records, pt denies Esophageal reflux controlled, stable per pt Elevated prostate specific antigen (PSA) Chronic sinusitis Atrial fibrillation Follows with Dr. Wise HTN (hypertension) controlled, stable per pt Osteomyelitis (03/2016) hx COPD (chronic obstructive pulmonary disease) emphysema, controlled, stable per pt; does not have rescue inhaler; follows with [facility] Medical History (Updated 02/06/25 @ 17:13 by Martin James DO) Compression fracture of L2 Gross hematuria History of ESBL E. coli infection Anemia History of BPH w/ obs/LUTS Hematuria pt denies at this time Abnormal chest x-ray following with [facility]; pending f/u CT (per pulm note prior to TURP 07/2024, no need to delay surgery) Right ventricular dysfunction Cardiomyopathy 'resolved' per 03/2024 Cardio note Restrictive lung disease Hx of pleural effusion 2019, no recent issues per pt. Hx of osteomyelitis (03/2016) On anticoagulant therapy Neurogenic claudication due to lumbar spinal stenosis Multifocal atrial tachycardia hx; follows with [facility]; on BB History of ESBL E. coli infection 2019 Frequent unifocal PVCs hx; f/u dr. okeefe, [place] [facility] History of dysphagia no recent issues per pt Chronic sinusitis Multiple pulmonary nodules hx, [place] Fever in the 1960's, left scarring in lungs; follows with [facility] Esophageal reflux Atrial flutter COPD (chronic obstructive pulmonary disease) emphysema, controlled, stable per pt; does not have rescue inhaler; follows with [facility] Fatigue "related to his back problems" Elevated hemidiaphragm right, follows with [facility] BPH (benign prostatic hyperplasia) MRSA (methicillin resistant Staphylococcus aureus) septicemia 2018- on doxycycline daily; follows with [facility] History Hx of cystoscopy Complication of anesthesia Hx of bilateral cataract extraction History of esophagogastroduodenoscopy (EGD) History of colonoscopy S/P laparoscopic cholecystectomy History of back surgery S/P nasal endoscopy with nasal polypectomy History of tonsillectomy H/O inguinal hernia repair Esophageal dilatation Family History Father Bowel perforation Mother Parkinson disease Brother Diabetes Hepatocellular carcinoma Other No known health problems Denies family history of Ovarian cancer Prostate cancer Myocardial infarction Breast cancer Colorectal cancer Social History Smoking Status: Never smoker Tobacco Type: Cigarettes Age Started Using Tobacco: 18; Age Quit Using Tobacco: 43; packs per day: 1; Cigarettes Per Day: quit ; Second Hand Exposure: No; Do You Dip or Chew Tobacco: No; Hx Alcohol Use: No Hx Substance Use: No Preferred Language: Nepali Communication Ability: Effective Visual Impairment: No Limitations Hearing Ability: Use of Hearing Aid Fashion Show Director Required: No Beliefs That Will Affect Care: None marital status: marital status details: Has two children Current Living Situation: Spouse current occupational status: retired Other Information That Helps Us Care for You: No Feels Safe at Home: Yes Safety Concerns: Feels Safe At This Time Childhood Exposure to Second-Hand Smoke: No Diet: regular Diet Comment: regular caffeine: Yes during the past year weight has: remained stable Dental Care, Regularly: Yes Physical Activity Frequency: 5-6 Times per Week Physical Activity Frequency Comment: walk Seatbelt Use: always Sunscreen Use: No Assistive Devices: None Review of Systems Review of Systems: All systems reviewed & are unremarkable except as noted in HPI & below Physical Exam Constitutional: WD/WN, vitals as above Respiratory: normal respiratory effort, lungs clear to auscultation Cardiovascular: RRR, no murmur, no edema Gastrointestinal (Abdomen): normal bowel sounds, soft, nontender, no hepatosplenomegaly Musculoskeletal: negative CVA tenderness upon percussion Skin: no rashes, warm and dry pale Psychiatric: A+Ox3, euthymic affect Results & Data Results & Data Vital Signs (Past 12 Hours) Vital Signs Temp Pulse Resp BP Pulse Ox O2 Del Method 02/06/25 13:44 69 02/06/25 13:31 75 17 99 Room Air 02/06/25 12:36 36.3 C L 64 20 94/56 L 98 Resident Activity Tracking Resident Involvement: Resident Care Provided Care Provided: Adult Hospital Medicine (1) Hematuria Hematuria type: unspecified type Qualified Code(s): R31.9 - Hematuria, unspecified
[2025-02-06] MEDS ORDERED: HYDROCODONE/ACETAMOPHEN 5/325MG TAB PO PRN (16:19)
[2025-02-06] MEDS ORDERED: INFLUENZA VACC TS2025-26(65y+)/PF (IIV3) 0.5mL Syr IM ONE (16:50)
[2025-02-06] MEDS: ACETAMINOPHEN 325 MG TAB PO SCH (18:05)
[2025-02-06 20:52] LABS: Hematocrit (blood only) 22.9 % (42.0-52.0); Hemoglobin 6.8 g/dl (14.0-18.0)
[2025-02-06] MEDS: LATANOPROST 0.005% OP SOLN 2.5 ML BTL OP SCH (20:58)
--- NOTE | 2025-02-06 21:06 | Urology Consultation ---
Date of Consultation February 06, 2025 Assessment & Plan (1) Hematuria: Patient has been admitted on the hospitalist service. Urologic recommendations are as follows: I suspect patient's hematuria may be related to combination of factors including ongoing urinary tract infections, his recent urologic procedures, and the fact that he takes Eliquis I do not see the patient had a urinalysis or culture sent this admission so I ordered this If clinically able would recommend holding the patient's Eliquis The patient has been transfused 2 units of packed red blood cells Serial labs to be followed and further transfusions to be ordered if clinically indicated At the present time the patient notes that he is able to empty his bladder when he urinates. He is to be monitored with bladder scans/postvoid residuals and if he does develop urinary retention consideration can be given to placing a Reese catheter Will make the patient n.p.o. after midnight and he will be reevaluated by her dayshift team on 02/07/2025 to determine if cystoscopy is warranted due to ongoing hematuria Additional recommendations will be forthcoming based on his clinical course as unfolds Supervising Physician Co-Signing Physician Notes Patient seen and examined independently. Placing my progress note from 02/07/2025 for my updated plan. History of Present Illness Reason for Consultation: Hematuria Attending Physician: Andres Galdamez History of Present Illness This is an 84-year-old male who has ongoing issues with hematuria and follows locally without any physician group urology. Patient says that in June of this year the patient was having issues with gross hematuria and recurrent urinary urinary tract infections. Follow-up note, he did have Suzanne glabrata in his urine which was felt to be a contributing factor of his hematuria. The patient has undergone a Rezum procedure on 10/02/2024 but continues to have gross hematuria. Patient notes that he does take Eliquis for history of atrial fibrillation. The patient had routine blood work performed on 02/05/2025 which showed a hemoglobin and hematocrit of 5.5 and 19.3 and he was therefore referred to the emergency department for admission. The patient denies any chest pain or shortness of breath. He does note some generalized fatigue/weakness with activity. He denies any recent falls or head injuries. Patient notes that he is not having any issues with urinary retention feeling as though he can empty his bladder completely. He does note that when he urinates he does not visualize any blood clots. Since arrival to the emergency department he has had repeat white blood cell count platelet count. Hemoglobin are 6.8 and 22.9. Coagulation studies showed an INR of 1.3 and a PTT of 32. Chemistry profile showed sodium and potassium were normal. His BUN was slightly elevated at 36 but his creatinine was normal. At the time of my interview he was resting comfortably in bed and he was in no distress Allergies Allergy/AdvReac Type Severity Reaction Status Date / Time tamsulosin [From Flomax] AdvReac Intermediate Confusion Verified 01/12/25 14:07 Home Medications Medication Instructions Recorded Confirmed Type latanoprost 0.005 % eye drops 1 drp ophthalmic (eye) HS 06/27/22 02/06/25 History cyanocobalamin (vitamin B-12) 1,000 mcg PO QAM 08/22/22 02/06/25 History 1,000 mcg capsule acetaminophen 500 mg tablet 500 mg PO Q6H PRN Pain 01/31/24 02/06/25 History (Tylenol Extra Strength) apixaban 5 mg tablet (Eliquis) 5 mg PO BID #180 tabs 02/28/24 02/06/25 Rx terazosin 2 mg capsule 2 mg PO QAM 03/24/24 02/06/25 History timolol maleate 0.5 % eye drops 1 drp OPB QAM 03/24/24 02/06/25 History finasteride 5 mg tablet 5 mg PO QAM #90 tabs 05/05/24 02/06/25 Rx cholecalciferol (vitamin D3) 25 50 mcg PO QAM 08/26/24 02/06/25 History mcg (1,000 unit) capsule doxycycline hyclate 100 mg capsule 100 mg PO BID #180 caps 12/01/24 02/06/25 Rx fluticasone fur. 100 mcg-umeclid 1 inh inhalation QAM #3 Inhalers 12/01/24 02/06/25 Rx 62.5 mcg-vilant 25 mcg inhalat.powder (Trelegy Ellipta) pantoprazole 40 mg tablet,delayed 40 mg PO BID #60 tabs 12/16/24 02/06/25 Rx release metoprolol succinate 100 mg 100 mg PO QAM #90 tabs 01/05/25 02/06/25 Rx tablet,extended release 24 hr hydrocodone 5 mg-acetaminophen 325 1 tab PO Q4H PRN pain #30 tabs 02/02/25 02/06/25 Rx mg tablet Patient History Medical History Compression fracture of L2 Gross hematuria History of ESBL E. coli infection Anemia History of BPH w/ obs/LUTS Hematuria pt denies at this time Abnormal chest x-ray following with [facility]; pending f/u CT (per pulm note prior to TURP 07/2024, no need to delay surgery) Right ventricular dysfunction Cardiomyopathy 'resolved' per 03/2024 Cardio note Restrictive lung disease Hx of pleural effusion 2018, no recent issues per pt. Hx of osteomyelitis (03/2016) On anticoagulant therapy Neurogenic claudication due to lumbar spinal stenosis Multifocal atrial tachycardia hx; follows with [facility]; on BB History of ESBL E. coli infection 2018 Frequent unifocal PVCs hx; f/u dr. okeefe, [place] [facility] History of dysphagia no recent issues per pt Chronic sinusitis Multiple pulmonary nodules hx, [place] Fever in the s, left scarring in lungs; follows with [facility] Esophageal reflux Atrial flutter COPD (chronic obstructive pulmonary disease) emphysema, controlled, stable per pt; does not have rescue inhaler; follows with [facility] Fatigue "related to his back problems" Elevated hemidiaphragm right, follows with [facility] BPH (benign prostatic hyperplasia) MRSA (methicillin resistant Staphylococcus aureus) septicemia 2017- on doxycycline daily; follows with [facility] History Hx of cystoscopy 08/14/24: cystoscopy: [place]: LMA Complication of anesthesia unable to urinate after "several years ago after nasal polyp sx" Hx of bilateral cataract extraction History of esophagogastroduodenoscopy (EGD) History of colonoscopy S/P laparoscopic cholecystectomy Dr. Mueller 10/17/18, d/t gangrenous cholecystitis. History of back surgery ~1983, "unsure of area," removal ruptured spinal disc; 2010, spinal disectomy, osteophylectomy lumbar interspace; 02/2016- lumbar decompression laminectomy at L5-S1 and washout and drainage of epidural abscess; 03/23/16, REVISION L4-L5, L5-S1 decompressive laminectomy and discectomy for recurrent osteomyelitis and epidural abscess, L5; 07/11/22, L3-L4 disectomy and fusion, L4-S1 hardware removal; 03/27/24: L2-L3 decompression/fusion, hardware removal L3-L5 ([place]: MAC#4, ETT#7.5 atraumatic x 1, Gr View 1) S/P nasal endoscopy with nasal polypectomy x2 in total, most recent 2010 History of tonsillectomy H/O inguinal hernia repair 11/2015- R open repair with drain placement Esophageal dilatation Family History Father Bowel perforation Mother Parkinson disease Brother Diabetes Hepatocellular carcinoma Other No known health problems Denies family history of Ovarian cancer Prostate cancer Myocardial infarction Breast cancer Colorectal cancer Social History Smoking Status: Never smoker Tobacco Type: Cigarettes Age Started Using Tobacco: 18; Age Quit Using Tobacco: 43; packs per day: 1; Cigarettes Per Day: quit ; Second Hand Exposure: No; Do You Dip or Chew Tobacco: No; Hx Alcohol Use: No Hx Substance Use: No Preferred Language: Mosotho Communication Ability: Effective Visual Impairment: No Limitations Hearing Ability: Use of Hearing Aid Dining Car Waiter/Waitress Required: No Beliefs That Will Affect Care: None marital status: marital status details: Has two children Current Living Situation: Spouse current occupational status: retired Other Information That Helps Us Care for You: No Feels Safe at Home: Yes Safety Concerns: Feels Safe At This Time Childhood Exposure to Second-Hand Smoke: No Diet: regular Diet Comment: regular caffeine: Yes during the past year weight has: remained stable Dental Care, Regularly: Yes Physical Activity Frequency: 5-6 Times per Week Physical Activity Frequency Comment: walk Seatbelt Use: always Sunscreen Use: No Assistive Devices: None Review of Systems Review of Systems: All systems reviewed & are unremarkable except as noted in HPI & below Physical Exam Constitutional: WD/WN, vitals as above Eyes: no conjunctival abnormality ENMT: Ears: no external ear abnormality Neck: trachea midline Respiratory: normal respiratory effort; no respiratory distress and no labored breathing Cardiovascular: Rate/Rhythm: regular rate and regular rhythm Gastrointestinal (Abdomen): Abdomen is soft without distention. There is no pain with palpation Musculoskeletal: No calf tenderness Skin: no rashes Neurologic: moves all extremities Psychiatric: A+Ox3, euthymic affect Genitourinary: no CVA tenderness with percussion bilaterally Results & Data Vital Signs (Past 12 Hours) Vital Signs Temp Pulse Pulse Resp BP BP Pulse Ox 02/06/25 19:03 37.1 C 88 16 133/62 97 02/06/25 18:44 37 C 70 02/06/25 17:54 36.6 C 80 14 118/61 100 02/06/25 17:33 72 02/06/25 17:26 36.8 C 66 14 130/60 99 02/06/25 17:08 36.8 C 70 16 122/71 96 02/06/25 16:25 36.4 C L 70 16 131/70 99 02/06/25 16:20 36.4 C L 73 20 133/62 98 02/06/25 15:25 36.8 C 73 22 123/67 98 02/06/25 15:24 71 24 123/67 98 02/06/25 15:00 72 24 122/58 L 99 02/06/25 15:00 36.5 C 75 18 122/58 L 100 02/06/25 14:30 73 24 118/57 L 98 02/06/25 13:44 69 02/06/25 13:31 75 17 99 02/06/25 13:30 72 13 116/56 L 94 02/06/25 12:36 36.3 C L 64 20 94/56 L 98 O2 Del Method O2 Flow Rate 02/06/25 19:03 02/06/25 18:44 02/06/25 17:54 02/06/25 17:33 02/06/25 17:26 02/06/25 17:08 02/06/25 16:25 Room Air 02/06/25 16:20 02/06/25 15:25 02/06/25 15:24 02/06/25 15:00 02/06/25 15:00 0 02/06/25 14:30 02/06/25 13:44 02/06/25 13:31 Room Air 02/06/25 13:30 02/06/25 12:36 PG Care Time/CCT Total # of Minutes Spent Total Time Spent with Patient: Total time spent is greater than 50% in coordination of care (as documented) at patient's floor/unit and/or counseling patient: Coding Level of Care Code 90413 INT INP/OBS CARE MIN Diagnoses Hematuria R31.9 Hematuria type: unspecified type (1) Hematuria Hematuria type: unspecified type Qualified Code(s): R31.9 - Hematuria, unspecified
[2025-02-07 01:29] LABS: Appearance Urine Turbid (Clear); Glucose Urine UA Negative (Negative)
[2025-02-07 01:46] LABS: Hematocrit (blood only) 25.1 % (42.0-52.0); Hemoglobin 7.7 g/dl (14.0-18.0)
[2025-02-07 06:20] LABS: Hematocrit (blood only) 24.8 % (42.0-52.0); Hemoglobin 7.5 g/dl (14.0-18.0); Immature Granulocytes # (auto) 0.03 K/uL (0.01-0.20); Immature Granulocytes % (auto) 0.4 %; Mean Corpuscular Hemoglobin 22.9 pg (25.0-34.0); Mean Corpuscular Volume 75.8 fL (80.0-100.0); Platelet Count 189 K/uL (130-400); RDW Standard Deviation 45.5 fL (36.4-46.3); Red Blood Count 3.27 M/uL (4.70-6.10); White Blood Count 7.17 K/ul (4.8-10.8)
[2025-02-07 06:38] LABS: Ovalocytes 1+; Polychromasia 1+; Tear Drop Cells 1+
[2025-02-07 06:40] LABS: Anion Gap 7.0 (3-11); Blood Urea Nitrogen 30.0 mg/dl (6-23); Calcium 8.2 mg/dl (8.6-10.3); Carbon Dioxide 23.0 mmol/L (21-32); Chloride 114.0 mmol/L (98-107); Creatinine Clr Calc Pharmacy 43.6 ml/min; Glucose 102.0 mg/dl (70-99(Fasting)); Potassium 4.0 mmol/L (3.5-5.1); Sodium 144.0 mmol/L (136-145)
[2025-02-07 06:54] LABS: INR 1.3 (0.9-1.1); Prothrombin Time 13.5 Seconds (9.0-12.0)
[2025-02-07] MEDS ORDERED: NON-FORMULARY MEDICATION (Fluticasone-Umeclidin-Vilanter [Trelegy Ellipta] 100-62.5-25 mcg INH SCH (09:00)
--- NOTE | 2025-02-07 09:59 | Hospitalist Progress Note ---
Date of Service February 07, 2025 Assessment & Plan (1) Hematuria: (2) Weakness: (3) Symptomatic anemia: Plan 84 yo M with PMHx of afib on Eliquis, recurrent UTIs, prediabetes, GERD, COPD here for symptomatic anemia and hematuria. Patient had TURP procedure done in June 2024, and states a few days after procedure started, developed blood in urine. Visited urologist yesterday, Hgb 5.5, instructed to come immediately to ED for transfusion. #Symptomatic anemia - Hgb at clinic 02/05 5.6 --> 5.7 upon admission --> 7.5 (post 3 units rbcs) - repeat H&H today PM to evaluate if patient needs another unit - patient denies bloody stools but consider possible scope in future to evaluate for other sources of bleeding #Hematuria - differential diagnosis at this point includes UTI, chronic cystitis - CT abdomen/pelvis 02/05: 1. Overall improved appearance of the urinary bladder with decreased though persistent wall thickening and perivesicular inflammatory change. 2. Urinary bladder diverticulum also with wall thickening and mild surrounding inflammatory change. Findings could be chronic or represent persistent cystitis. 3. No renal calculus, mass or hydronephrosis. 4. Enlarged prostate, unchanged. - UA 3+protein, 3+blood, no bacteria - Culture pending - urology consult: bladder scans/postvoid residuals, catheter if retaining urine, NPO, possible cystoscopy today - believe cystoscopy would be best next step at this point #Hypotension - BP value from today mornin/46, otherwise been in the 120-130s/60s - orthostatic vitals pending #Afib - Eliquis held - Continue home metoprolol - Continue to trend PT, INR #BPH - Continue home terazosin Dispo: PCU with tele Code status: conditional code Diet: Heart healthy + T2DM DVT prophylaxis: SCDs Admission and Anticipated Discharge Date Admission Date: February 06, 2025 Subjective Patient is feeling a lot better this morning. States he stood up to go to the bathroom and did not feel dizzy like before. Denies SOB, CP, AP, N/V. Review of Systems Review of Systems: All systems reviewed & are unremarkable except as noted in HPI & below Physical Exam Constitutional: WD/WN, vitals as above Respiratory: normal respiratory effort, lungs clear to auscultation Cardiovascular: RRR, no murmur, no edema Gastrointestinal (Abdomen): normal bowel sounds, soft, nontender, no hepatosplenomegaly Skin: no rashes, warm and dry Psychiatric: A+Ox3, euthymic affect Results & Data Results & Data Vital Signs (Past 12 Hours) Vital Signs Temp Pulse Pulse Resp BP BP Pulse Ox 02/07/25 07:50 02/07/25 07:27 60 02/07/25 07:24 37.1 C 62 18 97/46 L 93 02/07/25 03:14 36.5 C 58 L 18 113/58 L 92 02/07/25 00:28 36.3 C L 64 18 121/50 L 90 02/07/25 00:28 36.3 C L 64 18 121/50 L 90 02/06/25 23:58 36.9 C 60 16 121/52 L 90 02/06/25 22:58 37.1 C 64 18 124/54 L 92 02/06/25 22:28 36.4 C 66 18 135/65 94 02/06/25 22:28 36.4 C 66 18 135/65 94 02/06/25 22:13 36.4 C 64 18 137/64 96 O2 Del Method 02/07/25 07:50 Room Air 02/07/25 07:27 02/07/25 07:24 Room Air 02/07/25 03:14 Room Air 02/07/25 00:28 02/07/25 00:28 02/06/25 23:58 02/06/25 22:58 02/06/25 22:28 02/06/25 22:28 02/06/25 22:13 Resident Activity Tracking Resident Involvement: Resident Care Provided Care Provided: Adult Hospital Medicine (1) Hematuria Hematuria type: unspecified type Qualified Code(s): R31.9 - Hematuria, unspecified
--- NOTE | 2025-02-07 10:10 | Urology Progress Note ---
Date of Service February 07, 2025 Assessment & Plan (1) BPH w urinary obs/LUTS: (2) Urinary retention: Plan BPH status post Rezum in June with Dr. Zimmerman Has had excellent improvement from a urinary standpoint but has had intermittent bleeding and this became more pronounced over the past few weeks This is compounded by anticoagulation Required a blood transfusion yesterday Voiding adequately today although remains quite bloodythe color has become very dark I would like to observe for 1 more day to see if he has further improvement as his anticoagulation is reversed If he has a substantial drop in hemoglobin, I would consider taking him to the OR for TURP/cauterization as I presume that his bleeding is from the prostate. I will make him n.p.o. after midnight just in case but make a determination about the need for surgery tomorrow Admission and Anticipated Discharge Date Admission Date: February 06, 2025 Subjective Doing okay Voiding spontaneously into a urinal urine remains bloodyMerlot colored Some clots Received transfusion yesterday Hemoglobin today 7.5 which is improved but not drastically Overall feels well, aside from being mildly hypotensive he is hemodynamically stable Reports that bleeding has been ongoing since June with only intermittent improvement Currently holding REPP Results & Data Vital Signs (Past 12 Hours) Vital Signs Temp Pulse Pulse Resp BP BP Pulse Ox 02/07/25 07:50 02/07/25 07:27 60 02/07/25 07:24 37.1 C 62 18 97/46 L 93 02/07/25 03:14 36.5 C 58 L 18 113/58 L 92 02/07/25 00:28 36.3 C L 64 18 121/50 L 90 02/07/25 00:28 36.3 C L 64 18 121/50 L 90 02/06/25 23:58 36.9 C 60 16 121/52 L 90 02/06/25 22:58 37.1 C 64 18 124/54 L 92 02/06/25 22:28 36.4 C 66 18 135/65 94 02/06/25 22:28 36.4 C 66 18 135/65 94 02/06/25 22:13 36.4 C 64 18 137/64 96 O2 Del Method 02/07/25 07:50 Room Air 02/07/25 07:27 02/07/25 07:24 Room Air 02/07/25 03:14 Room Air 02/07/25 00:28 02/07/25 00:28 02/06/25 23:58 02/06/25 22:58 02/06/25 22:28 02/06/25 22:28 02/06/25 22:13 PG Care Time/CCT Total # of Minutes Spent Total Time Spent with Patient: Total time spent is greater than 50% in coordination of care (as documented) at patient's floor/unit and/or counseling patient: Coding Level of Care Code 54647 SUB INP/OBS CARE 3/50MIN Diagnoses BPH w urinary obs/LUTS N40.1; N13.8 Urinary retention R33.9
[2025-02-07] MEDS: TERAZOSIN HCL 1 MG CAP PO SCH (10:50)
[2025-02-07] MEDS: CYANOCOBALAMIN (B-12) 500 MCG TABLET PO SCH (10:51)
[2025-02-07] MEDS: METOPROLOL SUCC 50MG EXT REL TAB PO SCH (10:51)
[2025-02-07] MEDS: CHOLECALCIFEROL 25 MCG (1000 UNITS) TAB PO SCH (10:52)
[2025-02-07] MEDS: FINASTERIDE 5 MG TAB PO SCH (10:53)
[2025-02-07] MEDS: TIMOLOL MALEATE 0.5% OP SOLN 5 ML BTL OPB SCH (10:54)
[2025-02-07] MEDS: FLUTICASONE FUROATE 100MCG 14 PUFFS/INHALER INH SCH (11:03)
[2025-02-07] MEDS: UMECLIDINIUM/VILANTEROL 62.5/25MCG 7 PUFFS/INHALER INH SCH (11:03)
[2025-02-07 13:19] LABS: Hematocrit (blood only) 25.4 % (42.0-52.0); Hemoglobin 7.6 g/dl (14.0-18.0)
[2025-02-08 06:07] LABS: Hematocrit (blood only) 25.7 % (42.0-52.0); Hemoglobin 7.7 g/dl (14.0-18.0); Immature Granulocytes # (auto) 0.05 K/uL (0.01-0.20); Immature Granulocytes % (auto) 0.6 %; Mean Corpuscular Hemoglobin 22.5 pg (25.0-34.0); Mean Corpuscular Volume 75.1 fL (80.0-100.0); Platelet Count 190 K/uL (130-400); RDW Standard Deviation 47.0 fL (36.4-46.3); Red Blood Count 3.42 M/uL (4.70-6.10); White Blood Count 8.15 K/ul (4.8-10.8)
[2025-02-08 06:23] LABS: Anion Gap 7.0 (3-11); Blood Urea Nitrogen 22.0 mg/dl (6-23); Calcium 8.0 mg/dl (8.6-10.3); Carbon Dioxide 22.0 mmol/L (21-32); Chloride 113.0 mmol/L (98-107); Creatinine Clr Calc Pharmacy 46.1 ml/min; Glucose 115.0 mg/dl (70-99(Fasting)); Potassium 3.6 mmol/L (3.5-5.1); Sodium 142.0 mmol/L (136-145)
[2025-02-08 06:27] LABS: Anisocytosis Present; Polychromasia 2+; Tear Drop Cells 1+
--- NOTE | 2025-02-08 09:53 | Urology Progress Note ---
Date of Service February 08, 2025 Assessment & Plan (1) Hematuria: (2) BPH w urinary obs/LUTS: Plan Persisting gross hematuria Has now stopped Eliquis which I believe has stopped the bleeding but he still has substantial old blood within the bladder and could require clot evacuation Next we had a long conversation about different options including continued time off of Eliquis to allow potential spontaneous recovery, he is not interested in this option as he feels that his bleeding has been ongoing for several months and he is extraordinarily frustrated and does not wish to have another transfusion in the future I have offered cystoscopy, clot evacuation possible TURPI explained that this does not definitively mean I can stop the bleeding permanently but it may help speed the process. He is very much interested in pursuing this and we will moving forward with surgery this morning Admission and Anticipated Discharge Date Admission Date: February 06, 2025 Subjective Subjectively doing okay He has not required further transfusions He is urinating but urine remains extremely bloody and very dark He is extraordinarily frustrated at his current situation as he feels with his him going on for months without resolution and he is concerned that continued waiting does nothing to solve the problem He has now been off Eliquis for nearly 72 hours which certainly has been beneficial Physical Exam Constitutional: well developed and well nourished Respiratory: no respiratory distress Cardiovascular: Extremities: no pedal edema Gastrointestinal (Abdomen): Inspection/Auscultation: abdomen normal to inspection Results & Data Vital Signs (Past 12 Hours) Vital Signs Temp Pulse Pulse Resp BP Pulse Ox O2 Del Method 02/08/25 07:50 Room Air 02/08/25 07:24 36.8 C 68 23 114/51 L 97 Room Air 02/08/25 07:17 75 02/08/25 05:17 74 130/61 90 Room Air 02/08/25 04:00 95 Room Air 02/08/25 03:23 37.0 C 77 18 126/63 88 L Room Air 02/07/25 22:58 37.1 C 90 18 120/53 L 91 Room Air PG Care Time/CCT Total # of Minutes Spent Total Time Spent with Patient: Total time spent is greater than 50% in coordination of care (as documented) at patient's floor/unit and/or counseling patient: Coding Level of Care Code 80994 SUB INP/OBS CARE 3/50MIN Diagnoses Hematuria R31.9 Hematuria type: unspecified type BPH w urinary obs/LUTS N40.1; N13.8 (1) Hematuria Hematuria type: unspecified type Qualified Code(s): R31.9 - Hematuria, unspecified
[2025-02-08] MEDS ORDERED: ONDANSETRON INJ 2 MG/ML 2 ML VIAL ONE (10:10)
[2025-02-08] MEDS ORDERED: LIDOCAINE 2% 2 ML VIAL/AMP(20MG/ML) INFIL ONE (10:10)
[2025-02-08] MEDS ORDERED: PROPOFOL IV EMULSION 10 MG/ML 20 ML VIAL IV ONE (10:10)
[2025-02-08] MEDS ORDERED: ATROPINE SULFATE 0.1 MG/ML 10ML SYR IV PRN (10:21)
[2025-02-08] MEDS ORDERED: HYDROmorphone INJ 1 MG/ML SYRINGE IV PRN (10:21)
[2025-02-08] MEDS ORDERED: ONDANSETRON INJ 2 MG/ML 2 ML VIAL IV PRN (10:21)
--- NOTE | 2025-02-08 10:21 | Anesthesiology Consultation ---
Date of Service February 08, 2025 Assessment & Plan ASA ASA3 Proposed Anesthesia Anesthesia Type: General Risk / Benefits Reviewed With: PT / POA / Parent / Guardian, Accepts Plan and Informed Consent Obtained History Surgery Operation Date: 02/08/25 10:30 Proposed Procedures p Cystoscopy - Merlin Pardo MD Height/Weight Height: 5 ft 10 in Weight: 69.4 kg Allergies Allergy/AdvReac Type Severity Reaction Status Date / Time tamsulosin [From Flomax] AdvReac Intermediate Confusion Verified 01/12/25 14:07 Medications Home Medications Medication Instructions Recorded Confirmed Last Taken latanoprost 0.005 % eye drops 1 drp ophthalmic (eye) HS 06/27/22 02/06/25 10/01/24 21:00 cyanocobalamin (vitamin B-12) 1,000 mcg PO QAM 08/22/22 02/06/25 10/01/24 09:00 1,000 mcg capsule acetaminophen 500 mg tablet 500 mg PO Q6H PRN Pain 01/31/24 02/06/25 10/01/24 12:00 (Tylenol Extra Strength) apixaban 5 mg tablet (Eliquis) 5 mg PO BID #180 tabs 02/28/24 02/06/25 09/28/24 20:00 terazosin 2 mg capsule 2 mg PO QAM 03/24/24 02/06/25 10/02/24 05:30 timolol maleate 0.5 % eye drops 1 drp OPB QAM 03/24/24 02/06/25 10/01/24 09:00 finasteride 5 mg tablet 5 mg PO QAM #90 tabs 05/05/24 02/06/25 10/01/24 09:00 cholecalciferol (vitamin D3) 25 50 mcg PO QAM 08/26/24 02/06/25 10/01/24 09:00 mcg (1,000 unit) capsule doxycycline hyclate 100 mg capsule 100 mg PO BID #180 caps 12/01/24 02/06/25 Unknown fluticasone fur. 100 mcg-umeclid 1 inh inhalation QAM #3 Inhalers 12/01/24 02/06/25 Unknown 62.5 mcg-vilant 25 mcg inhalat.powder (Trelegy Ellipta) pantoprazole 40 mg tablet,delayed 40 mg PO BID #60 tabs 12/16/24 02/06/25 Unknown release metoprolol succinate 100 mg 100 mg PO QAM #90 tabs 01/05/25 02/06/25 Unknown tablet,extended release 24 hr hydrocodone 5 mg-acetaminophen 325 1 tab PO Q4H PRN pain #30 tabs 02/02/25 02/06/25 Unknown mg tablet Active Medications Generic Name Dose Route Start Last Admin Trade Name Freq PRN Reason Stop Dose Admin Cyanocobalamin 1,000 mcg 02/07/25 09:00 02/07/25 10:51 Cyanocobalamin (B-12) 500 Mcg Tablet PO 03/09/25 08:59 1,000 mcg QAM VIANEY Administration Finasteride 5 mg 02/07/25 09:00 02/07/25 10:53 Finasteride 5 Mg Tab PO 03/09/25 08:59 5 mg QAM VIANEY Administration Fluticasone Furoate 1 puffs 02/07/25 09:00 02/08/25 07:53 Fluticasone Furoate 100mcg 14 Puffs/Inhaler INH 03/09/25 08:59 Not Given DAILY VIANEY Latanoprost 1 drops 02/06/25 21:00 02/07/25 19:44 Latanoprost 0.005% Op Soln 2.5 Ml Btl OP 03/08/25 20:59 1 drops HS VINAEY Administration Metoprolol Succinate 100 mg 02/07/25 09:00 02/07/25 10:51 Metoprolol Succ 50mg Ext Rel Tab PO 03/09/25 08:59 100 mg QAM VIANEY Administration Pantoprazole Sodium 40 mg 02/06/25 21:00 02/07/25 19:44 Pantoprazole 40 Mg Tab PO 03/08/25 20:59 40 mg BID VIANEY Administration Terazosin HCl 2 mg 02/07/25 09:00 02/07/25 10:50 Terazosin Hcl 1 Mg Cap PO 03/09/25 08:59 2 mg QAM VIANEY Administration Timolol Maleate 1 drops 02/07/25 09:00 02/07/25 10:54 Timolol Maleate 0.5% Op Soln 5 Ml Btl OPB 03/09/25 08:59 1 drops QAM VIANEY Administration Umeclidinium/Vilanterol 1 puffs 02/07/25 09:00 02/08/25 07:53 Umeclidinium/Vilanterol 62.5/25mcg 7 Puffs/Inhaler INH 03/09/25 08:59 Not Given DAILY VIANEY Vitamin D 50 mcg 02/07/25 09:00 02/07/25 10:52 Cholecalciferol 25 Mcg (1000 Units) Tab PO 03/09/25 08:59 50 mcg QAM VIANEY Administration Past Medical History Medical History Compression fracture of L2 Gross hematuria History of ESBL E. coli infection Anemia History of BPH w/ obs/LUTS Hematuria pt denies at this time Abnormal chest x-ray following with [facility]; pending f/u CT (per pulm note prior to TURP 07/2024, no need to delay surgery) Right ventricular dysfunction Cardiomyopathy 'resolved' per 03/2024 Cardio note Restrictive lung disease Hx of pleural effusion 2018, no recent issues per pt. Hx of osteomyelitis (03/2016) On anticoagulant therapy Neurogenic claudication due to lumbar spinal stenosis Multifocal atrial tachycardia hx; follows with [facility]; on BB History of ESBL E. coli infection 2019 Frequent unifocal PVCs hx; f/u dr. [place], [place] History of dysphagia no recent issues per pt Chronic sinusitis Multiple pulmonary nodules hx, [place] Fever in the s, left scarring in lungs; follows with [facility] pulm Esophageal reflux Atrial flutter COPD (chronic obstructive pulmonary disease) emphysema, controlled, stable per pt; does not have rescue inhaler; follows with [facility] Fatigue "related to his back problems" Elevated hemidiaphragm right, follows with [facility] BPH (benign prostatic hyperplasia) MRSA (methicillin resistant Staphylococcus aureus) septicemia 2018- on doxycycline daily; follows with [facility] Exercise / Class Metabolic Activity II 4-5 Yardwork/Stairs/Walk up hill Past Family History Family History Father Bowel perforation Mother Parkinson disease Brother Diabetes Hepatocellular carcinoma Other No known health problems Denies family history of Ovarian cancer Prostate cancer Myocardial infarction Breast cancer Colorectal cancer Past Surgical History Surgical History Hx of cystoscopy 08/14/24: cystoscopy: [place]: LMA Complication of anesthesia unable to urinate after "several years ago after nasal polyp sx" Hx of bilateral cataract extraction History of esophagogastroduodenoscopy (EGD) History of colonoscopy S/P laparoscopic cholecystectomy Dr. Mueller 10/17/18, d/t gangrenous cholecystitis. History of back surgery ~1983, "unsure of area," removal ruptured spinal disc; 2010, spinal disectomy, osteophylectomy lumbar interspace; 02/2016- lumbar decompression laminectomy at L5-S1 and washout and drainage of epidural abscess; 03/23/16, REVISION L4-L5, L5-S1 decompressive laminectomy and discectomy for recurrent osteomyelitis and epidural abscess, L5; 07/11/22, L3-L4 disectomy and fusion, L4-S1 hardware removal; 03/27/24: L2-L3 decompression/fusion, hardware removal L3-L5 ([place]: MAC#4, ETT#7.5 atraumatic x 1, Gr View 1) S/P nasal endoscopy with nasal polypectomy x2 in total, most recent 2010 History of tonsillectomy H/O inguinal hernia repair 11/2015- R open repair with drain placement Esophageal dilatation Past Anesthesia History No Hx of Anesthesia Complications and No Family Hx of Anesthesia Complications History of PONV No Hx of PONV and No Hx of Motion Sickness Social History Smoking Status: Never smoker tobacco type: cigarettes Smoking cigarettes per day: quit Do You Dip or Chew Tobacco: No Hx Alcohol Use: No Alcohol type: hard liquor alcohol intake frequency: 0-2 drinks per day Hx Substance Use: No substance use type: does not use Review of Systems denies fever/cough/ colds/ chest pain/ SOB/ MORENO denies MORENO Physical Exam Vital Signs Last Vital Signs Temp 36.8 C 02/08/25 07:24 Pulse 68 02/08/25 07:24 Resp 23 02/08/25 07:24 BP 114/51 L 02/08/25 07:24 Pulse Ox 97 02/08/25 07:24 O2 Del Method Room Air 02/08/25 07:50 O2 Flow Rate 0 02/06/25 15:00 ENMT Mouth: no TMJ abnormality and no dentition abnormality Thyromental Distance: > or= 3.5 Finger Breadths Mallampati Class: II Neck neck extension not limited Respiratory normal respiratory effort; no respiratory distress Auscultation: lungs clear to auscultation bilaterally Cardiovascular Rate/Rhythm: regular rate and regular rhythm Neurologic moves all extremities Psychiatric Orientation: alert and oriented x 3 Testing Laboratory Results 02/08/25 05:34 02/08/25 05:34 PT 13.5 Seconds (9.0-12.0) H 02/07/25 05:43 INR 1.3 (0.9-1.1) H 02/07/25 05:43 APTT 32 Seconds (21-31) H 02/06/25 13:04 Urine Color Red 02/07/25 00:40 Urine Appearance Turbid (Clear) A 02/07/25 00:40 Urine pH 6.5 (4.5-7.5) 02/07/25 00:40 Ur Specific [place] 1.020 (1.000-1.030) 02/07/25 00:40 Urine Protein 3+ (Negative) H 02/07/25 00:40 Urine Glucose (UA) Negative (Negative) 02/07/25 00:40 Urine Ketones Negative (Negative) 02/07/25 00:40 Urine Nitrite Negative (Negative) 02/07/25 00:40 Ur Leukocyte Esterase Negative (Negative) 02/07/25 00:40 Urine RBC >20 /hpf (0-2) H 02/07/25 00:40 Urine WBC 11-20 /hpf (0-5) H 02/07/25 00:40 Ur Epithelial Cells 6-10 /hpf (0-2) H 02/07/25 00:40 Blood Type O Positive 02/06/25 13:01 Antibody Screen NEGATIVE 02/06/25 13:01 02/07/25 00:40 Urine Culture - Preliminary Urine,Clean Catch No growth - Less than 1,000 colonies/mL, Final report to follow.
[2025-02-08] MEDS ORDERED: PHENYLEPHRINE 100MCG/ML 5ML SYR ONE (10:28)
[2025-02-08] MEDS ORDERED: ceFAZolin 330 MG/ML 1 GM VIAL ONE (10:38)
--- NOTE | 2025-02-08 10:41 | Hospitalist Progress Note ---
Date of Service February 08, 2025 Assessment & Plan (1) Hematuria: (2) Weakness: (3) Symptomatic anemia: Plan 84 yo M with PMHx of afib on Eliquis, recurrent UTIs, prediabetes, GERD, COPD here for symptomatic anemia and hematuria. Patient had TURP procedure done in June 2024, and states a few days after procedure started, developed blood in urine. Visited urologist yesterday, Hgb 5.5, instructed to come immediately to ED for transfusion. #Symptomatic anemia - Hgb at clinic 02/05 5.6 --> 5.7 upon admission --> 7.5 (post 3 units rbcs) --> 7.7 02/08 AM - repeat H&H today PM to evaluate if patient needs another unit - patient denies bloody stools but consider possible scope in future to evaluate for other sources of bleeding - improving, continue to monitor #Hematuria - differential diagnosis at this point includes UTI, chronic cystitis - CT abdomen/pelvis 02/05: 1. Overall improved appearance of the urinary bladder with decreased though persistent wall thickening and perivesicular inflammatory change. 2. Urinary bladder diverticulum also with wall thickening and mild surrounding inflammatory change. Findings could be chronic or represent persistent cystitis. 3. No renal calculus, mass or hydronephrosis. 4. Enlarged prostate, unchanged. - UA 3+protein, 3+blood, no bacteria - Culture pending - urology will be performing cystoscopy, clot evacuation, TURP today - continue to monitor #Hypotension - BP value from today mornin/46, otherwise been in the 120-130s/60s - orthostatic vitals - not indicative of orthostatic hypotension #Afib - Eliquis held - Continue home metoprolol - Continue to trend PT, INR #BPH - Continue home terazosin Dispo: PCU with tele Code status: conditional code Diet: Heart healthy + T2DM DVT prophylaxis: SCDs Admission and Anticipated Discharge Date Admission Date: February 06, 2025 Subjective Patient is doing well this morning. Continues to have persistent hematuria. He was able to walk around the unit yesterday and denies dizziness, LH, CP, SOB. No acute concerns. Review of Systems Review of Systems: All systems reviewed & are unremarkable except as noted in HPI & below Physical Exam Constitutional: WD/WN, vitals as above Respiratory: normal respiratory effort, lungs clear to auscultation Cardiovascular: RRR, no murmur, no edema Gastrointestinal (Abdomen): normal bowel sounds, soft, nontender, no hepatosplenomegaly Skin: no rashes, warm and dry Psychiatric: A+Ox3, euthymic affect Results & Data Results & Data Vital Signs (Past 12 Hours) Vital Signs Temp Pulse Pulse Resp BP Pulse Ox O2 Del Method 02/08/25 07:50 Room Air 02/08/25 07:24 36.8 C 68 23 114/51 L 97 Room Air 02/08/25 07:17 75 02/08/25 05:17 74 130/61 90 Room Air 02/08/25 04:00 95 Room Air 02/08/25 03:23 37.0 C 77 18 126/63 88 L Room Air 02/07/25 22:58 37.1 C 90 18 120/53 L 91 Room Air Resident Activity Tracking Resident Involvement: Resident Care Provided Care Provided: Adult Hospital Medicine (1) Hematuria Hematuria type: unspecified type Qualified Code(s): R31.9 - Hematuria, unspecified
[2025-02-08] MEDS: CIPROFLOXACIN / D5W 400 MG/200 ML BAG IV SCH (10:44)
--- NOTE | 2025-02-08 11:17 | Operative Report ---
PG Post Operative Report Pre & Post Diagnosis Operation Date: 02/08/25 10:30 Pre-Op Diagnosis: Hematuria, Benign Prostatic Hyperplasia with urinary obstruction Post-Op Diagnosis: Hematuria, Benign Prostatic Hyperplasia with urinary obstruction I identified the patient and participated in the time-out.: Yes Procedure Operation Date: 02/08/25 10:30 Actual Procedures p Cystoscopy, Clot Evacuation, Transurethral Resection of the Prostate (Not Applicable) - Merlin Pardo MD Surgeon Merlin Pardo MD Steak Tenderizer Machine none Estimated Blood Loss 0 Findings Consistent with Post-Op Diagnosis Specimens Prostate chips Description of Procedure The patient was identified in the preoperative holding area, appropriate informed consents were reviewed and completed and the patient was transferred to the operative suite. Upon arrival, appropriate antibiotics and anesthesia were administered and the patient was placed in dorsal lithotomy position and prepped and draped in sterile fashion. Beginning case I passed a 27 Iranian resectoscope with 30 degree lens and visual after repair inspection revealed a healthy appearing urethra and a moderately enlarged prostate with a high bladder neck and slightly irregular contour secondary to a prior Rezum. There was some active bleeding from the anterior aspect of the prostate in the midline. I then entered the bladder and the bladder was extremely heavily trabeculated with numerous diverticuli including a relatively large diverticulum on the left lateral wall near the left UO. I was not able to definitively identify the UO but it appears to be just inside this diverticulum. His right UO was in orthotopic position and easily identified. I washed out each diverticulum and inspected and I saw no tumors but there did appear to be some irritation inside the diverticulum on the left that appeared to be one of the potential sources for some active bleeding. After my full inspection I utilized a loop electrode and I cauterized the area of concern. I then withdrew the scope back into the prostate and I resected tissue to get to the blood vessel of the anterior surface. This was originally between lumps of tissue and smoothing out the anterior surface allowed easy identification of the small arterial which was then cauterized. I then proceeded to resect some left lateral lobe tissue and some right lateral lobe tissue, particularly focusing on the irregular types of lumps that were protruding into the urethra. Cauterized vessels between them and then this is removed the entire prostate try to ensure excellent hemostasis. Specimen was collected and passed off the table as prostate chips. I confirmed that all chips were out of the diverticuli. Hemostasis was excellent. A 22 Iranian Reese catheter was inserted with 30 cc placed in the balloon and he was reversed of anesthesia and taken to the recovery room in stable condition. There were no complications. Will plan for voiding trial tomorrow, presuming he remains clear, we should be able to resume Eliquis in the next 48 to 72 hours I attest to the content of the Intraoperative Record and any orders documented therein. Any exceptions are noted below.
--- NOTE | 2025-02-08 11:49 | Anesthesiology Progress Note ---
Date of Service February 08, 2025 Anesthesia Post Procedure Vital Signs Vital Signs: Temp Pulse Pulse Resp BP BP Pulse Ox 02/08/25 11:41 71 23 125/57 L 96 02/08/25 11:35 36.8 C 73 21 133/65 95 02/08/25 11:25 74 23 119/65 100 02/08/25 11:17 36.2 C L 70 21 128/67 100 02/08/25 07:50 02/08/25 07:24 36.8 C 68 23 114/51 L 97 02/08/25 07:17 75 02/08/25 05:17 74 130/61 90 02/08/25 04:00 95 02/08/25 03:23 37.0 C 77 18 126/63 88 L 02/07/25 22:58 37.1 C 90 18 120/53 L 91 02/07/25 21:44 72 02/07/25 19:36 37.0 C 72 18 127/62 91 02/07/25 15:13 37.1 C 66 18 104/43 L 93 02/07/25 14:16 63 O2 Del Method O2 Flow Rate 02/08/25 11:41 Room Air 02/08/25 11:35 Room Air 02/08/25 11:25 Oxymask 4 02/08/25 11:17 Oxymask 8 02/08/25 07:50 Room Air 02/08/25 07:24 Room Air 02/08/25 07:17 02/08/25 05:17 Room Air 02/08/25 04:00 Room Air 02/08/25 03:23 Room Air 02/07/25 22:58 Room Air 02/07/25 21:44 02/07/25 19:36 Room Air 02/07/25 15:13 Room Air 02/07/25 14:16 Transfer of Care Handoff Completed per policy Notes Mental Status: alert / awake / arousable and participated in evaluation Patient Amnestic to Procedure: Yes Nausea / Vomiting: adequately controlled Pain: adequately controlled Airway Patency, RR, SpO2: stable & adequate BP & HR: stable & adequate Hydration State: stable & adequate Anesthetic Complications: no major complications apparent and Pt Satisfied with anesthetic care
[2025-02-08] MEDS: ceFAZolin 330 MG/ML 1 GM VIAL ONE (12:35)
[2025-02-08] MEDS: HYDROCODONE/ACETAMOPHEN 5/325MG TAB PO PRN (13:07)
--- NOTE | 2025-02-08 23:08 | Electrocardiogram Report ---
Test Reason : Blood Pressure : */* mmHG Vent. Rate : 72 BPM Atrial Rate : 72 BPM P-R Int : 190 ms QRS Dur : 88 ms QT Int : 418 ms P-R-T Axes : 59 72 57 degrees QTcB Int : 457 ms Normal sinus rhythm Low voltage QRS Nonspecific ST and T wave abnormality Abnormal ECG When compared with ECG of 14-Aug-2024 11:01, Fusion complexes are no longer Present Confirmed by Mic Wise ([id number]) on 02/08/2025 11:07:28 PM Referred By: Azra Monaco Confirmed By: Mic Wise
[2025-02-09] MEDS ORDERED: CIPROFLOXACIN / D5W 400 MG/200 ML BAG IV SCH (06:00)
[2025-02-09 06:22] LABS: Hematocrit (blood only) 26.5 % (42.0-52.0); Hemoglobin 7.8 g/dl (14.0-18.0); Immature Granulocytes # (auto) 0.03 K/uL (0.01-0.20); Immature Granulocytes % (auto) 0.5 %; Mean Corpuscular Hemoglobin 22.8 pg (25.0-34.0); Mean Corpuscular Volume 77.5 fL (80.0-100.0); Platelet Count 175 K/uL (130-400); RDW Standard Deviation 50.6 fL (36.4-46.3); Red Blood Count 3.42 M/uL (4.70-6.10); White Blood Count 5.80 K/ul (4.8-10.8)
[2025-02-09 06:41] LABS: Anion Gap 6.0 (3-11); Blood Urea Nitrogen 19.0 mg/dl (6-23); Calcium 7.7 mg/dl (8.6-10.3); Carbon Dioxide 24.0 mmol/L (21-32); Chloride 111.0 mmol/L (98-107); Creatinine Clr Calc Pharmacy 41.7 ml/min; Glucose 95.0 mg/dl (70-99(Fasting)); Potassium 3.8 mmol/L (3.5-5.1); Sodium 141.0 mmol/L (136-145)
[2025-02-09 06:44] LABS: Polychromasia 1+
[2025-02-09 07:22] VITALS: TEMP 98.8
--- NOTE | 2025-02-09 08:17 | Hospitalist Progress Note ---
Date of Service February 09, 2025 Assessment & Plan Admission and Anticipated Discharge Date Admission Date: February 06, 2025 Results & Data Results & Data Vital Signs (Past 12 Hours) Vital Signs Temp Pulse Pulse Resp BP Pulse Ox O2 Del Method 02/09/25 07:21 37.1 C 76 21 119/62 93 Room Air 02/09/25 03:11 37.2 C 74 22 105/46 L 96 Room Air 02/09/25 00:14 76 02/08/25 23:17 37.4 C 78 22 100/52 L 96 Room Air Resident Activity Tracking Resident Involvement: Resident Care Provided Care Provided: Adult Hospital Medicine
--- NOTE | 2025-02-09 09:58 | Urology Progress Note ---
Date of Service February 09, 2025 Assessment & Plan (1) Recurrent UTI: (2) BPH w urinary obs/LUTS: Plan Postop day #1 status post clot evacuation, fulguration, TURP Urine appears appropriate given his recent surgery Plan for a voiding trial this morning Discharge home later today Okay to start Eliquis tomorrow and follow-up as an outpatient in 2 to 3 weeks Admission and Anticipated Discharge Date Admission Date: February 06, 2025 Subjective Did very well overnight No major issues or concerns Tolerating his catheter Hemoglobin stable Physical Exam Physical Exam: Reese in place, urine relatively clear Results & Data Vital Signs (Past 12 Hours) Vital Signs Temp Pulse Pulse Resp BP Pulse Ox O2 Del Method 02/09/25 07:21 37.1 C 76 21 119/62 93 Room Air 02/09/25 03:11 37.2 C 74 22 105/46 L 96 Room Air 02/09/25 00:14 76 02/08/25 23:17 37.4 C 78 22 100/52 L 96 Room Air PG Care Time/CCT Total # of Minutes Spent Total Time Spent with Patient: Total time spent is greater than 50% in coordination of care (as documented) at patient's floor/unit and/or counseling patient: Coding Level of Care Code 54981 SUB INP/OBS CARE 2/35MIN Diagnoses Recurrent UTI N39.0 BPH w urinary obs/LUTS N40.1; N13.8
[2025-02-09 11:11] VITALS: PULSE 69; RESP 18; O2SAT 94
[2025-02-09 14:10] VITALS: BP 106/50
--- NOTE | 2025-02-09 19:11 | Billing Data ---
Date of Service February 09, 2025 Coding Level of Care Code 26330 IN/OBS DISCH 30 MIN/LESS
--- NOTE | 2025-02-09 19:21 | Discharge Summary ---
Date of Service February 09, 2025 Admission HPI Per Admitting Provider 84 yo M with PMHx of afib on Eliquis, recurrent UTIs, prediabetes, GERD, COPD here for symptomatic anemia and hematuria. Patient had TURP procedure done in June 2024, and states a few days after procedure started, developed blood in urine. States the amount of blood has gradually increased. Initially, toilet bowl would be slightly pink, whereas in last month, toilet bowl is filled with bright red blood. He follows with urologist and had outpatient appointment yesterday, where he mentioned this concern. Blood work was done which showed Hgb of 5.5. He was told to immediately go to the ER. Patient did not come in until today because his had medical appt that he wanted to be present at. Patient also has 2-3 week history of dizziness and LH with exertion. He feels fine at rest. Reports weakness. Denies syncopal episodes or falls. Denies dysuria, frequency, urgency. Denies CP, palpitations, AP, N/V. He has slight SOB at baseline due to his COPD which has not worsened. He is on Eliquis 5mg BID, last dose today morning. No recent sicknesses. Denies blood in stools, or other bleeding. He has about 1 alcoholic drink with dinner per night. Prior 1ppd smoker but quit over 40 years ago. Admission Exam Per Admitting Provider Constitutional: WD/WN, vitals as above Respiratory: normal respiratory effort, lungs clear to auscultation Cardiovascular: RRR, no murmur, no edema Gastrointestinal (Abdomen): normal bowel sounds, soft, nontender, no hepatosplenomegaly Musculoskeletal: negative CVA tenderness upon percussion Skin: no rashes, warm and dry pale Psychiatric: A+Ox3, euthymic affect Principal Diagnosis Symptomatic anemia, hematuria Discharge Exam Constitutional WD/WN, vitals as above Respiratory normal respiratory effort, lungs clear to auscultation Cardiovascular RRR, no murmur, no edema Gastrointestinal (Abdomen) normal bowel sounds, soft, nontender, no hepatosplenomegaly Skin no rashes, warm and dry Psychiatric A+Ox3, euthymic affect Discharge Data Allergies Allergy/AdvReac Type Severity Reaction Status Date / Time tamsulosin [From Flomax] AdvReac Intermediate Confusion Verified 01/12/25 14:07 Consultations 02/06/25 13:08 ED Decision to Admit Stat 02/06/25 14:18 Consult Urology Routine Procedures Performed Operation Date: 02/08/25 10:30 Actual Procedures p Transurethral Resection of the Prostate (Not Applicable) - Merlin Pardo MD s Cystoscopy, Clot Evacuation, (Not Applicable) - Merlin Pardo MD Hospital Course (1) Hematuria: (2) Symptomatic anemia: (3) Weakness: Plan 84 yo M with PMHx of afib on Eliquis, recurrent UTIs, prediabetes, GERD, COPD here for symptomatic anemia and hematuria. Patient had TURP procedure done in June 2024, and states a few days after procedure started, developed blood in urine. Visited urologist yesterday, Hgb 5.5, instructed to come immediately to ED for transfusion. #Symptomatic anemia - Hgb at clinic 02/05 5.6 --> 5.7 upon admission --> 7.5 (post 3 units rbcs) --> 7.8 02/08 AM - appropriately transfused - improving, continue to monitor #Hematuria - CT abdomen/pelvis 02/05: 1. Overall improved appearance of the urinary bladder with decreased though persistent wall thickening and perivesicular inflammatory change. 2. Urinary bladder diverticulum also with wall thickening and mild surrounding inflammatory change. Findings could be chronic or represent persistent cystitis. 3. No renal calculus, mass or hydronephrosis. 4. Enlarged prostate, unchanged. - UA 3+protein, 3+blood, no bacteria - Culture pending - urology consult appreciated, performed cystoscopy, clot evacuation, TURP 02/07 - recovered well, successful voiding trial w/o jaramillo on 02/09 - d/c with outpatient follow up with Dr. Pardo - 1 week follow up with PCP #Hypotension - BP value from today mornin/46, otherwise been in the 120-130s/60s - orthostatic vitals - not indicative of orthostatic hypotension - stable #Afib - Eliquis to be continued 02/10 - Continue home metoprolol - Continue to trend PT, INR #BPH - Continue home terazosin Dispo: home Code status: conditional code Diet: Heart healthy + T2DM DVT prophylaxis: SCDs Total Time Total Time Spent Total Time Spent (In Minutes): <30 Discharge Plan Discharge Items Patient Disposition: Home - Self-Care Reason For Visit: HEMATURIA Discharge Diagnosis: Symptomatic anemia and hematuria Condition on Discharge: Serious Activity: Per Instructions section Non-emergency contact: Primary Care Provider Call non-emergency contact if: you have any medication questions Follow-up/Referrals: Gricelda De La Rosa DO [Primary Care Provider] - 02/18/25 10:30 am (Follow up scheduled on 02/18/25 at 10:30 with Zena García) Diet: Heart Healthy Addtl Attending Provider Instructions: You were seen in the emergency room for low hemoglobin levels causing weakness and dizziness, as well as blood in your urine. You were given 3 units of blood, which helped bring your hemoglobin levels up as well as help with the dizziness. The urology team saw you in regards to the blood in your urine which was contributing to your anemia. The urologist was able to perform a procedure where they were able to cauterize vessels and transect parts of your prostate which may have caused the bleeding. Your catheter was removed and you were able to urinate independently successfully today morning. Upon discharge, please restart your Eliquis tomorrow, 02/10. You may continue all your home medications as indicated otherwise. Please follow up with Dr. Pardo, your urologist outpatient within 2-3 weeks. Please also be sure to see your PCP within a week to follow up regarding your hospital stay. As always, please reach out with any questions and thank you for allowing us to participate in your care. Pending Studies at Discharge: No Stand-Alone Forms: My [facility] [employer], Smoking Cessation Medications and DC Order Prescriptions: Continued finasteride 5 mg tablet 5 mg PO QAM Qty: 90 3RF doxycycline hyclate 100 mg capsule 100 mg PO BID Qty: 180 1RF pantoprazole 40 mg tablet,delayed release (DR/EC) 40 mg PO BID Qty: 60 5RF Rx Instructions: TAKE 1 TABLET BY MOUTH TWICE A DAY metoprolol succinate 100 mg tablet extended release 24 hr 100 mg PO QAM Qty: 90 3RF hydrocodone-acetaminophen 5-325 mg tablet 1 tab PO Q4H PRN (Reason: pain) Qty: 30 0RF cyanocobalamin (vitamin B-12) 1,000 mcg capsule 1,000 mcg PO QAM acetaminophen [Tylenol Extra Strength] 500 mg tablet 500 mg PO Q6H PRN (Reason: Pain) Trelegy Ellipta 100-62.5-25 mcg blister with device 1 inh inhalation QAM Qty: 3 3RF cholecalciferol (vitamin D3) 25 mcg (1,000 unit) capsule 50 mcg PO QAM latanoprost 0.005 % drops 1 drp ophthalmic (eye) HS timolol maleate 0.5 % drops 1 drp OPB QAM terazosin 2 mg capsule 2 mg PO QAM Held Eliquis 5 mg tablet 5 mg PO BID Qty: 180 3RF Hold Instructions: Resume on 02/10/25. Discharge Orders: Discharge Order (Routine); Ordered 02/09/25 Ordered By: Antonia Flores Admission Data Admit Date/Time: 02/06/25 14:08 Attending Provider: Martin Sapp Admit Provider: Antonia Flores Primary Care Provider: Gricelda De La Rosa Other Providers: Andres Galdamez; Merlin Pardo Other Interventions: Discharge Summary Assessment (RN) Last Done: 02/09/25 14:09 Supervising Physician Co-Signing Physician Notes I personally examined the patient and verified all burk points of history and exam, discussed case, and agree with decision making with Dr Flores feeling better blood cleared would like to go home. present, feels he's good to come home too vitals noted nad heent nc at mmm jaramillo just pulled hasn't voided yet. breathing unlabored no accessory muscles good effort skin no rashes no pallor or icterus neuro no focal deficits walks in room steady although does put hand on furniture, but mvoes swiftly hematuria - with acute/subacute blood loss anemia/symptomatic anemia with bleeding from bladder diverticulum - symptomatic anemia required 3 units PRBC transfusion, now stable. bleeding required cystoscopy, clot evacuation, TURP and loop cautery of the bleeding diverticulum - now stable for home. mild gait instability - has walker. discussed that if he's feeling like he needs to steady himself on furniture it is much safer to then use walker (he does on occasion) - expressed understanding safe/stable for home Resident Activity Tracking Resident Involvement: Resident Care Provided Care Provided: Adult Hospital Medicine
[2025-02-09] MEDS ORDERED: LATANOPROST 0.005% OP SOLN 2.5 ML BTL OPB SCH (21:00)
== END 2025-02-09 14:41 | disposition home or self-care (01) | DRG 663 ==
LOC: ED 12:30 → 4W 14:08 → SUATTDRO 14:08 → 4W 16:14